=== PATIENT | female | born 1960 | race Caucasian/White ===

== ENCOUNTER → 2017-10-23 08:25 | Outpatient (CLI) | payer OTHER, SELFPAY ==
[2017-10-23 09:52] LABS: Color, Urine Yellow (Yellow); Glucose, Dipstick Normal (Normal); Ketone-Dipstick 5 mg/dl (Negative); Leukocyte Esterase-Dipstick 500 /ul (Negative); Nitrite-Dipstick Negative (Negative); Occult Blood-Urine 150 /ul (Negative); Protein-Dipstick 30 mg/dl (Negative); Urine Clarity Sl. Cloudy (Clear); Urine Urobilinogen 4 mg/dl (Normal)
[2017-10-23 09:54] LABS: Urine Bilirubin Dipstick 3 mg/dL (Negative)
[2017-10-23 10:42] LABS: BUN 17 mg/dL (7-18); Creatinine, Serum 0.72 mg/dL (0.55-1.02); EST Glomerular Filtration Rate 88 mL/min (>60); Glucose 101 mg/dL (74-106)
[2017-10-23 10:43] LABS: ALB/GLOB Ratio 0.9 RATIO (0.9-2.4); AST(SGOT) 17 U/L (15-37); Alanine Aminotransfer ALT/SGPT 33 U/L (13-56); Albumin, Serum 3.6 g/dL (3.2-5.0); Alkaline Phosphatase 62 U/L (45-117); Anion Gap 10 (5-15); BUN/Creat Ratio 23.6 RATIO (10-20); Chloride 102 mmol/L (98-107); Cholesterol 178 mg/dL (200); Est Glom Filt Rate - Afr Amer 106 mL/min (>60); High Density Lipoprotein 64 mg/dL; Potassium 3.7 mmol/L (3.5-5.1); Protein, Total 7.6 g/dL (6.4-8.2); Sodium Level 143 mmol/L (136-145); Triglycerides 115 mg/dL; Very Low Density Lipoprotein 23 mg/dL (5-40)
== END ==
PROVIDERS: Family Provider Family Medicine; PCP Family Medicine; Visit Provider Family Medicine
DX: Z00.00 Encounter for general adult medical examination without abnormal findings (principal)
CPT/HCPCS: 36415; 80053; 80061; 81002

== ENCOUNTER → 2017-10-27 08:12 | Outpatient (CLI) | payer OTHER, SELFPAY | PROVIDERS: Family Provider Family Medicine; PCP Family Medicine; Visit Provider Family Medicine | DX: R31.9 Hematuria, unspecified (principal) | CPT/HCPCS: 87077; 87086; 87088 ==

== ENCOUNTER 2017-10-28 10:28 | Observation (INO) | payer OTHER, SELFPAY ==
--- NOTE | 2017-10-09 06:39 | PCM.HP.BLA ---
History and Physical DATE OF SURGERY: 10/28/2017 SCHEDULED PROCEDURE: Right total knee arthroplasty HISTORY OF PRESENT ILLNESS: This is a 57-year-old female who has been having ongoing pain in bilateral knees for several years duration. Patient's pain is aching and sharp. She has increased pain going up and down stairs and walking any amount of distance. Patient has difficult time with activities of daily living including housework, shopping, and exercise. She has fallen secondary to her knee pain. Patient feels unsafe climbing on steps or stools. Patient has tried conservative measures consisting of rest, ice, heat, elevation, and cortisone injections with no relief in symptoms. Patient has also been through physical therapy and home exercises with no relief in symptoms. 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 Patient has tried oral medications consisting of Mobic, Celebrex, and steroids with no relief in symptoms. Patient has been worked up for rheumatoid arthritis which has been ruled out. Pain is primarily located over the medial joint line bilaterally. Patient denies previous surgery on bilateral knees. After failing conservative measures and discussing all treatment options with Dr. Wiliam Shea, the patient would like to proceed with a right total knee arthroplasty. We'll obtain surgical clearance from patient's primary care physician. She currently denies any chest pain, shortness of breath, fevers chills, or recent infections.. REVIEW OF SYSTEMS: ROS: Const: Denies anorexia, anxiety, change in appetite, fever, hard of hearing, vision problems and weight change. CV: Reports heart murmur, but denies chest pain, irregular heartbeat and peripheral vascular disease. Resp: Denies asthma, cough, pneumonia, sleep apnea, SOB, tuberculosis and wheezing. GI: Denies constipation, diarrhea, difficulty swallowing, heartburn, nausea, bloody stools and vomiting. : Urinary: denies incontinence. Musculo: Denies leg swelling, limp, trouble walking and weakness. Skin: Denies Raynaud's, history of shingles and tattoo. Neuro: Denies ambulatory dysfunction, dizziness, numbness/tingling and tremor. Psych: Denies anxiety, depression, insomnia, mental illness and stress. Raymond/Lymph: Denies anemia, bleeding/bruising tendency and past transfusion. Reviewed, no changes. PAST MEDICAL HISTORY: Advance Care Plan: Other Directive, LIVING WILL Effective Date: 09/22/2016 Other Directive, POA Effective Date: 09/22/2016 PMH: Medical Problems: Arthritis, High Blood Pressure Accidents: RT Foot Injury - (05/28/2012) WORK RELATED Surgical Hx: Section - 1982, 1986 Tubal Ligation - (1990) Anesthesia Complications: None Assistive Devices: Glasses Reviewed, no changes. 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 Personal Habits: Smoking: Patient is a former smoker.Cigarette Use: Former.Alcohol: Denies use.Drug Use: Denies Use.Enjoy Exercising: Daily. Reviewed, no changes. VITALS: Ht: 65.5 Wt: 268lb Wt k.565 BMI: 43.9 BP: 164/88 Pulse: 74 Resp: 16 T: 97.7 T: 36.5C ALLERGIES: No Known Drug Allergy MEDICATIONS: Methylprednisolone 4 mg as directed, Celecoxib 200 mg 1 tab by mouth daily with food, Prozac 20 mg 3 caps PO daily, Indapamide 1.25 mg 1 tab PO daily, Hyzaar 50-12.5 mg 1po qday PRE-OP EXAM: General appearance:NORMAL Other: Eyes: Conjunctivae and lids: NORMAL Pupils: ERR Ears, Nose, Mouth, and Throat: NORMAL Other: Inspection of lips, teeth and gums: NORMAL Other: Neck: Examination of neck: no masses noted. Respiratory: Assessment of respiratory effort: NORMAL Other: Auscultation of lungs: clear to auscultation no wheezes, rhonchi or rales. Cardiovascular: Auscultation of heart: regular rate and rhythm, no murmurs, gallops or rubs. Exam of carotid arteries: NORMAL Other: Gastrointestinal: Exam of abdomen: soft, nontender, nondistended bowel sounds present. PHYSICAL EXAMINATION: Patient walks with a limping gait. She has tenderness to palpation on the right knee over the medial joint line. Range of motion is 0 of extension to 110 of flexion. Patient has stable varus valgus stress test at 30. Pseudo-laxity appreciated. Sensation intact to light touch. Right knee is cool to touch without erythema or signs of infection. IMAGING STUDIES: X-rays were obtained at [facility] on October 08, 2017 of bilateral knees including weightbearing bilateral AP/tunnel, bilateral sunrise, and bilateral lateral views. There are no acute findings for fracture or dislocation. No lytic or blastic lesions. Right knee reveals severe joint space narrowing with [id number] of the medial compartment with subchondral sclerosis and osteophyte formation. Bryan view reveals joint space narrowing, subchondral sclerosis, osteophyte formation of the patellofemoral joint. Left knee reveals severe joint space narrowing with [id number] of the medial compartment was subchondral sclerosis and osteophyte formation. Bryan view also reveals joint space narrowing, subchondral sclerosis and osteophyte formation at patellofemoral joint. IMPRESSION: 1. Severe right knee osteoarthritis 2. Severe left knee osteoarthritis 3. Hypertension PLAN: Dr. Shea did discuss and review with the patient all treatment options including surgical versus nonsurgical options. Patient does wish to proceed with the above-stated procedure. Potential risks, benefits, and complications of the procedure were discussed in detail including but not limited to , infection, nerve and blood vessel damage, persistent pain, numbness, tingling, paresthesias, blood clot, pulmonary embolism, and requirement for possible further surgery. The patient expressed full understanding and has no further questions for the doctor. Patient does agree to proceed with the above-stated procedure and has signed the surgery consent form. ___ I have re-examined the patient. There are no clinical changes since date of exam. ___ See progress notes for changes. ___ Dictated on admission Date: Time: Signature:
[2017-10-14 14:17] VITALS: BP 148/81; PULSE 74; RESP 16; TEMP 36.9; O2SAT 95; BMI 46.0
[2017-10-14 15:10] LABS: Absolute Lymphocyte Count 4.51 X10^3/ul (0.83-4.51); Absolute Neutrophil Count 5.6 X10^3/uL (2.0-7.7); Basophil# 0.05 X10^3/uL; Basophil% 0.4 % (0-1); Eosinophil# 0.33 X10^3/uL; Hematocrit 40.2 % (37-47); Hemoglobin 12.8 g/dl (12.0-15.0); Lymphocyte # 4.51 X10^3/ul (4.0); Lymphocyte % 40.3 % (19-41); Mean Corp Hgb Conc 31.8 g/gl (32-36); Mean Corpuscular Volume 94.1 fL (81-99); Mean Platelet Vol. 9.9 fl (6.2-12.0); Monocyte# 0.71 X10^3/uL; Monocyte% 6.4 % (0-10); Neutrophil # 5.56 X10^3/uL (2.7-7.7); Neutrophil % 49.7 % (47-70); Platelet Count 303 K/mm3 (150-450); RBC Distribution Width CV 13.3 % (11.6-14.6); RBC Distribution Width SD 45.5 fl (35.1-43.9); Red Blood Count 4.27 M/mm3 (4.2-5.4); White Blood Count 11.2 K/mm3 (4.4-11.0)
[2017-10-14 15:20] LABS: Anion Gap 10 (5-15); BUN 19 mg/dL (7-18); BUN/Creat Ratio 25.5 RATIO (10-20); Calcium,Total 9.2 mg/dL (8.5-10.1); Chloride 101 mmol/L (98-107); Creatinine, Serum 0.75 mg/dL (0.55-1.02); EST Glomerular Filtration Rate 85 mL/min (>60); Est Glom Filt Rate - Afr Amer 102 mL/min (>60); Estimated Creatinine Clearance 72.68 ml/min; Glucose 114 mg/dL (74-106); Potassium 3.1 mmol/L (3.5-5.1); Sodium Level 140 mmol/L (136-145)
[2017-10-14 15:21] LABS: POSITIVE COUNT NO; POSITIVE DIFFERENTIAL NO; POSITIVE MORPHOLOGY NO
--- NOTE | 2017-10-23 13:08 | CASEMGMT ---
Voicemail left for patient to return call regarding discharge needs after upcoming surgery. Liv Villanueva LPN Clinical Support
--- NOTE | 2017-10-23 13:31 | CASEMGMT ---
Patient returned phone call. Patient plans to return home after surgery, does have someone who will be able to assist. Has outpatient physical therapy set up for 11/02/17 at [facility] and has someone that's able to assist with transportation. Patient has a walker, toilet riser, shower seat. Patient has 3 steps into home and bed/bath are on 1st floor. Informed patient that RN-CM will likely follow up while in hospital. Liv Villanueva LPN Clinical Support
[2017-10-28] VITALS (11 sets, daily range): BP systolic 148–164; BP diastolic 66–90; PULSE 68–81; RESP 16–18; TEMP 36.6–37.3; O2SAT 90–99; BMI 46.0
[2017-10-28] MEDS: oxyCODONE HCl Cr 10 MG Tablet PO (09:12)
[2017-10-28] MEDS: Celecoxib 200 MG Capsule 400 MG PO (09:12)
[2017-10-28] MEDS: Acetaminophen 500 MG Tablet 1000 MG PO ×2 (09:12→22:05)
[2017-10-28] MEDS: Lactated Ringers 1,000 ML 999 ML IV ×2 (09:39→13:07)
--- NOTE | 2017-10-28 10:29 | RAD_ITS ---
STUDY: X-RAY - RIGHT KNEE REASON FOR EXAM: Female, 57 years old. Postop from right knee replacement surgery TECHNIQUE: 2 view(s) of the knee. COMPARISON: None. FINDINGS: Patient is status post right knee replacement surgery. Components demonstrate anatomic alignment. No plain film evidence of postoperative complication. Normal postoperative soft tissue swelling, and subcutaneous emphysema noted. RAD/Knee 1 or 2 Views IMPRESSION: Replaced right knee joint demonstrates anatomic alignment. No plain film evidence of postoperative complication Electronically Signed: Tank Jackson MD at 13:05 EDT , Service support ,
--- NOTE | 2017-10-28 11:42 | PCM.OPRPT ---
Report of Operation Date of Procedure: 10/28/17 Pre-Operative Diagnosis: Right knee primary Osteoarthritis Post-Operative Diagnosis: Right knee primary Osteoarthritis Surgery/Procedure Performed:: Right total knee replacement Description of Surgical Findings:: Stable knee with good patella tracking retail wireless sales representative: Keturah Graham Type of Anesthesia:: Spinal Anesthesiologist: Fermin Santillan Special Medications: 2 g Ancef, 1 g TXA at incision, 1 g TXA closure, 10 mg Decadron, joint cocktail (5 mg Duramorph, 30 mL of 0.5% Ropivicaine, 1000 units of epinephrine, 30 mg of Toradol) Specimen's removed: Bony cuts Estimated Blood Loss (mL): 50 Fluids Replaced: 1300 ml crystalloid Description of Procedure: Implants used: 1. [place] size 3 press-fit triathlon cruciate retaining distal femoral component 2. [place] size 3 press-fit tibial baseplate 3. [place] X3 9 mm CS polyethylene 4. Bala X3 35 mm asymmetric patella Brief history operative indications: 57-year-old f with history of Right knee osteoarthritis with radiographic findings with loss of joint space, osteophyte formation and subchondral sclerosis. Failed conservative measures as mentioned in the H&P. Discussion of total knee arthroplasty as well as risk and benefits were discussed the patient including but not limited to blood loss, DVTs, PEs, neurovascular damage, general risk of anesthesia including loss of life, and stiffness or instability were discussed with patient. Patient demonstrated understanding and was able to sign informed consent. Procedure: On the date of procedure patient's right lower extremity was marked in the preoperative area. The patient was then taken back to the operating room where the patient was placed on the table in the supine position. All bony prominences were identified a well-padded. Anesthesia assumed control of the C-spine and airway and remained controlled throughout the remainder of the procedure. A tourniquet was placed on the right upper thigh and the leg was prepped in a sterile fashion. The surgeon then scrubbed at this time .Upon reentering the room right lower extremity was draped in a standard orthopedic fashion. A timeout was then called and everyone agreed upon the side, the site, the procedure to be performed, patient's identity and antibiotics given. Esmarch bandage was used to exsanguinate the extremity and the tourniquet was placed up to 250 mmHg with the knee in flexion. A midline skin incision was made and sharp dissection was taken down through skin subcutaneous tissue and fat. The standard medial parapatellar incision was made and the patella was subluxed laterally. The standard deep MCL release was done and the fat pad was resected. Next our attention was directed to the femur. Navigation pins were placed, navigation was registered. The distal femoral cutting block was pinned into place and 8 mm of distal femur resection was completed. The distal femoral cut was verified with navigation. The knee was then placed in deep flexion in the standard [place] sizing guide was used to place the femoral component in 3? external rotation based on the posterior condyles. A size 3 4-in-1 cutting block was selected and pinned into place. The anterior cut was then made and checked for notching. The subsequent anterior chamfer cuts, posterior condylar cuts and posterior chamfer cuts were made while ensuring the MCL and LCL were protected. Our attention was then turned to the tibia where the navigation pins were placed, navigation was registered. [place] tibial cutting guide was used to make the appropriate tibial cut 90 degrees from the mechanical axis. Navigation was then used to verify the cut. A size 3 tibial base plate was selected. the knee was flexed to 90 degrees and the soft tissues and posterior osteophytes were removed from the joint. 40 cc of the periarticular injection was injected into the posterior medial corner of the joint. The appropriate trials were then placed on the femur and tibia. A trial polyethylene was trialed to ensure proper balancing and stability of the knee. Patella tracking, was then verified and corrected appropriately as needed. The appropriate tibial internal rotation was then marked with a bovie. Our attention was then directed to the patella. The patella was everted and a flat resection was made. The lug holes were drilled and the patella trial was placed. Patellar tracking was checked and deemed appropriate. Once we were happy lug holes were drilled for the femur and trial components were removed. Cement was mixed at this time and the tourniquet was let down the tibia was subluxed and pinned into place and the keel was punched and the canal was reamed. Final components were verified and opened, and cement was mixed in a vacuum. [place] Simplex cement was used. The wound was copiously irrigated with normal saline. When the cement was ready the press-fit components were impacted into place starting with the tibia, femur and finally the patella cemented into place. The trial poly component was placed and the knee was placed in full extension. All excess cement was removed in the process. Once the cement had cured the tracking, alignment and balance were verified and a size 9 mm polyethylene component was placed. Once the final components were placed the wound was copiously irrigated with normal saline solution and the periarticular injection was given. The wound was closed in a layer gallardo fashion using #1 vicryl interrupted sutures for the arthrotomy, 2-0 interrupted Vicryl suture for the subcuticular layer and torres for final skin closure. A sterile compressive dressing was then placed. The patient was then awakened from anesthesia, transferred to the rvining and transferred to the PACU for recovery. Post op plan DVT ppx: ASA 81 mg, thigh high compression stockings Follow up: in office in 2 weeks for wound check PT: to start POD #0 at hospital, outpatient PT should be arranged. Grafts/Implants Used: Bala triathlon total knee - Complications None - Admit VTE Documentation VTE Present on Admission: No VTE Mechan Device Prophylaxis: SCD's, Thigh High BATOOL Hose VTE Pharm Prophylaxis ordered?: Yes
--- NOTE | 2017-10-28 11:45 | OP.PCM_ITS ---
Report of Operation Date of Procedure: 10/28/17 Pre-Operative Diagnosis: Right knee primary Osteoarthritis Post-Operative Diagnosis: Right knee primary Osteoarthritis Surgery/Procedure Performed:: Right total knee replacement Description of Surgical Findings:: Stable knee with good patella tracking residence leasing agent: Keturah Graham Type of Anesthesia:: Spinal Anesthesiologist: Fermin Santillan Special Medications: 2 g Ancef, 1 g TXA at incision, 1 g TXA closure, 10 mg Decadron, joint cocktail (5 mg Duramorph, 30 mL of 0.5% Ropivicaine, 1000 units of epinephrine, 30 mg of Toradol) Specimen's removed: Bony cuts Estimated Blood Loss (mL): 50 Fluids Replaced: 1300 ml crystalloid Description of Procedure: Implants used: 1. [place] size 3 press-fit triathlon cruciate retaining distal femoral component 2. [place] size 3 press-fit tibial baseplate 3. [place] X3 9 mm CS polyethylene 4. Bala X3 35 mm asymmetric patella Brief history operative indications: 57-year-old f with history of Right knee osteoarthritis with radiographic findings with loss of joint space, osteophyte formation and subchondral sclerosis. Failed conservative measures as mentioned in the H&P. Discussion of total knee arthroplasty as well as risk and benefits were discussed the patient including but not limited to blood loss, DVTs, PEs, neurovascular damage , general risk of anesthesia including loss of life, and stiffness or instability were discussed with patient. Patient demonstrated understanding and was able to sign informed consent. Procedure: On the date of procedure patient's right lower extremity was marked in the preoperative area. The patient was then taken back to the operating room where the patient was placed on the table in the supine position. All bony prominences were identified a well-padded. Anesthesia assumed control of the C- spine and airway and remained controlled throughout the remainder of the procedure. A tourniquet was placed on the right upper thigh and the leg was prepped in a sterile fashion. The surgeon then scrubbed at this time .Upon reentering the room right lower extremity was draped in a standard orthopedic fashion. A timeout was then called and everyone agreed upon the side, the site, the procedure to be performed, patient's identity and antibiotics given. Esmarch bandage was used to exsanguinate the extremity and the tourniquet was placed up to 250 mmHg with the knee in flexion. A midline skin incision was made and sharp dissection was taken down through skin subcutaneous tissue and fat. The standard medial parapatellar incision was made and the patella was subluxed laterally. The standard deep MCL release was done and the fat pad was resected. Next our attention was directed to the femur. Navigation pins were placed, navigation was registered. The distal femoral cutting block was pinned into place and 8 mm of distal femur resection was completed. The distal femoral cut was verified with navigation. The knee was then placed in deep flexion in the standard [place] sizing guide was used to place the femoral component in 3? external rotation based on the posterior condyles. A size 3 4-in-1 cutting block was selected and pinned into place. The anterior cut was then made and checked for notching. The subsequent anterior chamfer cuts, posterior condylar cuts and posterior chamfer cuts were made while ensuring the MCL and LCL were protected. Our attention was then turned to the tibia where the navigation pins were placed , navigation was registered. [place] tibial cutting guide was used to make the appropriate tibial cut 90 degrees from the mechanical axis. Navigation was then used to verify the cut. A size 3 tibial base plate was selected. the knee was flexed to 90 degrees and the soft tissues and posterior osteophytes were removed from the joint. 40 cc of the periarticular injection was injected into the posterior medial corner of the joint. The appropriate trials were then placed on the femur and tibia. A trial polyethylene was trialed to ensure proper balancing and stability of the knee. Patella tracking, was then verified and corrected appropriately as needed. The appropriate tibial internal rotation was then marked with a bovie. Our attention was then directed to the patella. The patella was everted and a flat resection was made. The lug holes were drilled and the patella trial was placed. Patellar tracking was checked and deemed appropriate. Once we were happy lug holes were drilled for the femur and trial components were removed. Cement was mixed at this time and the tourniquet was let down the tibia was subluxed and pinned into place and the keel was punched and the canal was reamed. Final components were verified and opened, and cement was mixed in a vacuum. [place] Simplex cement was used. The wound was copiously irrigated with normal saline. When the cement was ready the press-fit components were impacted into place starting with the tibia, femur and finally the patella cemented into place. The trial poly component was placed and the knee was placed in full extension. All excess cement was removed in the process. Once the cement had cured the tracking , alignment and balance were verified and a size 9 mm polyethylene component was placed. Once the final components were placed the wound was copiously irrigated with normal saline solution and the periarticular injection was given. The wound was closed in a layer gallardo fashion using #1 vicryl interrupted sutures for the arthrotomy, 2-0 interrupted Vicryl suture for the subcuticular layer and torres for final skin closure. A sterile compressive dressing was then placed. The patient was then awakened from anesthesia, transferred to the rlovilia and transferred to the PACU for recovery. Post op plan DVT ppx: ASA 81 mg, thigh high compression stockings Follow up: in office in 2 weeks for wound check PT: to start POD #0 at hospital, outpatient PT should be arranged. Grafts/Implants Used: [place] triathlon total knee - Complications None - Admit VTE Documentation VTE Present on Admission: No VTE Mechan Device Prophylaxis: SCD's, Thigh High BATOOL Hose VTE Pharm Prophylaxis ordered?: Yes
--- NOTE | 2017-10-28 12:24 | EKG12_ITS ---
Test Reason : POST OP Blood Pressure : / mmHG Vent. Rate : 081 BPM Atrial Rate : 081 BPM P-R Int : 198 ms QRS Dur : 080 ms QT Int : 388 ms P-R-T Axes : 073 025 232 degrees QTc Int : 450 ms Normal sinus rhythm ST & T wave abnormality, consider anterolateral ischemia Abnormal ECG When compared with ECG of 14-OCT-2017 13:29, ST now depressed in Anterior leads Nonspecific T wave abnormality now evident in Inferior leads T wave inversion now evident in Anterior leads Confirmed by BRODIE ANTHONY, MCKAY ([id number]), pictures editor LINDA BARR ([id number]) on 10/29/2017 2:39:13 PM Referred By: Wiliam Shea Confirmed By:MCKAY CALLOWAY MD
[2017-10-28] MEDS: Scopolamine 1mg/72hr Patch 1 PATCH TD (13:08)
[2017-10-28] MEDS: Lactated Ringers 1,000 ML 125 ML IV (16:39)
[2017-10-28] MEDS: proMETHazine 25 MG/ML Syringe 12.5 MG IM (16:40)
[2017-10-28] MEDS: oxyCODONE 5 MG Tablet PO ×2 (16:41→22:07)
[2017-10-28] MEDS: 0.9% NaCl Peripheral Flush Adult/Peds IV (16:41)
[2017-10-28] MEDS: Cefazolin 1 GM/50 ML BAG IV (18:28)
[2017-10-28] MEDS: Ketorolac 15 MG/ML Vial IV (21:10)
[2017-10-28] MEDS: Aspirin 81 MG TAB.CHEW PO (22:05)
[2017-10-28] MEDS: FLUoxetine 20 MG Capsule 60 MG PO (22:06)
[2017-10-28] MEDS: Losartan Potassium 50 MG Tablet PO (22:07)
[2017-10-28] MEDS: Senna/Docusate Sodium 1 Tablet 2 TABLET PO (22:07)
[2017-10-28] MEDS: HYDROCHLOROTHIAZIDE 12.5 MG CAPSULE PO (22:07)
[2017-10-28] MEDS: Indapamide 2.5 MG Tablet 1.25 MG PO (22:12)
[2017-10-29 02:30] VITALS: BP 144/81; PULSE 65; RESP 16; TEMP 37.2; O2SAT 96
[2017-10-29] MEDS: oxyCODONE 5 MG Tablet PO ×3 (02:32→12:39)
[2017-10-29] MEDS: Cefazolin 1 GM/50 ML BAG IV (02:33)
[2017-10-29] MEDS: Ketorolac 15 MG/ML Vial IV (06:27)
[2017-10-29] MEDS: Acetaminophen 500 MG Tablet 1000 MG PO ×2 (06:29→13:51)
[2017-10-29 06:30] LABS: Hematocrit 34.4 % (37-47); Mean Corpuscular Hgb 30.6 pg (27.0-32.0); Mean Corpuscular Volume 95.8 fL (81-99); Mean Platelet Vol. 9.9 fl (6.2-12.0); Platelet Count 231 K/mm3 (150-450); RBC Distribution Width CV 13.1 % (11.6-14.6); RBC Distribution Width SD 44.1 fl (35.1-43.9); Red Blood Count 3.59 M/mm3 (4.2-5.4); White Blood Count 9.2 K/mm3 (4.4-11.0)
[2017-10-29 06:31] LABS: Scan Indicated on CBC? Y/N NO
[2017-10-29] MEDS: Ondansetron 4 MG/2 ML Vial IV (06:39)
[2017-10-29 06:45] LABS: Anion Gap 7 (5-15); BUN 16 mg/dL (7-18); BUN/Creat Ratio 22.5 RATIO (10-20); Calcium,Total 8.6 mg/dL (8.5-10.1); Chloride 100 mmol/L (98-107); Creatinine, Serum 0.71 mg/dL (0.55-1.02); EST Glomerular Filtration Rate 90 mL/min (>60); Est Glom Filt Rate - Afr Amer 108 mL/min (>60); Estimated Creatinine Clearance 76.77 ml/min; Glucose 116 mg/dL (74-106); Potassium 3.8 mmol/L (3.5-5.1); Sodium Level 141 mmol/L (136-145)
[2017-10-29] MEDS: 0.9% NaCl Peripheral Flush Adult/Peds IV (07:42)
[2017-10-29] MEDS: Morphine 2 MG/ML Syringe IV (07:42)
--- NOTE | 2017-10-29 09:35 | PCM.PN.ORT ---
Subjective: The patient was in physical therapy upon examination. Patient denies any chest pain, shortness of breath, dizziness, lightheadedness, nausea or vomiting, or calf pain. Patient does report pain in the right knee as well as right thigh. Medications are helpful, reports her pain to be 4-5/10. No adverse overnight events. Patient states she does wish to try to go home this afternoon if pain is controlled and she is tolerating physical therapy. Objective: Vital signs stable and afebrile. Patient is able to plantarflex and dorsiflex actively. Sensation is intact to light touch to saphenous, sural, superficial and deep peroneal, and tibial distribution. Dressing is with minimal discharge. The proximal dressing has rolled up. Nursing will place new dressing. Negative Homans bilaterally, negative signs and symptoms of DVT. - Physical Exam General: Alert, Oriented x3, Cooperative, No apparent distress Vital Signs Temp Pulse Resp BP Pulse Ox 98.9 F 65 16 144/81 H 96 10/29/17 02:30 10/29/17 02:30 10/29/17 02:30 10/29/17 02:30 10/29/17 02:30 Oxygen Delivery Method Room Air Weight: 127.6 kg Body Mass Index (BMI) 46.0 Intake and Output for Last 24 Hours 10/27/17 10/28/17 10/29/17 23:59 23:59 23:59 Intake Total 3526 / 3526 1632 / 1632 Balance 3526 / 3526 1632 / 1632 Laboratory Tests Past 24 Hrs 10/29/17 10/29/17 05:55 05:55 WBC 9.2 RBC 3.59 L Hgb 11.0 L Hct 34.4 L MCV 95.8 MCH 30.6 MCHC 32.0 RDW 13.1 RDW Differential 44.1 H Plt Count 231 MPV 9.9 Sodium 141 Potassium 3.8 Chloride 100 Carbon Dioxide 34.0 H Anion Gap 7 BUN 16 Creatinine 0.71 Estim Creat Clear Calc 76.77 Est GFR (MDRD) Af Amer 108 Est GFR (MDRD) Non-Af 90 BUN/Creatinine Ratio 22.5 H Glucose 116 H Calcium 8.6 Medical Necessity - Tobacco Use Smoking Status: Former smoker Assessment/Plan 1. S/P right total knee arthroplasty POD #1 2. Continue Pain Medications: Tylenol and OxyIR 3. DVT Prophylaxis: Aspirin 81 mg twice daily ?4 weeks 4. PT/OT: Weightbearing as tolerated 5. H & H: 11.0/34.4, asymptomatic 6. Encouraged Incentive Spirometry 7. Disposition: Plan will be for possible discharge home today if pain is controlled on medications and patient tolerates physical therapy. Prescriptions will be E scribed to [facility]. Patient will follow-up per postop instructions.
--- NOTE | 2017-10-29 09:42 | PCM.DC.TKR ---
Discharge Diet: No Restrictions Discharge Activity: May Not Drive May shower in (days): 1 - Turned dressing away from water Ice area for (Minutes): 20 - every hour while awake. Weight Bearing Status: Weight bearing as tolerated Elevate: Operative Extremity Additional Activity Instructions:: Wear elastic stockings for 2 weeks after your surgery. Call your doctor if your incision/area has: Continuous Slow Oozing, Sudden Increased Bleeding, Increased Pain/ Swelling, Increased Redness, Foul Smelling Discharge Call your doctor if you observe: Fever of 101 or Higher, Coldness, Increased Pain, Numbness or Tingling, Change in Color, Calf discomfort, Uncontrolled pain Remove Dressing in (days):: 4 - Okay to remove dressing on November 02, 2017 Additional Instructions: Follow [facility] [place] postop instructions Allergies/Adverse Reactions: Allergies No Known Allergies Allergy (Verified 10/14/17 14:01) Medications to take at Discharge Celecoxib [Celebrex] 200 mg PO BID 10/14/17 Fluoxetine HCl [Prozac] 60 mg PO QHS 10/14/17 Indapamide 1.25 mg PO QHS 10/14/17 Losartan/Hydrochlorothiazide [Losartan-Hctz 50-12.5 mg Tab] 1 each PO QHS 10/14/17 Potassium Chloride [Klor-Con M20] 20 meq PO DAILY 10/20/17 Acetaminophen [Tylenol] 1,000 mg PO Q8 #90 tab 10/29/17 Aspirin [Aspirin, Baby] 81 mg PO BID #60 tab.chew 10/29/17 Famotidine [Pepcid] 20 mg PO DAILY #30 tab 10/29/17 Oxycodone [Oxyir] 5 - 10 mg PO Q4H PRN PRN 7 Days #80 tablet 10/29/17 Senna/Docusate Sodium [Senokot-S] 2 tab PO BID #20 tab 10/29/17 The following prescriptions were given: Oxycodone [Oxyir] 5 - 10 mg PO Q4H PRN PRN 7 Days #80 tablet PRN Reason: Mod-Severe Pain (-11/18) Acetaminophen [Tylenol] 1,000 mg PO Q8 #90 tab Famotidine [Pepcid] 20 mg PO DAILY #30 tab Aspirin [Aspirin, Baby] 81 mg PO BID #60 tab.chew Senna/Docusate Sodium [Senokot-S] 2 tab PO BID #20 tab Primary Care Physician: Jayjay Capps MD [Primary Care Provider] - Test Results: Test results from this visit will be discussed in further detail at your follow-up appointment, if applicable. Please Follow Up With: [facility] When: 11/02/17 @ 9:30 am Please Follow Up With: Jayjay Díaz PA-C When: 11/11/17 @ 10:00 am
[2017-10-29 09:43] VITALS: BP 125/70; PULSE 75; RESP 16; TEMP 36.8; O2SAT 98
[2017-10-29] MEDS: Famotidine 20 MG Tablet PO (09:53)
[2017-10-29] MEDS: Aspirin 81 MG TAB.CHEW PO (09:53)
[2017-10-29] MEDS: Senna/Docusate Sodium 1 Tablet 2 TABLET PO (09:54)
--- NOTE | 2017-10-29 12:09 | CASEMGMT ---
RN CM Note: Intro role of CM to patient in room. Reviewed dc plans of home on dc with outpt PT. Pt has equipment for home, transportation and appt for PT on thursday. Rickey LIMA RN ACM
[2017-10-29 13:52] VITALS: BP 154/71; PULSE 76; RESP 16; TEMP 37.3; O2SAT 96
== END 2017-10-29 16:12 | disposition home or self-care (01) ==
PROVIDERS: Admitting Provider Specialist; Family Provider Family Medicine; PCP Family Medicine; Visit Provider Specialist
PROC: (CPT 27447; principal; 2017-10-28 10:15)
DX: M17.0 Bilateral primary osteoarthritis of knee (principal); Z87.891 Personal history of nicotine dependence; I10 Essential (primary) hypertension; Z79.899 Other long term (current) drug therapy; F32.9 Major depressive disorder, single episode, unspecified
CPT/HCPCS: 01400; 27447; 64445; 36415; 73560; 80048; 85025; 85027; 87077; 87081; 93005; 96361; 96365; 96366; 96375; 96376; 97110; 97162; 97165; 97530; 97535; 99218; 99251; C1776; J7120; A4216; G0378; G0379; G0463; J2405

== ENCOUNTER 2018-02-03 12:23 | Observation (INO) | payer OTHER, SELFPAY ==
[2017-10-28 09:04] VITALS: BMI 46.0
--- NOTE | 2018-01-21 13:36 | HP.PCM_ITS ---
History and Physical DATE OF SURGERY: 02/03/2018 SCHEDULED PROCEDURE: Left total knee arthroplasty HISTORY OF PRESENT ILLNESS: This is a 57-year-old female who has been having ongoing pain in bilateral knees for proximally for years. Patient recently underwent a right total knee arthroplasty on October 28, 2017. She is doing well from this procedure. She continues to have ongoing pain in the left knee. Pain is increased with going up and down stairs and walking any amount of distance. She has difficult time with activities of daily living including housework, shopping, and leisure activities. Patient has tripped/stumbled secondary to her knee pain. She has tried conservative measures consisting of rest, ice, heat, elevation, corticosteroid injection with no relief in symptoms. Patient has had formal physical therapy and home exercises with no relief in symptoms. She has been to [facility] managed care with no relief in symptoms. She has tried oral medications consisting of [id number] aspirin, prednisone, Celebrex with minimal to no relief. Patient denies previous surgery on the left knee. Patient denies any recent change in medical history. No recent chest pain, shortness of breath, fevers chills, recent infections. After failing conservative measures and discussing treatment options with Dr. Wiliam Shea, the patient would like to proceed with a left total knee arthroplasty. REVIEW OF SYSTEMS: ROS: Const: Denies anorexia, anxiety, change in appetite, fever, hard of hearing, vision problems and weight change. CV: Reports heart murmur, but denies chest pain, irregular heartbeat and peripheral vascular disease. Resp: Denies asthma, cough, pneumonia, sleep apnea, SOB, tuberculosis and wheezing. GI: Denies constipation, diarrhea, difficulty swallowing, heartburn, nausea, bloody stools and vomiting. : Urinary: denies incontinence. Musculo: Denies leg swelling, limp, trouble walking and weakness. Skin: Denies Raynaud's, history of shingles and tattoo. Neuro: Denies ambulatory dysfunction, dizziness, numbness/tingling and tremor. Psych: Reports depression and stress, but denies anxiety, insomnia and mental illness. Raymond/Lymph: Denies anemia, bleeding/bruising tendency and past transfusion. Reviewed, no changes. PAST MEDICAL HISTORY: Advance Care Plan: Other Directive, LIVING WILL Effective Date: 09/22/2016 Other Directive, POA Effective Date: 09/22/2016 PMH: Medical Problems: Arthritis, High Blood Pressure Accidents: RT Foot Injury - (05/28/2012) WORK RELATED Surgical Hx: Section - 1982, 1986 Tubal Ligation - (1990) RT TKR - (10/28/2017) SAW @ [facility] Anesthesia Complications: None Assistive Devices: Glasses Reviewed, no changes. 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 Personal Habits: Smoking: Patient is a former smoker.Cigarette Use: Former.Alcohol: Denies use.Drug Use: Denies Use.Enjoy Exercising: Daily. Reviewed, no changes. VITALS: Ht: 67 Wt: 260lb Wt [id number] BMI: 40.7 BP: 142/84 Pulse: 68 Resp: 16 T: 98.6 T: 37.0C ALLERGIES: No Known Drug Allergy MEDICATIONS: Potassium 1 po daily, Prozac 20 mg 3 caps PO daily, Indapamide 1.25 mg 1 tab PO daily, Hyzaar 50-12.5 mg 1po qday, Tylenol Extra Strength 500 mg 2 by mouth every 8 hours PRE-OP EXAM: General appearance:NORMAL Other: Eyes: Conjunctivae and lids: NORMAL Pupils: ERR Ears, Nose, Mouth, and Throat: NORMAL Other: Inspection of lips, teeth and gums: NORMAL Other: Neck: Examination of neck: no masses noted. Respiratory: Assessment of respiratory effort: NORMAL Other: Auscultation of lungs: clear to auscultation no wheezes, rhonchi or rales. Cardiovascular: Auscultation of heart: regular rate and rhythm, no murmurs, gallops or rubs. Exam of carotid arteries: NORMAL Other: Gastrointestinal: Exam of abdomen: soft, nontender, nondistended bowel sounds present. Lymphatic: Palpation of nodes in neck: NORMAL Other: Palpation of nodes in Axillae: NORMAL Other: Neurological: see below Psychiatric: Orientation to time, place and person: NORMAL Other: Mood and affect: NORMAL Other: PHYSICAL EXAMINATION: Left knee is cool to touch without erythema. No signs of infection. Range of motion left knee 0 of extension to 110 flexion. Patient is stable to varus and valgus stress test. Negative anterior/posterior drawer. Negative Homans bilaterally. Good strength. Sensation intact to light touch. Right knee incision well-healed without erythema or signs of infection. IMAGING STUDIES: X-rays were obtained on October 08, 2017 [facility] [place] of the left knee which does reveal severe joint space narrowing with [id number] of the medial compartment with subchondral sclerosis and osteophyte formation. [place] view also reveals joint space narrowing with subchondral sclerosis and osteophyte formation of the patellofemoral joint. IMPRESSION: 1. Severe left knee osteoarthritis 2. Three-month postop from right total knee arthroplasty 3. Hypertension PLAN: Dr. Wiliam Shea did discuss and review with the patient all treatment options including surgical versus nonsurgical options. Patient does wish to proceed with the above-stated procedure. Potential risks, benefits, and complications of the procedure were discussed in detail including but not limited to , infection, nerve and blood vessel damage, persistent pain, numbness, tingling, paresthesias, blood clot, pulmonary embolism, and requirement for possible further surgery. The patient expressed full understanding and has no further questions for the doctor. Patient does agree to proceed with the above-stated procedure and has signed the surgery consent form. This dictation was created using voice recognition software. Phonetic and/or grammatical errors may exist.. ___ I have re-examined the patient. There are no clinical changes since date of exam. ___ See progress notes for changes. ___ Dictated on admission Date: Time: Signature:
[2018-01-21 15:16] VITALS: BP 154/88; PULSE 76; RESP 18; TEMP 37.6; O2SAT 94; BMI 42.0
--- NOTE | 2018-01-21 15:51 | EKG12_ITS ---
Test Reason : Blood Pressure : / mmHG Vent. Rate : 074 BPM Atrial Rate : 074 BPM P-R Int : 168 ms QRS Dur : 086 ms QT Int : 402 ms P-R-T Axes : 060 -03 106 degrees QTc Int : 446 ms Normal sinus rhythm Possible Left atrial enlargement Nonspecific T wave abnormality Abnormal ECG Confirmed by BRODIE ANTHONY, MCKAY ([id number]), assistant editor LINDA BARR ([id number]) on 01/25/2018 7:37:07 AM Referred By: Wiliam Shea Confirmed By:MCKAY CALLOWAY MD
[2018-01-21 16:22] LABS: Basophil# 0.03 X10^3/uL; Basophil% 0.4 % (0-1); Eosinophil# 0.14 X10^3/uL; Eosinophils% 1.7 % (0-5); Hematocrit 39.1 % (37-47); Hemoglobin 12.5 g/dl (12.0-15.0); Lymphocyte % 30.7 % (19-41); Mean Corpuscular Hgb 29.9 pg (27.0-32.0); Mean Corpuscular Volume 93.5 fL (81-99); Mean Platelet Vol. 10.4 fl (6.2-12.0); Monocyte# 0.47 X10^3/uL; Monocyte% 5.8 % (0-10); Neutrophil % 61.3 % (47-70); Platelet Count 302 K/mm3 (150-450); RBC Distribution Width CV 13.4 % (11.6-14.6); RBC Distribution Width SD 44.3 fl (35.1-43.9); Red Blood Count 4.18 M/mm3 (4.2-5.4); White Blood Count 8.2 K/mm3 (4.4-11.0)
[2018-01-21 16:24] LABS: POSITIVE COUNT NO; POSITIVE DIFFERENTIAL NO; POSITIVE MORPHOLOGY NO
[2018-01-21 17:19] LABS: Anion Gap 11 (5-15); BUN 12 mg/dL (7-18); BUN/Creat Ratio 15.4 RATIO (10-20); Calcium,Total 8.8 mg/dL (8.5-10.1); Chloride 100 mmol/L (98-107); Creatinine, Serum 0.78 mg/dL (0.55-1.02); EST Glomerular Filtration Rate 80 mL/min (>60); Est Glom Filt Rate - Afr Amer 97 mL/min (>60); Estimated Creatinine Clearance 75.52 ml/min; Glucose 150 mg/dL (74-106); Potassium 3.1 mmol/L (3.5-5.1); Sodium Level 139 mmol/L (136-145)
[2018-02-03] VITALS (15 sets, daily range): BP systolic 114–149; BP diastolic 65–89; PULSE 58–92; RESP 16; TEMP 36.6–37; O2SAT 90–98; BMI 42.0
[2018-02-03] MEDS: Cefazolin 2 GM in 0.9% Normal Saline 100 ML IV (07:00)
[2018-02-03] MEDS: Celecoxib 200 MG Capsule 400 MG PO (07:01)
[2018-02-03] MEDS: Acetaminophen 500 MG Tablet 1000 MG PO ×3 (07:01→21:02)
[2018-02-03] MEDS: Lactated Ringers 1,000 ML 999 ML IV (07:22)
[2018-02-03] MEDS: Scopolamine 1mg/72hr Patch 1 PATCH TD (07:50)
--- NOTE | 2018-02-03 11:00 | RAD_ITS ---
STUDY: X-RAY - LEFT KNEE REASON FOR EXAM: Female, 57 years old. TECHNIQUE: view(s) of the knee. COMPARISON: None. FINDINGS: There is total left knee replacement with air within the joint space due to recent surgery. Minimal joint effusion seen. RAD/Knee 1 or 2 Views IMPRESSION: Total knee replacement. Electronically Signed: Chu Castellanos, at 12:29 EST Tel , Service support ,
--- NOTE | 2018-02-03 11:15 | PCM.OPRPT ---
Report of Operation Date of Procedure: 02/03/18 Pre-Operative Diagnosis: Arthrofibrosis right total knee. Left knee primary osteoarthritis Post-Operative Diagnosis: Arthrofibrosis right total knee. Left knee primary osteoarthritis Surgery/Procedure Performed:: Left total knee replacement. Manipulation under anesthesia right knee Description of Surgical Findings:: Stable knee with good patella tracking svp programmatic tv: Marguerite Simmons Type of Anesthesia:: Spinal Anesthesiologist: Augustus He Special Medications: 2 g Ancef, 1 g TXA at incision, 1 g TXA closure, 10 mg Decadron, joint cocktail (5 mg Duramorph, 30 mL of 0.5% Ropivicaine, 1000 units of epinephrine, 30 mg of Toradol) Specimen's removed: Bony cuts Estimated Blood Loss (mL): 50 Fluids Replaced: 1 L crystalloid Description of Procedure: Implants used: 1. Bala size 3 triathlon cruciate retaining distal femoral component 2. Patrick size 3 universal tibial baseplate 3. Bala X3 9 mm CS polyethylene 4. Patrick X3 35 mm asymmetric patella Brief history operative indications: 57-year-old F with history of left knee osteoarthritis with radiographic findings with loss of joint space, osteophyte formation and subchondral sclerosis. Failed conservative measures as mentioned in the H&P. Discussion of total knee arthroplasty as well as risk and benefits were discussed the patient including but not limited to blood loss, DVTs, PEs, neurovascular damage, general risk of anesthesia including loss of life, and stiffness or instability were discussed with patient. Patient demonstrated understanding and was able to sign informed consent. Procedure: On the date of procedure patient's left lower extremity was marked in the preoperative area. The patient was then taken back to the operating room where the patient was placed on the table in the supine position. All bony prominences were identified a well-padded. Anesthesia assumed control of the C-spine and airway and remained controlled throughout the remainder of the procedure. A tourniquet was placed on the left upper thigh and the leg was prepped in a sterile fashion. The surgeon then scrubbed at this time .Upon reentering the room left lower extremity was draped in a standard orthopedic fashion. A timeout was then called and everyone agreed upon the side, the site, the procedure to be performed, patient's identity and antibiotics given. Esmarch bandage was used to exsanguinate the extremity and the tourniquet was placed up to 250 mmHg with the knee in flexion. A midline skin incision was made and sharp dissection was taken down through skin subcutaneous tissue and fat. The standard medial parapatellar incision was made and the patella was subluxed laterally. The standard deep MCL release was done and the fat pad was resected. Next our attention was directed to the femur. Navigation pins were placed, navigation was registered. The distal femoral cutting block was pinned into place and 9 mm of distal femur resection was completed. The distal femoral cut was verified with navigation. The knee was then placed in deep flexion in the standard [employer] sizing guide was used to place the femoral component in 3? external rotation based on the posterior condyles. A size 3 4-in-1 cutting block was selected and pinned into place. The anterior cut was then made and checked for notching. The subsequent anterior chamfer cuts, posterior condylar cuts and posterior chamfer cuts were made while ensuring the MCL and LCL were protected. Our attention was then turned to the tibia where the AngioSlide tibial cutting guide was used to make the appropriate tibial cut 90 degrees from the mechanical axis. Navigation was then used to verify the cut. A size 3 tibial base plate was selected. the knee was flexed to 90 degrees and the soft tissues and posterior osteophytes were removed from the joint. 40 cc of the periarticular injection was injected into the posterior medial corner of the joint. The appropriate trials were then placed on the femur and tibia. A trial polyethylene was trialed to ensure proper balancing and stability of the knee. Patella tracking, was then verified and corrected appropriately as needed. The appropriate tibial internal rotation was then marked with a bovie. Our attention was then directed to the patella. The patella was everted and a flat resection was made. The lug holes were drilled and the patella trial was placed. Patellar tracking was checked and deemed appropriate. Once we were happy lug holes were drilled for the femur and trial components were removed. the tibia was subluxed and pinned into place and the keel was punched and the canal was reamed. Final components were verified and opened, and cement was mixed in a vacuum. Patrick Simplex cement was used. The wound was copiously irrigated with normal saline. When the cement was ready the components were cemented into place starting with the tibia, femur and finally the patella. The trial poly component was placed and the knee was placed in full extension. All excess cement was removed in the process. Once the cement had cured the tracking, alignment and balance were verified and a size 9 mm polyethylene component was placed. Once the final components were placed the wound was copiously irrigated with normal saline solution and the periarticular injection was given. The wound was closed in a layer gallardo fashion using #1 vicryl interrupted sutures for the arthrotomy, 2-0 interrupted Vicryl suture for the subcuticular layer and torres for final skin closure. A sterile compressive dressing was then placed. The patient was then awakened from anesthesia, transferred to the [facility] and transferred to the PACU for recovery. Post op plan DVT ppx: ASA 81mg, thigh high compression stockings Follow up: in office in 2 weeks for wound check PT: to start POD #0 at hospital, outpatient PT is arranged to start next Thursday and for the first week we will do bilateral knee therapy daily. Will use montelukast for 90 days for excessive scar tissue. Grafts/Implants Used: Patrick triathlon press-fit - Complications None - Admit VTE Documentation VTE Present on Admission: No VTE Mechan Device Prophylaxis: SCD's, Thigh High BATOOL Hose VTE Pharm Prophylaxis ordered?: Yes
[2018-02-03] MEDS: Ketorolac 15 MG/ML Vial IV (11:16)
--- NOTE | 2018-02-03 11:19 | OP.PCM_ITS ---
Report of Operation Date of Procedure: 02/03/18 Pre-Operative Diagnosis: Arthrofibrosis right total knee. Left knee primary osteoarthritis Post-Operative Diagnosis: Arthrofibrosis right total knee. Left knee primary osteoarthritis Surgery/Procedure Performed:: Left total knee replacement. Manipulation under anesthesia right knee Description of Surgical Findings:: Stable knee with good patella tracking plasterer helper: Marguerite Simmons Type of Anesthesia:: Spinal Anesthesiologist: Augustus He Special Medications: 2 g Ancef, 1 g TXA at incision, 1 g TXA closure, 10 mg Decadron, joint cocktail (5 mg Duramorph, 30 mL of 0.5% Ropivicaine, 1000 units of epinephrine, 30 mg of Toradol) Specimen's removed: Bony cuts Estimated Blood Loss (mL): 50 Fluids Replaced: 1 L crystalloid Description of Procedure: Implants used: 1. Bala size 3 triathlon cruciate retaining distal femoral component 2. Leroy size 3 universal tibial baseplate 3. Bala X3 9 mm CS polyethylene 4. Leroy X3 35 mm asymmetric patella Brief history operative indications: 57-year-old F with history of left knee osteoarthritis with radiographic findings with loss of joint space, osteophyte formation and subchondral sclerosis. Failed conservative measures as mentioned in the H&P. Discussion of total knee arthroplasty as well as risk and benefits were discussed the patient including but not limited to blood loss, DVTs, PEs, neurovascular damage, gen eral risk of anesthesia including loss of life, and stiffness or instability were discussed with patient. Patient demonstrated understanding and was able to sign informed consent. Procedure: On the date of procedure patient's left lower extremity was marked in the preoperative area. The patient was then taken back to the operating room where the patient was placed on the table in the supine position. All bony prominences were identified a well-padded. Anesthesia assumed control of the C-spine and airway and remained controlled throughout the remainder of the procedure. A tourniquet was placed on the left upper thigh and the leg was prepped in a sterile fashion. The surgeon then scrubbed at this time .Upon reentering the room left lower extremity was draped in a standard orthopedic fashion. A timeout was then called and everyone agreed upon the side, the site, the procedure to be performed, patient's identity and antibiotics given. Esmarch bandage was used to exsanguinate the extremity and the tourniquet was placed up to 250 mmHg with the knee in flexion. A midline skin incision was made and sharp dissection was taken down through skin subcutaneous tissue and fat. The standard medial parapatellar incision was made and the patella was subluxed laterally. The standard deep MCL release was done and the fat pad was resected. Next our attention was directed to the femur. Navigation pins were placed, navigation was registered. The distal femoral cutting block was pinned into place and 9 mm of distal femur resection was completed. The distal femoral cut was verified with navigation. The knee was then placed in deep flexion in the standard [employer] sizing guide was used to place the femoral component in 3? external rotation based on the posterior condyles. A size 3 4-in-1 cutting block was selected and pinned into place. The anterior cut was then made and checked for notching. The subsequent anterior chamfer cuts, posterior condylar cuts and posterior chamfer cuts were made while ensuring the MCL and LCL were protected. Our attention was then turned to the tibia where the [employer] tibial cutting guide was used to make the appropriate tibial cut 90 degrees from the mechanical axis. Navigation was then used to verify the cut. A size 3 tibial base plate was selected. the knee was flexed to 90 degrees and the soft tissues and posterior osteophytes were removed from the joint. 40 cc of the periarticular injection was injected into the posterior medial corner of the joint. The appropriate trials were then placed on the femur and tibia. A trial polyethylene was trialed to ensure proper balancing and stability of the knee. Patella tracking, was then verified and corrected appropriately as needed. The appropriate tibial internal rotation was then marked with a bovie. Our attention was then directed to the patella. The patella was everted and a flat resection was made. The lug holes were drilled and the patella trial was placed. Patellar tracking was checked and deemed appropriate. Once we were happy lug holes were drilled for the femur and trial components were removed. the tibia was subluxed and pinned into place and the keel was punched and the canal was reamed. Final components were verified and opened, and cement was mixed in a vacuum. Leroy Simplex cement was used. The wound was copiously irrigated with normal saline. When the cement was ready the components were cemented into place starting with the tibia, femur and finally the patella. The trial poly component was placed and the knee was placed in full extension. All excess cement was removed in the process. Once the cement had cured the tracking, alignment and balance were verified and a size 9 mm polyethylene component was placed. Once the final components were placed the wound was copiously irrigated with normal saline solution and the periarticular injection was given. The wound was closed in a layer gallardo fashion using #1 vicryl interrupted sutures for the arthrotomy, 2-0 interrupted Vicryl suture for the subcuticular layer and torres for final skin closure. A sterile compressive dressing was then placed. The patient was then awakened from anesthesia, transferred to the [facility] and transferred to the PACU for recovery. Post op plan DVT ppx: ASA 81mg, thigh high compression stockings Follow up: in office in 2 weeks for wound check PT: to start POD #0 at hospital, outpatient PT is arranged to start next Thursday and for the first week we will do bilateral knee therapy daily. Will use montelukast for 90 days for excessive scar tissue. Grafts/Implants Used: Leroy triathlon press-fit - Complications None - Admit VTE Documentation VTE Present on Admission: No VTE Mechan Device Prophylaxis: SCD's, Thigh High BATOOL Hose VTE Pharm Prophylaxis ordered?: Yes
[2018-02-03] MEDS: oxyCODONE 5 MG Tablet PO ×3 (12:55→22:59)
[2018-02-03] MEDS: Lactated Ringers 1,000 ML 125 ML IV (12:59)
--- NOTE | 2018-02-03 14:22 | CASEMGMT ---
LW/POA forms in echart, SW printed and placed in chart. ALEXUS Marrero, E BUSINESS MANAGER
[2018-02-03] MEDS: Cefazolin 1 GM/50 ML BAG IV ×2 (15:43→22:20)
[2018-02-03] MEDS: Aspirin 81 MG TAB.CHEW PO (16:54)
[2018-02-03] MEDS: Montelukast 10 MG Tablet PO (16:57)
[2018-02-03] MEDS: Indapamide 2.5 MG Tablet 1.25 MG PO (21:02)
[2018-02-03] MEDS: Senna/Docusate Sodium 1 Tablet 2 TABLET PO (21:02)
[2018-02-03] MEDS: FLUoxetine 20 MG Capsule 60 MG PO (21:02)
[2018-02-03] MEDS: hydroCHLOROthiazide 12.5mg 12.5 MG PO (21:03)
[2018-02-03] MEDS: Losartan Potassium 50 MG Tablet PO (21:03)
[2018-02-04 02:56] VITALS: BP 147/74; PULSE 78; RESP 18; TEMP 37.3; O2SAT 93
[2018-02-04] MEDS: oxyCODONE 5 MG Tablet PO ×3 (03:11→14:26)
[2018-02-04] MEDS: Acetaminophen 500 MG Tablet 1000 MG PO ×3 (05:31→22:09)
--- NOTE | 2018-02-04 05:39 | NURSING ---
pt po drops 87-88 % on ra when pt is sleeping or in pain. pt encourage to use the is more often
[2018-02-04 06:02] LABS: Hematocrit 33.6 % (37-47); Hemoglobin 10.6 g/dl (12.0-15.0); Mean Corp Hgb Conc 31.5 g/gl (32-36); Mean Corpuscular Hgb 30.1 pg (27.0-32.0); Mean Corpuscular Volume 95.5 fL (81-99); Platelet Count 272 K/mm3 (150-450); RBC Distribution Width CV 13.7 % (11.6-14.6); RBC Distribution Width SD 45.5 fl (35.1-43.9); Red Blood Count 3.52 M/mm3 (4.2-5.4); White Blood Count 9.2 K/mm3 (4.4-11.0)
[2018-02-04 06:18] LABS: Anion Gap 8 (5-15); BUN 15 mg/dL (7-18); BUN/Creat Ratio 21.2 RATIO (10-20); Calcium,Total 8.4 mg/dL (8.5-10.1); Chloride 99 mmol/L (98-107); Creatinine, Serum 0.71 mg/dL (0.55-1.02); EST Glomerular Filtration Rate 90 mL/min (>60); Est Glom Filt Rate - Afr Amer 109 mL/min (>60); Estimated Creatinine Clearance 82.96 ml/min; Glucose 124 mg/dL (74-106); Potassium 3.6 mmol/L (3.5-5.1); Sodium Level 137 mmol/L (136-145)
[2018-02-04 06:22] LABS: Scan Indicated on CBC? Y/N NO
--- NOTE | 2018-02-04 08:37 | PN.ORTHO_ITS ---
Subjective: The patient was sitting in bedside chair upon examination. Patient denies any chest pain, shortness of breath, dizziness, lightheadedness, nausea or vomiting, or calf pain. Pain is controlled on medications. No adverse overnight events. Patient states the right knee is doing much better after the manipulation. She is complaining of increased pain in the posterior aspect of the left knee. She states this is her most complaint for pain. Patient does wish to go home today. Objective: Vital signs stable and afebrile. Patient is able to plantarflex and dorsiflex actively. Sensation is intact to light touch to saphenous, sural, superficial and deep peroneal, and tibial distribution. Dressing is clean dry and intact. Negative Homans bilaterally, negative signs and symptoms of DVT. - Physical Exam General: Alert, Oriented x3, Cooperative, No apparent distress Vital Signs Temp Pulse Resp BP Pulse Ox 99.2 F H 78 18 147/74 H 93 02/04/18 02:56 02/04/18 02:56 02/04/18 02:56 02/04/18 02:56 02/04/18 02:56 Oxygen Flow Rate (L/min) 3 Oxygen Delivery Method Room Air Weight: 121.563 kg Body Mass Index (BMI) 42.0 Intake and Output for Last 24 Hours 02/02/18 02/03/18 02/04/18 23:59 23:59 23:59 Intake Total 3321 / 3321 4981 / 4981 Balance 3321 / 3321 4981 / 4981 Laboratory Tests Past 24 Hrs 02/04/18 02/04/18 05:25 05:25 WBC 9.2 RBC 3.52 L Hgb 10.6 L Hct 33.6 L MCV 95.5 MCH 30.1 MCHC 31.5 L RDW 13.7 RDW Differential 45.5 H Plt Count 272 MPV 10.0 Sodium 137 Potassium 3.6 Chloride 99 Carbon Dioxide 30.0 Anion Gap 8 BUN 15 Creatinine 0.71 Estim Creat Clear Calc 82.96 Est GFR (MDRD) Af Amer 109 Est GFR (MDRD) Non-Af 90 BUN/Creatinine Ratio 21.2 H Glucose 124 H Calcium 8.4 L Medical Necessity - Tobacco Use Smoking Status: Former smoker Assessment/Plan 1. S/P left total knee arthroplasty and manipulation under anesthesia right knee POD #1 2. Continue Pain Medications: Tylenol and OxyIR 3. DVT Prophylaxis: Aspirin 81 mg twice daily for 4 weeks postoperatively with food 4. PT/OT: Weightbearing as tolerated 5. H & H: 10.6/33.6, asymptomatic 6. Encouraged Incentive Spirometry 7. Disposition: Orthopedically stable, plan will be for discharge home today. Prescriptions will be E scribed to [facility] [place] pharmacy. Patient will follow-up per postop instructions.
--- NOTE | 2018-02-04 08:46 | DCINST_ITS ---
Discharge Diet: No Restrictions Discharge Activity: May Not Drive May shower in (days): 1 - Turned dressing away from water Ice area for (Minutes): 20 - every hour while awake. Weight Bearing Status: Weight bearing as tolerated Elevate: Operative Extremity Additional Activity Instructions:: Wear elastic stockings for 2 weeks after your surgery. Call your doctor if your incision/area has: Continuous Slow Oozing, Sudden Increased Bleeding, Increased Pain/ Swelling, Increased Redness, Foul Smelling Discharge Call your doctor if you observe: Fever of 101 or Higher, Coldness, Increased Pain, Numbness or Tingling, Change in Color, Calf discomfort, Uncontrolled pain Remove Dressing in (days):: 4 - Okay to remove dressing on February 08, 2018 Additional Instructions: Follow [place] orthopedic postop instructions Allergies/Adverse Reactions: Allergies No Known Allergies Allergy (Verified 01/21/18 15:04) Medications to take at Discharge Celecoxib [Celebrex] 200 mg PO BID 10/14/17 Fluoxetine HCl [Prozac] 60 mg PO QHS 10/14/17 Indapamide 1.25 mg PO QHS 10/14/17 Losartan/Hydrochlorothiazide [Losartan-Hctz 50-12.5 mg Tab] 1 each PO QHS 10/14/17 Potassium Chloride [Klor-Con M20] 30 meq PO DAILY 10/20/17 Acetaminophen [Tylenol] 1,000 mg PO Q8 #90 tablet 02/04/18 Aspirin [Aspirin, Baby] 81 mg PO BIDCM #60 tab.chew 02/04/18 Famotidine [Pepcid] 20 mg PO DAILY #30 tablet 02/04/18 Montelukast [Singulair] 10 mg PO DAILY@1700 #30 tablet 02/04/18 Oxycodone [Oxyir] 5 - 10 mg PO Q4H PRN PRN 5 Days #60 tablet 02/04/18 Senna/Docusate Sodium [Senokot-S] 2 tablet PO BID #20 tablet 02/04/18 The following prescriptions were given: Oxycodone [Oxyir] 5 - 10 mg PO Q4H PRN PRN 5 Days #60 tablet PRN Reason: Mod-Severe Pain (4-11/18) Acetaminophen [Tylenol] 1,000 mg PO Q8 #90 tablet Famotidine [Pepcid] 20 mg PO DAILY #30 tablet Montelukast [Singulair] 10 mg PO DAILY@1700 #30 tablet Aspirin [Aspirin, Baby] 81 mg PO BIDCM #60 tab.chew Senna/Docusate Sodium [Senokot-S] 2 tablet PO BID #20 tablet Orders to be completed after discharge: Potassium Time Frame: 02/03/18, Location: Laboratory Primary Care Physician: Jayjay Capps MD [Primary Care Provider] - Test Results: Test results from this visit will be discussed in further detail at your follow- up appointment, if applicable. Please Follow Up With: [facility] When: 02/05/18 @ 3:00 pm Please Follow Up With: Jayjay Díaz PA-C When: 02/17/18 @ 10:30 am
--- NOTE | 2018-02-04 09:05 | PCA ---
therapy working with pt
[2018-02-04] MEDS: Senna/Docusate Sodium 1 Tablet 2 TABLET PO ×2 (09:43→22:09)
[2018-02-04] MEDS: Famotidine 20 MG Tablet PO (09:43)
[2018-02-04] MEDS: Aspirin 81 MG TAB.CHEW PO ×2 (09:43→16:46)
[2018-02-04] MEDS: Celecoxib 200 MG Capsule PO ×2 (09:44→16:47)
[2018-02-04] MEDS: Morphine 4 MG/ML Syringe IV (09:47)
[2018-02-04] MEDS: 0.9% NaCl Peripheral Flush Adult/Peds IV ×3 (09:48→16:47)
[2018-02-04 09:54] VITALS: BP 140/72; PULSE 70; RESP 18; TEMP 37; O2SAT 94
--- NOTE | 2018-02-04 10:00 | CASEMGMT ---
JANENE IVEY Face to Face with patient for initial transition planning/care coordination assessment. RN UCHE introduced self and role at [facility]. Patient sitting in chair, alert and oriented. Patient willing to participate in assessment and is able to answer all questions appropriately. Care providers, pharmacy, and demographics verified. Patient wishes to discharge home and is setup with [facility] for outpatient therapy with daughter providing transportation. Patient has walker and DME from previous surgery. Patient states she has no further needs or concerns at this time. CM to follow for discharge planning needs that may arise. Disposition Plan: Patient to discharge home with outpatient therapy, family support, and follow-up plans in place. Lauren LIMA, RN, CM
--- NOTE | 2018-02-04 11:36 | NURSING ---
Call placed to [facility] DUPREE pt states pain remains not controlled. new order obtained for mscotin bid, discharged cancelled at this time
[2018-02-04] MEDS: Ketorolac 15 MG/ML Vial IV (11:38)
[2018-02-04] MEDS: Montelukast 10 MG Tablet PO (16:46)
[2018-02-04] MEDS: Morphine 2 MG/ML Syringe IV (16:49)
[2018-02-04 21:59] VITALS: BP 141/74; PULSE 73; RESP 18; TEMP 36.9; O2SAT 93
[2018-02-04] MEDS: Losartan Potassium 50 MG Tablet PO (22:07)
[2018-02-04] MEDS: hydroCHLOROthiazide 12.5mg 12.5 MG PO (22:08)
[2018-02-04] MEDS: Indapamide 2.5 MG Tablet 1.25 MG PO (22:08)
[2018-02-04] MEDS: morphine SR 15 MG Tablet PO (22:08)
[2018-02-04] MEDS: FLUoxetine 20 MG Capsule 60 MG PO (22:09)
[2018-02-05] MEDS: oxyCODONE 5 MG Tablet PO ×2 (01:58→07:43)
[2018-02-05 02:01] VITALS: BP 141/78; PULSE 73; RESP 18; TEMP 36.8; O2SAT 98
[2018-02-05] MEDS: Acetaminophen 500 MG Tablet 1000 MG PO (05:56)
--- NOTE | 2018-02-05 07:14 | PN.ORTHO_ITS ---
Subjective: The patient was sitting in bedside chair upon examination. Patient denies any chest pain, shortness of breath, dizziness, lightheadedness, nausea or vomiting, or calf pain. Pain is controlled on medications. No adverse overnight events. Patient was not able to be discharged yesterday due to continued knee pain. MS Contin was added for pain control. Patient states she has seen some improvement since yesterday. She is ready for discharge home today. Objective: Vital signs stable and afebrile. Patient is able to plantarflex and dorsiflex actively. Sensation is intact to light touch to saphenous, sural, superficial and deep peroneal, and tibial distribution. Dressing is clean dry and intact. Negative Homans bilaterally, negative signs and symptoms of DVT. - Physical Exam General: Alert, Oriented x3, Cooperative, No apparent distress Vital Signs Temp Pulse Resp BP Pulse Ox 98.3 F 73 18 141/78 H 98 02/05/18 02:01 02/05/18 02:01 02/05/18 02:01 02/05/18 02:01 02/05/18 02:01 Oxygen Flow Rate (L/min) 3 Oxygen Delivery Method Room Air Weight: 121.563 kg Body Mass Index (BMI) 42.0 Intake and Output for Last 24 Hours 02/03/18 02/04/18 02/05/18 23:59 23:59 23:59 Intake Total 3321 / 3321 6331 / 6331 540 / 540 Balance 3321 / 3321 6331 / 6331 540 / 540 Medical Necessity - Tobacco Use Smoking Status: Former smoker Assessment/Plan 1. S/P left total knee arthroplasty and manipulation under anesthesia right knee POD #2 2. Continue Pain Medications: Tylenol and OxyIR, MS Contin was added for 4 days postoperatively. 3. DVT Prophylaxis: Aspirin 81 mg twice daily for 4 weeks postoperatively with food 4. PT/OT: Weightbearing as tolerated 5. Encouraged Incentive Spirometry 6. Disposition: MS Contin was added for pain control and patient is doing better today. Prescription will be sent to [facility] pharmacy. Patient has already received her prescriptions from yesterday. She will follow-up per postop instructions. Okay to be discharged today after physical therapy.
[2018-02-05 07:40] VITALS: BP 137/71; PULSE 72; RESP 16; TEMP 36.9; O2SAT 94
[2018-02-05] MEDS: Senna/Docusate Sodium 1 Tablet 2 TABLET PO (07:44)
[2018-02-05] MEDS: Famotidine 20 MG Tablet PO (07:44)
[2018-02-05] MEDS: Celecoxib 200 MG Capsule PO (07:44)
[2018-02-05] MEDS: Aspirin 81 MG TAB.CHEW PO (07:45)
[2018-02-05 08:16] LABS: Hematocrit 33.6 % (37-47); Hemoglobin 10.7 g/dl (12.0-15.0); Mean Corp Hgb Conc 31.8 g/gl (32-36); Mean Corpuscular Hgb 30.3 pg (27.0-32.0); Mean Corpuscular Volume 95.2 fL (81-99); Mean Platelet Vol. 9.8 fl (6.2-12.0); Platelet Count 253 K/mm3 (150-450); RBC Distribution Width CV 13.5 % (11.6-14.6); RBC Distribution Width SD 44.3 fl (35.1-43.9); Red Blood Count 3.53 M/mm3 (4.2-5.4); White Blood Count 9.6 K/mm3 (4.4-11.0)
[2018-02-05 08:17] LABS: Scan Indicated on CBC? Y/N NO
[2018-02-05] MEDS: morphine SR 15 MG Tablet PO (10:02)
== END 2018-02-05 13:22 | disposition home or self-care (01) ==
LOC: MS3 15:52 → SDC 02-04 09:57
PROVIDERS: Admitting Provider Specialist; Family Provider Family Medicine; PCP Family Medicine; Referring Provider Specialist; Visit Provider Specialist
PROC: (CPT 27447; principal; 2018-02-03 08:15)
DX: M17.12 Unilateral primary osteoarthritis, left knee (principal); M24.661 Ankylosis, right knee; M19.90 Unspecified osteoarthritis, unspecified site; I10 Essential (primary) hypertension; Z87.891 Personal history of nicotine dependence; Z79.899 Other long term (current) drug therapy; F32.9 Major depressive disorder, single episode, unspecified
CPT/HCPCS: 27447; 27570; 64447; 36415; 73560; 80048; 84132; 85025; 85027; 87081; 93005; 96361; 96365; 96366; 96375; 96376; 97110; 97161; 97165; 97530; 97802; 99218; 99251; C1776; J7120; A4216; G0378; G0379; G0463; J2405

== ENCOUNTER → 2018-09-07 | Outpatient (CLI) | payer OTHER, SELFPAY ==
[2018-02-03 12:35] VITALS: BMI 42.0
[2018-09-07 18:19] LABS: Anion Gap 7 (5-15); BUN 20 mg/dL (7-18); BUN/Creat Ratio 25.8 RATIO (10-20); Calcium,Total 8.9 mg/dL (8.5-10.1); Chloride 101 mmol/L (98-107); Creatinine, Serum 0.78 mg/dL (0.55-1.02); EST Glomerular Filtration Rate 81 mL/min (>60); Est Glom Filt Rate - Afr Amer 98 mL/min (>60); Glucose 147 mg/dL (74-106); Potassium 3.4 mmol/L (3.5-5.1); Sodium Level 138 mmol/L (136-145); Thyroid Stim Hormone (TSH) 1.38 uIU/mL (0.358-3.74)
[2018-09-07 19:44] LABS: Hemoglobin A1c 6.2 % (4.2-6.3)
== END | disposition home or self-care (01) ==
LOC: MTLAB 16:31
PROVIDERS: Family Provider Family Medicine; PCP Family Medicine; Referring Provider Family Medicine; Visit Provider Family Medicine
DX: R73.9 Hyperglycemia, unspecified (principal); R53.83 Other fatigue
CPT/HCPCS: 36415; 80048; 83036; 84443

== ENCOUNTER → 2019-09-13 15:39 | Outpatient (CLI) | payer OTHER, SELFPAY ==
[2018-02-03 12:35] VITALS: BMI 42.0
[2019-09-13 18:00] LABS: Absolute Lymphocyte Count 3.02 X10^3/uL (0.83-4.51); Absolute Neutrophil Count 3.6 X10^3/uL (2.0-7.7); Basophil# 0.05 X10^3/uL; Basophil% 0.7 % (0-1); Eosinophil# 0.25 X10^3/uL; Eosinophils% 3.4 % (0-5); Hematocrit 37.4 % (37-47); Hemoglobin 11.9 g/dL (12.0-15.0); Lymphocyte # 3.02 X10^3/ul (4.0); Lymphocyte % 40.6 % (19-41); Mean Corp Hgb Conc 31.8 g/dL (32-36); Mean Corpuscular Hgb 30.2 pg (27.0-32.0); Mean Corpuscular Volume 94.9 fL (81-99); Mean Platelet Vol. 10.3 fl (6.2-12.0); Monocyte# 0.51 X10^3/uL; Monocyte% 6.9 % (0-10); NRBC Flagged by Analyzer 0 % (0-5); Neutrophil # 3.58 X10^3/uL (2.7-7.7); Neutrophil % 48.1 % (47-70); Platelet Count 302 K/mm3 (150-450); RBC Distribution Width CV 13.2 % (11.6-14.6); RBC Distribution Width SD 45.8 fl (35.1-43.9); Red Blood Count 3.94 M/mm3 (4.2-5.4); White Blood Count 7.4 K/mm3 (4.4-11.0)
[2019-09-13 18:01] LABS: Color, Urine Yellow (Yellow); Glucose, Dipstick Normal (Normal); Ketone-Dipstick Negative (Negative); Leukocyte Esterase-Dipstick Negative /ul (Negative); Nitrite-Dipstick Negative (Negative); Occult Blood-Urine Negative /ul (Negative); Protein-Dipstick Negative (Negative); Specific Gravity, Urine 1.015 (1.002-1.030); Urine Bilirubin Dipstick Negative (Negative); Urine Clarity Sl. Cloudy (Clear); Urine Urobilinogen Normal (Normal)
[2019-09-13 18:13] LABS: Anion Gap 6 (5-15); BUN 14 mg/dL (7-18); BUN/Creat Ratio 19.9 RATIO (10-20); Chloride 99 mmol/L (98-107); EST Glomerular Filtration Rate 90 mL/min (>60); Est Glom Filt Rate - Afr Amer 109 mL/min (>60); Glucose 102 mg/dL (74-106); Potassium 3.1 mmol/L (3.5-5.1); Sodium Level 138 mmol/L (136-145)
== END ==
PROVIDERS: Referring Provider Family Medicine; Visit Provider Family Medicine
DX: Z00.00 Encounter for general adult medical examination without abnormal findings (principal); R73.9 Hyperglycemia, unspecified; R31.9 Hematuria, unspecified; I10 Essential (primary) hypertension
CPT/HCPCS: 36415; 80048; 81002; 85025

== ENCOUNTER → 2019-10-13 16:36 | Outpatient (CLI) | payer OTHER, SELFPAY ==
[2018-02-03 12:35] VITALS: BMI 42.0
[2019-10-13 18:08] LABS: Anion Gap 5 (5-15); BUN 10 mg/dL (7-18); Calcium,Total 9.1 mg/dL (8.5-10.1); Chloride 101 mmol/L (98-107); Creatinine, Serum 0.71 mg/dL (0.55-1.02); EST Glomerular Filtration Rate 89 mL/min (>60); Est Glom Filt Rate - Afr Amer 107 mL/min (>60); Glucose 91 mg/dL (74-106); Potassium 3.2 mmol/L (3.5-5.1); Sodium Level 137 mmol/L (136-145)
== END ==
PROVIDERS: PCP Family Medicine; Referring Provider Family Medicine; Visit Provider Family Medicine
DX: E87.6 Hypokalemia (principal)
CPT/HCPCS: 36415; 80048

== ENCOUNTER → 2019-11-16 16:38 | Outpatient (CLI) | payer OTHER, SELFPAY ==
[2018-02-03 12:35] VITALS: BMI 42.0
[2019-11-16 18:38] LABS: Anion Gap 7 (5-15); BUN 15 mg/dL (7-18); BUN/Creat Ratio 18.6 RATIO (10-20); Calcium,Total 9.1 mg/dL (8.5-10.1); Chloride 99 mmol/L (98-107); Creatinine, Serum 0.81 mg/dL (0.55-1.02); EST Glomerular Filtration Rate 77 mL/min (>60); Est Glom Filt Rate - Afr Amer 93 mL/min (>60); Glucose 111 mg/dL (74-106); Potassium 3.1 mmol/L (3.5-5.1); Sodium Level 137 mmol/L (136-145)
== END ==
PROVIDERS: PCP Family Medicine; Referring Provider Family Medicine; Visit Provider Family Medicine
DX: E87.6 Hypokalemia (principal)
CPT/HCPCS: 36415; 80048

== ENCOUNTER → 2019-12-22 16:19 | Outpatient (CLI) | payer OTHER, SELFPAY ==
[2019-12-22 17:58] LABS: Anion Gap 5 (5-15); BUN 13 mg/dL (7-18); BUN/Creat Ratio 16.5 RATIO (10-20); Calcium,Total 8.9 mg/dL (8.5-10.1); Chloride 102 mmol/L (98-107); Creatinine, Serum 0.79 mg/dL (0.55-1.02); EST Glomerular Filtration Rate 79 mL/min (>60); Est Glom Filt Rate - Afr Amer 95 mL/min (>60); Glucose 120 mg/dL (74-106); Potassium 3.2 mmol/L (3.5-5.1); Sodium Level 138 mmol/L (136-145)
== END ==
PROVIDERS: PCP Family Medicine; Referring Provider Family Medicine; Visit Provider Family Medicine
DX: E87.6 Hypokalemia (principal)
CPT/HCPCS: 36415; 80048

== ENCOUNTER → 2020-01-24 16:09 | Outpatient (CLI) | payer OTHER, SELFPAY ==
[2018-02-03 12:35] VITALS: BMI 42.0
[2020-01-24 18:09] LABS: Anion Gap 8 (5-15); BUN 16 mg/dL (7-18); BUN/Creat Ratio 19.8 RATIO (10-20); Calcium,Total 8.8 mg/dL (8.5-10.1); Chloride 98 mmol/L (98-107); Creatinine, Serum 0.81 mg/dL (0.55-1.02); EST Glomerular Filtration Rate 76 mL/min (>60); Est Glom Filt Rate - Afr Amer 92 mL/min (>60); Glucose 150 mg/dL (74-106); Potassium 3.5 mmol/L (3.5-5.1); Sodium Level 135 mmol/L (136-145)
== END ==
PROVIDERS: PCP Family Medicine; Referring Provider Family Medicine; Visit Provider Family Medicine
DX: E87.6 Hypokalemia (principal)
CPT/HCPCS: 36415; 80048

== ENCOUNTER → 2020-09-11 06:23 | Outpatient (CLI) | payer OTHER, SELFPAY ==
[2018-02-03 12:35] VITALS: BMI 42.0
[2020-09-11 07:16] LABS: Absolute Lymphocyte Count 3.07 X10^3/uL (0.83-4.51); Absolute Neutrophil Count 4.5 X10^3/uL (2.0-7.7); Basophil# 0.06 X10^3/uL; Basophil% 0.7 % (0-1); Eosinophil# 0.19 X10^3/uL; Eosinophils% 2.3 % (0-5); Hematocrit 39.1 % (37-47); Hemoglobin 12.8 g/dL (12.0-15.0); Lymphocyte # 3.07 X10^3/ul (0.83-4.51); Lymphocyte % 36.5 % (19-41); Mean Corp Hgb Conc 32.7 g/dL (32-36); Mean Corpuscular Hgb 30.8 pg (27.0-32.0); Monocyte# 0.59 X10^3/uL; NRBC Flagged by Analyzer 0 % (0-5); Neutrophil # 4.45 X10^3/uL (2.7-7.7); Neutrophil % 52.9 % (47-70); Platelet Count 322 K/mm3 (150-450); RBC Distribution Width CV 12.6 % (11.6-14.6); RBC Distribution Width SD 43.4 fl (35.1-43.9); Red Blood Count 4.16 M/mm3 (4.2-5.4); White Blood Count 8.4 K/mm3 (4.4-11.0)
[2020-09-11 07:51] LABS: Hemoglobin A1c 6.8 % (3.8-5.6)
[2020-09-11 07:55] LABS: ALB/GLOB Ratio 0.9 RATIO (0.9-2.4); AST(SGOT) 16 U/L (15-37); Alanine Aminotransfer ALT/SGPT 33 U/L (13-56); Albumin, Serum 3.9 g/dL (3.2-5.0); Alkaline Phosphatase 59 U/L (45-117); BUN 13 mg/dL (7-18); BUN/Creat Ratio 17.2 RATIO (10-20); Calcium,Total 9.2 mg/dL (8.5-10.1); Cholesterol 195 mg/dL (200); Creatinine, Serum 0.76 mg/dL (0.55-1.02); EST Glomerular Filtration Rate 82 mL/min (>60); Est Glom Filt Rate - Afr Amer 100 mL/min (>60); Globulin 4.2 g/dL (2.2-4.2); Glucose 127 mg/dL (74-106); Protein, Total 8.1 g/dL (6.4-8.2); Triglycerides 117 mg/dL
[2020-09-11 07:56] LABS: Anion Gap 7 (5-15); Chloride 102 mmol/L (98-107); High Density Lipoprotein 62 mg/dL; Potassium 3.8 mmol/L (3.5-5.1); Sodium Level 139 mmol/L (136-145); Very Low Density Lipoprotein 23 mg/dL (5-40)
== END ==
PROVIDERS: PCP Family Medicine; Referring Provider Family Medicine; Visit Provider Family Medicine
DX: Z00.00 Encounter for general adult medical examination without abnormal findings (principal); I10 Essential (primary) hypertension; E87.6 Hypokalemia; R73.9 Hyperglycemia, unspecified
CPT/HCPCS: 36415; 80053; 80061; 83036; 85025

== ENCOUNTER 2020-12-22 13:43 | Emergency (ER) | payer OTHER, SELFPAY ==
[2020-12-22 13:45] VITALS: BP 160/97; PULSE 75; RESP 16; TEMP 35.8; O2SAT 96; BMI 43.3
[2020-12-22] MEDS: HYDROmorphone 0.5 MG/0.5 ML SYRINGE IV (14:08)
[2020-12-22] MEDS: Ondansetron 4 MG/2 ML Vial IV (14:08)
--- NOTE | 2020-12-22 14:13 | CT_ITS ---
STUDY: CT ABDOMEN AND PELVIS WITH CONTRAST REASON FOR EXAM: Female, 60 years old. Constipation medication change no bowel movements RADIATION DOSAGE (If Supplied By Facility): CTDIvol = ( 17.07 ) mGy, DLP = ( 1360.92 ) mGycm TECHNIQUE: CT images were obtained from the dome of the diaphragm to the symphysis pubis without oral contrast. IV 100mL Isovue-370 was administered. Sagittal and coronal images were reconstructed. Individualized dose optimization techniques were used for this CT. COMPARISON: None. FINDINGS: The visualized lung bases are unremarkable. The visualized portions of the heart are within normal limits. Liver is moderately enlarged, fatty infiltrated and probably mildly cirrhotic. There are no focal lesions or biliary dilation. Portal vein is patent. Gallbladder contains stones. Normal spleen. Normal pancreas. Left adrenal has a 1.2 cm incompletely characterized nodule. Right adrenal has a questionable 8 mm nodule. There is no hydronephrosis or stones. There is a 1.2 cm intermediate density right intraparenchymal subcortical lesion. There is no intestinal obstruction. There is moderate amount of rectal stool. There is right inguinal hernia containing fat and a loop of small bowel with wide opening and without obstruction. There is no inflammation in or around the hernia. Normal abdominal aorta. Normal inferior vena cava. Normal retroperitoneum. Normal urinary bladder. There are tubal occlusion clips. Normal abdominal wall. Normal osseous structures. CT/Abdomen/Pelvis W IV Cont ONLY IMPRESSION: 1. Possible early rectal fecal impaction. 2. No bowel obstruction. 3. Right inguinal wide opening hernia with bowel, no obstruction. 4. Incompletely characterized right renal lesion. Refer to renal imaging for characterization, cyst and renal cell carcinoma are in the differential diagnosis. 5. Hepatic steatosis, hepatomegaly and mild/impending cirrhosis. Follow-up with hepatology advised. 6. Small low-risk adrenal nodules, refer to endocrinologic evaluation and consider elective follow-up imaging for better characterization. This can be accomplished at the time of above recommended renal evaluation. Endocrine follow-up advised. Electronically Signed: Dayanara Jaimes MD at 16:37 EST Tel , Service support ,
--- NOTE | 2020-12-22 14:14 | ED.VIS.GI ---
HPI HPI - GI History of Present Illness Chief Complaint: Abd Pain Narrative Narrative: 60-year-old female presenting with constipation. She states she has not had a bowel movement in about a week. Patient states that she has tried to go but feels as if she cannot force it out. She states that her abdomen feels distended. She called her primary care physician who told her to come to the emergency room for disimpaction. Patient has not had a small bowel obstruction before. She denies urinary complaints. She is not vomiting. Patient does state that she tried for laxatives last evening and still has not been able to have a bowel movement. [facility] Medical History Depression Home Medications celecoxib [Celebrex] 200 mg PO BID 10/14/17 [History Last Taken Unknown] fluoxetine [Prozac] 60 mg PO QHS 10/14/17 [History Last Taken Unknown] indapamide 1.25 mg PO QHS 10/14/17 [History Last Taken Unknown] losartan-hydrochlorothiazide 1 ea PO QHS 10/14/17 [History Last Taken Unknown] potassium chloride [Klor-Con M20] 30 meq PO DAILY 10/20/17 [History Last Taken Unknown] acetaminophen 1,000 mg PO Q8 #90 tablet 02/04/18 [Rx Last Taken Unknown] aspirin 81 mg PO BIDCM #60 tab.chew 02/04/18 [Rx Last Taken Unknown] famotidine 20 mg PO DAILY #30 tablet 02/04/18 [Rx Last Taken Unknown] montelukast 10 mg PO DAILY@1700 #30 tablet 02/04/18 [Rx Last Taken Unknown] sennosides-docusate sodium [Stool Softener-Stimulant Laxat] 2 tab PO BID #20 tablet 02/04/18 [Rx Last Taken Unknown] ondansetron HCl 4 mg tablet 4 mg PO Q8H PRN #10 tablet 05/15/20 [Rx Last Taken Unknown] Allergy/AdvReac Type Severity Reaction Status Date / Time No Known Allergies Allergy Verified 12/22/20 13:43 Social History Smoking Status: Former smoker ROS ROS ED Constitutional Constitutional ED: Denies chills or fever(s) ENT ENT ED: Denies rhinorrhea or sore throat Cardiovascular Cardiovascular: Denies chest pain or palpitations Respiratory/Chest Respiratory/Chest: Denies cough or dyspnea Gastrointestinal Gastrointestinal: Reports abdominal pain and constipation; Denies nausea or vomiting Genitourinary Genitourinary ED: Denies dysuria or hematuria Musculoskeletal Musculoskeletal: Denies arthralgias or myalgias Integumentary Denies abscess or rash Neurologic Neurologic: Denies headache(s) or paresthesias Psychiatric Psychiatric: Denies depression EXAM Physical Exam Const Vital Signs: 12/22/20 13:45 Temperature 96.4 F L Temperature Source Temporal Pulse Rate 75 Respiratory Rate 16 Blood Pressure 160/97 H Blood Pressure Mean 118 Pulse Ox 96 Oxygen Delivery Method Room Air Positive obese General Appearance ED: NAD; Negative for pallor Nutritional Appearance: obese HEENT Reports moist mucous membranes normocephalic and atraumatic Eyes PERRL and EOMs intact bilaterally Resp normal respiratory effort and clear to auscultation bilaterally Cardio regular rate and regular rhythm GI GI Narrative: Generalized abdominal tenderness. Abdomen is nonperitoneal. No stool palpated in the rectal vault. Back/Spine no CVA tenderness Neuro Sensorium / Orientation: alert, oriented to person, oriented to place and oriented to time Psych mental status grossly normal and thought process normal Skin General Skin Exam: Negative for jaundice or pallor MDM MDM MDM Narrative Medical decision making narrative: 58-year-old female presenting with constipation and diffuse mild generalized abdominal discomfort. Mildly distended. She feels as if she is impacted. I did perform a rectal examination and was unable to palpate stool in the rectal vault. At this point I did obtain blood work and imaging and her blood work is all normal. CT the abdomen pelvis is negative for acute intra-abdominal process. Although it does identify adrenal nodules and There is a 1.2 cm intermediate density right intraparenchymal subcortical lesion. There is also a nonincarcerated right inguinal hernia. Patient was given a soapsuds enema and had a large bowel movement and feels much better. I counseled her on the use of stool softeners and laxative as needed. Patient will be discharged home in stable condition. Impression: 1. Constipation 2. Abdominal pain 3. Right inguinal hernia 4. 1.2 cm renal lesion 5. Adrenal nodules. Lab Data Attestation: I reviewed the patient's lab results. Labs: Laboratory Results - last 24 hr 12/22/20 12/22/20 14:10 14:10 WBC 10.6 RBC 3.89 L Hgb 12.1 Hct 36.9 L MCV 94.9 MCH 31.1 MCHC 32.8 RDW Std Deviation 43.9 RDW Coeff of [place] 12.7 Plt Count 296 MPV 9.8 Immature Gran % (Auto) 0.500 Neut % (Auto) 75.6 H Lymph % (Auto) 18.3 L [place] % (Auto) 4.4 Eos % (Auto) 0.8 Baso % (Auto) 0.4 Absolute Neuts (auto) 8.0 H Absolute Lymphs (auto) 1.95 Nucleated RBC % 0 Sodium 137 Potassium 3.5 Chloride 103 Carbon Dioxide 27.0 Anion Gap 7 BUN 15 Creatinine 0.84 Estim Creat Clear Calc 70.05 Est GFR (MDRD) Af Amer 88 Est GFR (MDRD) Non-Af 73 BUN/Creatinine Ratio 17.9 Glucose 139 H Calcium 9.3 Total Bilirubin 0.40 Direct Bilirubin 0.13 AST 15 ALT 28 Alkaline Phosphatase 63 Total Protein 7.7 Albumin 3.5 Globulin 4.2 Lipase 101 Radiography Diagnostic Testing: Clinical Impression(s) from Imaging Studies Abdomen/Pelvis CT 12/22/20 14:13 IMPRESSION: 1. Possible early rectal fecal impaction. 2. No bowel obstruction. 3. Right inguinal wide opening hernia with bowel, no obstruction. 4. Incompletely characterized right renal lesion. Refer to renal imaging for characterization, cyst and renal cell carcinoma are in the differential diagnosis. 5. Hepatic steatosis, hepatomegaly and mild/impending cirrhosis. Follow-up with hepatology advised. 6. Small low-risk adrenal nodules, refer to endocrinologic evaluation and consider elective follow-up imaging for better characterization. This can be accomplished at the time of above recommended renal evaluation. Endocrine follow-up advised. Electronically Signed: Dayanara Jaimes MD at 16:37 EST Tel , Service support , Discharge Plan Triage Chief Complaint: Abd Pain ED Provider: Daniel Turk Dx/Rx/DC Orders Instructions: ED Constipation (Adult), ED Hernia (Adult) Prescriptions: No Action ondansetron HCl [Zofran] 4 mg tablet 4 mg PO Q8H PRN (Reason: nausea and vomiting) Qty: 10 RF: 0 celecoxib [Celebrex] 200 MG capsule 200 mg PO BID RF: 0 indapamide 1.25 MG tablet 1.25 mg PO QHS RF: 0 losartan-hydrochlorothiazide 1 EACH tablet 1 ea PO QHS RF: 0 fluoxetine [Prozac] 20 MG capsule 60 mg PO QHS RF: 0 potassium chloride [Klor-Con M20] 20 MEQ Tab.Er.Prt 30 meq PO DAILY RF: 0 sennosides-docusate sodium [Stool Softener-Stimulant Laxat] 1 TABLET tablet 2 tab PO BID Qty: 20 RF: 0 acetaminophen 500 MG tablet 1,000 mg PO Q8 Qty: 90 RF: 0 famotidine 20 MG tablet 20 mg PO DAILY Qty: 30 RF: 0 aspirin 81 MG Tab.Chew 81 mg PO BIDCM Qty: 60 RF: 0 montelukast 10 MG tablet 10 mg PO DAILY@1700 Qty: 30 RF: 0 Primary Care Provider: Jayjay Capps Referrals: Jayjay Capps MD [Primary Care Provider] - Activity Restrictions/Additional Instructions: Under CT scan today the radiologist did find bilateral adrenal nodules which he did not feel were of specific concern but did note a small lesion on the right kidney which needs to be followed which is 1.2 cm. Specifically the radiologist read this as: There is a 1.2 cm intermediate density right intraparenchymal subcortical lesion. Disposition Disposition: Home, Self Care Discharge Date/Time: 12/22/20 16:59
[2020-12-22 14:37] LABS: Absolute Lymphocyte Count 1.95 X10^3/uL (0.83-4.51); Basophil# 0.04 X10^3/uL; Basophil% 0.4 % (0-1); Eosinophil# 0.09 X10^3/uL; Eosinophils% 0.8 % (0-5); Hematocrit 36.9 % (37-47); Hemoglobin 12.1 g/dL (12.0-15.0); Lymphocyte # 1.95 X10^3/ul (0.83-4.51); Lymphocyte % 18.3 % (19-41); Mean Corp Hgb Conc 32.8 g/dL (32-36); Mean Corpuscular Hgb 31.1 pg (27.0-32.0); Mean Corpuscular Volume 94.9 fL (81-99); Mean Platelet Vol. 9.8 fl (6.2-12.0); Monocyte# 0.47 X10^3/uL; Monocyte% 4.4 % (0-10); NRBC Flagged by Analyzer 0 % (0-5); Neutrophil # 8.03 X10^3/uL (2.7-7.7); Neutrophil % 75.6 % (47-70); Platelet Count 296 K/mm3 (150-450); RBC Distribution Width CV 12.7 % (11.6-14.6); RBC Distribution Width SD 43.9 fl (35.1-43.9); Red Blood Count 3.89 M/mm3 (4.2-5.4); White Blood Count 10.6 K/mm3 (4.4-11.0)
[2020-12-22 14:43] LABS: AST(SGOT) 15 U/L (15-37); Alanine Aminotransfer ALT/SGPT 28 U/L (13-56); Albumin, Serum 3.5 g/dL (3.2-5.0); Alkaline Phosphatase 63 U/L (45-117); Anion Gap 7 (5-15); BUN 15 mg/dL (7-18); BUN/Creat Ratio 17.9 RATIO (10-20); Bilirubin, Direct 0.13 mg/dL (0.00-0.30); Calcium,Total 9.3 mg/dL (8.5-10.1); Chloride 103 mmol/L (98-107); Creatinine, Serum 0.84 mg/dL (0.55-1.02); EST Glomerular Filtration Rate 73 mL/min (>60); Est Glom Filt Rate - Afr Amer 88 mL/min (>60); Estimated Creatinine Clearance 70.05 ml/min; Globulin 4.2 g/dL (2.2-4.2); Glucose 139 mg/dL (74-106); Lipase 101 U/L (73-393); Potassium 3.5 mmol/L (3.5-5.1); Protein, Total 7.7 g/dL (6.4-8.2); Sodium Level 137 mmol/L (136-145)
== END 2020-12-22 16:59 | disposition home or self-care (01) ==
PROVIDERS: Emergency Provider Student in an Organized Health Care Education/Training Program; PCP Family Medicine
DX: K59.00 Constipation, unspecified (principal); K40.90 Unilateral inguinal hernia, without obstruction or gangrene, not specified as recurrent; N28.89 Other specified disorders of kidney and ureter; E27.8 Other specified disorders of adrenal gland; E66.9 Obesity, unspecified; Z68.41 Body mass index [BMI] 40.0-44.9, adult; K76.0 Fatty (change of) liver, not elsewhere classified; F32.A Depression, unspecified; Z79.899 Other long term (current) drug therapy; Z87.891 Personal history of nicotine dependence
CPT/HCPCS: 74177; 80048; 80076; 83690; 85025; 96374; 96375; 99285; Q9967; A4216; J2405

== ENCOUNTER → 2021-02-05 08:10 | Outpatient (CLI) | payer OTHER, SELFPAY ==
--- NOTE | 2021-02-05 08:15 | CT_ITS ---
STUDY: CT Abdomen WO/W Contrast Injection 02/05/2021 2:51 PM REASON FOR EXAM: Female, 60 years old. Abdominal pain RENAL MASS Individualized dose optimization techniques were used for this CT. Comparison: Dec 22 2020 2:54pm TECHNIQUE: CT Abdomen WO/W Contrast Injection with and without IV 100mL Isovue-300 FINDINGS: The visualized lung bases are unremarkable. The visualized portions of the heart are within normal limits. Normal liver. There are multiple gallstones. Normal spleen. Normal pancreas. There are small, circumscribed, smooth, low attenuation bilateral adrenal masses, consistent with an adrenal adenoma. 14 mm hypodensity of the right kidney. This is [place] units postcontrast. No acute findings of the left kidney. Normal visualized stomach. Normal small intestine. Stool throughout the colon. There is non-visualization of the appendix. There are calcifications of the abdominal aorta. This is consistent for atherosclerotic disease. There is no abdominal aortic aneurysm. Normal inferior vena cava. Subcentimeter mesenteric lymph nodes. Normal abdominal wall. Normal osseous structures. IMPRESSION: (NOT LISTED IN ORDER OF SIGNIFICANCE) Right renal cystic / solid lesion does not correlate with a simple cyst. Bosniak IIF. ACR White Paper guidelines (Herts, et al. JACR 2018; 15(2):264-273) [address] abdominal CT or MRI without and with intravenous contrast in 6 months. There are bilateral adrenal adenoma. There are multiple gallstones. Other findings as above. Electronically Signed: Joshua Rosa MD at 15:02 EST , Service support , CT/Abdomen W/WO IV Contrast
[2021-02-05 08:45] LABS: CREATININE FINGERSTICK 0.9 mg/dL (0.55-1.02); EGFR FINGERSTICK > 60.0000 mL/min (>60)
== END ==
PROVIDERS: PCP Family Medicine; Referring Provider Family Medicine; Visit Provider Family Medicine
DX: N28.89 Other specified disorders of kidney and ureter (principal)
CPT/HCPCS: 74170; Q9967

== ENCOUNTER 2021-05-22 16:40 | Outpatient (CLI) | payer OTHER, SELFPAY ==
[2021-05-22 17:58] LABS: Absolute Lymphocyte Count 3.66 X10^3/uL (0.83-4.51); Absolute Neutrophil Count 5.5 X10^3/uL (2.0-7.7); Basophil# 0.05 X10^3/uL; Basophil% 0.5 % (0-1); Eosinophil# 0.24 X10^3/uL; Eosinophils% 2.4 % (0-5); Hemoglobin 12.5 g/dL (12.0-15.0); Lymphocyte # 3.66 X10^3/ul (0.83-4.51); Lymphocyte % 35.9 % (19-41); Mean Corp Hgb Conc 32.9 g/dL (32-36); Mean Corpuscular Hgb 31.3 pg (27.0-32.0); Mean Corpuscular Volume 95.2 fL (81-99); Mean Platelet Vol. 10.8 fl (6.2-12.0); Monocyte# 0.69 X10^3/uL; Monocyte% 6.8 % (0-10); NRBC Flagged by Analyzer 0 % (0-5); Neutrophil # 5.52 X10^3/uL (2.7-7.7); Platelet Count 304 K/mm3 (150-450); RBC Distribution Width CV 12.9 % (11.6-14.6); RBC Distribution Width SD 45.1 fl (35.1-43.9); Red Blood Count 3.99 M/mm3 (4.2-5.4); White Blood Count 10.2 K/mm3 (4.4-11.0)
[2021-05-22 18:06] LABS: Erythrocyte Sedimentation Rate 32 mm/hr (0-30)
[2021-05-22 18:16] LABS: AST(SGOT) 21 U/L (15-37); Alanine Aminotransfer ALT/SGPT 40 U/L (13-56); Albumin, Serum 3.9 g/dL (3.2-5.0); Alkaline Phosphatase 60 U/L (45-117); Anion Gap 7 (5-15); BUN 19 mg/dL (7-18); BUN/Creat Ratio 24.1 RATIO (10-20); CRP 3.58 mg/L (0.0-3.0); Calcium,Total 9.2 mg/dL (8.5-10.1); Chloride 102 mmol/L (98-107); Creatinine, Serum 0.79 mg/dL (0.55-1.02); EST Glomerular Filtration Rate 78 mL/min (>60); Est Glom Filt Rate - Afr Amer 95 mL/min (>60); Globulin 4.1 g/dL (2.2-4.2); Glucose 134 mg/dL (74-106); Potassium 3.8 mmol/L (3.5-5.1); Rheumatoid Factor < 10.0 IU/mL (<15); Sodium Level 136 mmol/L (136-145)
[2021-05-23 08:39] LABS: Hepatitis B Surface Antibody Non-Reactive; Hepatitis B Surface Antigen Non-Reactive (Nonreactive); Hepatitis C Antibody Non-Reactive (Nonreactive)
[2021-05-24 21:10] LABS: ANTINUCLEAR ANTIBODIES DIRECT Positive (Negative)
[2021-05-27 14:44] LABS: CCP IgG Antibodies 5 units (0-19)
== END 2021-05-22 23:59 | disposition home or self-care (01) ==
LOC: MTLAB 16:41
PROVIDERS: PCP Family Medicine; Referring Provider Internal Medicine Rheumatology; Visit Provider Internal Medicine Rheumatology
DX: M06.4 Inflammatory polyarthropathy (principal); M17.0 Bilateral primary osteoarthritis of knee; F41.9 Anxiety disorder, unspecified; I10 Essential (primary) hypertension
CPT/HCPCS: 36415; 80053; 85025; 85652; 86038; 86140; 86200; 86431; 86706; 86803; 87340

== ENCOUNTER → 2021-06-03 | Outpatient (CLI) | payer OTHER, SELFPAY ==
[2021-06-03 08:48] LABS: EXAGEN MAILED SPECIMEN
[2021-06-03 10:14] LABS: International Normalized Ratio 1.1; Prothrombin Time (Protime)PT. 13.4 SECONDS (11.7-14.9)
[2021-06-03 10:15] LABS: Partial Thromboplast Time 26.7 Seconds (24.1-36.2)
[2021-06-03 10:24] LABS: Color, Urine Yellow (Yellow); Glucose, Dipstick Normal (Normal); Ketone-Dipstick 5 mg/dl (Negative); Leukocyte Esterase-Dipstick Negative /ul (Negative); Nitrite-Dipstick Negative (Negative); Occult Blood-Urine Negative /ul (Negative); Protein-Dipstick Negative (Negative); Specific Gravity, Urine 1.025 (1.002-1.030); Urine Clarity Clear (Clear); Urine Urobilinogen 1 mg/dl (Normal)
[2021-06-03 10:31] LABS: Urine Bilirubin Dipstick 1 mg/dL (Negative)
[2021-06-03 10:33] LABS: Protein, Urine (Random) 22.8 mg/dL (<11.9); Protein:Creat Ratio 82 mg/g CRE (0-200)
[2021-06-04 14:09] LABS: Dilute Prothrombin Time (dPT) 35.4 sec (0.0-47.6); dPT Confirm Ratio 1.08 Ratio (0.00-1.34)
[2021-06-04 14:10] LABS: Dilute Russell Viper Venom 40.7 sec (0.0-47.0); Hexagonal Phase Phospholipid 3 sec (0-11); PTT-LA 30.2 sec (0.0-51.9); Thrombin Time 17.5 sec (0.0-23.0)
[2021-06-04 20:11] LABS: Interpretation Comment: (.)
[2021-06-04 20:12] LABS: Thrombin Time 17.6 sec (0.0-23.0)
== END | disposition home or self-care (01) ==
LOC: MTLAB 07:45
PROVIDERS: PCP Family Medicine; Referring Provider Internal Medicine Rheumatology; Visit Provider Internal Medicine Rheumatology
DX: M06.4 Inflammatory polyarthropathy (principal); R76.8 Other specified abnormal immunological findings in serum; M17.0 Bilateral primary osteoarthritis of knee; F41.9 Anxiety disorder, unspecified; I10 Essential (primary) hypertension
CPT/HCPCS: 36415; 81002; 82570; 84156; 85598; 85610; 85670; 85730

== ENCOUNTER → 2021-08-13 | Outpatient (CLI) | payer OTHER, SELFPAY ==
[2021-08-13 12:40] LABS: Absolute Lymphocyte Count 2.55 X10^3/uL (0.83-4.51); Absolute Neutrophil Count 3.9 X10^3/uL (2.0-7.7); Basophil# 0.04 X10^3/uL; Basophil% 0.5 % (0-1); Eosinophil# 0.18 X10^3/uL; Eosinophils% 2.5 % (0-5); Hematocrit 38.7 % (37-47); Hemoglobin 12.7 g/dL (12.0-15.0); Lymphocyte # 2.55 X10^3/ul (0.83-4.51); Lymphocyte % 34.8 % (19-41); Mean Corp Hgb Conc 32.8 g/dL (32-36); Mean Corpuscular Hgb 31.9 pg (27.0-32.0); Mean Corpuscular Volume 97.2 fL (81-99); Mean Platelet Vol. 10.4 fl (6.2-12.0); Monocyte# 0.59 X10^3/uL; Monocyte% 8.1 % (0-10); NRBC Flagged by Analyzer 0 % (0-5); Neutrophil # 3.93 X10^3/uL (2.7-7.7); Neutrophil % 53.7 % (47-70); Platelet Count 324 K/mm3 (150-450); RBC Distribution Width CV 13.1 % (11.6-14.6); RBC Distribution Width SD 46.7 fl (35.1-43.9); Red Blood Count 3.98 M/mm3 (4.2-5.4); White Blood Count 7.3 K/mm3 (4.4-11.0)
[2021-08-13 13:03] LABS: ALB/GLOB Ratio 0.9 RATIO (0.9-2.4); AST(SGOT) 19 U/L (15-37); Alanine Aminotransfer ALT/SGPT 31 U/L (13-56); Albumin, Serum 3.6 g/dL (3.2-5.0); Alkaline Phosphatase 60 U/L (45-117); Anion Gap 8 (5-15); BUN 13 mg/dL (7-18); BUN/Creat Ratio 17.3 RATIO (10-20); Calcium,Total 9.5 mg/dL (8.5-10.1); Chloride 102 mmol/L (98-107); Creatinine, Serum 0.75 mg/dL (0.55-1.02); EST Glomerular Filtration Rate 83 mL/min (>60); Est Glom Filt Rate - Afr Amer 100 mL/min (>60); Globulin 4.1 g/dL (2.2-4.2); Glucose 158 mg/dL (74-106); Potassium 3.6 mmol/L (3.5-5.1); Protein, Total 7.7 g/dL (6.4-8.2); Sodium Level 138 mmol/L (136-145)
== END | disposition home or self-care (01) ==
PROVIDERS: PCP Family Medicine; Referring Provider Internal Medicine Rheumatology; Visit Provider Internal Medicine Rheumatology
DX: M06.4 Inflammatory polyarthropathy (principal); R76.8 Other specified abnormal immunological findings in serum; M17.0 Bilateral primary osteoarthritis of knee; F41.9 Anxiety disorder, unspecified; I10 Essential (primary) hypertension
CPT/HCPCS: 36415; 80053; 85025

== ENCOUNTER → 2021-10-11 | Outpatient (CLI) | payer OTHER, SELFPAY ==
[2021-10-11 17:29] LABS: Absolute Lymphocyte Count 3.24 X10^3/uL (0.83-4.51); Absolute Neutrophil Count 4.8 X10^3/uL (2.0-7.7); Basophil# 0.06 X10^3/uL; Basophil% 0.7 % (0-1); Eosinophil# 0.23 X10^3/uL; Eosinophils% 2.5 % (0-5); Hematocrit 38.3 % (37-47); Hemoglobin 12.6 g/dL (12.0-15.0); Lymphocyte # 3.24 X10^3/ul (0.83-4.51); Lymphocyte % 35.6 % (19-41); Mean Corp Hgb Conc 32.9 g/dL (32-36); Mean Corpuscular Hgb 32.4 pg (27.0-32.0); Mean Corpuscular Volume 98.5 fL (81-99); Mean Platelet Vol. 9.9 fl (6.2-12.0); Monocyte# 0.71 X10^3/uL; Monocyte% 7.8 % (0-10); NRBC Flagged by Analyzer 0 % (0-5); Neutrophil # 4.81 X10^3/uL (2.7-7.7); Neutrophil % 52.7 % (47-70); Platelet Count 400 K/mm3 (150-450); RBC Distribution Width CV 13.4 % (11.6-14.6); RBC Distribution Width SD 47.2 fl (35.1-43.9); Red Blood Count 3.89 M/mm3 (4.2-5.4); White Blood Count 9.1 K/mm3 (4.4-11.0)
[2021-10-11 17:53] LABS: ALB/GLOB Ratio 0.8 RATIO (0.9-2.4); AST(SGOT) 20 U/L (15-37); Alanine Aminotransfer ALT/SGPT 35 U/L (13-56); Albumin, Serum 3.6 g/dL (3.2-5.0); Alkaline Phosphatase 62 U/L (45-117); Anion Gap 9 (5-15); BUN 13 mg/dL (7-18); BUN/Creat Ratio 16.5 RATIO (10-20); Calcium,Total 9.4 mg/dL (8.5-10.1); Chloride 100 mmol/L (98-107); Creatinine, Serum 0.79 mg/dL (0.55-1.02); EST Glomerular Filtration Rate 78 mL/min (>60); Est Glom Filt Rate - Afr Amer 95 mL/min (>60); Globulin 4.3 g/dL (2.2-4.2); Glucose 113 mg/dL (74-106); Potassium 4.2 mmol/L (3.5-5.1); Protein, Total 7.9 g/dL (6.4-8.2); Sodium Level 137 mmol/L (136-145)
== END | disposition home or self-care (01) ==
LOC: MTLAB 15:37
PROVIDERS: PCP Family Medicine; Referring Provider Internal Medicine Rheumatology; Visit Provider Internal Medicine Rheumatology
DX: M06.4 Inflammatory polyarthropathy (principal); Z79.899 Other long term (current) drug therapy; R76.8 Other specified abnormal immunological findings in serum; M17.0 Bilateral primary osteoarthritis of knee; F41.9 Anxiety disorder, unspecified; I10 Essential (primary) hypertension
CPT/HCPCS: 36415; 80053; 85025

== ENCOUNTER 2022-01-14 16:16 | Outpatient (CLI) | payer OTHER, SELFPAY ==
[2022-01-14 17:44] LABS: Absolute Neutrophil Count 5.4 X10^3/uL (2.0-7.7); Basophil# 0.06 X10^3/uL; Basophil% 0.6 % (0-1); Eosinophil# 0.15 X10^3/uL; Eosinophils% 1.5 % (0-5); Hematocrit 39.9 % (37-47); Hemoglobin 13.1 g/dL (12.0-15.0); Lymphocyte % 36.5 % (19-41); Mean Corp Hgb Conc 32.8 g/dL (32-36); Mean Corpuscular Hgb 32.4 pg (27.0-32.0); Mean Corpuscular Volume 98.8 fL (81-99); Mean Platelet Vol. 10.1 fl (6.2-12.0); Monocyte# 0.66 X10^3/uL; Monocyte% 6.7 % (0-10); NRBC Flagged by Analyzer 0 % (0-5); Neutrophil # 5.36 X10^3/uL (2.7-7.7); Neutrophil % 54.5 % (47-70); Platelet Count 320 K/mm3 (150-450); RBC Distribution Width CV 12.7 % (11.6-14.6); RBC Distribution Width SD 46.1 fl (35.1-43.9); Red Blood Count 4.04 M/mm3 (4.2-5.4); White Blood Count 9.9 K/mm3 (4.4-11.0)
[2022-01-14 18:03] LABS: ALB/GLOB Ratio 1.1 RATIO (0.9-2.4); AST(SGOT) 12 U/L (15-37); Alanine Aminotransfer ALT/SGPT 35 U/L (13-56); Albumin, Serum 3.9 g/dL (3.2-5.0); Alkaline Phosphatase 62 U/L (45-117); Anion Gap 8 (5-15); BUN 20 mg/dL (7-18); BUN/Creat Ratio 24.6 RATIO (10-20); Calcium,Total 9.3 mg/dL (8.5-10.1); Chloride 98 mmol/L (98-107); Creatinine, Serum 0.81 mg/dL (0.55-1.02); EST Glomerular Filtration Rate 76 mL/min (>60); Est Glom Filt Rate - Afr Amer 92 mL/min (>60); Globulin 3.5 g/dL (2.2-4.2); Glucose 114 mg/dL (74-106); Potassium 4.3 mmol/L (3.5-5.1); Protein, Total 7.4 g/dL (6.4-8.2); Sodium Level 136 mmol/L (136-145)
== END 2022-01-14 23:59 | disposition home or self-care (01) ==
LOC: MTLAB 16:18
PROVIDERS: PCP Family Medicine; Referring Provider Internal Medicine Rheumatology; Visit Provider Internal Medicine Rheumatology
DX: M06.4 Inflammatory polyarthropathy (principal); Z79.899 Other long term (current) drug therapy; R76.8 Other specified abnormal immunological findings in serum; M17.0 Bilateral primary osteoarthritis of knee; F41.9 Anxiety disorder, unspecified; I10 Essential (primary) hypertension
CPT/HCPCS: 36415; 80053; 85025

== ENCOUNTER → 2022-03-17 | Outpatient (CLI) | payer OTHER, SELFPAY ==
[2022-03-17 17:45] LABS: Absolute Lymphocyte Count 3.46 X10^3/uL (0.83-4.51); Absolute Neutrophil Count 5.2 X10^3/uL (2.0-7.7); Basophil# 0.06 X10^3/uL; Basophil% 0.6 % (0-1); Eosinophil# 0.16 X10^3/uL; Eosinophils% 1.7 % (0-5); Hematocrit 42.1 % (37-47); Hemoglobin 13.5 g/dL (12.0-15.0); Lymphocyte # 3.46 X10^3/ul (0.83-4.51); Lymphocyte % 36.9 % (19-41); Mean Corp Hgb Conc 32.1 g/dL (32-36); Mean Corpuscular Hgb 31.8 pg (27.0-32.0); Mean Corpuscular Volume 99.1 fL (81-99); Mean Platelet Vol. 10.1 fl (6.2-12.0); Monocyte# 0.52 X10^3/uL; Monocyte% 5.5 % (0-10); NRBC Flagged by Analyzer 0 % (0-5); Neutrophil # 5.15 X10^3/uL (2.7-7.7); Neutrophil % 55.1 % (47-70); Platelet Count 353 K/mm3 (150-450); RBC Distribution Width CV 13.2 % (11.6-14.6); RBC Distribution Width SD 47.3 fl (35.1-43.9); Red Blood Count 4.25 M/mm3 (4.2-5.4); White Blood Count 9.4 K/mm3 (4.4-11.0)
[2022-03-17 18:51] LABS: ALB/GLOB Ratio 0.9 RATIO (0.9-2.4); AST(SGOT) 18 U/L (15-37); Alanine Aminotransfer ALT/SGPT 37 U/L (13-56); Alkaline Phosphatase 65 U/L (45-117); Anion Gap 11 (5-15); BUN 16 mg/dL (7-18); BUN/Creat Ratio 18.4 RATIO (10-20); Calcium,Total 9.7 mg/dL (8.5-10.1); Chloride 98 mmol/L (98-107); Creatinine, Serum 0.87 mg/dL (0.55-1.02); EST Glomerular Filtration Rate 70 mL/min (>60); Est Glom Filt Rate - Afr Amer 84 mL/min (>60); Globulin 4.4 g/dL (2.2-4.2); Glucose 98 mg/dL (74-106); Protein, Total 8.4 g/dL (6.4-8.2); Sodium Level 136 mmol/L (136-145)
== END | disposition home or self-care (01) ==
LOC: MTLAB 16:16
PROVIDERS: PCP Family Medicine; Referring Provider Internal Medicine Rheumatology; Visit Provider Internal Medicine Rheumatology
DX: M06.4 Inflammatory polyarthropathy (principal); R76.8 Other specified abnormal immunological findings in serum; M17.0 Bilateral primary osteoarthritis of knee; F41.9 Anxiety disorder, unspecified; I10 Essential (primary) hypertension; Z79.899 Other long term (current) drug therapy
CPT/HCPCS: 36415; 80053; 85025

== ENCOUNTER 2022-04-25 14:44 | Emergency (ER) | payer OTHER, SELFPAY ==
--- NOTE | 2022-04-25 14:43 | EKG12_ITS ---
Test Reason : CP/HTN Blood Pressure : / mmHG Vent. Rate : 066 BPM Atrial Rate : 066 BPM P-R Int : 180 ms QRS Dur : 088 ms QT Int : 384 ms P-R-T Axes : 109 -32 151 degrees QTc Int : 402 ms Normal sinus rhythm Left axis deviation Pulmonary disease pattern Left ventricular hypertrophy with repolarization abnormality ( R in aVL ) Abnormal ECG Confirmed by LEIGH ANTHONY, SAVANNAH ([id number]), editorial director HEAVEN JONES ([id number]) on 04/28/2022 12:23:36 P M Referred By: KEVIN/KATH Confirmed By:BO ABRAHAM MD
[2022-04-25 14:45] VITALS: BP 192/87; PULSE 68; RESP 16; TEMP 36.6; O2SAT 99; BMI 44.9
[2022-04-25 15:31] VITALS: BP 157/76; PULSE 55; RESP 18; O2SAT 99
--- NOTE | 2022-04-25 15:32 | ED.VIS.CHEST ---
HPI <LEIA Aquino - Last Filed: 04/25/22 16:52> History of Present Illness Chief Complaint: Chest Pain Narrative Narrative: Patient presenting today with left-sided intermittent chest pain that radiates to her left armpit and under her left scapula that she has had now for the past few days. She reports that a week and a half ago she began having pain under her left shoulder blade that was tender to the touch and relieved with IcyHot that she attributed to recently cleaning under her bed and using a lot of arm movements to do this. She is not sure if the pain she is experiencing on her chest is a result of that or if it is cardiac related. Patient has also had a bad cough over the past few weeks. She denies a history of any cardiac conditions, shortness of breath, history of blood clots, abdominal pain, nausea, and vomiting. PMH includes hypertension, diabetes mellitus, and anxiety. PFSH <LEIA Aquino - Last Filed: 04/25/22 16:52> PFSH Medical History Depression Home Medications indapamide 1.25 mg tablet 1.25 mg PO QHS SUPPLEMENT 10/14/17 [History Last Taken Unknown] acetaminophen 500 mg tablet 1,000 mg PO Q8 #90 TABLETS 02/04/18 [Rx Last Taken Unknown] sennosides 8.6 mg-docusate sodium 50 mg tablet (Stool Softener-Stimulant Laxative) 2 tab PO BID #20 TABLETS 02/04/18 [Rx Last Taken Unknown] ondansetron HCl 4 mg tablet (Zofran) 4 mg PO Q8H PRN nausea and vomiting #10 tabs 05/15/20 [Rx Last Taken Unknown] amlodipine 10 mg tablet (Norvasc) 10 mg PO DAILY 03/19/22 [History Last Taken Unknown] desvenlafaxine succinate 100 mg tablet,extended release 24 hr (Pristiq) 100 mg PO DAILY 03/19/22 [History Last Taken Unknown] folic acid 1 mg tablet 1 mg PO BID 03/19/22 [History Last Taken Unknown] gabapentin 100 mg capsule 100 mg PO TID 03/19/22 [History Last Taken Unknown] losartan 50 mg tablet 50 mg PO DAILY 03/19/22 [History Last Taken Unknown] metformin 500 mg tablet 500 mg PO DAILY 03/19/22 [History Last Taken Unknown] methotrexate sodium 2.5 mg tablet 2.5 mg PO QWEEK 03/19/22 [History Last Taken Unknown] metoprolol tartrate 50 mg tablet 50 mg PO DAILY 03/19/22 [History Last Taken Unknown] spironolactone 50 mg tablet 50 mg PO DAILY 03/19/22 [History Last Taken Unknown] pantoprazole 40 mg tablet,delayed release (Protonix) 40 mg PO DAILY #14 tabs 04/10/22 [Rx Last Taken Unknown] sodium sul 1.479 gram-potas ch 0.188 gram-magnes sul 0.225 gram tablet (Sutab) 24 tab PO PER PKG DIR #24 tabs 04/14/22 [Rx Last Taken Unknown] cyclobenzaprine 10 mg tablet 10 mg PO BID #12 TABLETS 04/25/22 [Rx Last Taken Unknown] Allergy/AdvReac Type Severity Reaction Status Date / Time No Known Allergies Allergy Verified 04/25/22 14:47 Surgical History History of knee replacement Social History Smoking Status: Former smoker alcohol intake: never substance use type: does not use ROS <LEIA Aquino - Last Filed: 04/25/22 16:52> ROS ED Constitutional Constitutional ED: Denies chills, fever(s) or sweats Eyes Eyes: Denies blurry vision or diplopia Cardiovascular Cardiovascular: Reports chest pain; Denies palpitations Respiratory/Chest Respiratory/Chest: Denies cough, dyspnea or dyspnea on exertion Gastrointestinal Gastrointestinal: Denies abdominal pain, nausea or vomiting Genitourinary Genitourinary ED: Denies dysuria, hematuria or urinary urgency Musculoskeletal Musculoskeletal: Reports myalgias; Denies back pain or neck pain Integumentary Denies abscess, Abrasions or rash Neurologic Neurologic: Denies confusion, dizziness or paresthesias Psychiatric Psychiatric: Denies anxiety, depression, suicidal ideation or suicidal thoughts EXAM <LEIA Aquino - Last Filed: 04/25/22 16:52> Physical Exam Const Vital Signs: 04/25/22 14:45 04/25/22 15:31 04/25/22 16:35 Temperature 98 F Temperature Source Temporal Pulse Rate 68 55 L 71 Respiratory Rate 16 18 16 Blood Pressure 192/87 H 157/76 H 127/68 H Blood Pressure Mean 122 103 Pulse Ox 99 99 98 Oxygen Delivery Method Room Air Room Air Positive well nourished, well developed and no apparent distress General Appearance ED: well developed HEENT Reports normocephalic and head/scalp atraumatic Mouth ED: Yes moist mucous membranes normal Eyes PERRL and EOMs intact bilaterally Neck full ROM and supple Chest Wall inspection of chest normal and palpation of chest normal Chest: Negative for tenderness Resp normal respiratory effort and clear to auscultation bilaterally Cardio regular rate and regular rhythm GI soft to palpation, non-tender, non-distended and no masses Back/Spine normal ROM and normal to inspection Extremity normal to inspection and full ROM Neuro oriented x3, CN's II-XII intact bilaterally, moves all extremities, no focal motor deficits and no sensory deficits noted Sensorium / Orientation: awake and alert Psych mental status grossly normal and thought process normal Skin no rashes or lesions noted and no wounds <Dr. Daniel Turk, - Last Filed: 04/25/22 18:27> Physical Exam Const Vital Signs: 04/25/22 14:45 04/25/22 15:31 04/25/22 16:35 Temperature 98 F Temperature Source Temporal Pulse Rate 68 55 L 71 Respiratory Rate 16 18 16 Blood Pressure 192/87 H 157/76 H 127/68 H Blood Pressure Mean 122 103 Pulse Ox 99 99 98 Oxygen Delivery Method Room Air Room Air <Dr. Daniel Turk DO - Last Filed: 04/25/22 18:27> Heart Score History: Slightly/Non-Suspicious ECG: Normal Age: >/= 65 years Risk Factors: 1 or 2 Risk Factors Troponin: </= Normal Limit Score: 3 MDM <LEIA Aquino - Last Filed: 04/25/22 16:52> [facility] Narrative Medical decision making narrative: Patient presenting with intermittent left-sided chest pain that radiates to her left side under her armpit and below her left scapula. She states that about a week ago she was cleaning under her bed and using her left arm a lot to do the cleaning. After this, she was having to use IcyHot under her left scapula and was unable to sleep on her left side due to the pain. She states that over time it slightly worsened and within the past few days started to radiate to her left chest. She wanted to be sure that this was not cardiac related. She has also been coughing a lot over the past 3 weeks. Labs obtained to rule out ACS. EKG normal sinus rhythm and troponin WNL. Patient does not have any significant risk factors for PE, no recent surgeries, procedures, travel, no history of a blood clot, no tobacco use. Chest x-ray does not show any cardiopulmonary abnormality. Patient's pain is likely muscular in nature or could be attributed to pleurisy. She has been given a few muscle relaxers for home and has been told to take anti-inflammatories. She is to follow-up with her PCP. She has not had a stress test in a few years and I told her that she should follow-up to have this scheduled. She will be discharged home in stable condition and is comfortable with plan. She has been given return precautions. Lab Data Attestation: I reviewed the patient's lab results. Labs: Laboratory Results - last 24 hr 04/25/22 04/25/22 15:40 15:40 WBC 8.5 RBC 3.85 L Hgb 12.6 Hct 38.5 MCV 100.0 H MCH 32.7 H MCHC 32.7 RDW Std Deviation 49.0 H RDW Coeff of Clay 13.7 Plt Count 329 MPV 10.1 Immature Gran % (Auto) 0.600 Neut % (Auto) 59.3 Lymph % (Auto) 31.1 [place] % (Auto) 6.9 Eos % (Auto) 1.5 Baso % (Auto) 0.6 Absolute Neuts (auto) 5.1 Absolute Lymphs (auto) 2.65 Nucleated RBC % 0 Sodium 139 Potassium 3.9 Chloride 102 Carbon Dioxide 32.0 Anion Gap 5 BUN 13 Creatinine 0.81 Estim Creat Clear Calc 69.13 Est GFR (MDRD) Af Amer 92 Est GFR (MDRD) Non-Af 76 BUN/Creatinine Ratio 16.1 Glucose 113 H Calcium 9.4 Troponin I High Sens 4 Radiography Chest X-Ray - ED: Read by ED Physician and Read by Radiologist Diagnostic Testing: Clinical Impression(s) from Imaging Studies Chest X-Ray 04/25/22 15:45 IMPRESSION: No radiographic evidence of acute cardiopulmonary disease. Electronically Signed: Joshua Rosa MD at 16:01 EDT , EKG Initial EKG: Comments: 66 bpm, normal sinus rhythm, no ST elevation, read and interpreted by attending ED physician. <Dr. Daniel Turk, DO - Last Filed: 04/25/22 18:27> [facility] Narrative Medical decision making narrative: Patient presenting with intermittent left-sided chest pain that radiates to her left side under her armpit and below her left scapula. She states that about a week ago she was cleaning under her bed and using her left arm a lot to do the cleaning. After this, she was having to use IcyHot under her left scapula and was unable to sleep on her left side due to the pain. She states that over time it slightly worsened and within the past few days started to radiate to her left chest. She wanted to be sure that this was not cardiac related. She has also been coughing a lot over the past 3 weeks. Labs obtained to rule out ACS. EKG normal sinus rhythm and troponin WNL. Patient does not have any significant risk factors for PE, no recent surgeries, procedures, travel, no history of a blood clot, no tobacco use. Chest x-ray does not show any cardiopulmonary abnormality. Patient's pain is likely muscular in nature or could be attributed to pleurisy. She has been given a few muscle relaxers for home and has been told to take anti-inflammatories. She is to follow-up with her PCP. She has not had a stress test in a few years and I told her that she should follow-up to have this scheduled. She will be discharged home in stable condition and is comfortable with plan. She has been given return precautions. This patient was seen with a PA/IT SENIOR SOFTWARE ENGINEER JAVA Individually assessed they patient including history and physical. I have reviewed everything on the chart that is available and agree with the documentation provided by the PA/IT SENIOR SOFTWARE ENGINEER JAVA including discussion about the assessment, treatment plan, discussion, and return precautions. Differential includes but is not limited to ACS, PE, pneumothorax, muscle strain, costochondritis, notes likely represents musculoskeletal pain given patient's history and physical exam. HEART score is 3. Mostly this is for age. I have a low clinical suspicion for ACS. Work-up was ultimately negative. No risk factors for DVT. I do not believe she needs a delta troponin. Patient to follow-up with PCP on outpatient basis. She request a muscle relaxer for her pain. This is provided. Lab Data Labs: Laboratory Results - last 24 hr 04/25/22 04/25/22 15:40 15:40 WBC 8.5 RBC 3.85 L Hgb 12.6 Hct 38.5 MCV 100.0 H MCH 32.7 H MCHC 32.7 RDW Std Deviation 49.0 H RDW Coeff of [place] 13.7 Plt Count 329 MPV 10.1 Immature Gran % (Auto) 0.600 Neut % (Auto) 59.3 Lymph % (Auto) 31.1 [place] % (Auto) 6.9 Eos % (Auto) 1.5 Baso % (Auto) 0.6 Absolute Neuts (auto) 5.1 Absolute Lymphs (auto) 2.65 Nucleated RBC % 0 Sodium 139 Potassium 3.9 Chloride 102 Carbon Dioxide 32.0 Anion Gap 5 BUN 13 Creatinine 0.81 Estim Creat Clear Calc 69.13 Est GFR (MDRD) Af Amer 92 Est GFR (MDRD) Non-Af 76 BUN/Creatinine Ratio 16.1 Glucose 113 H Calcium 9.4 Troponin I High Sens 4 Radiography Diagnostic Testing: Clinical Impression(s) from Imaging Studies Chest X-Ray 04/25/22 15:45 IMPRESSION: No radiographic evidence of acute cardiopulmonary disease. Electronically Signed: Joshua Rosa MD at 16:01 EDT Reading Location ID and State: [facility] / [place] , Service support , Discharge Plan Triage Chief Complaint: Chest Pain ED Midlevel Provider: Guera Harvey ED Provider: Daniel Turk Dx/Rx/DC Orders Clinical Impression: Muscle spasm, Chest pain Instructions: Muscle Spasm Prescriptions: New cyclobenzaprine 10 mg tablet 10 mg PO BID Qty: 12 0RF No Action ondansetron HCl [Zofran] 4 mg tablet 4 mg PO Q8H PRN (Reason: nausea and vomiting) Qty: 10 0RF gabapentin 100 mg capsule 100 mg PO TID metformin 500 mg tablet 500 mg PO DAILY methotrexate sodium 2.5 mg tablet 2.5 mg PO QWEEK metoprolol tartrate 50 mg tablet 50 mg PO DAILY folic acid 1 mg tablet 1 mg PO BID desvenlafaxine succinate [Pristiq] 100 mg tablet extended release 24 hr 100 mg PO DAILY spironolactone 50 mg tablet 50 mg PO DAILY losartan 50 mg tablet 50 mg PO DAILY amlodipine [Norvasc] 10 mg tablet 10 mg PO DAILY pantoprazole [Protonix] 40 mg tablet,delayed release (DR/EC) 40 mg PO DAILY Qty: 14 1RF indapamide 1.25 MG tablet 1.25 mg PO QHS sennosides-docusate sodium [Stool Softener-Stimulant Laxat] 1 TABLET tablet 2 tab PO BID Qty: 20 0RF Rx Instructions: Take until first bowel movement, then as needed acetaminophen 500 MG tablet 1,000 mg PO Q8 Qty: 90 0RF Sutab 1.479-0.188- 0.225 gram tablet 24 tab PO PER PKG DIR Qty: 24 0RF Rx Instructions: Take first set of 12 tablets in the morning. Take second set of 12 tablets in the evening. Must have at least 4 hours in between doses. Follow package instructions on amount of water to take with each set. Primary Care Provider: Catherine Coelho Referrals: Catherine Coelho, [Primary Care Provider] - 3-5 Days Activity Restrictions/Additional Instructions: Take over the counter ibuprofen or naproxen to help with the pain. Disposition Disposition: Home, Self Care Discharge Date/Time: 04/25/22 16:36
--- NOTE | 2022-04-25 15:45 | RAD_ITS ---
EXAM: XR CHEST, 1 VIEW CLINICAL INDICATION: chest pain TECHNIQUE: Frontal view of the chest. This report was created using [employer] report generation technology. COMPARISON: None. FINDINGS: LUNGS AND PLEURAL SPACES: Unremarkable. No consolidation or edema. No pneumothorax. No effusion. HEART: Unremarkable. Cardiac silhouette not enlarged. MEDIASTINUM: Central airways and mediastinal contour are unremarkable. BONES/JOINTS: Unremarkable. SOFT TISSUES: Unremarkable. RAD/Chest 1 View (Portable) IMPRESSION: No radiographic evidence of acute cardiopulmonary disease. Electronically Signed: Joshua Rosa MD at 16:01 EDT ,
[2022-04-25 15:51] LABS: Absolute Lymphocyte Count 2.65 X10^3/uL (0.83-4.51); Absolute Neutrophil Count 5.1 X10^3/uL (2.0-7.7); Basophil# 0.05 X10^3/uL; Basophil% 0.6 % (0-1); Eosinophil# 0.13 X10^3/uL; Eosinophils% 1.5 % (0-5); Hematocrit 38.5 % (37-47); Hemoglobin 12.6 g/dL (12.0-15.0); Lymphocyte # 2.65 X10^3/ul (0.83-4.51); Lymphocyte % 31.1 % (19-41); Mean Corp Hgb Conc 32.7 g/dL (32-36); Mean Corpuscular Hgb 32.7 pg (27.0-32.0); Mean Platelet Vol. 10.1 fl (6.2-12.0); Monocyte# 0.59 X10^3/uL; Monocyte% 6.9 % (0-10); NRBC Flagged by Analyzer 0 % (0-5); Neutrophil # 5.05 X10^3/uL (2.7-7.7); Neutrophil % 59.3 % (47-70); Platelet Count 329 K/mm3 (150-450); RBC Distribution Width CV 13.7 % (11.6-14.6); Red Blood Count 3.85 M/mm3 (4.2-5.4); White Blood Count 8.5 K/mm3 (4.4-11.0)
[2022-04-25 16:14] LABS: Anion Gap 5 (5-15); BUN 13 mg/dL (7-18); BUN/Creat Ratio 16.1 RATIO (10-20); Calcium,Total 9.4 mg/dL (8.5-10.1); Chloride 102 mmol/L (98-107); Creatinine, Serum 0.81 mg/dL (0.55-1.02); EST Glomerular Filtration Rate 76 mL/min (>60); Est Glom Filt Rate - Afr Amer 92 mL/min (>60); Estimated Creatinine Clearance 69.13 ml/min; Glucose 113 mg/dL (74-106); Potassium 3.9 mmol/L (3.5-5.1); Sodium Level 139 mmol/L (136-145); Troponin-I HS 4 pg/mL (3.0-54.0)
[2022-04-25 16:35] VITALS: BP 127/68; PULSE 71; RESP 16; O2SAT 98
== END 2022-04-25 16:36 | disposition home or self-care (01) ==
PROVIDERS: Physician Assistant; Emergency Provider Student in an Organized Health Care Education/Training Program; PCP Family Medicine; Visit Provider Student in an Organized Health Care Education/Training Program
DX: R07.9 Chest pain, unspecified (principal); E11.9 Type 2 diabetes mellitus without complications; I10 Essential (primary) hypertension; M62.838 Other muscle spasm; Z87.891 Personal history of nicotine dependence; Z79.899 Other long term (current) drug therapy; F32.A Depression, unspecified
CPT/HCPCS: 71045; 80048; 84484; 85025; 93005; 99284

== ENCOUNTER 2022-05-22 06:20 | Day surgery (SDC) | payer OTHER, SELFPAY ==
[2022-05-22] VITALS (7 sets, daily range): BP systolic 112–153; BP diastolic 62–84; PULSE 59–85; RESP 16–18; TEMP 36.3–37.2; O2SAT 94–98; BMI 44.9
--- NOTE | 2022-05-22 | GASB_PTH ---
PATIENT: MARK VALDOVINOS LOC: EN U#:[id number] AGE/SX: 61/F ROOM: RE05/22/[address]: Dr. Trace Mello MD : 1960 BED: DIS: 05/22/2022 SPEC #: [id number] RECD: 05/22/22 12:18 STATUS: MONICA GLEASON #: [id number] PRIYA: 05/22/22 00:[address]: Trace Mello DEPT: SURGICAL PATHOLOGY RECD BY: Jared Rivas ENTERED: 05/22/22 12:19 SP TYPE: Gastric Bx OTHR DR: Catherine Coelho DO Tissues: A - Duodenum, NOS B - Gastric mucous membrane C - Cardioesophageal junction D - Esophageal mucous membrane E - Esophageal mucous membrane F - Rectum, NOS Procedures: Special Stain Group II Surgery Specimen Level IV Alcian Blue/PAS (control) HEADER OPERATION: [place] [place] PRE-OP DIAGNOSIS: Umbilical hernia, hiatal hernia, inguinal hernia, constipation, chronic upper abdominal pain TISSUE SUBMITTED: A - Duodenal bulb biopsy, B - Antrum biopsy for histo and H. pylori, C - Cardia polyps, D - Z-line biopsy, E - Mid esophageal nodule biopsy, F - Rectal polyp biopsy MICROSCOPIC DIAGNOSIS A. Duodenal bulb, biopsy: A fragment of duodenal mucosa with mild nonspecific chronic inflammation. B. Antrum, biopsy: Mild gastritis. See microscopic description and comment. C. Cardia polyps, biopsy: Fragments of fundic gland polyp. D. Z-line biopsy: Fragments of gastroesophageal mucosa with focal intestinal metaplasia (goblet cell metaplasia), consistent with Snow's esophagus. Chronic inflammation. Negative for dysplasia. See comment. E. Mid esophageal nodule, biopsy: Fragments of benign squamous epithelium. F. Rectal polyp, biopsy: Fragments of hyperplastic polyp. SJ:rg 05/23/2022 COMMENT B. The results of immunohistochemistry for Helicobacter pylori will be reported separately ([id number]). D. Alcian blue/PAS stain with matched control is used in the evaluation of the specimen. Immunohistochemistry ([id number]) for P53 and Ki-67 will be performed and results will be reported separately. MICROSCOPIC DESCRIPTION Slides are reviewed. B. The specimen shows fragments of gastric mucosa with chronic inflammatory cell infiltrates in the lamina propria consisting of lymphocytes and plasma cells, consistent with mild chronic gastritis. GROSS DESCRIPTION A - Received in fixative is one container labeled with the patient's name and designated duodenal biopsy. The specimen consists of one irregular fragment of light ball soft tissue that measures 0.3 x 0.3 x 0.1 cm. The specimen is totally submitted in one cassette. B - Received in fixative is one container labeled with the patient's name and designated antrum biopsy. The specimen consists of two irregular fragments of light ball soft tissue that in aggregate measure 0.6 x 0.3 x 0.1 cm. The specimen is totally submitted in one cassette. C - Received in fixative is one container labeled with the patient's name and designated cardia polyps. The specimen consists of multiple irregular fragments of light ball soft tissue that in aggregate measure 2.0 x 0.3 x 0.1 cm. The specimen is totally submitted in one cassette. D - Received in fixative is one container labeled with the patient's name and designated Z-line biopsy. The specimen consists of multiple irregular fragments of light ball soft tissue that in aggregate measure 1.0 x 0.5 x 0.1 cm. The specimen is totally submitted in one cassette. E - Received in fixative is one container labeled with the patient's name and designated mid esophageal nodule biopsy. The specimen consists of two irregular fragments of light ball soft tissue that in aggregate measure 0.6 x 0.3 x 0.1 cm. The specimen is totally submitted in one cassette. F - Received in fixative is one container labeled with the patient's name and designated rectal polyp biopsy. The specimen consists of two irregular fragments of light ball soft tissue that in aggregate measure 0.6 x 0.3 x 0.1 cm. The specimen is totally submitted in one cassette. / SJ:simi 05/22/2022 TC:5 CPT: 99215 x6, 16877
[2022-05-22] MEDS: Lactated Ringers 1,000 ML 15 ML IV (06:55)
--- NOTE | 2022-05-22 07:30 | IMM_PTH ---
PATIENT: MARK VALDOVINOS LOC: EN U#:[id number] AGE/SX: 61/F ROOM: RE05/22/[address]: Dr. Trace Mello MD : 1960 BED: DIS: 05/22/2022 SPEC #: [id number] RECD: 05/22/22 14:24 STATUS: MONICA REKan #: [id number] PRIYA: 05/22/22 07:[address]: Trace Mello DEPT: IMMUNOHISTOCHEMISTRY RECD BY: Arlette Schafer ENTERED: 05/22/22 14:24 SP TYPE: IMMUNO OTHR DR: Catherine Coelho DO Tissues: B - Stomach, NOS D - Esophageal mucous membrane Procedures: H Pylori (initial) P53 (initial) KI-67 (add) PHYSICIAN & INSTITUTION [address] [address] SPECIMEN INFORMATION: Tissue Source: B ? Antrum biopsy, D ? Z-line biopsy Clinical Info: Umbilical hernia, hiatal hernia, constipation, chronic upper abdominal pain Specimen Number: [id number] B & D CPT code: 02775 x2, [id number] METHODOLOGY: Deparaffinized sections of prefer/formalin-fixed tissue or PAP/DQ stained slides are incubated with monoclonal/polyclonal antibodies/oligonucleotide probes. Localization is made via biotin free immunoperoxidase method. Appropriate controls are performed and reacted as expected. Results on target cell population are indicated in the following table: RESULTS: ANTIBODY / CLONE RESULT Block B H Pylori (polyclonal) negative Block D P53 (DO-7) positive, rare cells, wild type pattern Ki-67 (30-9) positive, low These tests were developed and their performance characteristics determined by [facility]. They may not have been cleared or approved by the [place]. Food and Drug Administration. The FDA has determined that such clearance or approval is not necessary. The above immunohistochemical/dualISH markers are ordered and reviewed by the Pathologist. INTERPRETATION: B. Antrum, biopsy: Negative for Helicobacter pylori organisms. D. Z-line, biopsy: Negative for dysplasia. SJ:simi 05/26/2022
--- NOTE | 2022-05-22 07:32 | HP.PCM_ITS ---
History and Physical Date of Admission: 05/22/22 Date of Service:? 04/10/22 MR#: [id number] Acct: [id number] Name:MARK GARZA Rep #: [id number] : 1960 ? ? Provider: Dr. Trace Mello MD Age/Sex:? 61/F ? ? Location: [facility] Status: Signed Intake Vital Signs ? 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 Is patient in pain?: No Allergies No Known Allergies Allergy (Verified 04/10/22 15:12) Medications indapamide 1.25 mg tablet 1.25 mg PO QHS SUPPLEMENT 10/14/17 [History Confirmed 04/10/22] acetaminophen 500 mg tablet 1,000 mg PO Q8 #90 TABLETS 02/04/18 [Rx Confirmed 04/10/22] sennosides 8.6 mg-docusate sodium 50 mg tablet (Stool Softener-Stimulant Laxative) 2 tab PO BID #20 TABLETS 02/04/18 [Rx Confirmed 04/10/22] ondansetron HCl 4 mg tablet (Zofran) 4 mg PO Q8H PRN nausea and vomiting #10 tabs 05/15/20 [Rx Confirmed 04/10/22] amlodipine 10 mg tablet (Norvasc) 10 mg PO DAILY 03/19/22 [History Confirmed 04/10/22] desvenlafaxine succinate 100 mg tablet,extended release 24 hr (Pristiq) 100 mg PO DAILY 03/19/22 [History Confirmed 04/10/22] folic acid 1 mg tablet 1 mg PO BID 03/19/22 [History Confirmed 04/10/22] gabapentin 100 mg capsule 100 mg PO TID 03/19/22 [History Confirmed 04/10/22] losartan 50 mg tablet 50 mg PO DAILY 03/19/22 [History Confirmed 04/10/22] metformin 500 mg tablet 500 mg PO DAILY 03/19/22 [History Confirmed 04/10/22] methotrexate sodium 2.5 mg tablet 2.5 mg PO QWEEK 03/19/22 [History Confirmed 04/10/22] metoprolol tartrate 50 mg tablet 50 mg PO DAILY 03/19/22 [History Confirmed 04/10/22] spironolactone 50 mg tablet 50 mg PO DAILY 03/19/22 [History Confirmed 04/10/22] pantoprazole 40 mg tablet,delayed release (Protonix) 40 mg PO DAILY #14 tabs 04/10/22 [Rx Confirmed 04/10/22] PFSH Medical History? Depression Surgical History? History of knee replacement Social History? Smoking Status:? Former smoker alcohol intake:? never substance use type:? does not use HPI HPI HPI: Patient presents for a follow-up of a number of issues addressed at her initial consultation visit on 03/19/2022 to include questions around diagnoses of umbilical hernia, hiatal hernia, right inguinal hernia, constipation, and chronic epigastric abdominal pain.? Patient initially reports that she has not experienced significant change with the prescribed omeprazole, but with further discussion recognizes that she is experienced only 1 episode of abdominal discomfort in the past 3 weeks where previously she had a frequency of once per week.? She notes that her bad spell occurred at work earlier this week and was so intense that she could not stand up.? She denies recognizing any triggers for this issue.? She also reports that she has a suspicion that her baseline constipation was exacerbated by omeprazole and she notes requiring 2 stool softeners a day to have a bowel movement where previously she would only need 1 every other day. Below is recapitulated from patient's consultation visit for ease of review: HPI: Patient is a 61-year-old female who presents for evaluation of a ventral hernia.? Patient is referred from Dr. Coelho.? This finding was first noticed by patient approximately a year to a year and a half ago.? She reports that she relayed this concern to her then PCP, but little was said.? She reports that it looks like a football when you lie down.? She was advised to massage it down [referencing the hernia] whenever it became problematic and this has worked somewhat for her.? She is unsure if it has gotten bigger.? She denies that it has become more tender, but reports that 1 time per week or every other week she will experience significant discomfort to the point that she must walk doubled over until the discomfort leaves her.? She denies the onset of this discomfort as being after eating.? She denies any burning quality to this discomfort.? There is no associated nausea or bloating.? She has not noticed any change to her bowels throughout this time period aside from a presentation a year and a half ago when she was evaluated for possible obstruction.? She was noted to have constipation and was advised to take a stool softener if she is not experiencing a bowel movement at least every other day.? She denies any history of colonoscopy, but reports use of Cologuard in the past.? She states she is reluctant to go for colonoscopy because of her concerns over the prep.? She is uncertain of her family history concerning GI diagnoses as she is adopted.? She presents today with a CT scan read from outside hospital which notes a moderate size hiatal hernia.? When asked about symptoms of heartburn or reflux, she denies any reflux and states that heartburn occurs very rarely.? In addition the above patient notes that she was recently diagnosed with diabetes and is currently prescribed metformin and insulin.? Since this diagnosis she has lost 20 pounds. Patient has no personal history of smoking.? Has no personal history of recurrent cutaneous infections including staph.? Pertinent surgical history includes: C-sections x2 ROS General General: Yes weight change and fatigue; No appetite, colon cancer, breast cancer or weakness HEENT HEENT: No difficulty swallowing, eye injury, eye surgery, swollen glands or hoarseness Endo Endocrine: Yes diabetes mellitus; No thyroid disease, thyroid cancer, Hair loss, heat intolerance or cold intolerance Skin Skin: No rash or changing moles Musc Musculoskeletal: Yes arthritis; No back problems, rheumatoid arthritis, gout or joint pain Cardio Cardiovascular: Yes high blood pressure; No murmur, pacemaker, heart disease, atrial fibrillation, heart attack, heart stent, palpitations, shortness of breat with exertion or chest pain Psych Psychiatric: Yes depression and anxiety; No hearing voices Resp Respiratory: No shortness of breath, No sleep apnea, No cough, No COPD, No asthma, No emphysema and No wheezing Gastro Gastrointestinal: Yes abdominal pain, No nausea or vomiting, No diarrhea, No constipation, No blood in stool, No acid reflux, No hemorrhoids, No ulcers, No gallbladder problem and No black,tarry stools Raymond Hematologic: No blood thinners, No blood disorders, No bleeding, No anemia and No blood clots Neuro Neurologic: No system reviewed and no additional complaints, except as documented, No as per HPI, No abnormal gait, No abnormal hearing, No abnormal movements, No abnormal speech, No behavioral changes, No burning sensations, No confusion, No convulsions, No disequilibrium, No dizziness, No localized weakness, No frequent falls, No headache(s), No lack of coordination, No loss of vision, No memory loss, No numbness, No other visual disturbances, No radicular pain, No restless legs, No sensory deficit, No syncope, No tingling, No tremor(s), No weakness and No other Exam Const General: cooperative and no acute distress Nutritional Appearance: obese Orientation: alert, awake and oriented x3 Resp Effort & Inspection: normal respiratory effort GI Other: Nondistended, soft, tender to palpation across the epigastrium without palpation of hernia defect.? The bilateral groins were examined and patient has tenderness with palpation over the right groin.? I do not clearly palpate any hernia contents with this exam. Assessment and Plan Assessment and Plan (1) Umbilical hernia without obstruction or gangrene: ?Status:?Chronic ?Comment: This is a 61-year-old female who presents for ventral hernia.? However, with repeat exam today patient describes discomfort in the epigastrium where I find no evidence of fascial defect.? Given the small size of her umbilical hernia and her current habitus, I do not recommend proceeding with elective surgery at this time as I believe she would be at an unacceptable risk for recurrence. ?Plan: ? 1.6 cm, asymptomatic, umbilical hernia.? Given patient's habitus and comorbidities she is not a good candidate for surgical repair at this time and would be at a high risk for recurrence. (2) Hiatal hernia: ?Status:?Acute ?Comment: Patient with an incidentally noted diagnosis of hiatal hernia as per CT imaging from August 2021.? Patient describing persistent midepigastric discomfort that has lessened in frequency now on empiric PPI therapy.? Still, she expresses displeasure with this current medication and wishes to try another medication.? I have suggested we can begin pantoprazole 40 mg daily and have ordered this to her pharmacy.? I have also suggested to her that it is time that we proceed with a diagnostic EGD to better assess the size of her hernia as well as any mucosal effects from acid exposure.? She is initially reluctant, but concedes. ?Plan: ? Transition to pantoprazole 40 mg daily ? Diagnostic EGD with biopsies as needed (3) Inguinal hernia of right side without obstruction or gangrene: ?Status:?Chronic ?Comment: Patient with apparent chronic right inguinal hernia that was visualized on CT imaging from 2020.? Patient has tenderness with exam today, but I do not clearly palpate any bowel within a defect.? I have recommended to patient that we consider elective surgery once she reaches a more ideal BMI (less than 40).? I have shared my rationale for this recommendation to be a higher rate of complication for inguinal hernias with females than males.? She expresses und erstanding of this information and plans to consider things further.? I did briefly introduced the approaches for an inguinal hernia repair and believe that she may be a good candidate for a minimally invasive approach. ?Plan: ? Watchful waiting, but hopefully can plan for operative repair with additional weight loss (4) Constipation: ?Status:?Chronic ?Comment: Patient describes chronic constipation that was recently worsened with implementation of omeprazole.? Patient still resistant to the idea of a colono scopy, but I have tried to take any question she has an she states that she understands my reasoning for recommending.? She also wishes to know if she can take a pill prep.? She states she is unwilling to do any significant volumes.? I have asked her to consider a 2-day prep given her issues with constipation so that we can be assured of appropriate visualization during the prep.? Patient is informed that she will require a wagon driver salesperson the day of the procedure given the use of sedation. ?Plan: Plan will be to complete colonoscopy on first mutually agreeable date under local MAC.? Pre-procedure prep discussed and paper instructions provided.? (Planning for Sutab prep) patient is also made aware that she will need to have a wagon driver salesperson with her the day of the procedure. (5) Chronic upper abdominal pain: ?Status:?Chronic ?Comment: Patient describes epigastric abdominal pain, but once again I do not find a hernia in this location only diastases recti.? I have shared with her that this diagnosis is not normally associated with significant discomfort and therefore I am suspicious for possible gastritis/symptomatic hiatal hernia.? She seems to have experienced some minor relief of symptoms.? As above, will plan to switch her PPI and proceed for diagnostic EGD ?Plan: ? Pantoprazole 40 mg daily and diagnostic EGD (6) Diastasis recti: ?Status:?Chronic ?Comment: As above no hernia detected.? Only diastases recti based on CT and physical exam.? Patient repeats question about whether this can be addressed surgically.? I have reiterated my statement from before that I do not advise this as it does not represent a true hernia and believe that patient would be at a very high risk for recurrence given the tension that any closure would come under.? Patient quickly admits her recall of our discussion and procedures with other questions. I have examined the patient the following changes are noted: Patient reports good efficacy with pantoprazole 40 mg daily and that she has had no symptoms of reflux or heartburn. She confirms that she completed her prep, however, she reports that she is still having some brown liquid with bowel movements. I have cautioned her that we can only do so much endoscopically, but at this point recommend proceeding in seeing what we can do in terms of endoscopic lavage. Patient has no further questions so we will proceed to the endoscopy suite at this time for diagnostic EGD and colonoscopy.
[2022-05-22 08:05] LABS: Bedside Glucose 109 mg/dL (74-106)
--- NOTE | 2022-05-22 09:33 | OP.CCLET_ITS ---
05/22/2022 Catherine Coelho Do Re : Upper GI endoscopy procedure for Dianne Hoyt Dear Laquita This procedure was performed on May. My impressions and recommendations are as follows: Impressions : - Nodular mucosa in the duodenal bulb. Biopsied. - Erythematous mucosa in the antrum. - A few gastric polyps. Resected and retrieved. - Small hiatal hernia. - Z-line irregular, 39 cm from the incisors. Biopsied. - Mucosal nodule found in the esophagus. Biopsied. Recommendations : - Discharge patient to home (via wheelchair). - Resume previous diet today. - Continue present medications. - Await pathology results. - Telephone my office for pathology results in 1 week. My findings are described in the full procedure note, which is enclosed. If I can be of further assistance, please feel free to contact me at Doctor phone number(s): , Work: . Sincerely, Trace Mello MD 05/22/2022 9:32:30 AM This report has been signed electronically.
--- NOTE | 2022-05-22 09:33 | OP.EGD_ITS ---
Patient Name: Dianne Hoyt Procedure Date: 05/22/2022 7:15 AM Date of : 1960 Age: 61 Procedure: Upper GI endoscopy Indications: Heartburn, Suspected gastro-esophageal reflux disease Providers: Trace Mello MD Referring MD: Trace Mello MD Medicines: See the Anesthesia note for documentation of the administered medications Patient Profile: Patient has symptoms of chronic epigastric abdominal pain and chronic dyspepsia. Complications: No immediate complications. Estimated blood loss: Minimal. Procedure: Pre-Anesthesia Assessment: - The heart rate, respiratory rate, oxygen saturations, blood pressure, adequacy of pulmonary ventilation, and response to care were monitored throughout the procedure. After obtaining informed consent, the endoscope was passed under direct vision. Throughout the procedure, the patient's blood pressure, pulse, and oxygen saturations were monitored continuously. The colonoscope was introduced through the mouth, and advanced to the second part of duodenum. The upper GI endoscopy was accomplished without difficulty. The patient tolerated the procedure well. Scope In: 7:42:11 AM Scope Out: 8:04:50 AM Total Procedure Duration Time 0 hours 22 minutes 39 seconds Findings: Localized nodular mucosa was found in the duodenal bulb. Biopsies were taken with a cold forceps for histology. Estimated blood loss was minimal. Localized mildly erythematous mucosa without bleeding was found in the gastric antrum. A few 5 mm pedunculated polyps with no bleeding and no stigmata of recent bleeding were found in the cardia. The polyp was removed with a hot snare. Resection and retrieval were complete. Estimated blood loss was minimal. A small hiatal hernia was present. The Z-line was irregular and was found 39 cm from the incisors. Biopsies were taken with a cold forceps for histology. Estimated blood loss was minimal. A few 5 mm mucosal nodules with a localized distribution were found in the middle third of the esophagus. Biopsies were taken with a cold forceps for histology. Estimated blood loss was minimal. Impression: - Nodular mucosa in the duodenal bulb. Biopsied. - Erythematous mucosa in the antrum. - A few gastric polyps. Resected and retrieved. - Small hiatal hernia. - Z-line irregular, 39 cm from the incisors. Biopsied. - Mucosal nodule found in the esophagus. Biopsied. Recommendation: - Discharge patient to home (via wheelchair). - Resume previous diet today. - Continue present medications. - Await pathology results. - Telephone my office for pathology results in 1 week. Procedure Code(s): --- Professional --- 85896, Esophagogastroduodenoscopy, flexible, transoral; with removal of tumor(s), polyp(s), or other lesion(s) by snare technique 16450, 59, Esophagogastroduodenoscopy, flexible, transoral; with biopsy, single or multiple Diagnosis Code(s): --- Professional --- K31.89, Other diseases of stomach and duodenum K31.7, Polyp of stomach and duodenum K44.9, Diaphragmatic hernia without obstruction or gangrene K22.8, Other specified diseases of esophagus R12, Heartburn CPT copyright 2017 [employer]. All rights reserved. The codes documented in this report are preliminary and upon compensation/benefits specialist review may be revised to meet current compliance requirements. Trace Mello MD 05/22/2022 9:32:30 AM This report has been signed electronically. Number of Addenda: 0 Note Initiated On: 05/22/2022 7:15 AM
--- NOTE | 2022-05-22 09:40 | OP.COLON_ITS ---
Patient Name: Dianne Hoyt Procedure Date: 05/22/2022 8:05 AM Date of : 1960 Age: 61 Procedure: Colonoscopy Indications: Constipation, Chronic idiopathic constipation Providers: Trace Mello MD Referring MD: Trace Mello MD Medicines: See the Anesthesia note for documentation of the administered medications Patient Profile: Patient has symptoms of chronic epigastric abdominal pain and chronic dyspepsia. Last Colonoscopy: none. The patient's first colonoscopy is today. Complications: No immediate complications. Estimated blood loss: Minimal. Procedure: Pre-Anesthesia Assessment: - The heart rate, respiratory rate, oxygen saturations, blood pressure, adequacy of pulmonary ventilation, and response to care were monitored throughout the procedure. - The heart rate, respiratory rate, oxygen saturations, blood pressure, adequacy of pulmonary ventilation, and response to care were monitored throughout the procedure. After I obtained informed consent, the scope was passed under direct vision. Throughout the procedure, the patient's blood pressure, pulse, and oxygen saturations were monitored continuously. The colonoscope was introduced through the anus and advanced to the cecum, identified by its appearance. The colonoscopy was technically difficult and complex due to significant looping and a tortuous colon. Successful completion of the procedure was aided by changing the patient to a supine position and applying abdominal pressure. The patient tolerated the procedure well. The quality of the bowel preparation was adequate to identify polyps 6 mm and larger in size. Scope In: 8:07:42 AM Scope Withdrawal Time 0 hours 17 minutes 38 seconds Scope Out: 9:22:03 AM Total Procedure Duration Time 1 hour 14 minutes 21 seconds Findings: Skin tags were found on perianal exam. The transverse colon revealed significantly excessive looping. Advancing the scope required applying abdominal pressure. The colon (entire examined portion) was moderately tortuous. Advancing the scope required changing the patient to a supine position. A 5 mm, non-bleeding polyp was found in the rectum. The polyp was semi-sessile. Biopsies were taken with a cold forceps for histology. Estimated blood loss was minimal. Internal hemorrhoids were found during retroflexion. The hemorrhoids were Grade II (internal hemorrhoids that prolapse but reduce spontaneously). No biopsies or other specimens were collected for this exam. Impression: - Perianal skin tags found on perianal exam. - There was significant looping of the colon. - Tortuous colon. - One 5 mm, non-bleeding polyp in the rectum. Biopsied. - Internal hemorrhoids. No specimens collected. Recommendation: - Discharge patient to home (via wheelchair). - Resume previous diet today. - Continue present medications. - Await pathology results. - Telephone my office for pathology results in 1 week. - Repeat colonoscopy date to be determined after pending pathology results are reviewed for surveillance based on pathology results. Procedure Code(s): --- Professional --- 47358, Colonoscopy, flexible; with biopsy, single or multiple Diagnosis Code(s): --- Professional --- K64.1, Second degree hemorrhoids K62.1, Rectal polyp K64.4, Residual hemorrhoidal skin tags K59.00, Constipation, unspecified K59.04, Chronic idiopathic constipation Q43.8, Other specified congenital malformations of intestine CPT copyright 2017 [employer]. All rights reserved. The codes documented in this report are preliminary and upon remote medical coder review may be revised to meet current compliance requirements. Trace Mello MD 05/22/2022 9:40:23 AM This report has been signed electronically. Number of Addenda: 0 Note Initiated On: 05/22/2022 8:05 AM
--- NOTE | 2022-05-22 09:41 | OP.CCLET_ITS ---
05/22/2022 Catherine Coelho, Do Re : Colonoscopy procedure for Dianne Hoyt Dear Laquita This procedure was performed on May. My impressions and recommendations are as follows: Impressions : - Perianal skin tags found on perianal exam. - There was significant looping of the colon. - Tortuous colon. - One 5 mm, non-bleeding polyp in the rectum. Biopsied. - Internal hemorrhoids. No specimens collected. Recommendations : - Discharge patient to home (via wheelchair). - Resume previous diet today. - Continue present medications. - Await pathology results. - Telephone my office for pathology results in 1 week. - Repeat colonoscopy date to be determined after pending pathology results are reviewed for surveillance based on pathology results. My findings are described in the full procedure note, which is enclosed. If I can be of further assistance, please feel free to contact me at Doctor phone number(s): , Work: . Sincerely, Trace Mello MD 05/22/2022 9:40:23 AM This report has been signed electronically.
== END 2022-05-22 10:09 | disposition home or self-care (01) ==
LOC: EN 06:25 → AC 06:26
PROVIDERS: PCP Family Medicine; Referring Provider Family Medicine; Visit Provider Surgery
PROC: 0DJD8ZZ Inspection of Lower Intestinal Tract, Via Natural or Artificial Opening Endoscopic (ICD-10-PCS; CPT 45378; principal; 2022-05-22 07:25)
DX: K44.9 Diaphragmatic hernia without obstruction or gangrene (principal); E11.9 Type 2 diabetes mellitus without complications; K43.9 Ventral hernia without obstruction or gangrene; Z79.84 Long term (current) use of oral hypoglycemic drugs; K31.7 Polyp of stomach and duodenum; K62.1 Rectal polyp; K42.9 Umbilical hernia without obstruction or gangrene; K64.1 Second degree hemorrhoids; Z87.891 Personal history of nicotine dependence; R10.13 Epigastric pain; K31.89 Other diseases of stomach and duodenum; Q43.8 Other specified congenital malformations of intestine; K59.04 Chronic idiopathic constipation; K64.4 Residual hemorrhoidal skin tags
CPT/HCPCS: 43251; 45380; 43239; 82962; 88305; 88313; 88341; 88342; J7120; J2405

== ENCOUNTER → 2022-06-11 | Outpatient (CLI) | payer OTHER, SELFPAY ==
[2022-06-11 17:58] LABS: Absolute Lymphocyte Count 3.68 X10^3/uL (0.83-4.51); Absolute Neutrophil Count 5.4 X10^3/uL (2.0-7.7); Basophil# 0.07 X10^3/uL; Basophil% 0.7 % (0-1); Hematocrit 39.1 % (37-47); Hemoglobin 12.7 g/dL (12.0-15.0); Lymphocyte # 3.68 X10^3/ul (0.83-4.51); Lymphocyte % 36.7 % (19-41); Mean Corp Hgb Conc 32.5 g/dL (32-36); Mean Corpuscular Hgb 32.5 pg (27.0-32.0); Mean Platelet Vol. 10.2 fl (6.2-12.0); NRBC Flagged by Analyzer 0 % (0-5); Neutrophil # 5.43 X10^3/uL (2.7-7.7); Neutrophil % 54.2 % (47-70); Platelet Count 393 K/mm3 (150-450); RBC Distribution Width CV 13.5 % (11.6-14.6); RBC Distribution Width SD 48.7 fl (35.1-43.9); Red Blood Count 3.91 M/mm3 (4.2-5.4)
[2022-06-11 18:16] LABS: ALB/GLOB Ratio 0.9 RATIO (0.9-2.4); AST(SGOT) 29 U/L (15-37); Alanine Aminotransfer ALT/SGPT 37 U/L (13-56); Albumin, Serum 3.7 g/dL (3.2-5.0); Alkaline Phosphatase 66 U/L (45-117); Anion Gap 6 (5-15); BUN 13 mg/dL (7-18); BUN/Creat Ratio 14.9 RATIO (10-20); Calcium,Total 9.4 mg/dL (8.5-10.1); Chloride 100 mmol/L (98-107); Creatinine, Serum 0.87 mg/dL (0.55-1.02); EST Glomerular Filtration Rate 70 mL/min (>60); Est Glom Filt Rate - Afr Amer 84 mL/min (>60); Globulin 4.1 g/dL (2.2-4.2); Glucose 95 mg/dL (74-106); Protein, Total 7.8 g/dL (6.4-8.2); Sodium Level 136 mmol/L (136-145)
== END | disposition home or self-care (01) ==
PROVIDERS: PCP Family Medicine; Referring Provider Internal Medicine Rheumatology; Visit Provider Internal Medicine Rheumatology
DX: M06.4 Inflammatory polyarthropathy (principal); Z79.899 Other long term (current) drug therapy
CPT/HCPCS: 36415; 80053; 85025

== ENCOUNTER 2022-08-18 05:48 | Day surgery (SDC) | payer OTHER, SELFPAY ==
[2022-08-01 17:13] LABS: Hemoglobin A1c 6.1 % (3.8-5.6)
[2022-08-18] VITALS (11 sets, daily range): BP systolic 130–155; BP diastolic 68–83; PULSE 63–92; RESP 16–18; TEMP 36.6–37.5; O2SAT 92–98; BMI 42.5
[2022-08-18] MEDS: Lactated Ringers 1,000 ML 15 ML IV (06:20)
[2022-08-18 07:04] LABS: Bedside Glucose 112 mg/dL (74-106)
--- NOTE | 2022-08-18 07:26 | HP.PCM_ITS ---
History and Physical Date of Admission: 08/18/22 Date of Service: 07/01/22 MR#: [id number] Acct: [id number] Name: MARK VALDOVINOS Rep #: [id number] : 1960 Provider: Dr. Trace Mello MD Age/Sex: 61/F Location: [facility] Status: Signed Intake Vital Signs 05/22/2305:50 Height 5 ft 6 in Intake Visit Reasons: UPPER AND LOWER SCOPE Chief Complaint: Med check, schedule cscope/EGD/hernia Allergies No Known Allergies Allergy (Verified 05/22/22 06:48) PFSH Medical History (Updated 07/01/22 @ 18:[address] Trace Mello MD) Anxiety Arthritis Depression Diabetes Heartburn Hypertension Post-menopausal Wears glasses Surgical History (Updated 05/19/22 @ 14:58 by Gretel Beasley) History of knee replacement Social History Smoking Status: Former smoker alcohol intake: never substance use type: does not use HPI HPI HPI: Patient follows up after upper and lower endoscopy. She states she is interested in continuing on Protonix as she has had no further issues on this medication. She wishes to know whether she is needing to get this medication now filled by her primary care provider. She also wishes to know my recommendations on her right groin hernia. She confirms that she is not feeling any bulging or pain from the site. She has not experienced any change in bowel habits which she can attribute to this diagnosis, but does remark that she has noticed looser stools since changing from Trulicity to Ozempic recently. Exam Const General: cooperative, healthy appearing, comfortable and no acute distress Resp Effort & Inspection: normal respiratory effort GI Other: Obese, nondistended, soft nontender to palpation x4 quadrants Other: Patient with right groin hernia that is tender with palpation. While I am able to feel hernia contents, I am unable to determine the exact location of the patient's hernia defect as it is in close proximity to patient's prior incision Assessment and Plan Assessment and Plan (1) Inguinal hernia of right side without obstruction or gangrene: Status: Chronic Comment: Patient with apparent chronic right inguinal hernia that was visualized on CT imaging from 2020. Patient, again, has tenderness with exam today. Given this tenderness and her habitus I am unable to clearly identify this as a inguinal hernia versus a low incisional hernia related to her prior section. I have reiterated my recommendation to proceed with surgery due to the high rate of complication for inguinal hernias with females over males. She expresses understanding of this information and wishes to proceed during August when her daughter is able to assist with her caregiver duties to her . Further, I have informed patient that she would do well to continue to improve her glucose control in the perioperative period. The procedure was described in detail as well as a post procedure expectations of no lifting greater than 10 pounds for 5 weeks. Patient is excepting of all these terms. Plan: ? Right inguinal hernia repair with mesh anticipated August 2022 (2) GERD (gastroesophageal reflux disease): Status: Chronic Comment: Patient with gastroesophageal reflux disease and recently diagnosed Snow's esophagus as per EGD performed 05/22/2022. I have informed patient that with her interest to continue PPI medications indefinitely, I would recommend transitioning her PPI prescription to her PCP so they can continue to monitor her for any side effects. I have recommended to her that she follow-up in 5 years for repeat EGD to continue surveillance of her Snow's esophagus. Plan: ? Continue PPI (PCP, Dr. Coelho to continue) ? 5-year follow-up for surveillance EGD of Snow's esophagus I have examined the patient and the H&P has been reviewed. There are no clinical changes since date of exam. Procedure and post procedure expectations reviewed. Questions were answered from patient and her daughter who is present with her as her support. We will therefore proceed to the operating room for planned inguinal (versus incisional?depending on exact location) hernia repair with mesh.
[2022-08-18] MEDS: Bupivacaine 0.25% 30 ML Vial (13:20)
--- NOTE | 2022-08-18 13:32 | PCM.OPRPT ---
Problems Associated Problem List Diagnoses (1) Inguinal hernia of right side without obstruction or gangrene: Report of Operation Date of Procedure: 08/18/22 Pre-Operative Diagnosis: Right inguinal hernia Post-Operative Diagnosis: Right direct inguinal hernia Surgery/Procedure Performed:: Robot-assisted repair of right inguinal hernia via a transabdominal preperitoneal approach. Open exploration of right groin. Description of Surgical Findings:: ? Moderately large, fat-containing hernia through direct inguinal space ? Obliterated plane between peritoneum and pubic bone rendering space of Retzius and inaccessible. Dense soft tissue scarring around the base of the inferior epigastric and overlying the presumed location of the right iliac vein ? Via an open anterior approach there is persistent dense scarring around the right pubic tubercle and indiscernible anatomy in the region of the inguinal canal Surgeon: Trace Mello model maker firearms: Chad Dick model maker firearms: Agnieszka Garza Type of Anesthesia: General/Supplemental Anesthesiologist: Augustus He Specimen's removed: None Drains: None Estimated Blood Loss (mL): 20 Description of Procedure: After appropriate identification in the preoperative holding area the patient was brought to the operating room where [he/she] was positioned supine on the operating table. Preoperative antibiotics were completed and the patient was administered a general anesthetic. Patient's abdomen was then prepped and draped in usual sterile fashion. Formal timeout followed to confirm patient and procedure. Procedure was begun with an attempted Veress entry through the left upper quadrant at Wills's point, however, I was unable to get the necessary tactile feedback to feel comfortable about needle placement so this approach was quickly abandoned and I pursued a Kern entry in the epigastrium. After an incision was made sharply the subcutaneous tissues were bluntly spread and the fascia was elevated and incised. A finger sweep confirmed peritoneal entry and our Kern trocar was placed and pneumoperitoneum was established at 15 mmHg. Once pneumoperitoneum reached our set point follow-up, laparoscopic investigation revealed that we had come through the falciform ligament. After confirming there was no injury to the viscera, a second port was placed a hand's breath right of this index port under laparoscopic visualization. Lastly a final robotic port was placed through the original site in the left upper quadrant and a robotic trocar was nested within our balloon Kern trocar. Patient was positioned in slight Trendelenburg and I visualized a hernia defect through the direct inguinal space just medial to the inferior epigastric vessels. The robot was docked in standard fashion. Robotically, a peritoneal flap was created on the right extending from the medial umbilical ligament to the level of the ASIS (external) and was bluntly dissected to expose the medial parietal and lateral visceral compartments. In the midportion of this dissection I encountered dense soft tissue scarring near the base of the inferior epigastric vessels and had difficulty extending the dissection inferiorly. However, I was able to visualize the patient's hernia defect and robotically was able to apply traction on the hernia sac. With a combination of blunt dissection and selective energy I was able to reduce this hernia sac and its fat contents. Upon reduction of the hernia sac the defect through the abdominal wall appeared larger than the initial assessment. As I began to look to extend the dissection inferiorly for mesh placement, medially I encountered dense scar tissue and could not find an opening to the space of Retzius. At this point I called my partner, Dr. Calvin, to the room and it was his assessment that there was no safe way forward through the current preperitoneal approach and recommended a hybrid approach with opening the groin/abdominal wall anteriorly and placing an onlay mesh. Yet given the exposure of the hernia, we agreed that closure of the abdominal wall could proceed from this position by approximating the transversalis fascia to the inguinal ligament. Therefore, this was accomplished using a running 6 inch strata fix suture and progressively tensioning the suture as bites were taken until the hernia space was obliterated. Prior to complete closure, I did have my chiropractic assistant placed a spinal needle through the center of the defect for localization of the closure anteriorly. After confirming hemostasis the peritoneal flap was then closed with a running 3 oh V-Loc suture. The hernia sac was hung over the closure using a interrupted 3-0 Vicryl stitch. With the peritoneal defects closed, sutures were systematically removed from the peritoneum. Since I had performed a Kern entry in the epigastrium I chose to close the patient's site at this location with a Cj Robbins suture passer using #1 PDS. This was accomplished using [id number] technique under laparoscopic visualization through the 3 ports established. This produced an airtight closure when the sutures were pulled up. Satisfied with this result the pneumoperitoneum was evacuated and trocars removed. The port sites were closed at the skin with running 4-0 Monocryl in a subcuticular fashion. Steri-Strips and OpSite's were used as dressings. Patient's abdomen and perineum were then reprepped to include a more inferior extent. A repeat timeout was conducted given this transition and the procedure. Antibiotics were also redosed. Local anesthetic was injected and an incision was centered over the patient's scar from her prior Pfannenstiel as well as the previously placed spinal needle position. Dissection was carried down through camper's and Enrike's tissue until we visualized a tag from our strata fix suture. More cephalad in this space identified what appeared to be in the curving of the external oblique upon neurosis towards the tubercle. The tubercle was palpated medially and I attempted to identify the external ring. This was incised and I extended the incision laterally to try to open the inguinal canal. However, on entry there appeared to be a rent through the anterior wall and there was no visible round ligament. There was dense scarring medially and posteriorly that did not reveal shelving edge as expected. Both of my partners were called to the room to assess patient's anatomy, but ultimately concluded that we could not proceed with mesh placement as there would be no inferior anchoring point (since this represented the location of the femoral neurovascular bundle). To avoid an ineffective intervention that would cause more scarring this attempt was abandoned and the opening in the presumed external oblique upon neurosis was again closed with a running 3-0 Vicryl suture. The space through camper's fascia was closed with interrupted Vicryl sutures. Lastly the deep dermal interrupted was placed. And the skin was run closed with a running subcuticular using 4-0 Monocryl. Steri-Strips and a silver dressing were applied with bandages. Patient was awoken from anesthetic and transferred to PACU for ongoing recovery. Grafts/Implants Used: none Complications Inability to place mesh due to intense scarring in the region of the pubic tubercle from prior Pfannenstiel incision Admit VTE Documentation VTE Mechan Device Prophylaxis: SCD's Procedures Digestive 40xxx-49xxx: 80587 Lap ing hernia repair init
--- NOTE | 2022-08-18 14:29 | DCINST_ITS ---
Discharge Instructions Diet Discharge Diet: No restrictions Activity Discharge Activity: May Not Drive (While taking narcotic pain medication) and May Shower May shower in (days): 2 Ice area for (Minutes): 20 Lifting Restrictions: No lifting greater than 10 pounds for the next 5 weeks Dressing / Incision Call your doctor if your incision/area has: Continuous Slow Oozing, Increased Pain/ Swelling, Increased Redness, Foul Smelling Discharge and Swelling at the incision site Call your doctor if you observe: Fever of 101 or Higher, Inability to urinate and Inability to have a bowel movement Change Dressing in: 2 days (Please leave Steri-Strips intact until they fall off spontaneously or are taken off at your follow-up visit) Remove Dressing in: 2 days Cleanse incision/area with: Soap & Water and Keep Dressing Clean & Dry Follow Up Care Please Follow Up With: Trace Mello MD When: 1 week postop Test Results: Test results from this visit will be discussed in further detail at your follow- up appointment, if applicable. Discharge Plan Admission Primary Reason for Your Visit: hernia repair Attending Provider: Trace Mello Primary Care Provider: Catherine Coelho Discharge Orders/Prescriptions Prescriptions: New oxycodone 5 mg tablet 5 mg PO Q6H PRN (Reason: pain) 5 Days Qty: 14 0RF Continued ondansetron HCl [Zofran] 4 mg tablet 4 mg PO Q8H PRN (Reason: nausea and vomiting) Qty: 10 0RF gabapentin 100 mg capsule 100 mg PO TID metformin 500 mg tablet 500 mg PO DAILY methotrexate sodium 2.5 mg tablet 15 mg PO SA metoprolol tartrate 50 mg tablet 50 mg PO DAILY folic acid 1 mg tablet 1 mg PO BID desvenlafaxine succinate [Pristiq] 100 mg tablet extended release 24 hr 100 mg PO DAILY spironolactone 50 mg tablet 50 mg PO DAILY losartan 50 mg tablet 50 mg PO DAILY amlodipine [Norvasc] 10 mg tablet 10 mg PO DAILY indapamide 1.25 MG tablet 1.25 mg PO QHS sennosides-docusate sodium [Stool Softener-Stimulant Laxat] 1 TABLET tablet 2 tab PO BID Qty: 20 0RF Rx Instructions: Take until first bowel movement, then as needed acetaminophen 500 MG tablet 1,000 mg PO Q8 PRN (Reason: Pain) Trulicity 0.75 mg/0.5 mL pen injector 0.75 mg SUBCUT QWEEK Patient Comments: 1 (ONE) SOLUTION PEN-INJECTOR EVERY WEEKLY Rx Instructions: thursday cyclobenzaprine 10 mg tablet 10 mg PO BID Qty: 12 0RF pantoprazole [Protonix] 40 mg tablet,delayed release (DR/EC) 40 mg PO DAILY Qty: 30 0RF Referrals / Follow Up: Catherine Coelho DO [Primary Care Provider] - Disposition Disposition (needs filled in before D/C Order can be placed): Home, Self Care
[2022-08-18 16:25] LABS: Bedside Glucose 171 mg/dL (74-106)
== END 2022-08-18 16:57 | disposition home or self-care (01) ==
LOC: SDC 05:49 → AC 05:49
PROVIDERS: Anesthesiology; PCP Family Medicine; Referring Provider Surgery; Visit Provider Surgery
PROC: (CPT 49650; principal; 2022-08-18 07:10)
DX: K40.90 Unilateral inguinal hernia, without obstruction or gangrene, not specified as recurrent (principal); E11.9 Type 2 diabetes mellitus without complications; I10 Essential (primary) hypertension; Z87.891 Personal history of nicotine dependence; K21.9 Gastro-esophageal reflux disease without esophagitis; K59.00 Constipation, unspecified; M62.08 Separation of muscle (nontraumatic), other site; F32.9 Major depressive disorder, single episode, unspecified
CPT/HCPCS: 49650; 00840; 36415; 82962; 83036; 87081; J7120; C1781; J2405

== ENCOUNTER → 2022-09-08 | Outpatient (CLI) | payer OTHER, SELFPAY ==
[2022-09-08 15:04] LABS: Absolute Neutrophil Count 5.8 X10^3/uL (2.0-7.7); Basophil# 0.07 X10^3/uL; Basophil% 0.7 % (0-1); Eosinophil# 0.13 X10^3/uL; Eosinophils% 1.4 % (0-5); Hematocrit 40.2 % (37-47); Lymphocyte % 29.9 % (19-41); Mean Corp Hgb Conc 32.3 g/dL (32-36); Mean Corpuscular Hgb 31.5 pg (27.0-32.0); Mean Corpuscular Volume 97.3 fL (81-99); Mean Platelet Vol. 9.9 fl (6.2-12.0); Monocyte% 6.4 % (0-10); NRBC Flagged by Analyzer 0 % (0-5); Neutrophil # 5.75 X10^3/uL (2.7-7.7); Neutrophil % 61.3 % (47-70); Platelet Count 441 K/mm3 (150-450); RBC Distribution Width CV 13.1 % (11.6-14.6); RBC Distribution Width SD 46.6 fl (35.1-43.9); Red Blood Count 4.13 M/mm3 (4.2-5.4); White Blood Count 9.4 K/mm3 (4.4-11.0)
[2022-09-08 15:28] LABS: ALB/GLOB Ratio 0.9 RATIO (0.9-2.4); AST(SGOT) 28 U/L (15-37); Alanine Aminotransfer ALT/SGPT 42 U/L (13-56); Albumin, Serum 3.8 g/dL (3.2-5.0); Alkaline Phosphatase 77 U/L (45-117); Anion Gap 7 (5-15); BUN 17 mg/dL (7-18); BUN/Creat Ratio 21.4 RATIO (10-20); Calcium,Total 9.8 mg/dL (8.5-10.1); Chloride 101 mmol/L (98-107); EST Glomerular Filtration Rate 77 mL/min (>60); Est Glom Filt Rate - Afr Amer 94 mL/min (>60); Globulin 4.4 g/dL (2.2-4.2); Glucose 102 mg/dL (74-106); Potassium 3.9 mmol/L (3.5-5.1); Protein, Total 8.2 g/dL (6.4-8.2); Sodium Level 134 mmol/L (136-145)
== END | disposition home or self-care (01) ==
PROVIDERS: PCP Family Medicine; Referring Provider Internal Medicine Rheumatology; Visit Provider Internal Medicine Rheumatology
DX: M06.4 Inflammatory polyarthropathy (principal); Z79.899 Other long term (current) drug therapy; R76.8 Other specified abnormal immunological findings in serum
CPT/HCPCS: 36415; 80053; 85025

== ENCOUNTER → 2022-11-04 | Outpatient (CLI) | payer OTHER, SELFPAY ==
--- NOTE | 2022-11-04 09:22 | NEURO_ITS ---
NCS and/or EMG Patient Report Ordering Doctor: Geno Ovalles DATE OF SERVICE: 11/04/22 Clinical Summary: This is a 62 year old female presenting with complaints of numbness and tingling in both hands. This EMG/NCS was performed to evaluate for right/left carpal tunnel syndrome. Nerve Conductions Summary: The median-D2 SNAP distal latency was prolonged bilaterally with reduced amplitudes. The right ulnar-D5 SNAP distal latency was prolonged. The median-APB CMAP distal latency was prolonged bilaterally. The median motor conduction velocity was reduced in the forearm segment bilaterally. The right ulnar-ADM CMAP amplitude was reduced diffusely. The right ulnar-FDI CMAP amplitude was reduced below the elbow and could not be obtained above the elbow. The right median F-wave onset latency was prolonged. Needle Examination Summary: There was a higher proportion of motor unit action potentials with increased amplitude, increased duration, polyphasia, and reduced recruitment in the left C7 myotome and bilateral abductor pollicis brevis muscles. Impression: There is electrodiagnostic evidence of the following - 1) Severe, bilateral median mononeuropathies at the wrists (carpal tunnel syndrome), with secondary motor fiber axonal loss 2) Chronic, left C7 radiculopathy Comment: The right ulnar-ADM motor amplitudes were diffusely reduced, which could be due to understimulation but a non-localizable ulnar mononeuropathy cannot be ruled out. The right ulnar-FDI motor amplitude was reduced below the elbow and not obtainable at the elbow, which could be due to Yony-Daniel anast omosis (which is a normal variant) and/or understimulation. A neuromuscular ultrasound is recommended to better evaluate for any possible right ulnar nerve lesion. Multi Select Codes Neurology Neurology Interp Codes: 94031-43 Musc test done w/n test comp (interp) (2) and 85606-74 Nrv cndj test 11-12 studies (interp)
== END | disposition home or self-care (01) ==
LOC: PSN 06:57
PROVIDERS: PCP Family Medicine; Referring Provider Internal Medicine Rheumatology; Visit Provider Internal Medicine Rheumatology
DX: G56.03 Carpal tunnel syndrome, bilateral upper limbs (principal); R20.2 Paresthesia of skin
CPT/HCPCS: 95886; 95912

== ENCOUNTER → 2022-12-08 | Outpatient (CLI) | payer OTHER, SELFPAY ==
[2022-12-08 17:45] LABS: Absolute Lymphocyte Count 3.33 X10^3/uL (0.83-4.51); Absolute Neutrophil Count 5.4 X10^3/uL (2.0-7.7); Basophil# 0.05 X10^3/uL; Basophil% 0.5 % (0-1); Hematocrit 41.7 % (37-47); Hemoglobin 13.3 g/dL (12.0-15.0); Lymphocyte # 3.33 X10^3/ul (0.83-4.51); Lymphocyte % 34.7 % (19-41); Mean Corp Hgb Conc 31.9 g/dL (32-36); Mean Corpuscular Hgb 32.2 pg (27.0-32.0); Mean Platelet Vol. 9.9 fl (6.2-12.0); Monocyte# 0.64 X10^3/uL; Monocyte% 6.7 % (0-10); NRBC Flagged by Analyzer 0 % (0-5); Neutrophil # 5.44 X10^3/uL (2.7-7.7); Neutrophil % 56.8 % (47-70); Platelet Count 354 K/mm3 (150-450); RBC Distribution Width CV 13.9 % (11.6-14.6); RBC Distribution Width SD 51.4 fl (35.1-43.9); Red Blood Count 4.13 M/mm3 (4.2-5.4); White Blood Count 9.6 K/mm3 (4.4-11.0)
[2022-12-08 18:00] LABS: ALB/GLOB Ratio 0.8 RATIO (0.9-2.4); AST(SGOT) 16 U/L (15-37); Alanine Aminotransfer ALT/SGPT 47 U/L (13-56); Albumin, Serum 3.4 g/dL (3.2-5.0); Alkaline Phosphatase 70 U/L (45-117); Anion Gap 7 (5-15); BUN 17 mg/dL (7-18); BUN/Creat Ratio 17.9 RATIO (10-20); Calcium,Total 9.2 mg/dL (8.5-10.1); Chloride 102 mmol/L (98-107); Creatinine, Serum 0.95 mg/dL (0.55-1.02); EST Glomerular Filtration Rate 63 mL/min (>60); Est Glom Filt Rate - Afr Amer 76 mL/min (>60); Globulin 4.3 g/dL (2.2-4.2); Glucose 97 mg/dL (74-106); Potassium 3.8 mmol/L (3.5-5.1); Protein, Total 7.7 g/dL (6.4-8.2); Sodium Level 136 mmol/L (136-145)
== END | disposition home or self-care (01) ==
PROVIDERS: PCP Family Medicine; Referring Provider Internal Medicine Rheumatology; Visit Provider Internal Medicine Rheumatology
DX: M06.4 Inflammatory polyarthropathy (principal); Z79.899 Other long term (current) drug therapy; R76.8 Other specified abnormal immunological findings in serum
CPT/HCPCS: 36415; 80053; 85025

== ENCOUNTER 2023-01-06 12:40 | Day surgery (SDC) | payer OTHER, SELFPAY ==
[2023-01-06 13:16] VITALS: BP 136/94; PULSE 68; RESP 18; TEMP 36.8; O2SAT 99; BMI 41.1
--- NOTE | 2023-01-06 13:29 | HP.PCM_ITS ---
History and Physical Date of Admission: 01/06/23 [facility] [address] [place] [address] OFFICE VISIT Date of Service: 12/17/22 MR#: [id number] Acct: [id number] Name: MARK VALDOVINOS Rep #: [id number] : 1960 Provider: Dr. Mohsen Hicks DO Age/Sex: 62/F Location: [facility] Status: Signed Intake Vital Signs 08/18/2305:39 12/17/2314:27 Height 5 ft 7 in 5 ft 7 in Weight: 268 lb BMI 42.0 Intake Visit Reasons: RIGHT HAND Chief Complaint: right hand Accompanied by: Self Is patient in pain?: Yes Pain scale (1-10): 7 Allergies No Known Allergies Allergy (Verified 12/17/22 15:31) Medications indapamide 1.25 mg tablet 1.25 mg PO QHS SUPPLEMENT 10/14/17 [History Confirmed 12/17/22] desvenlafaxine succinate 100 mg tablet,extended release 24 hr (Pristiq) 100 mg PO DAILY 03/19/22 [History Confirmed 12/17/22] folic acid 1 mg tablet 1 mg PO BID 03/19/22 [History Confirmed 12/17/22] gabapentin 100 mg capsule 100 mg PO TID 03/19/22 [History Confirmed 12/17/22] losartan 50 mg tablet 50 mg PO DAILY 03/19/22 [History Confirmed 12/17/22] methotrexate sodium 2.5 mg tablet 15 mg PO SA 03/19/22 [History Confirmed 12/17/22] metoprolol tartrate 50 mg tablet 50 mg PO DAILY 03/19/22 [History Confirmed 12/17/22] spironolactone 50 mg tablet 50 mg PO DAILY 03/19/22 [History Confirmed 12/17/22] acetaminophen 500 mg tablet 1,000 mg PO Q8 PRN Pain 05/19/22 [History Confirmed 12/17/22] pantoprazole 40 mg tablet,delayed release (Protonix) 40 mg PO DAILY #30 tabs 06/27/22 [Rx Confirmed 12/17/22] semaglutide 1 mg/dose (4 mg/3 mL) subcutaneous pen injector (Ozempic) 1 mg subcut QWEEK 12/17/22 [History Confirmed 12/17/22] PFSH Medical History (Updated 12/17/22 @ 16:[address] Mohsen Hicks DO) Anxiety Arthritis Depression Diabetes Dietary restriction Former smoker Gastric reflux History of stress test Hypertension Post-menopausal Wears glasses Surgical History (Updated 09/18/22 @ 17:[address] Trace Mello MD) History of knee replacement Hx of colonoscopy S/P inguinal hernia repair Social History Smoking Status: Former smoker alcohol intake: never substance use type: does not use HPI RIGHT HAND Details: This documentation accurately reflects the service provided and the decisions made by me, Dr. Mohsen Hicks DO 12/17/22 1505. Part of today?s visit was documented by [ ], acting as scribe. MARK VALDOVINOS is a 62 year old F here today for BL wrist pain for the last 20 yeasrs. Right is worse than the left. Pt has had cortisone injections by Dr. Kennedy, left one was 1 week ago and right was done 1 month ago. Pt states that injections last a couple of months. Has had EMG study as well. Pt states that the pain on right side goes up to mid forearm. Pt states she feels a lump on the right forearm and massages the pain away. Pt takes Tylenol which does seem to help. 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 Index and middle finger go numb worse on the right side. She has had 2 steroid injection in the right and 1 injection in the left for carpal tunnel syndrome. The last right injection was 4-6 weeks and the left wrist was injected 2 weeks ago. Ortho Exam General General: Yes no acute distress Neurologic: Yes alert and Yes oriented x3 Psychologic: Yes reasonable and appropriate Right Wrist/Hand Skin/Wound: No Swelling, No Ecchymosis and Yes capillary refill normal Right Wrist: No Durken's Test, Tinel's or Phalen's WRIST: full finger extension limited index finger flexion full supination and pronation 85 wrist extension 60 wrist flexion subcutaneous nodule at wrist Left Wrist/Hand Skin/Wound: No Swelling and No Ecchymosis Left Wrist: No Durken's Test, No Tinel's and No Phalen's WRIST: full supination and pronation Head: Normocephalic Atraumatic Chest: symmetrical rise, non-labored breathing, no audible wheeze Abdomen: no guarding, non-rigid Supplemental Info 11/04/2022 EMG nerve conduction study bilateral upper extremity: 1) Severe, bilateral median mononeuropathies at the wrists (carpal tunnel syndrome), with secondary motor fiber axonal loss 2) Chronic, left C7 radiculopathy Coding Level of Care Code Off vis,new,level 3 Diagnoses Carpal tunnel syndrome, bilateral G56.03 Assessment and Plan Assessment and Plan (1) Carpal tunnel syndrome, bilateral: Status: Acute Plan Patient educated that she has severe BL carpal tunnel syndrome. Educated that repeat carpal tunnel injections can result in a tendon rupture over time therefore it is not recommended to have more than 2-3 carpal tunnel injections. Treatment recommendation would be to have carpal tunnel release. Educated that the surgery is outpatient. She can have soreness over the incision for a couple months after surgery. The goal of surgery is to prevent worsening of symptoms and there is a chance that she can continue to have numbness even after the CTR. Discussed lifting restrictions. Reviewed the pre-operative plans with the patient. Risks and benefits of the procedure were fully explained, including but not limited to infection, neurovascular injury, continued pain, arthritis, stiffness, need for further surgery, re-injury, DVT, PE, general risks of anesthesia, and loss of limb or life, incisional hypersensitivity pillar pain wound dehiscence if she does not follow weightbearing restrictions which could result in infection, the patient understands all the risks and does wish to proceed with written consent for right carpal tunnel release. Follow up 2 weeks post op or sooner if pain, swelling, numbness or associated symptoms, or concerns develop. All questions answered. Patient in agreement of plan. Tentative surgery date January 20, 2023 12/17/22 1611 <Electronically signed by Mohsen Hicks DO> Date Mohsen Hicks DO Cosigner Signature: Date (if applicable) CC: ~ I have examined the patient and the H&P has been reviewed. There are no clinical changes since date of exam.
[2023-01-06 13:43] LABS: Bedside Glucose 104 mg/dL (74-106)
[2023-01-06] MEDS: Cefazolin 2 GM in 0.9% Normal Saline (100mL Bag) 100 ML IV (14:11)
[2023-01-06] MEDS: Lidocaine 1% /Epi 1:100 (20ml) 20 ML Vial (14:32)
[2023-01-06 14:45] VITALS: BP 136/94; BP 142/81; PULSE 98; RESP 16; TEMP 36.1; O2SAT 98
--- NOTE | 2023-01-06 14:47 | OP.PCM_ITS ---
Operative Report Date of Procedure: 01/06/23 Preoperative diagnosis; right carpal tunnel syndrome Postoperative diagnosis; same Procedure: Right open carpal tunnel release Anesthesia: Local with MAC Tourniquet time; 10 minutes 250 mm Hg Complications: None Indication for procedure; This is a 62-year-old female with long-standing s ymptoms consistent with carpal tunnel syndrome the patient did have electrodiagnostic evidence of this and has failed conservative treatment. Risks benefits and alternatives were reviewed including risks of bleeding infection nerve artery tissue damage need for further surgery and continued pain and symptoms, hypersensitivity to scar and Pillar pain. Procedure; The patient was met in the preoperative holding area the operative extremity was identified by both patient and physician and was marked the patient was met by anesthesia and brought back to the operating room and transferred to the operating table in the supine position. Anesthesia was started. A well-padded tourniquet was placed on the operative upper extremity. The patient was prepped and draped in the usual sterile fashion. A timeout was called to ensure the proper patient procedure and extremity were being contemplated. 0.5 percent lidocaine with epinephrine was injected into the incisional area. An Esmarch was used to exsanguinate the extremity. The tourniquet was inflated to 250 mmHg. A midline incision was made with a 15 blade scalpel between the thenar and hypothenar eminence. This was carried down through the skin and subcutaneous tissue. Rmima retractors were then used, a deep blade scalpel was used to make a deep incision in the palmar aponeurosis. The rimma retractors were then placed deep to this and the transverse carpal ligament was identified a perforation was made with a scalpel and a Littler scissors were used to complete the release of the transverse carpal ligament distally under direct visualization with the tips facing ulnarly until the perivascular fat was reached. Then turning our attention proximally using a tension slide technique the proximal extent of the transverse carpal ligament was released . There was noted to be hourglass configuration to the median nerve and hypertrophy of the transverse carpal ligament and flattening of the median nerve without other findings. The wound was thoroughly irrigated and was closed with 4-0 nylon vertical mattress stitches. Dressing was applied in the form of xeroform 4 x 4, web roll and an derrick wrap. Tourniquet was let down there is no intraoperative complications patient tolerated the procedure well and was transferred to the PACU. All counts were correct.
[2023-01-06 14:50] VITALS: BP 136/75; BP 136/94; PULSE 64; RESP 16; O2SAT 94
--- NOTE | 2023-01-06 14:50 | DCINST_ITS ---
Discharge Instructions Dressing / Incision Call your doctor if you observe: Shortness of breath and Chest pain Additional Dressing/Incision Instructions:: Ice and elevate operative extremity next 72 hours. Keep dressing on clean and dry for 48 hours then may remove and allow warm soapy water to rinse over incision but do not submerge until sutures are out. Then apply bandaid over incision and change daily. encourage finger range of motion. Not lift more than 1/2 pound. Minimize narcotic use only as needed and directed, may use OTC NSAID and Tylenol to supplement/substitute for pain control. Follow Up Care Please Follow Up With: Mohsen Hicks DO When: 2 weeks Test Results: Test results from this visit will be discussed in further detail at your follow- up appointment, if applicable. Discharge Plan Admission Primary Reason for Your Visit: Right carpal tunnel release Attending Provider: Mohsen Hicks Primary Care Provider: Catherine Coelho Discharge Orders/Prescriptions Prescriptions: New oxycodone 5 mg tablet 5 - 10 mg PO Q4H PRN (Reason: pain) 3 Days Qty: 10 0RF Continued gabapentin 100 mg capsule 100 mg PO TID methotrexate sodium 2.5 mg tablet 15 mg PO SA metoprolol tartrate 50 mg tablet 50 mg PO DAILY folic acid 1 mg tablet 1 mg PO BID desvenlafaxine succinate [Pristiq] 100 mg tablet extended release 24 hr 100 mg PO DAILY spironolactone 50 mg tablet 50 mg PO DAILY losartan 50 mg tablet 100 mg PO DAILY Ozempic 1 mg/dose (4 mg/3 mL) pen injector 1 mg subcut TERRY indapamide 1.25 MG tablet 1.25 mg PO DAILY acetaminophen 500 MG tablet 1,000 mg PO Q8 PRN (Reason: Pain) pantoprazole [Protonix] 40 mg tablet,delayed release (DR/EC) 40 mg PO DAILY Qty: 30 0RF Referrals / Follow Up: Catherine Coelho DO [Primary Care Provider] - Disposition Disposition (needs filled in before D/C Order can be placed): Home, Self Care
[2023-01-06 15:02] VITALS: BP 136/94; BP 138/78; PULSE 65; RESP 16; TEMP 36.2; O2SAT 93
[2023-01-06 15:20] VITALS: BP 136/94
== END 2023-01-06 15:58 | disposition home or self-care (01) ==
LOC: SDC 12:40 → AC 12:42
PROVIDERS: PCP Family Medicine; Visit Provider Orthopaedic Surgery
PROC: (CPT 64721; principal; 2023-01-06 14:05)
DX: G56.03 Carpal tunnel syndrome, bilateral upper limbs (principal); E11.9 Type 2 diabetes mellitus without complications; I10 Essential (primary) hypertension; Z87.891 Personal history of nicotine dependence; F32.A Depression, unspecified; K21.9 Gastro-esophageal reflux disease without esophagitis; Z87.19 Personal history of other diseases of the digestive system; Z96.659 Presence of unspecified artificial knee joint
CPT/HCPCS: 64721; 01810; 82962; J7120; J2405

== ENCOUNTER 2023-01-27 09:21 | Day surgery (SDC) | payer OTHER, SELFPAY ==
[2023-01-27] VITALS (8 sets, daily range): BP systolic 116–141; BP diastolic 71–92; PULSE 61–70; RESP 16–18; TEMP 36.4–36.7; O2SAT 92–98; BMI 41.0
[2023-01-27] MEDS: Lactated Ringers 1,000 ML 15 ML IV (09:52)
--- NOTE | 2023-01-27 10:38 | HP.PCM_ITS ---
History and Physical Date of Admission: 01/27/23 [facility] [address] [place] [address] OFFICE VISIT Date of Service: 01/21/23 MR#: [id number] Acct: [id number] Name: MARK VALDOVINOS Rep #: [id number] : 1960 Provider: Dr. Mohsen Hicks DO Age/Sex: 62/F Location: [facility] Status: Signed Intake Vital Signs 12/17/2314:27 01/06/2313:16 Height 5 ft 7 in 5 ft 7 in Intake Visit Reasons: right wrist Chief Complaint: biateral hands Allergies No Known Allergies Allergy (Verified 01/21/23 15:00) Medications indapamide 1.25 mg tablet 1.25 mg PO DAILY DIURETIC 10/14/17 [History Confirmed 01/21/23] desvenlafaxine succinate 100 mg tablet,extended release 24 hr (Pristiq) 100 mg PO DAILY 03/19/22 [History Confirmed 01/21/23] folic acid 1 mg tablet 1 mg PO BID 03/19/22 [History Confirmed 01/21/23] gabapentin 100 mg capsule 100 mg PO TID 03/19/22 [History Confirmed 01/21/23] losartan 50 mg tablet 100 mg PO DAILY 03/19/22 [History Confirmed 01/21/23] methotrexate sodium 2.5 mg tablet 15 mg PO SA 03/19/22 [History Confirmed 01/21/23] metoprolol tartrate 50 mg tablet 50 mg PO DAILY 03/19/22 [History Confirmed 01/21/23] spironolactone 50 mg tablet 50 mg PO DAILY 03/19/22 [History Confirmed 01/21/23] acetaminophen 500 mg tablet 1,000 mg PO Q8 PRN Pain 05/19/22 [History Confirmed 01/21/23] pantoprazole 40 mg tablet,delayed release (Protonix) 40 mg PO DAILY #30 tabs 06/27/22 [Rx Confirmed 01/21/23] semaglutide 1 mg/dose (4 mg/3 mL) subcutaneous pen injector (Ozempic) 1 mg subcut TERRY 12/17/22 [History Confirmed 01/21/23] [facility] [place] Medical History Anxiety Arthritis Depression Diabetes Dietary restriction Former smoker Gastric reflux History of stress test Hypertension Post-menopausal Wears glasses Surgical History History of carpal tunnel surgery of right wrist History of knee replacement Hx of colonoscopy Hx of inguinal hernia repair Social History Smoking Status: Former smoker alcohol intake: never substance use type: does not use HPI right wrist Chief Complaint: bilateral hands Details: This documentation accurately reflects the service provided and the decisions made by me, Dr. Mohsen Hicks, DO 01/21/23 7758. Part of today?s visit was documented by [ ], acting as scribe. MARK VALDOVINOS is a 62 year old F here today for 2 week post op right open carpal tunnel release DOS 01-06-23 and pre op left carpal tunnel release. Pt. denies right hand pain unless she bumps it. Sutures dry, intact , no drainage or s/s of infection. she still has symptoms in her left hand and would like to move foward with it. Ortho Exam General General: Yes no acute distress Neurologic: Yes alert and Yes oriented x3 Psychologic: Yes reasonable and appropriate Right Wrist/Hand Skin/Wound: Yes healing, Yes suture/torres removed, No Swelling and No Ecchymosis WRIST: full range of motion finger and wrist. incision looks good , sutures removed. no sign of infection. 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 Monitor for signs of infection, redness, warmth, swelling in excess, drainage, opening of incision site/sites, and/or fever. She should continue to wash her incision daily. and 5 lb restriction fo another week we will proceed with left CTR Follow up for 2 week post op or sooner if pain, swelling, numbness or associated symptoms, or concerns develop. All questions answered. Patient in agreement of plan. 01/21/23 0101 <Electronically signed by Mohsen Hicks DO> Date Mohsen Hicks DO Cosigner Signature: Date (if applicable) CC: ~ I have examined the patient and the H&P has been reviewed. There are no clinical changes since date of exam.
[2023-01-27] MEDS: Cefazolin 3 GM in 0.9% Normal Saline (100mL Bag) 100 ML IV (10:51)
[2023-01-27] MEDS: Lidocaine 1%/Epi 1:200 (30ml) 30 ML AMPUL (11:05)
[2023-01-27 11:18] LABS: Bedside Glucose 101 mg/dL (74-106)
--- NOTE | 2023-01-27 11:34 | OP.PCM_ITS ---
Operative Report Date of Procedure: 01/27/23 Preoperative diagnosis; left carpal tunnel syndrome Postoperative diagnosis; same Procedure: Left open carpal tunnel release Anesthesia: Local with MAC Tourniquet time; 10 minutes 250 mm Hg Complications: None Indication for procedure; This is a 62-year-old female with long-standing sym ptoms consistent with carpal tunnel syndrome the patient did have electrodiagnostic evidence of this and has failed conservative treatment. Risks benefits and alternatives were reviewed including risks of bleeding infection nerve artery tissue damage need for further surgery and continued pain and symptoms, hypersensitivity to scar and Pillar pain. Procedure; The patient was met in the preoperative holding area the operative extremity was identified by both patient and physician and was marked the patient was met by anesthesia and brought back to the operating room and transferred to the operating table in the supine position. Anesthesia was started. A well-padded tourniquet was placed on the operative upper extremity. The patient was prepped and draped in the usual sterile fashion. A timeout was called to ensure the proper patient procedure and extremity were being contemplated. 0.5 percent lidocaine with epinephrine was injected into the incisional area. An Esmarch was used to exsanguinate the extremity. The tourniquet was inflated to 250 mmHg. A midline incision was made with a 15 blade scalpel between the thenar and hypothenar eminence. This was carried down through the skin and subcutaneous tissue. Rimma retractors were then used, a deep blade scalpel was used to make a deep incision in the palmar aponeurosis. The rimma retractors were then placed deep to this and the transverse carpal ligament was identified a perforation was made with a scalpel and a Littler scissors were used to complete the release of the transverse carpal ligament distally under direct visualization with the tips facing ulnarly until the perivascular fat was reached. Then turning our attention proximally using a tension slide technique the proximal extent of the transverse carpal ligament was released . There was noted to be significant hypertrophy of the transverse carpal ligament. . The wound was thoroughly irrigated and was closed with 4-0 nylon vertical mattress stitches. Dressing was applied in the form of xeroform 4 x 4, web roll and an derrick wrap. Tourniquet was let down there is no intraoperative complications patient tolerated the procedure well and was transferred to the PACU. All counts were correct.
--- NOTE | 2023-01-27 11:35 | DCINST_ITS ---
Discharge Instructions Dressing / Incision Call your doctor if you observe: Shortness of breath and Chest pain Additional Dressing/Incision Instructions:: Ice and elevate operative extremity next 72 hours. Keep dressing on clean and dry for 48 hours then may remove and allow warm soapy water to rinse over incision but do not submerge until sutures are out. Then apply bandaid over incision and change daily. encourage finger range of motion. Not lift more than 1/2 pound. Minimize narcotic use only as needed and directed, may use OTC NSAID and Tylenol to supplement/substitute for pain control. Follow Up Care Please Follow Up With: Mohsen Hicks DO When: 2 weeks Test Results: Test results from this visit will be discussed in further detail at your follow- up appointment, if applicable. Discharge Plan Admission Primary Reason for Your Visit: Left carpal tunnel release Attending Provider: Mohsen Hicks Primary Care Provider: Catherine Coelho Discharge Orders/Prescriptions Prescriptions: New oxycodone 5 mg tablet 2.5 - 10 mg PO Q4H PRN (Reason: pain) 3 Days Qty: 7 0RF Continued gabapentin 100 mg capsule 100 mg PO TID methotrexate sodium 2.5 mg tablet 15 mg PO SA metoprolol tartrate 50 mg tablet 50 mg PO DAILY folic acid 1 mg tablet 1 mg PO BID desvenlafaxine succinate [Pristiq] 100 mg tablet extended release 24 hr 100 mg PO DAILY spironolactone 50 mg tablet 50 mg PO DAILY losartan 50 mg tablet 100 mg PO DAILY Ozempic 1 mg/dose (4 mg/3 mL) pen injector 1 mg subcut TERRY indapamide 1.25 MG tablet 1.25 mg PO DAILY acetaminophen 500 MG tablet 1,000 mg PO Q8 PRN (Reason: Pain) pantoprazole [Protonix] 40 mg tablet,delayed release (DR/EC) 40 mg PO DAILY Qty: 30 0RF Referrals / Follow Up: Catherine Coelho DO [Primary Care Provider] - Disposition Disposition (needs filled in before D/C Order can be placed): Home, Self Care
== END 2023-01-27 12:31 | disposition home or self-care (01) ==
LOC: SDC 09:22 → AC 09:23
PROVIDERS: PCP Family Medicine; Referring Provider Orthopaedic Surgery; Visit Provider Orthopaedic Surgery
PROC: (CPT 64721; principal; 2023-01-27 10:45)
DX: G56.03 Carpal tunnel syndrome, bilateral upper limbs (principal); E11.9 Type 2 diabetes mellitus without complications; I10 Essential (primary) hypertension; Z87.891 Personal history of nicotine dependence; Z96.659 Presence of unspecified artificial knee joint; Z87.19 Personal history of other diseases of the digestive system; K21.9 Gastro-esophageal reflux disease without esophagitis; F32.A Depression, unspecified; F41.9 Anxiety disorder, unspecified
CPT/HCPCS: 64721; 01810; 82962; J7120; J2405

== ENCOUNTER → 2023-02-24 | Outpatient (CLI) | payer OTHER, SELFPAY ==
[2023-02-24 17:27] LABS: Absolute Lymphocyte Count 3.73 X10^3/uL (0.83-4.51); Absolute Neutrophil Count 5.6 X10^3/uL (2.0-7.7); Basophil# 0.06 X10^3/uL; Basophil% 0.6 % (0-1); Eosinophil# 0.17 X10^3/uL; Eosinophils% 1.7 % (0-5); Hematocrit 40.5 % (37-47); Hemoglobin 13.5 g/dL (12.0-15.0); Lymphocyte # 3.73 X10^3/ul (0.83-4.51); Lymphocyte % 36.7 % (19-41); Mean Corp Hgb Conc 33.3 g/dL (32-36); Mean Corpuscular Hgb 33.3 pg (27.0-32.0); Mean Platelet Vol. 9.5 fl (6.2-12.0); Monocyte# 0.63 X10^3/uL; Monocyte% 6.2 % (0-10); NRBC Flagged by Analyzer 0 % (0-5); Neutrophil # 5.55 X10^3/uL (2.7-7.7); Neutrophil % 54.5 % (47-70); Platelet Count 361 K/mm3 (150-450); RBC Distribution Width CV 13.3 % (11.6-14.6); RBC Distribution Width SD 48.6 fl (35.1-43.9); Red Blood Count 4.05 M/mm3 (4.2-5.4); White Blood Count 10.2 K/mm3 (4.4-11.0)
--- OUTSIDE RECORDS SUMMARY | 2023-02-24 17:42 | XMS RPT_ITS | CCD ---
Author Name Unknown Address [address] [place] [address] Organization [facility] Care Team Providers Care Ward Maid Name Role Phone Jayjay Faye MD Primary Care Provider Unavailable Primary Care Provider Unavailabl Jayjay Bateman MD Primary Care Provider Jayjay Faye MD Primary Care Provider Jayjay Faye MD Primary Care Provider JAYJAY FAYE Attending Unavailab JAYJAY Garza Primary Care Unavailab JAYJAY Garza Attending Unavailab JAYJAY Garza Primary Care Unavailab Frida Glynn DO Primary Care Provider MANDI ABDI Referring Unavailable FRIDA COELHO Primary Care Unavailable MANDI ABDI Attending Unavailable FRIDA COELHO Primary Care Unavailable FRIDA COELHO Primary Care Unavailable Medications Current Medications Medication Drug Class(es) Dates Sig (Normalized) Sig (Original) amLODIPine 10 mg / atorvastatin 10 mg oral tablet (9 sources) Dihydropyridine Calcium Channel Shagufta, HMG-CoA Reductase Inhibitor End: 11-20-2021 take 1 tablet by mouth once daily amLODIPine-Atorva statin 10-10 mg per tablet Take 1 tablet by mouth once daily. 0 11/20/2021 Discontinued Completed/Discontinued Medications Medication Drug Class(es) Dates Sig (Normalized) Sig (Original) amLODIPine 10 mg oral tablet (20 sources) Dihydropyridine Calcium Channel Shagufta Start: 10-11-2021 End: 11-12-2021 take 1 tablet by mouth once daily amLODIPine (NORVASC) 10 mg tablet Take 1 tablet by mouth once daily. 90 tablet 3 11/12/2021 Active Problems Problem Classification Problem Date Documented Date Episodic/Chronic Diabetes mellitus without complication (6 sources) Type 2 diabetes mellitus; Translations: [Type 2 diabetes mellitus without complications] Onset: 01-27-2022 Chronic Diabetes mellitus without complication (1 source) Hyperglycemia; Translations: [Hyperglycemia, unspecified] Episodic Esophageal disorders (4 sources) Gastroesophageal reflux disease; Translations: [Gastro-esophageal reflux disease without esophagitis] Onset: 11-21-2022 11-21-2022 Chronic Essential hypertension (20 sources) Hypertensive disorder; Translations: [Essential (primary) hypertension] Onset: 06-16-2011 Chronic Noninfectious gastroenteritis (4 sources) Gastroenteritis; Translations: [Noninfective gastroenteritis and colitis, unspecified] Onset: 11-21-2022 11-21-2022 Episodic Nonspecific chest pain (1 source) Chest pain; Translations: [Chest pain, unspecified] Episodic Other connective tissue disease (20 sources) Artificial knee joint present; Translations: [Presence of right artificial knee joint] Onset: 10-29-2017 10-27-2019 Chronic Other connective tissue disease (4 sources) Diastasis recti; Translations: [Separation of muscle (nontraumatic), other site] Onset: 11-21-2022 11-21-2022 Episodic Other diseases of kidney and ureters (1 source) Disorder of kidney and/or ureter; Translations: [Other specified disorders of kidney and ureter] Chronic Other nervous system disorders (4 sources) Mononeuropathy; 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] Onset: 11-11-2022 11-21-2022 Chronic Other screening for suspected conditions (not mental disorders or infectious disease) (8 sources) Patient encounter status; Translations: [Encounter for screening for lipoid disorders] Onset: 11-12-2021 Episodic Rheumatoid arthritis and related disease (4 sources) Inflammatory polyarthropathy; Translations: [Inflammatory polyarthropathy] Onset: 09-12-2022 11-21-2022 Chronic Results Test Name Value Interpretation Reference Range Facil ity Vital Signs Date Time Vital Sign Value Performing Clinician Gloria [email or web address] 11-21-2022 06:57-0400 Body height 165.1 cm Mandi Evansdale DIRECTOR MATERNAL CHILD.TONGUE AND GROOVE MACHINE SETTER Work Phone: [facility] 11-21-2022 06:57-0400 Body weight 119.75 kg Mandi Evansdale DIRECTOR MATERNAL CHILD.TONGUE AND GROOVE MACHINE SETTER Work Phone: [facility] 11-21-2022 06:57-0400 Diastolic blood pressure 80 mm[Hg] Mandi Trinidad DIRECTOR MATERNAL CHILD.TONGUE AND GROOVE MACHINE SETTER Work Phone: [facility] 11-21-2022 06:57-0400 Systolic blood pressure 122 mm[Hg] Mandi Trinidad DIRECTOR MATERNAL CHILD.TONGUE AND GROOVE MACHINE SETTER Work Phone: [facility] 04-25-2022 14:03-0400 Body temperature 97.2 [degF] Krislyn Aberegg PA Work Phone: [facility] 04-25-2022 14:03-0400 Body weight 130.36 kg Krislyn Aberegg PA Work Phone: [facility] 04-25-2022 14:03-0400 Diastolic blood pressure 72 mm[Hg] Krislyn Aberegg PA Work Phone: [facility] 04-25-2022 14:03-0400 Heart rate 60 /min Krislyn Aberegg PA Work Phone: [facility] 04-25-2022 14:03-0400 Respiratory rate 18 /min Krislyn Aberegg PA Work Phone: [facility] 04-25-2022 14:03-0400 SaO2% (BldA) [Mass fraction] 98 % Krislyn Aberegg PA Work Phone: [facility] 04-25-2022 14:03-0400 Systolic blood pressure 124 mm[Hg] Krislyn Aberegg PA Work Phone: [facility] 11-20-2021 07:03-0400 Body height 170.2 cm Mandi Evansdale DIRECTOR MATERNAL CHILD.TONGUE AND GROOVE MACHINE SETTER Work Phone: [facility] 11-20-2021 07:03-0400 Body weight 127.01 kg Mandi Evansdale DIRECTOR MATERNAL CHILD.TONGUE AND GROOVE MACHINE SETTER Work Phone: [facility] 11-20-2021 07:03-0400 Diastolic blood pressure 60 mm[Hg] Mandi Trinidad DIRECTOR MATERNAL CHILD.TONGUE AND GROOVE MACHINE SETTER Work Phone: [facility] 11-20-2021 07:03-0400 Systolic blood pressure 122 mm[Hg] Mandi Evansdale DIRECTOR MATERNAL CHILD.TONGUE AND GROOVE MACHINE SETTER Work Phone: [facility] 11-12-2021 15:30-0400 Body height 170.2 cm Jayjay Faye MD Work Phone: [facility] 11-12-2021 15:30-0400 Body temperature 97.81 [degF] Jayjay Faye MD Work Phone: [facility] 11-12-2021 15:30-0400 Body weight 127.01 kg Jayjay Faye MD Work Phone: [facility] 11-12-2021 15:30-0400 Diastolic blood pressure 76 mm[Hg] Jayjay Faye MD Work Phone: [facility] 11-12-2021 15:30-0400 Heart rate 68 /min Jayjay Faye MD Work Phone: [facility] 11-12-2021 15:30-0400 Respiratory rate 14 /min Jayjay Faye MD Work Phone: [facility] 11-12-2021 15:30-0400 SaO2% (BldA) [Mass fraction] 94 % Jayjay Faye MD Work Phone: [facility] 11-12-2021 15:30-0400 Systolic blood pressure 138 mm[Hg] Jayjay Faye MD Work Phone: [facility] 04-10-2021 16:09-0500 Body temperature 96.91 [degF] Jayjay Faye MD Work Phone: [facility] 04-10-2021 16:09-0500 Body weight 130.64 kg Jayjay Faye MD Work Phone: [facility] 04-10-2021 16:09-0500 Diastolic blood pressure 80 mm[Hg] Jayjay Faye MD Work Phone: [facility] 04-10-2021 16:09-0500 Heart rate 59 /min Jayjay Faye MD Work Phone: [facility] 04-10-2021 16:09-0500 Respiratory rate 14 /min Jayjay Faye MD Work Phone: [facility] 04-10-2021 16:09-0500 Systolic blood pressure 128 mm[Hg] Jayjay Faye MD Work Phone: [facility] Encounters Encounter Date Encounter Type Care Provider Facility Start: 12-19-2022 Refill Jayjay Childers MD Work Phone: [facility] Procedures Date Procedure Procedure Detail Performing Clinician Start: 11-21-2022 Screening mammograph y bi 2-view breast inc cad Mandi Trinidad DIRECTOR MATERNAL CHILD.TONGUE AND GROOVE MACHINE SETTER Work Phone: Start: 10-31-2021 Mammography Jayjay arora MD Work Phone: Start: 08-23-2021 Basic metabolic pane l calcium total Jayjay Faye Work Phone: Start: 10-29-2020 Mammography Jayjay arora MD Work Phone: Plan of Treatment Date Care Activity Detail Author Start: 09-25-2032 Urine microalbumin profile DTaP,Tdap,Td Vaccine (2 - Td or Tdap) [facility] Start: 11-16-2026 LIPID SCREEN LIPID SCREEN [facility] Start: 10-29-2025 HPV TESTING HPV TESTING [facility] Start: 10-29-2025 PAP TESTING PAP TESTING [facility] Start: 11-20-2024 DIABETES SCREEN DIABETES SCREEN [facility] Start: 11-16-2024 DIABETES SCREEN DIABETES SCREEN [facility] Start: 11-22-2023 Mammography Mammogram Screening [facility] Start: 04-26-2023 BP CONTROLLED (<130/80) BP CONTROLLED (<130/80) [facility] Start: 01-27-2023 ANNUAL PCP TEAM CHRONIC DISEASE VISIT ANNUAL PCP TEAM CHRONIC DISEASE VISIT [facility] Start: 11-20-2022 BP CONTROLLED (<130/80) BP CONTROLLED (<130/80) [facility] Start: 11-16-2022 Hepatitis B surface antibody level LDL Cholesterol [facility] Start: 11-12-2022 ANNUAL PCP TEAM CHRONIC DISEASE VISIT ANNUAL PCP TEAM CHRONIC DISEASE VISIT [facility] Start: 10-31-2022 Mammography [facility] Start: 10-10-2022 Covid-19 Vaccine () Covid-19 Vaccine () [facility] Start: 10-10-2022 Influenza vaccination INFLUENZA (#1) [facility] Start: 05-21-2022 Hemoglobin A1c/Hemoglobin.total in Blood HbA1C [facility] Start: 02-09-2022 DEPRESSION ASSESSMENT DEPRESSION ASSESSMENT [facility] Start: 11-18-2021 End: 01-18-2022 Hemoglobin A1c in Blood HGB A1C Lab Routine Hyperglycemia Expected: 11/18/2021, Expires: 01/18/2022 [facility] Work Phone: Immunizations Immunization Date Immunization Notes Care Provider Fa nitesh 11-12-2021 influenza, high dose seasonal, preservative-free Jayjay Faye MD Work Phone: [facility] 01-24-2021 COVID-19 original vaccine, full dose, monovalent (MODERNA) Jayjay Faye MD Work Phone: [facility] 01-24-2021 COVID-19 vaccine, ag e 12+ yr (PFIZER-BIONTSiteminis - PURPLE TOP) Jayjay Faye MD Work Phone: [facility] 11-26-2020 influenza nasal, unspecified formulation Jayjay Faye MD Work Phone: [facility] 05-08-2020 COVID-19 vaccine, fu ll dose (MODERNA) Jayjay Faye MD Work Phone: [facility] Work Phone: 04-10-2020 COVID-19 vaccine, fu ll dose (MODERNA) Jayjay Faey MD Work Phone: [facility] Work Phone: 11-23-2017 influenza, seasonal, injectable, preservative free Jayjay Faye MD Work Phone: [facility] Payers Date Payer Category Payer Unknown MMO MMO [employer] [id number] 2015-Present [phone] [address] [address] [place] [address] Indemnity [id number] 2015 Unknown [id number] 2015 Unknown [id number] Social History Date Type Detail Facility Start: 06-21-2012 End: 10-16-2021 Tobacco smoking status DEIS Ex-smoker [facility] End: 02-03-2012 History of tobacco use Current smoker [facility] End: 02-03-2012 History of tobacco use Cigarette Smoker [facility] Start: 06-21-2012 End: 11-21-2022 Cigarettes smoked current (pack per day) - Reported 0.5 [facility] Work Phone: Start: 06-21-2012 End: 10-16-2021 Tobacco use and exposure Smokeless tobacco non-user [facility] Start: 10-29-2020 End: 11-21-2022 Alcohol intake Current non-drinker of alcohol (finding) [facility] Start: 10-27-2019 History SDOH Social Connections Phone 5 [facility] Start: 10-27-2019 History SDOH Social Connections Get Together 3 [facility] Start: 10-27-2019 History SDOH Social Connections Religious 1 [facility] Start: 10-27-2019 History SDOH Social Connections Membership 2 [facility] Start: 10-27-2019 Education 16 [facility] Start: 1960 Sex Assigned At Female [facility] Work Phone: Start: 08-11-2021 End: 11-12-2021 Exposure to SARS-CoV-2 (event) Not sure [facility] Tobacco smoking stat us DEIS Tobacco smoking consumption unknown [facility] Start: 1960 Sex Assigned At Not on file [facility] Work Phone: Start: 09-17-2021 End: 09-27-2021 Exposure to SARS-CoV-2 (event) Yes [facility] Start: 10-27-2019 End: 11-21-2022 Social connection and isolation panel [facility] Work Phone: Do you belong to any clubs or organizations such as taoism groups, unions, fraternal or athletic groups, or school groups? No [facility] Work Phone: Are you now , , , , never or living with a partner? [facility] Work Phone: How hard is it for y ou to pay for the very basics like food, housing, medical care, and heating Not hard at all [facility] Work Phone: Do you feel stress - tense, restless, nervous, or anxious, or unable to sleep at night because your mind is troubled all the time - these days [OSQ] Very much [facility] Work Phone: (I/We) worried wheth er (my/our) food would run out before (I/we) got money to buy more. Never true [facility] Work Phone: Start: 08-05-2016 Gender identity Identifies as female gender (finding) [facility] Work Phone: Start: 08-05-2016 Sexual orientation Heterosexual (finding) [facility] Work Phone: Clinical Notes 08-21-2021 to 11-24-2022 Letter - Coordinator, Mammography - 11/24/2022 3:29 PM Tiffany Caceres Mammo Tech - 11/21/2022 7:50 AM Mandi Roe APRN.TONGUE AND GROOVE MACHINE SETTER - 11/21/2022 6:54 AM EDT Note Date & Type Note Facility 11-24-2022 Miscellaneous Notes November 25, 2022 PID: [id number] Dianne Hoyt [address] [place] [address] Dear Ms. Hoyt, We are pleased to inform you that the results of your recent breast imaging exam on 11/21/2022 are normal. Early detection of cancer is very important. We also understand recommendations regarding breast cancer screening are controversial. Please discuss with your primary care provider which strategy is best for you and whether a mammogram is right for you. Your imaging studies and report will be kept on file at [facility] as part of your permanent medical record and are available for your continuing care. Thank you for allowing us to help in meeting your health care needs. Sincerely, Dr. Hannon Interpreting Radiologist [facility] (Normal over 40) documented in this encounter [facility] 11-21-2022 Note HNO ID: [id number] Author: Tiffany Mak Mammo Tech Service: ? Author Type: Firearms Sales Associate Type: Progress Notes Filed: 11/21/2022 7:57 AM Note Text: Radiology Service Progress Note PATIENT NAME: Dianne Hoyt DATE OF SERVICE: November 21, 2022 TIME: 7:39 AM PATIENT IDENTITY VERIFICATION COMPLETED USING TWO (2) IDENTIFIERS: Name and Date of confirmed by patient verbally. FALL SCREENING: Has the patient had 2 falls in the last year or 1 fall with injury or currently using an Ambulatory Assistive Device (Walker, Cane, Wheelchair, Crutches, etc.)? No PATIENT GENDER DATA: Female. status: : No status: NO. PATIENT RELEVANT IMPLANT DATA REVIEWED: Not Applicable RADIOLOGY DEPARTMENT: Mammography PERIPHERAL IV DATA: Not applicable SIGNED BY: Irene Ching November 21, 2022 7:39 AM [facility] 11-21-2022 Note HNO ID: [id number] Author: Mandi Abdi APRN.TONGUE AND GROOVE MACHINE SETTER Service: ? Author Type: Nurse Practitioner Type: Progress Notes Filed: 11/21/2022 7:30 AM Note Text: Dianne is a 62 year old who presents for an annual gynecologic exam without complaints. Retiring in 2023 Postmenopausal: Yes since age 38's HRT use: No. Last Pap: 11/06/2020 normal HPV: 11/01/2020 negative History of abnormal pap: No Last mammogram: 2021 normal - today History of abnormal mammogram: No Sexually active: Sexually active: No- is disabled due to a stoke OB History T0 L2 SAB0 IAB0 Ectopic0 Multiple0 Live Births0 Heel Slicker History LMP: 01/23/2007, Postmenopausal Age at Menarche: Age at First : Age at Menopause: Heel Slicker History Comments: Sexual Activity: Never; Male Contraception: Surgical, Tubal Ligation PAST MEDICAL HISTORY Diagnosis Date Anxiety Arthritis 08/10/2017 Depression Unspecified essential hypertension Essential hypertension PAST SURGICAL HISTORY Procedure Laterality Date DELIVERY ONLY , low cervical x 2 LIG/TRNSXJ FLP TUBE ABDL/VAG APPR UNI/BI Tubal ligation PAST SURGICAL HISTORY OF Bilateral 10/27 01/26 bilateral knee replacement FAMILY HISTORY Adopted: Yes Problem Relation Age of Onset other (adopted-no med hx.) Other SOCIAL HISTORY Social History Tobacco Use Smoking status: Former Packs/day: .5 Types: Cigarettes Quit date: 02/03/2012 Years since quittin.8 Smokeless tobacco: Never Vaping Use Vaping Use: Never used Substance Use Topics Alcohol use: No Drug use: No REVIEW OF SYSTEMS Abdomen: No abdominal pain, nausea, vomiting, diarrhea, or constipation. No bloating, early satiety, indigestion, or increased flatulence. Bladder: No dysuria, gross hematuria, urinary frequency, urinary urgency, or incontinence Breast: No breast lumps, nipple d/c, overlying skin changes, redness or skin retraction Allergies and current medication updated:Yes EXAM: Ht 5' 5 (1.65m) Wt 264 lb (119.8kg) LMP 01/23/2007 BMI 43.93 kg/(m2). GENERAL: pleasant, female in no apparent distress HEENT: Normocephalic, atraumatic, mucus membranes moist, and no lesions NECK: Supple, full range of motion, no adenopathy, and thyroid normal DERMATOLOGY: Normal, without lesions, non-icteric, and non-hirsute BREAST: soft, non-tender, symmetric, no dominant mass, normal nipple-areolar complex, no lymphadenopathy, and no nipple discharge CHEST: Normal inspiratory effort ABDOMEN: soft, non-tender, and no masses PELVIC: external genitalia normal, normal Bartholin's glands, urethra, Ida's glands, no vulvar lesions, no cervical lesions, physiologic discharge present, normal appearing perineal body and perianal region BIMANUAL: no adnexal masses, non-tender, and difficult to assess due to body habitus RECTOVAGINAL: deferred. NEURO: alert and oriented x3,exam grossly non-focal EXTREMITIES: normal ASSESSMENT/PLAN: 1) Health maintenance: Pap/HPV up to date. Mammogram up to date Nutrition, exercise and routine health maintenance exams reviewed. Calcium/Vitamin D supplementation information provided. Colon cancer screening: up to date with screening 05/2022 BMD: declined 2) Follow up one year or sooner as needed Mandi Abdi APRN.CNP [facility] 11-21-2022 History of Presen t illness Narrative Radiology Service Progress Note PATIENT NAME: Dianne Hoyt DATE OF SERVICE: November 21, 2022 TIME: 7:39 AM PATIENT IDENTITY VERIFICATION COMPLETED USING TWO (2) IDENTIFIERS: Name and Date of confirmed by patient verbally. FALL SCREENING: Has the patient had 2 falls in the last year or 1 fall with injury or currently using an Ambulatory Assistive Device (Walker, Cane, Wheelchair, Crutches, etc.)? No PATIENT GENDER DATA: Female. status: : No status: NO. PATIENT RELEVANT IMPLANT DATA REVIEWED: Not Applicable RADIOLOGY DEPARTMENT: Mammography PERIPHERAL IV DATA: Not applicable SIGNED BY: Ana Chingo Mateo November 21, 2022 7:39 AM documented in this encounter [facility] 11-21-2022 History of Presen t illness Narrative Dianne is a 62 year old who presents for an annual gynecologic exam without complaints. Retiring in 2023 Postmenopausal: Yes since age 38's HRT use: No. Last Pap: 11/06/2020 normal HPV: 11/01/2020 negative History of abnormal pap: No Last mammogram: 2021 normal - today History of abnormal mammogram: No Sexually active: Sexually active: No- is disabled due to a stoke OB History T0 L2 SAB0 IAB0 Ectopic0 Multiple0 Live Births0 Heel Slicker History LMP: 01/23/2007, Postmenopausal Age at Menarche: Age at First : Age at Menopause: Heel Slicker History Comments: Sexual Activity: Never; Male Contraception: Surgical, Tubal Ligation PAST MEDICAL HISTORY Diagnosis Date Anxiety Arthritis 08/10/2017 Depression Unspecified essential hypertension Essential hypertension PAST SURGICAL HISTORY Procedure Laterality Date DELIVERY ONLY , low cervical x 2 LIG/TRNSXJ FLP TUBE ABDL/VAG APPR UNI/BI Tubal ligation PAST SURGICAL HISTORY OF Bilateral 10/27 01/26 bilateral knee replacement FAMILY HISTORY Adopted: Yes Problem Relation Age of Onset other (adopted-no med hx.) Other SOCIAL HISTORY Social History Tobacco Use Smoking status: Former Packs/day: .5 Types: Cigarettes Quit date: 02/03/2012 Years since quittin.8 Smokeless tobacco: Never Vaping Use Vaping Use: Never used Substance Use Topics Alcohol use: No Drug use: No REVIEW OF SYSTEMS Abdomen: No abdominal pain, nausea, vomiting, diarrhea, or constipation. No bloating, early satiety, indigestion, or increased flatulence. Bladder: No dysuria, gross hematuria, urinary frequency, urinary urgency, or incontinence Breast: No breast lumps, nipple d/c, overlying skin changes, redness or skin retraction Allergies and current medication updated:Yes EXAM: Ht 5' 5 (1.65m) Wt 264 lb (119.8kg) LMP 01/23/2007 BMI 43.93 kg/(m^2). GENERAL: pleasant, female in no apparent distress HEENT: Normocephalic, atraumatic, mucus membranes moist, and no lesions NECK: Supple, full range of motion, no adenopathy, and thyroid normal DERMATOLOGY: Normal, without lesions, non-icteric, and non-hirsute BREAST: soft, non-tender, symmetric, no dominant mass, normal nipple-areolar complex, no lymphadenopathy, and no nipple discharge CHEST: Normal inspiratory effort ABDOMEN: soft, non-tender, and no masses PELVIC: external genitalia normal, normal Bartholin's glands, urethra, Ida's glands, no vulvar lesions, no cervical lesions, physiologic discharge present, normal appearing perineal body and perianal region BIMANUAL: no adnexal masses, non-tender, and difficult to assess due to body habitus RECTOVAGINAL: deferred. NEURO: alert and oriented x3,exam grossly non-focal EXTREMITIES: normal ASSESSMENT/PLAN: 1) Health maintenance: Pap/HPV up to date. Mammogram up to date Nutrition, exercise and routine health maintenance exams reviewed. Calcium/Vitamin D supplementation information provided. Colon cancer screening: up to date with screening 05/2022 BMD: declined 2) Follow up one year or sooner as needed Mandi Abdi APRN.SHOSHANA documented in this encounter [facility] 04-25-2022 Note HNO ID: [id number] Author: LEIA Ramirez Service: ? Author Type: Physician Airdrop Systems Technician Type: Progress Notes Filed: 04/25/2022 2:19 PM Note Text: This note was created using [employer]. Subjective Dianne Hoyt is a 61 year old female. HPI 61-year-old female presents for left-sided mid back pain and left-sided chest pain for the past week. Patient states she started getting pain under her left shoulder blade about a week ago. Pain has now radiated around to the front of her chest. She is having left-sided chest pain intermittently. No shortness of breath. Pain is not always worse with movement. Denies any fall or injury. Does report that she did have a cough about 3 weeks ago, but this is now improved. She has no fevers. No cough anymore. No vomiting or diarrhea. No rash. Review of Systems Constitutional: Negative for chills and fever. HENT: Negative for congestion, ear pain and sore throat. Respiratory: Negative for cough and shortness of breath. Cardiovascular: Positive for chest pain. Gastrointestinal: Negative for diarrhea and vomiting. Musculoskeletal: Positive for back pain. Objective BP 124/72 Pulse 60 Temp 36.2 ?C (97.2 ?F) Resp 18 Wt 130.4 kg (287 lb 6.4 oz) LMP 01/23/2007 SpO2 98% BMI 45.01 kg/m? Physical Exam Vitals and nursing note reviewed. Constitutional: General: She is not in acute distress. Appearance: Normal appearance. She is not toxic-appearing. HENT: Right Ear: Tympanic membrane and ear canal normal. Left Ear: Tympanic membrane and ear canal normal. Nose: Nose normal. Mouth/Throat: Mouth: Mucous membranes are moist. Pharynx: No oropharyngeal exudate or posterior oropharyngeal erythema. Eyes: Conjunctiva/sclera: Conjunctivae normal. Cardiovascular: Rate and Rhythm: Normal rate and regular rhythm. Pulmonary: Effort: Pulmonary effort is normal. Breath sounds: Normal breath sounds. Chest: Comments: No tenderness Musculoskeletal: Thoracic back: Normal. No spasms or tenderness. Back: Comments: No spinal tenderness. No rashes present. Neurological: Mental Status: She is alert. Assessment and Plan ASSESSMENT/PLAN: 1. Chest pain, unspecified type - ICD9: 786.50, ICD10: R07.9 -Patient presents with left-sided back pain that is now radiating into her chest. She has no pain with palpation. No injury. Since patient is having left-sided chest pain, I recommended evaluation in the emergency room. She is agreeable to plan. She will drive herself, declines ambulance. Diagnosis and treatment plan were discussed and questions were answered to the patient's satisfaction. Pt acknowledged understanding of concepts and follow up plan. Specific signs and symptoms that would indicate the need for higher level of care were discussed in detail warranting prompt ER evaluation. LEIA Ramirez [facility] 04-25-2022 History of Presen t illness Narrative Images from the original note were not included. This note was created using [employer]. Subjective Dianne Hoyt is a 61 year old female. HPI 61-year-old female presents for left-sided mid back pain and left-sided chest pain for the past week. Patient states she started getting pain under her left shoulder blade about a week ago. Pain has now radiated around to the front of her chest. She is having left-sided chest pain intermittently. No shortness of breath. Pain is not always worse with movement. Denies any fall or injury. Does report that she did have a cough about 3 weeks ago, but this is now improved. She has no fevers. No cough anymore. No vomiting or diarrhea. No rash. Review of Systems Constitutional: Negative for chills and fever. HENT: Negative for congestion, ear pain and sore throat. Respiratory: Negative for cough and shortness of breath. Cardiovascular: Positive for chest pain. Gastrointestinal: Negative for diarrhea and vomiting. Musculoskeletal: Positive for back pain. Objective BP 124/72 Pulse 60 Temp 36.2 C (97.2 F) Resp 18 Wt 130.4 kg (287 lb 6.4 oz) LMP 01/23/2007 SpO2 98% BMI 45.01 kg/m Physical Exam Vitals and nursing note reviewed. Constitutional: General: She is not in acute distress. Appearance: Normal appearance. She is not toxic-appearing. HENT: Right Ear: Tympanic membrane and ear canal normal. Left Ear: Tympanic membrane and ear canal normal. Nose: Nose normal. Mouth/Throat: Mouth: Mucous membranes are moist. Pharynx: No oropharyngeal exudate or posterior oropharyngeal erythema. Eyes: Conjunctiva/sclera: Conjunctivae normal. Cardiovascular: Rate and Rhythm: Normal rate and regular rhythm. Pulmonary: Effort: Pulmonary effort is normal. Breath sounds: Normal breath sounds. Chest: Comments: No tenderness Musculoskeletal: Thoracic back: Normal. No spasms or tenderness. Back: Comments: No spinal tenderness. No rashes present. Neurological: Mental Status: She is alert. Assessment and Plan ASSESSMENT/PLAN: 1. Chest pain, unspecified type - ICD9: 786.50, ICD10: R07.9 -Patient presents with left-sided back pain that is now radiating into her chest. She has no pain with palpation. No injury. Since patient is having left-sided chest pain, I recommended evaluation in the emergency room. She is agreeable to plan. She will drive herself, declines ambulance. Diagnosis and treatment plan were discussed and questions were answered to the patient's satisfaction. Pt acknowledged understanding of concepts and follow up plan. Specific signs and symptoms that would indicate the need for higher level of care were discussed in detail warranting prompt ER evaluation. LEIA Ramirez documented in this encounter [facility] 03-18-2022 Miscellaneous Notes Patient notified of results of lesion being benign. Patient verbalized understanding, thanked this nurse for information Nona Arellano LPN March 18, 2022 2:10 PM Message left for patient to phone office at earliest convenience Nona Arellano LPN March 17, 2022 4:01 PM documented in this encounter [facility] 03-17-2022 Miscellaneous Notes LAST OFFICE VISIT: 01/27/2022 No upcoming office visit scheduled at this time. Requested Prescriptions Pending Prescriptions Disp Refills metoprolol succinate ER (TOPROL XL) 50 mg 24 hr tablet [Pharmacy Med Name: METOPROLOL SUCC ER 50 MG TAB] 90 tablet 3 Sig: TAKE 1 TABLET BY MOUTH EVERY DAY DIRECTED Tereza Santiago LPN March 17, 2022 2:42 PM documented in this encounter [facility] 02-07-2022 Miscellaneous Notes LAST OFFICE VISIT: 01/27/2022 NEXT SCHEDULED OFFICE VISIT: 02/18/2022 Requested Prescriptions Pending Prescriptions Disp Refills losartan (COZAAR) 100 mg tablet [Pharmacy Med Name: LOSARTAN POTASSIUM 100 MG TAB] 45 tablet 3 Sig: TAKE 1/2 TABLET EVERY DAY DIRECTED Tereza Santiago LPN February 07, 2022 9:49 AM documented in this encounter [facility] 01-27-2022 Note HNO ID: [id number] Author: Jayjay Faye MD Service: ? Author Type: Physician Type: Progress Notes Filed: 01/27/2022 2:28 PM Note Text: This note was created using [employer]. Subjective Dianne Hoyt is a 61 year old female. Both presents today for follow-up for her lab work. Labs revealed an A1c of 7.0. And an elevated glucose. This is new onset diabetes. Review of Systems Constitutional: Negative. HENT: Negative. Eyes: Negative. Respiratory: Negative. Cardiovascular: Negative. Gastrointestinal: Negative. Endocrine: Negative. Genitourinary: Negative. Musculoskeletal: Negative. Skin: Negative. Allergic/Immunologic: Negative. Neurological: Negative. Hematological: Negative. Psychiatric/Behavioral: Negative. Objective [facility] 01/23/2007 Assessment and Plan Dianne was seen today for follow up. 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 Begin metformin. Improve diabetic diet. Improve weight. Increase exercise. [facility] 01-27-2022 Note HNO ID: [id number] Author: Nona Arellano LPN Service: ? Author Type: LICENSED NURSE Type: Progress Notes Filed: 01/27/2022 2:28 PM Note Text: Patient is having telephone visit today to discuss lab results. No other complaints or concerns at this time. Patient stated she has gained unintentional weight of about 15 lbs in the last 6 months. Nona Arellano LPN January 27, 2022 11:08 AM [facility] 01-27-2022 History of Presen t illness Narrative This note was created using [employer]. Subjective Dianne Hoyt is a 61 year old female. Both presents today for follow-up for her lab work. Labs revealed an A1c of 7.0. And an elevated glucose. This is new onset diabetes. Review of Systems Constitutional: Negative. HENT: Negative. Eyes: Negative. Respiratory: Negative. Cardiovascular: Negative. Gastrointestinal: Negative. Endocrine: Negative. Genitourinary: Negative. Musculoskeletal: Negative. Skin: Negative. Allergic/Immunologic: Negative. Neurological: Negative. Hematological: Negative. Psychiatric/Behavioral: Negative. Objective [facility] 01/23/2007 Assessment and Plan Dianne was seen today for follow up. 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 Begin metformin. Improve diabetic diet. Improve weight. Increase exercise. Patient is having telephone visit today to discuss lab results. No other complaints or concerns at this time. Patient stated she has gained unintentional weight of about 15 lbs in the last 6 months. Nona Arellano LPN January 27, 2022 11:08 AM documented in this encounter [facility] 12-26-2021 Miscellaneous Notes Patient called requesting the following refill. Requested Prescriptions Pending Prescriptions Disp Refills desvenlafaxine ER (PRISTIQ) 100 mg 24 hr tablet [Pharmacy Med Name: DESVENLAFAXINE SUCCNT ER 100MG] 90 tablet 4 Sig: TAKE 1 TABLET BY MOUTH EVERY DAY Patient last appointment: 12/12/2021 Patient Phone numbers: [phone] (home) [phone] (work) Request is for script(s) to be escript to pharmacy. Alice Portillo LPN documented in this encounter [facility] 12-10-2021 Miscellaneous Notes Last filled 12-05-2021 Nona Arellano LPN December 10, 2021 8:09 AM documented in this encounter [facility] 12-05-2021 Miscellaneous Notes Pharmacy faxed requesting the following refill. Requested Prescriptions Pending Prescriptions Disp Refills buPROPion XL (WELLBUTRIN XL) 150 mg 24 hr tablet [Pharmacy Med Name: BUPROPION HCL XL 150 MG TABLET] 30 tablet 1 Sig: TAKE 1 TABLET BY MOUTH EVERY DAY Patient last appointment: 12/03/2021 Patient Phone numbers: [phone] (home) [phone] (work) Request is for script(s) to be escript to pharmacy. Alice Portillo LPN documented in this encounter [facility] 11-25-2021 Miscellaneous Notes Patient notified of needing a visit Nona Arellano LPN November 25, 2021 4:39 PM Message left for patient to call office Nona Arellano LPN November 25, 2021 12:13 PM ----- Message from Jayjay Faye MD sent at 11/24/2021 9:24 PM EDT ----- Schedule virtual visit. A1c elevated documented in this encounter [facility] 11-20-2021 History of Presen t illness Narrative [facility] Coordinator offered: Patient declines. Dianne is a 61 year old who presents for an annual gynecologic exam without complaints. Postmenopausal: Yes since age 38's HRT use: No. Last Pap: 11/06/2020 normal HPV: 11/01/2020 negative History of abnormal pap: No Last mammogram: 2021 normal History of abnormal mammogram: No Sexually active: No- is disabled due to a stoke OB History T0 L2 SAB0 IAB0 Ectopic0 Multiple0 Live Births0 Heel Slicker History LMP: 01/23/2007, Postmenopausal Age at Menarche: Age at First : Age at Menopause: Heel Slicker History Comments: Sexual Activity: Never; Male Contraception: Surgical, Tubal Ligation PAST MEDICAL HISTORY Diagnosis Date Anxiety Arthritis 08/10/2017 Depression Unspecified essential hypertension Essential hypertension PAST SURGICAL HISTORY Procedure Laterality Date DELIVERY ONLY , low cervical x 2 LIG/TRNSXJ FLP TUBE ABDL/VAG APPR UNI/BI Tubal ligation PAST SURGICAL HISTORY OF Bilateral 10/27 01/26 bilateral knee replacement FAMILY HISTORY Adopted: Yes Problem Relation Age of Onset other (adopted-no med hx.) Other SOCIAL HISTORY Social History Tobacco Use Smoking status: Former Packs/day: 0.50 Types: Cigarettes Quit date: 02/03/2012 Years since quittin.8 Smokeless tobacco: Never Vaping Use Vaping Use: Never used Substance Use Topics Alcohol use: No Drug use: No REVIEW OF SYSTEMS Abdomen: No nausea, vomiting, diarrhea, or constipation. No bloating, early satiety, indigestion, or increased flatulence. Bladder: No dysuria, gross hematuria, urinary frequency, urinary urgency, + incontinence Breast: No breast lumps, nipple d/c, overlying skin changes, redness or skin retraction Allergies and current medication updated:Yes EXAM: LMP 01/23/2007 GENERAL: pleasant, female in no apparent distress HEENT: Normocephalic, atraumatic, mucus membranes moist, and no lesions NECK: Supple, full range of motion, no adenopathy, and thyroid normal DERMATOLOGY: Normal, without lesions, non-icteric, and non-hirsute BREAST: soft, non-tender, symmetric, no dominant mass, normal areolar complex, no lymphadenopathy, and no nipple discharge + inverted nipples CHEST: Normal inspiratory effort ABDOMEN: soft, non-tender, and no masses PELVIC: external genitalia normal, normal Bartholin's glands, urethra, Ida's glands, no vulvar lesions, no cervical lesions, physiologic discharge present, normal appearing perineal body and perianal region BIMANUAL: uterus normal size, shape and consistency, no adnexal masses, non-tender, and difficult to assess due to body habitus RECTOVAGINAL: deferred. NEURO: alert and oriented x3,exam grossly non-focal EXTREMITIES: normal ASSESSMENT/PLAN: 1) Health maintenance: Pap/HPV up to date. Mammogram up to date 2) Follow up one year or sooner as needed Mandi Abdi APRN.SHOSHANA documented in this encounter [facility] 11-19-2021 Miscellaneous Notes This nurse phoned patients insurance in regards to the process for a prior authorization for patient to obtain her MRI. per insurance. Patient office note to be sent and information for test to [phone]. If more assistance call: [phone] Group [phone] Nona Arellano LPN November 19, 2021 3:00 PM documented in this encounter [facility] 10-10-2022 Miscellaneous Notes Notified pt of elevated glucose and to have her A1C checked. The order is available to [facility] lab She stated she will go in a couple of days. Alice Portillo LPN ----- Message from Jayjay Faye MD sent at 11/18/2021 8:50 AM EDT ----- Sugar elevated. Check a1c documented in this encounter [facility] 11-12-2021 Note HNO ID: [id number] Author: Jayjay Faye MD Service: ? Author Type: Physician Type: Progress Notes Filed: 11/12/2021 4:22 PM Note Text: This note was created using [employer]. Subjective Dianne Hoyt is a 61 year old female. Dianne presents today for annual wellness visit. She complains today of having increased irritability. Review of Systems Constitutional: Negative. HENT: Negative. Eyes: Negative. Respiratory: Negative. Cardiovascular: Negative. Gastrointestinal: Negative. Endocrine: Negative. Genitourinary: Negative. Musculoskeletal: Negative. Skin: Negative. Allergic/Immunologic: Negative. Neurological: Negative. Hematological: Negative. Psychiatric/Behavioral: Negative. Objective BP 138/76 (BP Site: Left Arm, BP Cuff Size: Large Adult) Pulse 68 Temp 36.6 ?C (97.8 ?F) (Temporal) Resp 14 Ht 170.2 cm (5' 7 ) Wt 127 kg (280 lb) LMP 01/23/2007 SpO2 94% BMI 43.85 kg/m? Physical Exam Vitals reviewed. Constitutional: Appearance: Normal appearance. HENT: Head: Normocephalic and atraumatic. Nose: Nose normal. Eyes: Extraocular Movements: Extraocular movements intact. Pupils: Pupils are equal, round, and reactive to light. Cardiovascular: Rate and Rhythm: Normal rate and regular rhythm. Pulmonary: Effort: Pulmonary effort is normal. Breath sounds: Normal breath sounds. Abdominal: General: Bowel sounds are normal. Palpations: Abdomen is soft. Musculoskeletal: General: Normal range of motion. Cervical back: Normal range of motion and neck supple. Skin: General: Skin is warm and dry. Capillary Refill: Capillary refill takes less than 2 seconds. Neurological: General: No focal deficit present. Mental Status: She is alert and oriented to person, place, and time. Mental status is at baseline. Psychiatric: Mood and Affect: Mood normal. Behavior: Behavior normal. Assessment and Plan Dianne was seen today for physical. Diagnoses and all orders for this visit: Primary hypertension - COMP METABOLIC PANEL; Future Lipid screening - LIPID PANEL BASIC; Future Screening for deficiency anemia - CBC + DIFF; Future Wellness examination - CBC + DIFF; Future - COMP METABOLIC PANEL; Future Other orders - amLODIPine (NORVASC) 10 mg tablet; Take 1 tablet by mouth once daily. - buPROPion XL (WELLBUTRIN XL) 150 mg 24 hr tablet; Take 1 tablet by mouth once daily. - flu vac 2021 [id number],PF, 60 mcg (15 mcg x 4)/0.5 mL syrg; Inject 0.5 mL intramuscularly one time only for 1 dose. Wean off of Wellbutrin. Weaning instructions explained to the patient. Labs as above. Patient is to schedule MRI of her kidney as previously requested [facility] 11-12-2021 Note HNO ID: [id number] Author: Alice Portillo LPN Service: ? Author Type: LICENSED NURSE Type: Progress Notes Filed: 11/12/2021 4:22 PM Note Text: Admin Fluad inj [facility] 75646-07-12 Lot: [id number] Exp 06/26/2022 Left deltoid Pt tolerated well Alice Portillo LPN Unable to document in [facility] 11-12-2021 History of Presen t illness Narrative This note was created using [employer]. Subjective Dianne Hoyt is a 61 year old female. Dianne presents today for annual wellness visit. She complains today of having increased irritability. Review of Systems Constitutional: Negative. HENT: Negative. Eyes: Negative. Respiratory: Negative. Cardiovascular: Negative. Gastrointestinal: Negative. Endocrine: Negative. Genitourinary: Negative. Musculoskeletal: Negative. Skin: Negative. Allergic/Immunologic: Negative. Neurological: Negative. Hematological: Negative. Psychiatric/Behavioral: Negative. Objective BP 138/76 (BP Site: Left Arm, BP Cuff Size: Large Adult) Pulse 68 Temp 36.6 C (97.8 F) (Temporal) Resp 14 Ht 170.2 cm (5' 7 ) Wt 127 kg (280 lb) LMP 01/23/2007 SpO2 94% BMI 43.85 kg/m Physical Exam Vitals reviewed. Constitutional: Appearance: Normal appearance. HENT: Head: Normocephalic and atraumatic. Nose: Nose normal. Eyes: Extraocular Movements: Extraocular movements intact. Pupils: Pupils are equal, round, and reactive to light. Cardiovascular: Rate and Rhythm: Normal rate and regular rhythm. Pulmonary: Effort: Pulmonary effort is normal. Breath sounds: Normal breath sounds. Abdominal: General: Bowel sounds are normal. Palpations: Abdomen is soft. Musculoskeletal: General: Normal range of motion. Cervical back: Normal range of motion and neck supple. Skin: General: Skin is warm and dry. Capillary Refill: Capillary refill takes less than 2 seconds. Neurological: General: No focal deficit present. Mental Status: She is alert and oriented to person, place, and time. Mental status is at baseline. Psychiatric: Mood and Affect: Mood normal. Behavior: Behavior normal. Assessment and Plan Dianne was seen today for physical. Diagnoses and all orders for this visit: Primary hypertension - COMP METABOLIC PANEL; Future Lipid screening - LIPID PANEL BASIC; Future Screening for deficiency anemia - CBC + DIFF; Future Wellness examination - CBC + DIFF; Future - COMP METABOLIC PANEL; Future Other orders - amLODIPine (NORVASC) 10 mg tablet; Take 1 tablet by mouth once daily. - buPROPion XL (WELLBUTRIN XL) 150 mg 24 hr tablet; Take 1 tablet by mouth once daily. - flu vac 2021 [id number],PF, 60 mcg (15 mcg x 4)/0.5 mL syrg; Inject 0.5 mL intramuscularly one time only for 1 dose. Wean off of Wellbutrin. Weaning instructions explained to the patient. Labs as above. Patient is to schedule MRI of her kidney as previously requested Admin Fluad inj [facility] [id number] Lot: [id number] Exp 06/26/2022 Left deltoid Pt tolerated well Alice Portillo LPN Unable to document in Epic documented in this encounter [facility] 09-24-2021 Miscellaneous Notes done Please sign attached MRI order Nona Arellano LPN September 24, 2021 9:24 AM Patient notified of recommendation for MRI, and status of the renal mass. Would like order sent to [facility] if applicable Please sign attached order Nona Arellano LPN September 17, 2021 9:30 AM documented in this encounter [facility] 09-09-2021 Miscellaneous Notes Pending Prescriptions Disp Refills INDAPAMIDE 1.25 MG TABLET 90 tablet 3 Sig: TAKE 1 TABLET BY MOUTH EVERY DAY IN THE MORNING CLIFTON: Yes Nona Arellano LPN September 09, 2021 8:10 AM documented in this encounter [facility] 08-21-2021 Miscellaneous Notes PT is having a Ct scan next week. Pt needs order for serum creatine per [employer]. documented in this encounter [facility] Diagnosis Other specified disorders of kidney and ureter- Primary [facility] Diagnosis Primary hypertension- Primary Unspecified essential hypertension Lipid screening Screening for lipoid disorders Screening for deficiency anemia Screening for other and unspecified deficiency anemia Wellness examination documented in this encounter [facility] note* Diagnosis Hyperglycemia- Primary Other abnormal glucose documented in this encounter [facility] note* Diagnosis Encounter for gynecological examination (general) (routine) without abnormal findings- Primary Encounter for screening mammogram for breast cancer documented in this encounter [facility] note* Diagnosis 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)- Primary documented in this encounter [facility] note* Diagnosis Chest pain, unspecified type- Primary documented in this encounter [facility] note* Diagnosis Encounter for gynecological examination (general) (routine) without abnormal findings- Primary Encounter for screening mammogram for breast cancer documented in this encounter [facility] note* Diagnosis Encounter for screening mammogram for breast cancer [facility] Diagnostic Procedure Only (Routine) - Pending Review Specialty Diagnoses / Procedures Referred By Elizaac t Referred To Contact [facility] Diagnoses Encounter for screening mammogram for breast cancer Procedures CYNTHIA SCREENING SCREENING MAMMOGRAPHY BI 2-VIEW BREAST INC Mandi Hdez APRN.CNP [address] [place] [address] [facility] [address] [place] [address] Referral ID Status Reason Start Date Expiration Date Visits Requested Visits Authorized [id number] Pending Review Auto-Generat ed Referral 2 12/20/2022 1 [facility] Diagnostic Procedure Only (Routine) - Pending Review Specialty Diagnoses / Procedures Referred By Contac t Referred To Contact [facility] Diagnoses Encounter for screening mammogram for breast cancer Procedures CYNTHIA SCREENING SCREENING MAMMOGRAPHY BI 2-VIEW BREAST INC Mandi Hdez APRN.CNP [address] [place] [address] [facility] [address] [place] [address] Referral ID Status Reason Start Date Expiration Date Visits Requested Visits Authorized [id number] Pending Review Auto-Generat ed Referral 3 12/21/2023 1 1 [facility] for referral (narrative)* Diagnostic Procedure Only (Routine) - Closed Specialty Diagnoses / Procedures Referred By Contac t Referred To Contact [facility] Diagnoses Encounter for screening mammogram for breast cancer Procedures CYNTHIA SCREENING SCREENING MAMMOGRAPHY BI 2-VIEW BREAST INC [facility] [place] Mandi, MARYELLEN.TONGUE AND GROOVE MACHINE SETTER [address] [place] [address] [facility] [address] [place] [address] Referral ID Status Reason Start Date Expiration Date V isits Requested Visits Authorized [id number] Closed Auto-Generate d Referral 11/20/2021 12/20/2022 1 1 [facility] for visit Narrative* Diagnostic Procedure Only (Routine) - Closed Specialty Diagnoses / Procedures Referred By Contac t Referred To Contact [facility] Diagnoses Encounter for screening mammogram for breast cancer Procedures CYNTHIA SCREENING SCREENING MAMMOGRAPHY BI 2-VIEW BREAST INC [facility] Mandi, DIRECTOR MATERNAL CHILD.TONGUE AND GROOVE MACHINE SETTER [address] [facility] [place] [address] [facility] [address] [place] [address] Referral ID Status Reason Start Date Expiration Date V isits Requested Visits Authorized [id number] Closed Auto-Generate d Referral 11/20/2021 12/20/2022 1 1 [facility] Summary Purpose Family History No Family History Records FoundNo Family History Records FoundNo Family History Records FoundNo Family History Records Found Advance Directives No Advanced Directives Records FoundNo Advanced Directives Records FoundNo Advanced Directives Records FoundNo Advanced Directives Records Found Reason for Referral Specialty Diagnoses / Procedures Referred By Contac t Referred To Contact [facility] Diagnoses Other specified disorders of kidney and ureter Procedures MRI KIDNEY WO IVCON MRI, ABDOMEN (MRI) Jayjay Faye MD [address] [place] [address] Mr Imaging Referral ID Status Reason Start Date Expiration Date Visits Requested Visits Authorized [id number] Pending Review Auto-Generat ed Referral 09/24/2021 10/17/2022 1 1 Additional Source Comments INFORMATION SOURCE (unrecogn ized section and content) DATE CREATED AUTHOR AUTHOR'S ORGANIZ ATION 09/03/2021 [facility] DATE CREATED AUTHOR AUTHOR'S ORGANIZ ATION 03/19/2022 [facility] DATE CREATED AUTHOR AUTHOR'S ORGANIZ ATION 11/27/2022 [facility] Source Comments (unrecognize d section and content) In the event this informatio n is protected by the Federal Confidentiality of Alcohol and Drug Abuse Patient Records regulations: The Federal rules restrict any use of the information to criminally investigate or prosecute any alcohol or drug abuse patient.[facility]In the event this information is protected by the Federal Confidentiality of Alcohol and Drug Abuse Patient Records regulations: The Federal rules restrict any use of the information to criminally investigate or prosecute any alcohol or drug abuse patient.[facility] CampusIn the event this information is protected by the Federal Confidentiality of Alcohol and Drug Abuse Patient Records regulations: The Federal rules restrict any use of the information to criminally investigate or prosecute any alcohol or drug abuse patient.[facility] CampusIn the event this information is protected by the Federal Confidentiality of Alcohol and Drug Abuse Patient Records regulations: The Federal rules restrict any use of the information to criminally investigate or prosecute any alcohol or drug abuse patient.[facility] CampusIn the event this information is protected by the Federal Confidentiality of Alcohol and Drug Abuse Patient Records regulations: The Federal rules restrict any use of the information to criminally investigate or prosecute any alcohol or drug abuse patient.[facility] CampusIn the event this information is protected by the Federal Confidentiality of Alcohol and Drug Abuse Patient Records regulations: The Federal rules restrict any use of the information to criminally investigate or prosecute any alcohol or drug abuse patient.[facility] CampusIn the event this information is protected by the Federal Confidentiality of Alcohol and Drug Abuse Patient Records regulations: The Federal rules restrict any use of the information to criminally investigate or prosecute any alcohol or drug abuse patient.[facility] CampusIn the event this information is protected by the Federal Confidentiality of Alcohol and Drug Abuse Patient Records regulations: The Federal rules restrict any use of the information to criminally investigate or prosecute any alcohol or drug abuse patient.[facility] CampusIn the event this information is protected by the Federal Confidentiality of Alcohol and Drug Abuse Patient Records regulations: The Federal rules restrict any use of the information to criminally investigate or prosecute any alcohol or drug abuse patient.[facility] CampusIn the event this information is protected by the Federal Confidentiality of Alcohol and Drug Abuse Patient Records regulations: The Federal rules restrict any use of the information to criminally investigate or prosecute any alcohol or drug abuse patient.[facility] CampusIn the event this information is protected by the Federal Confidentiality of Alcohol and Drug Abuse Patient Records regulations: The Federal rules restrict any use of the information to criminally investigate or prosecute any alcohol or drug abuse patient.[facility] CampusIn the event this information is protected by the Federal Confidentiality of Alcohol and Drug Abuse Patient Records regulations: The Federal rules restrict any use of the information to criminally investigate or prosecute any alcohol or drug abuse patient.[facility] CampusIn the event this information is protected by the Federal Confidentiality of Alcohol and Drug Abuse Patient Records regulations: The Federal rules restrict any use of the information to criminally investigate or prosecute any alcohol or drug abuse patient.[facility] CampusIn the event this information is protected by the Federal Confidentiality of Alcohol and Drug Abuse Patient Records regulations: The Federal rules restrict any use of the information to criminally investigate or prosecute any alcohol or drug abuse patient.[facility] CampusIn the event this information is protected by the Federal Confidentiality of Alcohol and Drug Abuse Patient Records regulations: The Federal rules restrict any use of the information to criminally investigate or prosecute any alcohol or drug abuse patient.[facility] CampusIn the event this information is protected by the Federal Confidentiality of Alcohol and Drug Abuse Patient Records regulations: The Federal rules restrict any use of the information to criminally investigate or prosecute any alcohol or drug abuse patient.[facility] CampusIn the event this information is protected by the Federal Confidentiality of Alcohol and Drug Abuse Patient Records regulations: The Federal rules restrict any use of the information to criminally investigate or prosecute any alcohol or drug abuse patient.[facility] CampusIn the event this information is protected by the Federal Confidentiality of Alcohol and Drug Abuse Patient Records regulations: The Federal rules restrict any use of the information to criminally investigate or prosecute any alcohol or drug abuse patient.[facility] CampusIn the event this information is protected by the Federal Confidentiality of Alcohol and Drug Abuse Patient Records regulations: The Federal rules restrict any use of the information to criminally investigate or prosecute any alcohol or drug abuse patient.[facility] CampusIn the event this information is protected by the Federal Confidentiality of Alcohol and Drug Abuse Patient Records regulations: The Federal rules restrict any use of the information to criminally investigate or prosecute any alcohol or drug abuse patient.[facility] CampusIn the event this information is protected by the Federal Confidentiality of Alcohol and Drug Abuse Patient Records regulations: The Federal rules restrict any use of the information to criminally investigate or prosecute any alcohol or drug abuse patient.[facility] CampusIn the event this information is protected by the Federal Confidentiality of Alcohol and Drug Abuse Patient Records regulations: The Federal rules restrict any use of the information to criminally investigate or prosecute any alcohol or drug abuse patient.[facility] CampusIn the event this information is protected by the Federal Confidentiality of Alcohol and Drug Abuse Patient Records regulations: The Federal rules restrict any use of the information to criminally investigate or prosecute any alcohol or drug abuse patient.[facility] CampusIn the event this information is protected by the Federal Confidentiality of Alcohol and Drug Abuse Patient Records regulations: The Federal rules restrict any use of the information to criminally investigate or prosecute any alcohol or drug abuse patient.[facility] CampusIn the event this information is protected by the Federal Confidentiality of Alcohol and Drug Abuse Patient Records regulations: The Federal rules restrict any use of the information to criminally investigate or prosecute any alcohol or drug abuse patient.[facility] CampusIn the event this information is protected by the Federal Confidentiality of Alcohol and Drug Abuse Patient Records regulations: The Federal rules restrict any use of the information to criminally investigate or prosecute any alcohol or drug abuse patient.[facility] Reason for Visit (unrecogniz ed section and content) Reason Comments Refill Request Reason Comments Results Reason Comments Physical Pt has complaints of pain 7/10 in mid upper abd x 1 year Reason Comments Results Reason Comments Patient Update Reason Comments Well Woman Reason Comments Erroneous encounter-disregard Reason Comments Med Change Request Reason Comments Follow Up Reason Comments Back Pain L side mid back pain x1 week, now radiating around side under breast Care Teams (unrecognized sec tion and content) Ward Maid Relationship Specialty Start Date End Date Jayjay Faye MD PCP - General 02/22/07 Ward Maid Relationship Specialty Start Date End Date Jayjay Faye MD PCP - General 02/22/07 Ward Maid Relationship Specialty Start Date End Date Jayjay Faye MD PCP - General 02/22/07 Ward Maid Relationship Specialty Start Date End Date Jayjay Faye MD PCP - General 02/22/07 Ward Maid Relationship Specialty Start Date End Date Jayjay Faye MD PCP - General 02/22/07 Ward Maid Relationship Specialty Start Date End Date Jayjay Faye MD PCP - General 02/22/07 Ward Maid Relationship Specialty Start Date End Date Jayjay Faye MD PCP - General 02/22/07 Ward Maid Relationship Specialty Start Date End Date Jayjay Faye MD PCP - General 02/22/07 Ward Maid Relationship Specialty Start Date End Date Jayjay Faye MD PCP - General 02/22/07 Ward Maid Relationship Specialty Start Date End Date Jayjay Faye MD PCP - General 02/22/07 Ward Maid Relationship Specialty Start Date End Date Jayjay Faye MD PCP - General 02/22/07 Ward Maid Relationship Specialty Start Date End Date Frida Coelho DO [address] [place] [address] PCP - General Family Medicine 04/25/22 Ward Maid Relationship Specialty Start Date End Date Frida Coelho DO [address] [place] [address] PCP - General Family Medicine 04/25/22 Ward Maid Relationship Specialty Start Date End Date Frida Coelho DO [address] [place] [address] PCP - General Family Medicine 04/25/22 Ward Maid Relationship Specialty Start Date End Date Frida Coelho DO [address] [place] [address] PCP - General Family Medicine 04/25/22 Ward Maid Relationship Specialty Start Date End Date Frida Coelho DO [address] [place] [address] PCP - General Family Medicine 04/25/22 FOR RECORDS PERTAINING TO PATIENTS WHO ARE OR HAVE BEEN ENROLLED IN A CHEMICAL DEPENDENCY/SUBSTANCEABUSE PROGRAM, SOME INFORMATION MAY BE OMITTED. This clinical summary was aggregated from multiple sources. Caution should be exercised in using it in the provision of clinical care. This summary normalizes information from multiple sources, and as a consequence, information in this document may materially change the coding, format and clinical context of patient data. In addition, data may be omitted in some cases. CLINICAL DECISIONS SHOULD BE BASED ON THE PRIMARY CLINICAL RECORDS. [facility]. provides no warranty or guarantee of the accuracy or completeness of information in this document.
[2023-02-24 17:56] LABS: ALB/GLOB Ratio 0.9 RATIO (0.9-2.4); AST(SGOT) 18 U/L (15-37); Alanine Aminotransfer ALT/SGPT 32 U/L (13-56); Albumin, Serum 3.6 g/dL (3.2-5.0); Alkaline Phosphatase 73 U/L (45-117); Anion Gap 5 (5-15); BUN 13 mg/dL (7-18); BUN/Creat Ratio 14.4 RATIO (10-20); Calcium,Total 9.7 mg/dL (8.5-10.1); Chloride 103 mmol/L (98-107); EST Glomerular Filtration Rate 67 mL/min (>60); Est Glom Filt Rate - Afr Amer 81 mL/min (>60); Globulin 4.2 g/dL (2.2-4.2); Glucose 112 mg/dL (74-106); Potassium 3.9 mmol/L (3.5-5.1); Protein, Total 7.8 g/dL (6.4-8.2); Sodium Level 137 mmol/L (136-145)
== END | disposition home or self-care (01) ==
LOC: MTLAB 16:05
PROVIDERS: PCP Family Medicine; Referring Provider Internal Medicine Rheumatology; Visit Provider Internal Medicine Rheumatology
DX: M06.4 Inflammatory polyarthropathy (principal); Z79.899 Other long term (current) drug therapy; R76.8 Other specified abnormal immunological findings in serum
CPT/HCPCS: 36415; 80053; 85025

== ENCOUNTER 2023-06-16 16:58 | Outpatient (CLI) | payer OTHER, SELFPAY ==
[2023-06-16 18:20] LABS: Free T4 0.95 ng/dL (0.76-1.46); Thyroid Stim Hormone (TSH) 1.04 uIU/mL (0.358-3.74)
== END 2023-06-16 23:59 | disposition home or self-care (01) ==
LOC: MFPLAB 17:00
PROVIDERS: PCP Family Medicine; Visit Provider Family Medicine
DX: I10 Essential (primary) hypertension (principal)
CPT/HCPCS: 36415; 84439; 84443

== ENCOUNTER → 2024-03-09 | Outpatient (CLI) | payer OTHER, SELFPAY ==
--- NOTE | 2024-03-09 11:40 | BRBX_PTH ---
PATIENT: MARK VALDOVINOS LOC: [facility] U#:[id number] AGE/SX: 63/F ROOM: RE03/09/[address]: Dr. Trace Mello MD : 1960 BED: DIS: 03/09/2024 SPEC #: [id number] RECD: 03/09/24 11:59 STATUS: MONICA VICTORINO #: [id number] PRIYA: 03/09/24 11:[address]: Trace Mello DEPT: SURGICAL PATHOLOGY RECD BY: Alexa Levine ENTERED: 03/09/24 12:22 SP TYPE: BREAST BX OTHR DR: Apryl Jain MD Tissues: Left breast, NOS Procedures: Surgery Specimen Level IV HEADER OPERATION: Left breast stereotactic biopsy PRE-OP DIAGNOSIS: Left breast calcifications TISSUE SUBMITTED: Left breast core tissue Ischemic Time: 1 minute Fixation Time: 8.5 hours MICROSCOPIC DIAGNOSIS Left breast, stereotactic core biopsy: Fragments of benign breast tissue with focal fat necrosis, chronic inflammation and dystrophic calcifications. Negative for atypia or malignancy. See comment. 03/10/2024 COMMENT Correlation with clinical, radiologic findings and appropriate follow up are necessary. MICROSCOPIC DESCRIPTION Slides are reviewed. GROSS DESCRIPTION Received is one container labeled with the patient's name and not further designated. The specimen consists of multiple elongated fragments of ball-yellow fibroadipose tissue that in aggregate measure 3 x 2.5 x 0.3 cm. The specimen is totally submitted in one cassette. GABO. 03/09/2024 TC:3 CPT:79675
--- NOTE | 2024-03-09 12:53 | PCM.OPRPT ---
Procedures Integumentary 16xxx-193xx: [id number] [facility] Operative Information Date of Procedure: 03/09/24 Pre-Operative Diagnosis: Suspicious calcifications of left breast Post-Operative Diagnosis: Same Surgery/Procedure Performed: Stereotactic left breast biopsy auto tester: No Type of Anesthesia: Local Procedure Start Time: 11:30 Procedure Stop Time: 11:50 Select all DRAINS/GRAFTS/IMPLANTS that apply: Implanted device Implanted device details: T clip Estimated Blood Loss: 5 Specimen collected: Yes Description of specimen(s) removed: Biopsy cores Description of surgery: Procedure name: Stereotactic biopsy of left breast Indication: Suspicious calcifications in the 12:00 position of the left breast After obtaining written and verbal consent and reviewing the details of the procedure, patient was positioned on the mammography table. Prisoner Classification Interviewer image was performed to identify the location of microcalcifications. Stereo images were obtained at plus and -15 degrees. Given the superficiality of the target lesion only 1 of these 2 images in the scalp showed the calcifications show the -15 degrees and that she was removed and the targeting was based on the scalp film. With these images, the biopsy site was targeted just below the area to be sampled. Then the biopsy site was anesthetized with local anesthetic both at the skin and deeply along the ventral biopsy tract. A skin pepe was made with an 11 blade to accommodate the 8 [place] mammotome core needle. The needle was advanced into this opening and the needle was fired. Post-firing images confirmed that we are in the vicinity of the calcifications. We then obtained 6 biopsies along the 180 degrees superior to the needle insertion site. The cores were then x-rayed and we confirmed the presence of microcalcifications in third. Satisfied with this result, I placed a clip at the biopsy site and confirmed it presents with another x-ray. This concluded the biopsy and the patient was allowed to sit upright while manual pressure was applied externally. She tolerated the procedure well without any apparent. She was given post-- procedure care instructions and we will follow up once pathology has resulted. Surgical Findings: Biopsy cores containing suspicious calcifications as confirmed with x-ray Complications Complications: No Admit VTE Documentation VTE Mechan Device Prophylaxis: SCD's
== END | disposition home or self-care (01) ==
PROVIDERS: PCP Family Medicine; Referring Provider Surgery; Visit Provider Surgery
DX: R92.1 Mammographic calcification found on diagnostic imaging of breast (principal)
CPT/HCPCS: 19081; 88305

== ENCOUNTER 2024-10-04 07:30 | Outpatient (CLI) | payer MEDICARE, SELFPAY ==
--- OUTSIDE RECORDS SUMMARY | 2024-10-04 07:56 | XMS RPT_ITS | CCD ---
Author Organization [facility] Care Team Providers Care Accounting Auditor Name Role Phone Dimitri Faye MD Primary Care Provider Unavailable Primary Care Provider Dimitri Christy MD Primary Care Provider Dr. Dimitri Faye Primary Care Provider Dr. Dimitri Faye Referring Provider LEIA Bee Attending Provider Dimitri Faye MD Primary Care Provider Dr. Dimitri Faye Primary Care Provider Dr. Dimitri Faye Referring Provider LEIA Bee Attending Provider Dimitri Faye MD Primary Care Provider DIMITRI FAYE Attending DIMITRI Rutledge Primary Care Unavailab DIMITRI Garza Attending Unavailab DIMITRI Garza Primary Care UnavailDr. Dimitri Loco Primary Care Provider Dr. Aris Mello Attending Provider [phone] DO Frida Coelho Referring Provider DO Frida Coelho Primary Care Provider Dr. Aris Mello Referring Provider Frida Coelho DO Primary Care Provider Dr. Aris Mello Other Provider Laquita, DO Frida M Primary Care Provider LaquitaDO Frida M Referring Provider Dr. Aris Mello Attending Provider Dr. Aris Mello Referring Provider DO Frida Coelho M Primary Care Provider Dr. Aris Mello Attending Provider Dr. Aris Mello Other Provider LaquitaDO Frida rivera M Referring Provider Dr. Geno Ovalles Referring Provider Dr. Geno Ovalles Other Provider 1([facility])[phone] Sb Rubio Attending Provider DO Frida Coelho M Primary Care Provider 1([facility] )[phone] DO Frida Coelho Referring Provider 1([facility])[phone] Dr. Aris Mello Attending Provider Dr. Geno Ovalles Referring Provider Dr. Geno Ovalles Other Provider 1([facility])[phone] Sb Rubio Attending Provider Dr. Mohsen Hicks Attending Provider Dr. Mohsen Hicks Other Provider 1([facility])[phone] DO Frida Coelho M Primary Care Provider 1([facility] )[phone] DO Frida Coelho M Referring Provider 1([facility])[phone] Dr. Mohsen Hicks Referring Provider 1([facility])[phone] Frida Coelho DO Primary Care Provider Frida Coelho DO Primary Care Provider FRIDA COELHO Primary Care Unavailabl e MARITZA, MANDI Referring Unavailable LAQUITAFRIDA Primary Care Unavailabl e MARITZA, MANDI Referring Unavailable MARITZA, MANDI Referring Unavailable LAQUITA, FRIDA JIMENEZ Primary Care Unavailabl e MARITZA, MANDI Attending Unavailable FRIDA COELHO Primary Care Unavailabl e WOOD, ZOHRA BARBARA Attending Unavailable LAQUITA, FRIDA JIMENEZ Primary Care Unavailanastacio SALAS, MANDI Referring Unavailable FRIDA COELHO Primary Care Unavailanastacio SALAS, MANDI Referring Unavailable Cristobal, Apryl Primary Care Unavailable Aris Mello Referring Unavailable Aris Mello Attending Unavailable Frida Coelho Primary Care Unavailable Cristobal, Apryl Attending Unavailable Cristobal, Apryl Attending Unavailable Riaz, Aris Attending Unavailable Cristobal, Apryl Referring Unavailable Cristobal, Apryl Primary Care Unavailable Cristobal, Apryl Primary Care Unavailable Riaz, Aris Referring Unavailable Riaz, Aris Attending Unavailable Aris Mello Consulting Unavailable Medications Current Medications Medication Drug Class(es) Dates Sig (Normalized) Sig (Original) amLODIPine 10 mg / atorvastatin 10 mg oral tablet (9 sources) Dihydropyridine Calcium Channel Shagufta, HMG-CoA Reductase Inhibitor End: 11-20-2021 take 1 tablet by mouth once daily amLODIPine-Atorva statin 10-10 mg per tablet Take 1 tablet by mouth once daily. 0 11/20/2021 Discontinued Comment on above: Take 1 tablet by bhupinder th once daily. 24 hr buPROPion hydrochloride 150 mg extended release oral tablet (20 sources) Aminoketone Start: 11-12-2021 End: 11-21-2022 take 1 tablet by mouth once daily buPROPion XL (WELLBUTRIN XL) 150 mg 24 hr tablet TAKE 1 TABLET BY MOUTH EVERY DAY 30 tablet 1 12/05/2021 11/21/2022 Discontinued Start: 08-18-2021 End: 11-12-2021 take 1 tablet by mouth once daily buPROPion XL (WELLBUTRIN XL) 300 mg 24 hr tablet Take 300 mg by mouth once daily. 0 08/18/2021 11/12/2021 Discontinued bupropion HCl (W ELLBUTRIN ORAL) Take by mouth once daily. Active Comment on above: Take 300 mg by mouth once daily. Take 1 tablet by bhupinder th once daily. TAKE 1 TABLET BY BHUPINDER TH EVERY DAY 24 hr desvenlafaxine succinate 100 mg extended release oral tablet (20 sources) Serotonin and Norepinephrine Reuptake Inhibitor Start: 2021 End: 2021 take 1 tablet by mouth once daily desvenlafaxine ER (PRISTIQ) 100 mg 24 hr tablet TAKE 1 TABLET BY MOUTH EVERY DAY 90 tablet 4 12/26/2021 Active Comment on above: Take 100 mg by mouth once daily. TAKE 1 TABLET BY BHUPINDER TH EVERY DAY flu vac 2021 [id number],PF, 60 mcg (15 mcg x 4)/0.5 mL syrg (1 source) Start: 2021 End: 2021 inject 0.5 mL by intramuscular injection once flu vac 2021 [id number],PF, 60 mcg (15 mcg x 4)/0.5 mL syrg Inject 0.5 mL intramuscularly one time only for 1 dose. 0.5 mL 0 11/12/2021 11/12/2021 Active Comment on above: Inject 0.5 mL intram uscularly one time only for 1 dose. folic acid 1 mg oral tablet (20 sources) Start: 2022 take 1 mg by mouth twice daily Folic Acid Active 1 MG PO TWICE A DAY March 19, 2022 1:00am Start: 08-21-2021 End: 11-30-2023 take 2 tablets by mouth once daily folic acid 1 mg tablet Take 2 mg by mouth once daily. 08/21/2021 11/30/2023 Discontinued Comment on above: Take 2 mg by mouth o nce daily. gabapentin 100 mg oral capsule (20 sources) Anti-epileptic Agent Start: 09-19-19 End: 11-30-19 take 1 capsule by mouth three times daily gabapentin (NEURONTIN) 100 mg capsule Take 100 mg by mouth three times daily. 09/18/2021 11/30/2023 Discontinued Comment on above: Take 100 mg by mouth three times daily. indapamide 1.25 mg oral tablet (20 sources) Thiazide-like Diuretic Start: 03-17-19 08 End: 09-10-19 take 1 tablet by mouth once daily in the morning indapamide (LOZOL) 1.25 mg tablet TAKE 1 TABLET BY MOUTH EVERY DAY IN THE MORNING 90 tablet 3 09/09/2021 Active Comment on above: Take one(1) tablet d aily. TAKE 1 TABLET BY BHUPINDER TH EVERY DAY IN THE MORNING LORazepam 0.5 mg oral tablet (20 sources) Benzodiazepine Start: 08-23-19 End: 11-30-19 24 take 0.5 mg by mouth once daily at bedtime LORazepam (ATIVAN) 0.5 mg Take 0.5 mg by mouth daily at bedtime. 08/22/2021 11/30/2023 Discontinued Comment on above: Take 0.5 mg by mouth daily at bedtime. losartan potassium 50 mg oral tablet (20 sources) Angiotensin 2 Receptor Shagufta Start: 03-19-19 take 100 mg by mouth once daily Losartan Active 100 MG PO DAILY March 19, 2022 1:00am Start: 03-19-2022 take 50 mg by mouth once daily Losartan Active 50 MG PO DAILY March 19, 2022 1:00am Start: 08-12-2021 End: 02-10-2022 losartan (COZAAR) 100 mg tab let TAKE 1/2 TABLET EVERY DAY DIRECTED 45 tablet 3 02/10/2022 Active Comment on above: TAKE 1/2 TABLET EVER Y DAY DIRECTED meloxicam 15 mg oral tablet (6 sources) Nonsteroidal Anti-inflammatory Drug Start: End: 2 take 1 tablet by mouth once daily as needed meloxicam (MOBIC) 15 mg tablet Take 15 mg by mouth once daily as needed. 0 07/09/2021 11/20/2021 Discontinued Comment on above: Take 15 mg by mouth once daily as needed. methotrexate 2.5 mg oral tablet (20 sources) Folate Analog Metabolic Inhibitor Start: 3 Methotrexate Sodium Active 15 MG PO SA March 19, 2022 1:00am Start: 03-19-2022 take 2.5 mg by mouth every wee k Methotrexate Sodium Active 2.5 MG PO EVERY WEEK March 19, 2022 1:00am Start: 08-20-2021 End: 11-30-2023 take 6 tablets by mouth every week methotrexate 2.5 mg tablet TAKE 6 TABLET(S) BY MOUTH ONCE A WEEK 08/20/2021 11/30/2023 Discontinued Comment on above: TAKE 6 TABLET(S) BY MOUTH ONCE A WEEK metoprolol tartrate 50 mg oral tablet (20 sources) beta-Adrenergic Shagufta Start: 03-19-2022 take 50 mg by mouth once daily Metoprolol Tartrate Active 50 MG PO DAILY March 19, 2022 1:00am Start: 09-19-2021 End: 02-06-2023 take 1 tablet by mouth once daily metoprolol succinate ER (TOPROL XL) 50 mg 24 hr tablet TAKE 1 TABLET BY MOUTH EVERY DAY DIRECTED 90 tablet 3 03/17/2022 Active Comment on above: Take 50 mg by mouth once daily. TAKE 1 TABLET BY BHUPINDER TH EVERY DAY DIRECTED oxyCODONE hydrochloride 5 mg oral tablet (20 sources) Opioid Agonist Start: 01-27-2023 take 2.5-10 mg by mouth every four hours Oxycodone Active 2.5 - 10 MG PO Q4H 7 January 27, 2023 Start: 01-06-2023 take 5-10 mg by mout h every four hours Oxycodone Active 5 - 10 MG PO Q4H 10 January 06, 2023 Start: 08-18-2022 End: 12-17-2022 take 5 mg by mouth every six hours Oxycodone Discontinued 5 MG PO EVERY 6 HOURS 14 August 18, 2022 December 17, 2022 4:34pm Start: 02-04-2018 End: 02-09-2018 take 5-10 mg by mouth every four hours as needed Oxycodone Discontinued 5 - 10 MG PO EVERY 4 HOURS NEEDED 60 February 04, 2018 1:00am February 09, 2018 1:10am pantoprazole 40 mg delayed release oral tablet (20 sources) Proton Pump Inhibitor Start: 10-19-2023 take 1 tablet by mouth once pantoprazole DR (PROTONIX) 40 mg tablet Take 1 tablet by mouth every afternoon. 10/19/2023 Active Start: 05-27-2022 End: 06-27-2022 take 1 tablet by mouth once daily Pantoprazole (Protonix) 40 mg tablet,delayed release (DR/EC) Active 40 MG PO DAILY June 27, 2022 3:28pm Start: 04-10-2022 End: 05-12-2022 take 1 tablet by mouth once daily Pantoprazole (Protonix) 40 mg tablet,delayed release (DR/EC) Discontinued 40 MG PO DAILY April 10, 2022 1:00am May 12, 2022 10:41am Semaglutide (4 sources) Start: 12-17-2022 Semaglutide (O zempic) 1 mg/dose (4 mg/3 mL) pen injector Active 1 MG SC TERRY December 17, 2022 1:00am Start: 12-17-2022 Semaglutide (O zempic) 1 mg/dose (4 mg/3 mL) pen injector Active 1 MG SC TERRY December 17, 2022 12:00am semaglutide (OZEMPIC SUBCUTANEOUS) (12 sources) inject 2 mg by subcutaneous injection every week semaglutide (OZEMPIC SUBCUTANEOUS) Inject 2 mg subcutaneously one time a week. Active semaglutide (OZE MPIC SUBCUTANEOUS) Inject subcutaneously one time a week. 0 Active Comment on above: Inject subcutaneousl y one time a week. Sod Sulf-Pot Chloride-Mag Sulf (3 sources) Start: 023 take 1 tablet by mouth once in the morning, then take 1.479 tablets by mouth in the evening, then take 1 tablet by mouth every four hours Sod Sulf-Pot Chloride-Mag Sulf (Sutab) 1.479-0.188- 0.225 gram tablet Active 24 TABLET PO per package directions April 14, 2022 1:00am Take first set of 12 tablets in the morning. Take second set of 12 tablets in the evening. Must have at least 4 hours in between doses. Follow package instructions on amount of water to take with each set. spironolactone 50 mg oral tablet (20 sources) Aldosterone Antagonist Start: 022 take 1 tablet by mouth once daily spironolactone (ALDACTONE) 50 mg tablet TAKE 1 TABLET BY MOUTH EVERY DAY 90 tablet 4 12/06/2021 Active Comment on above: Take 50 mg by mouth once daily. TAKE 1 TABLET BY BHUPINDER TH EVERY DAY Completed/Discontinued Medications Medication Drug Class(es) Dates Sig (Normalized) Sig (Original) acetaminophen 500 mg oral tablet (20 sources) Start: 10-29-2017 End: 05-19-2022 take 1000 mg by mouth every eight hours Acetaminophen Discontinued 1000 MG PO EVERY 8 HOURS 90 February 04, 2018 1:00am May 19, 2022 2:46pm amLODIPine 10 mg oral tablet (20 sources) Dihydropyridine Calcium Channel Shagufta Start: 10-11-2021 End: 11-30-2023 take 1 tablet by mouth once daily Amlodipine (Norvasc) 10 mg tablet Discontinued 10 MG PO DAILY March 19, 2022 1:00am December 17, 2022 4:31pm Comment on above: Take 1 tablet by bhupinder th once daily. aspirin 81 mg chewable tablet (15 sources) Platelet Aggregation Inhibitor, Nonsteroidal Anti-inflammatory Drug Start: 02-04-2018 End: 03-19-2022 take 81 mg by mouth twice daily at mealtime Aspirin Discontinued 81 MG PO TWICE DAILY WITH MEALS 60 February 04, 2018 1:00am March 19, 2022 3:59pm betamethasone 0.5 mg/ml / clotrimazole 10 mg/ml topical cream (3 sources) Azole Antifungal, Corticosteroid Start: 11-21-2022 End: 11-28-2022 clotrimazole-betame thasone (LOTRISONE) cream Apply 1 application to affected area two times a day for 7 days. 15 g 4 11/21/2022 11/28/2022 Comment on above: Apply 1 application to affected area two times a day for 7 days. celecoxib 200 mg oral capsule (15 sources) Nonsteroidal Anti-inflammatory Drug Start: 10-14-2017 End: 03-19-2022 take 1 capsule by mouth twice daily Celecoxib (Celebrex) 200 MG capsule Discontinued 200 MG PO TWICE A DAY October 14, 2017 12:00am March 19, 2022 4:00pm cyclobenzaprine hydrochloride 10 mg oral tablet (10 sources) Muscle Relaxant Start: 04-25-2022 End: 12-17-2022 take 10 mg by mouth twice daily Cyclobenzaprine Discontinued 10 MG PO TWICE A DAY April 25, 2022 12:00am December 17, 2022 4:32pm docusate sodium 50 mg / sennosides, long-term 8.6 mg oral tablet (15 sources) Start: 02-04-2018 End: 12-17-2022 Sennosides-Docusate Sodium (Stool Softener-Stimulant Laxat) 1 TABLET tablet Discontinued 2 TABLET PO TWICE A DAY February 04, 2018 1:00am December 17, 2022 4:34pm Take until first bowel movement, then as needed 0.5 ml dulaglutide 1.5 mg/ml auto-injector (12 sources) GLP-1 Receptor Agonist Start: 05-19-2022 End: 12-17-2022 Dulaglutide (Trulicity) 0.75 mg/0.5 mL pen injector Discontinued 0.75 MG SC EVERY WEEK May 19, 2022 12:00am December 17, 2022 4:32pm thursday Start: 02-27-2022 End: 11-21-2022 TRULICITY 0.75 mg/0.5 mL pen injector 1 (ONE) SOLUTION PEN-INJECTOR EVERY WEEKLY 0 02/27/2022 11/21/2022 Discontinued Comment on above: 1 (ONE) SOLUTION PEN -INJECTOR EVERY WEEKLY famotidine 20 mg oral tablet (15 sources) Histamine-2 Receptor Antagonist Start: 8 End: 3 take 20 mg by mouth once daily Famotidine Discontinued 20 MG PO DAILY February 04, 2018 1:00am March 19, 2022 4:01pm FLUoxetine 20 mg oral capsule (16 sources) Serotonin Reuptake Inhibitor Start: 8 End: 3 take 3 capsules by mouth at bedtime Fluoxetine (Prozac) 20 MG capsule Discontinued 60 MG PO AT BEDTIME October 14, 2017 12:00am March 19, 2022 4:07pm take 1 capsule by mouth once rae ly FLUoxetine (PROZAC) 20 mg capsule Take 20 mg by mouth once daily. Active hydroCHLOROthiazide 12.5 mg / losartan potassium 50 mg oral tablet (20 sources) Thiazide Diuretic, Angiotensin 2 Receptor Shagufta Start: 10-14-2017 End: 03-19-2022 Losartan-Hydrochlorothiazide Discontinued 1 EACH PO AT BEDTIME October 14, 2017 12:00am March 19, 2022 4:06pm End: 11-20-2021 take 1 tablet by mouth once daily losartan-hydroCHLOROthiazide (HYZAAR) 50-12.5 mg per tablet Take 1 tablet by mouth once daily. 0 11/20/2021 Discontinued Comment on above: Take 1 tablet by bhupinder th once daily. iopamidol (ISOVUE-370) 76 % injection 75 mL (1 source) Start: 2 End: 2 iopamidol (ISOVUE-370) 76 % injection 75 mL metFORMIN hydrochloride 500 mg oral tablet (18 sources) Biguanide Start: 3 End: 3 take 500 mg by mouth once daily Metformin Discontinued 500 MG PO DAILY March 19, 2022 1:00am December 17, 2022 4:33pm Start: 01-27-2022 End: 01-27-2023 take 1 tablet by mouth once daily metFORMIN ER (GLUCOPHAGE XR) 500 mg 24 hr tablet Take 1 tablet by mouth once daily. 90 tablet 3 01/27/2022 11/21/2022 Discontinued Comment on above: Take 1 tablet by bhupinder once daily. montelukast 10 mg oral tablet (15 sources) Leukotriene Receptor Antagonist Start: 02-05-20 End: 03-19-19 take 10 mg by mouth once daily Montelukast Discontinued 10 MG PO DAILY@1700 30 February 04, 2018 1:00am March 19, 2022 4:02pm morphine sulfate 15 mg extended release oral tablet (15 sources) Opioid Agonist Start: 02-06-20 End: 02-09-19 take 15 mg by mouth twice daily Morphine Discontinued 15 MG PO TWICE A DAY 7 February 05, 2018 1:00am February 09, 2018 1:10am omeprazole 40 mg delayed release oral capsule (10 sources) Proton Pump Inhibitor Start: 03-19-19 End: 04-11-19 take 40 mg by mouth once daily Omeprazole Discontinued 40 MG PO .qd March 19, 2022 1:00am April 10, 2022 4:01pm ondansetron 4 mg oral tablet (15 sources) Serotonin-3 Receptor Antagonist Start: 05-16-19 End: 12-18-19 take 1 tablet by mouth every eight hours Ondansetron Hcl (Zofran) 4 mg tablet Discontinued 4 MG PO Q8H May 15, 2020 12:00am December 17, 2022 4:33pm microencapsulated potassium chloride 20 meq extended release oral tablet (15 sources) Start: 10-21-19 18 End: 03-19-19 23 Potassium Chloride (Klor-Con M20) 20 MEQ tablet,ER particles/crystals Discontinued 30 MEQ PO DAILY October 20, 2017 12:00am March 19, 2022 4:02pm sertraline 50 mg oral tablet (5 sources) Serotonin Reuptake Inhibitor End: 11-13-19 take 3 tablets by mouth once daily sertraline (ZOLOFT) 50 mg tablet Take 150 mg by mouth once daily. 0 11/12/2021 Discontinued (Course of therapy completed) Comment on above: Take 150 mg by mouth once daily. sodium phosphate 1500 mg oral tablet (10 sources) Start: 04-15-19 23 End: 04-15-19 Sod Phos [place]-Sod Phos Dibasic (Osmoprep) 1.5 gram tablet Discontinued 4 TABLET PO Q15M 32 April 14, 2022 1:00am April 14, 2022 9:59am Day prior: 4 tabs with 8 oz of clear liq every 15 mins total 20 tabs; repeat on day of 3 hrs before procedure total 12 tabs. Turmeric Root Extract (15 sources) Start: 10-15-19 End: 10-30-19 take 1076 mg by mouth twice daily Turmeric Root Extract Discontinued 1076 MG PO TWICE A DAY October 14, 2017 2:01pm October 29, 2017 9:40am Start: 10-14-2017 End: 10-29-2017 take 1076 mg by mouth twice daily Turmeric Root Extract Discontinued 1076 MG PO TWICE A DAY October 13, 2017 11:00pm October 29, 2017 8:40am Start: 10-14-2017 End: 10-29-2017 take 1076 mg by mouth twice daily Turmeric Root Extract Discontinued 1076 MG PO TWICE A DAY October 14, 2017 12:00am October 29, 2017 9:40am Problems Active Problems Problem Classification Problem Date Documented Da te Episodic/Chronic Abdominal hernia (20 sources) Umbilical hernia; Translations: [Umbilical hernia without obstruction or gangrene] 04-10-2022 Episodic Abdominal pain (16 sources) Chronic abdominal pain; Translations: [Upper abdominal pain, unspecified] 04-10-2022 Episodic Diabetes mellitus without complication (20 sources) Type 2 diabetes mellitus; Translations: [Type 2 diabetes mellitus without complications] Onset: 2 Chronic Diabetes mellitus without complication (1 source) Hyperglycemia; Translations: [Hyperglycemia, unspecified] Episodic Esophageal disorders (20 sources) Gastroesophageal reflux disease; Translations: [Gastro-esophageal reflux disease without esophagitis] Onset: 3 07-01-2022 Chronic Essential hypertension (20 sources) Hypertensive disorder; Translations: [Essential (primary) hypertension] Onset: 2 Chronic Immunizations and screening for infectious disease (20 sources) Patient encounter status; Translations: [Encounter for screening for COVID-19] Episodic Nonmalignant breast conditions (2 sources) Mammographic calcification of left breast; Translations: [Mammographic calcification found on diagnostic imaging of breast] Onset: 5 02-11-2024 Episodic Nonspecific chest pain (11 sources) Chest pain; Translations: [Chest pain, unspecified] 04-25-2022 Episodic Other aftercare (1 source) Encounter for other orthopedic aftercare; Translations: [Unspecified orthopedic aftercare] 02-11-2023 Episodic Other connective tissue disease (20 sources) Artificial knee joint present; Translations: [Presence of right artificial knee joint] Onset: 8 10-27-2019 Chronic Other connective tissue disease (10 sources) Spasm; Translations: [Other muscle spasm] 04-25-2022 Episodic Other connective tissue disease (6 sources) Separation of muscle (nontraumatic), other site; Translations: [Diastasis of muscle] 03-19-2022 Episodic Other diseases of kidney and ureters (1 source) Disorder of kidney and/or ureter; Translations: [Other specified disorders of kidney and ureter] Chronic Other gastrointestinal disorders (10 sources) Constipation; Translations: [Constipation, unspecified] 04-10-2022 Episodic Other gastrointestinal disorders (6 sources) Constipation, unspecified; Translations: [Constipation, unspecified] 03-19-2022 Episodic Other nervous system disorders (4 sources) Mononeuropathy; 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] Onset: 3 11-21-2022 Chronic Other nervous system disorders (4 sources) Carpal tunnel syndrome; Translations: [Carpal tunnel syndrome, bilateral upper limbs] 12-17-2022 Chronic Other nervous system disorders (5 sources) Carpal tunnel syndrome, bilateral upper limbs; Translations: [Carpal tunnel syndrome] 12-17-2022 Chronic Other nervous system disorders (8 sources) Mononeuropathy of upper limb; 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] Onset: 3 11-21-2022 Chronic Other nervous system disorders (4 sources) Acute postoperative pain; Translations: [Other acute postprocedural pain] 01-06-2023 Episodic Other screening for suspected conditions (not mental disorders or infectious disease) (9 sources) Encounter for screening for lipoid disorders; Translations: [Encounter for screening for diseases of the blood and blood-forming organs and certain disorders involving the immune mechanism] Onset: 2 11-30-2023 Episodic Residual codes; unclassified (4 sources) Other specified postprocedural states; Translations: [Other postprocedural status] 08-26-2022 Episodic Rheumatoid arthritis and related disease (12 sources) Inflammatory polyarthropathy; Translations: [Inflammatory polyarthropathy] Onset: 3 11-21-2022 Chronic Past or Other Problems Problem Classification Problem Date Documented Date Episodic/Chronic Noninfectious gastroenteritis (20 sources) Gastroenteritis; Translations: [Noninfective gastroenteritis and colitis, unspecified] Onset: 11-21-2022 05-14-2020 Episodic Other connective tissue disease (20 sources) Diastasis recti; Translations: [Separation of muscle (nontraumatic), other site] Onset: 11-21-2022 04-10-2022 Episodic Results Test Name Value Interpretation Reference Range Facility Operative Reporton 5 Operative Report [facility] Medical Records Department [address] [place] [address] Operative Report 03/09/24 1253 MR#: [id number] Acct: [id number] Name: DIANNE HOYT Rep #: [id number] : 1960 63 From: Aris Mello MD PCP: Dr. Apryl Jain MD Status:REG CLI Location: [facility] Procedures Integumentary [id number]: [id number] Bx breast 1st lesion strtctc Operative Report (Standard) Operative Information Date of Procedure: 03/09/24 Pre-Operative Diagnosis: Suspicious calcifications of left breast Post-Operative Diagnosis: Same Surgery/Procedure Performed: Stereotactic left breast biopsy freight brake operator: No Type of Anesthesia: Local Procedure Start Time: 11:30 Procedure Stop Time: 11:50 Select all DRAINS/GRAFTS/IMPLANTS that apply: Implanted device Implanted device details: T clip Estimated Blood Loss: 5 Specimen collected: Yes Description of specimen(s) removed: Biopsy cores Description of surgery: Procedure name: Stereotactic biopsy of left breast Indication: Suspicious calcifications in the 12:00 position of the left breast After obtaining written and verbal consent and reviewing the details of the procedure, patient was positioned on the mammography table. Dry Placer Machine Operator image was performed to identify the location of microcalcifications. Stereo images were obtained at plus and -15 degrees. Given the superficiality of the target lesion only 1 of these 2 images in the scalp showed the calcifications show the -15 degrees and that she was removed and the targeting was based on the scalp film. With these images, the biopsy site was targeted just below the area to be sampled. Then the biopsy site was anesthetized with local anesthetic both at the skin and deeply along the ventral biopsy tract. A skin pepe was made with an 11 blade to accommodate the 8 [place]i mammotome core needle. The needle was advanced into this opening and the needle was fired. Post-firing images confirmed that we are in the vicinity of the calcifications. We then obtained 6 biopsies along the 180 degrees superior to the needle insertion site. The cores were then x-rayed and we confirmed the presence of microcalcifications in third. Satisfied with this result, I placed a clip at the biopsy site and confirmed it presents with another x-ray. This concluded the biopsy and the patient was allowed to sit upright while manual pressure was applied externally. She tolerated the procedure well without any apparent. She was given post-- procedure care instructions and we will follow up once pathology has resulted. Surgical Findings: Biopsy cores containing suspicious calcifications as confirmed with x-ray Complications Complications: No Admit VTE Documentation VTE Mechan Device Prophylaxis: SCD's 03/09/24 7017 Cosigner Signature (if applicable): CC: Dr. Apryl Jain MD; Dr. Aris Mello MD Signed Normal [facility] Surgery Specimen Level Jina 03-09-2024 Surgery Specimen Level IV Patient Age/Sex Location Account Attending Physician ERICKA HOYTH ANN 63/F [place] [id number] Dr. Aris Mello MD Specimen: [id number] Received: 03/09/24 Status: MONICA Villaseñor Num: [id number] Spec Type: BREAST BX Subm Dr: Dr. Aris Mello MD HEADER OPERATION: Left breast stereotactic biopsy PRE-OP DIAGNOSIS: Left breast calcifications TISSUE SUBMITTED: Left breast core tissue Ischemic Time: 1 minute Fixation Time: 8.5 hours MICROSCOPIC DIAGNOSIS Left breast, stereotactic core biopsy: Fragments of benign breast tissue with focal fat necrosis, chronic inflammation and dystrophic calcifications. Negative for atypia or malignancy. See comment. 03/10/2024 COMMENT Correlation with clinical, radiologic findings and appropriate follow up are necessary. MICROSCOPIC DESCRIPTION Slides are reviewed. GROSS DESCRIPTION Received is one container labeled with the patient's name and not further designated. The specimen consists of multiple elongated fragments of ball-yellow fibroadipose tissue that in aggregate measure 3 x 2.5 x 0.3 cm. The specimen is totally submitted in one cassette. 03/09/2024 TC:3 CPT:38369 Patient Age/Sex Location Account Attending Physician DIANNE HOYT 63/F [place] [id number] Dr. Aris Mello MD Signed (signature on file) Dr. Feroz Weems MD 03/10/24 1154 Normal [facility] Comment on above: Performed By: #### P SUIV #### [facility] [address] [place], [address] Surgery Visit Reporton 02-15 Surgery Visit Report [facility] [address] [place] [address] OFFICE VISIT Date of Service: 02/16/24 MR#: [id number] Acct: [id number] Name: DIANNE HOYT Rep #: [id number] : 1960 Provider: Dr. Aris mariano MD Age/Sex: 63/F Location: [facility] Status: Signed Intake Vital Signs 01/27/23 09:53 02/16/24 14:12 Height 5 ft 7 in 5 ft 7 in Weight: 248 lb 2 oz BMI 38.8 BP 132/76 H Blood Pressure Location Rt brachial Position Sitting Respiration 18 Pulse 64 Pulse Source Monitor Temp 97.4 F L Temp Source Temporal Pulse Oximetry (%) 99 Oxygen Delivery Method room air Intake Visit Reasons: BIRADS 4 - MAMMO ONLY Chief Complaint: BIRADS 4- MAMMO ONLY Is patient in pain?: No Allergies No Known Allergies Allergy (Verified 02/16/24 14:13) Medications ???Medication ???Instructions ???Recorded ???Confirmed ???Type indapamide 1.25 mg tablet 1.25 mg PO DAILY DIURETIC 10/14/17 02/16/24 History losartan 50 mg tablet 100 mg PO DAILY 03/19/22 02/16/24 History metoprolol tartrate 50 mg tablet 50 mg PO DAILY 03/19/22 02/16/24 History spironolactone 50 mg tablet 50 mg PO DAILY 03/19/22 02/16/24 History acetaminophen 500 mg tablet 1,000 mg PO Q8 PRN Pain 05/19/22 02/11/23 History pantoprazole 40 mg tablet,delayed 40 mg PO DAILY #30 tabs 06/27/22 02/16/24 Rx release (Protonix) semaglutide 1 mg/dose (4 mg/3 mL) 1 mg subcut TERRY 12/17/22 02/11/23 History subcutaneous pen injector (Ozempic) fluoxetine 20 mg tablet 20 mg PO QDAY 02/16/24 02/16/24 History Have you fallen in the past year?: No PFSH Medical History (Updated 02/16/24 @ 16:[address] Aris Mello MD) Abnormal mammogram Dietary restriction Gastric reflux Former smoker History of stress test Wears glasses Post-menopausal Anxiety Diabetes Arthritis Hypertension Depression Surgical History History of carpal tunnel surgery of right wrist Hx of inguinal hernia repair Hx of colonoscopy History of knee replacement Social History Smoking Status: Former smoker alcohol intake: never substance use type: does not use HPI HPI HPI: Patient is a 63-year-old female who is known to this clinic from a history of a right inguinal hernia repair as well as addressing several GI issues in the summer 2022 who presents today for concerning mammographic finding of the left breast. They are referred from Dr. Jain. Based on mammographic imaging criteria this was given a BI-RADS 4 and radiology more specifically described cluster of calcifications at the 12 o'clock position in the left breast. Patient shares that she just retired on 02/09/2024 and is disconcerted that she has this issue now to deal with especially since she has been faithful with yearly screening mammograms. Patient has no prior history of breast pathology. As such, she has no history of prior breast biopsy. She underwent menarche at the age of 12. She has had 2 pregnancies and 2 live births. Breast-feeding was not used. Patient has no first-degree relatives with breast cancer as far she is aware but she was adopted. There is no mass or tenderness with the present finding. There is no nipple discharge associated with this finding. The patient has no history of hormone replacement therapy. 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 Outside of the above Mrs. Hoyt confirms a weight loss of over 50 pounds while on Ozempic. She shares this has translated into improved energy levels. She also adds that she has had no issues from her hernia site since undergoing that procedure in 2022. ROS General General: Yes fatigue; No weight change, appetite, colon cancer, breast cancer or weakness HEENT HEENT: No difficulty swallowing, eye injury, eye surgery, swollen glands or hoarseness Endo Endocrine: Yes diabetes mellitus; No thyroid disease, thyroid cancer, Hair loss, heat intolerance or cold intolerance Skin Skin: No rash or changing moles Breast Breast: Yes abnormal mammogram; No left breast lump, right breast lump, nipple discharge, breast pain, abnormal US or breast enlargement Musc Musculoskeletal: Yes arthritis; No back problems, rheumatoid arthritis, gout or joint pain Cardio Cardiovascular: No murmur, pacemaker, heart disease, atrial fibrillation, high blood pressure, heart attack, heart stent, palpitations, shortness of breat with exertion or chest pain Psych Psychiatric: Yes depression and anxiety; No hearing voices Resp Respiratory: No shortness of breath, No sleep apnea, No cough, No COPD, No asthma, No emphysema and (more content not included)... Normal [facility] 02-08-2024 [facility] Office Visit (GENSWS ) DIANNE HOYT ([id number]) 1960 F Date Time Provider Department 02/08/24 1:15 PM ZOHRA WOOD During your visit today, we recorded the following information about you: Temperature Pulse Blood pressure Weight 98.5 degrees 70/minute 122/82 112.6 kg Height 1.638 m Braulio Liao, JANENE 02/08/2024 1:13 PM Signed REVIEW OF SYSTEMS: General: The patient NOTES fatigue, denies weight loss, NOTES weight gain, denies feeling hot, and denies feelings of cold. Eyes: The patient denies glaucoma, NOTES eye injury/surgery, does not wear glasses or contacts. Ear/Nose/Throat: The patient denies allergies, denies hayfever, denies ear infections, and denies bloody noses. Cardiovascular: The patient denies chest pain, denies heart disease, NOTES high blood pressure,denies cardiac stent, denies prior heart attack, denies irregular heart beat, denies high cholesterol, denies poor circulation, denies heart failure, other cardiac issues, denies claudication, denies cold feet, denies peripheral arterial stent. Respiratory: The patient denies tuberculosis, denies pneumonia, denies frequent cough, denies pulmonary embolism, denies shortness of breath, and denies coughing up blood. Gastrointestinal: The patient denies difficulty swallowing, denies acid reflux, denies ulcers, denies vomiting, denies jaundice/hepatitis, denies gallbladder problems, denies black or tarry stools, denies hemorrhoids, denies bleeding from rectum, denies diverticulitis, NOTES constipation, denies diarrhea, denies loss of stool control, and denies hernias. Kidney/Bladder: The patient denies kidney stones, denies urine infections, and denies bloody urine. Skin: The patient denies a history of skin cancer, denies bleeding/changing moles, and denies a history of skin rash. Neurologic: The patient denies a history of epilepsy/convulsions, denies headaches, denies head/spinal injuries, and denies stroke/TIA. Psychiatric: The patient denies psychiatric medications, NOTES depression, and denies voices, denies substance abuse. Endocrine: The patient denies thyroid disorders, NOTES diabetes, and denies hormonal problems. Hematologic: The patient denies a history of bruising, denies bleeding, and denies anemia, denies blood clots. Infections: The patient denies a history of measles and mumps, denies rheumatic fever, and denies sexually transmitted diseases. Musculoskeletal: The patient denies back pain/injury, denies back problems, denies sciatica, denies knee/foot trouble, denies arthritis, or denies gout. When was patient's last Mammogram screening? 02/01 Last Colonoscopy: 2022 JANENE Duke, Zohra Jimenez MD 02/11/2024 4:51 PM Signed Dianne Hoyt 1960 REFERRING PHYSICIAN: No ref. provider found CHIEF COMPLAINT: Consult (Abnormal mammogram) HPI: The patient is a 63 year old female presents with findings of abnormal left breast calcifications with BIRADS 4 and recommendations for stereotactic biopsy. She denies palpable breast masses. PAST MEDICAL HISTORY Diagnosis Date Anxiety Arthritis 08/10/2017 Depression Diabetes mellitus (HCC) Osteopenia 01/2024 Unspecified essential hypertension Essential hypertension PAST SURGICAL HISTORY Procedure Laterality Date DELIVERY ONLY , low cervical x 2 HERNIA REPAIR HX LIG/TRNSXJ FLP TUBE ABDL/VAG APPR UNI/BI Tubal ligation PAST SURGICAL HISTORY OF Bilateral 10/27 01/26 bilateral knee replacement Current Outpatient Medications Medication Sig FLUoxetine (PROZAC) 20 mg capsule Take 20 mg by mouth once daily. pantoprazole DR (PROTONIX) 40 mg tablet Take 1 tablet by mouth every afternoon. bupropion HCl (WELLBUTRIN ORAL) Take by mouth once daily. semaglutide (OZEMPIC SUBCUTANEOUS) Inject 2 mg subcutaneously one time a week. metoprolol succinate ER (TOPROL XL) 50 mg 24 hr tablet TAKE 1 TABLET BY MOUTH EVERY DAY DIRECTED losartan (COZAAR) 100 mg tablet TAKE 1/2 TABLET EVERY DAY DIRECTED spironolactone (ALDACTONE) 50 mg tablet TAKE 1 TABLET BY MOUTH EVERY DAY indapamide (LOZOL) 1.25 mg tablet TAKE 1 TABLET BY MOUTH EVERY DAY IN THE MORNING desvenlafaxine ER (PRISTIQ) 100 mg 24 hr tablet TAKE 1 TABLET BY MOUTH EVERY DAY (Patient not taking: Reported on 02/08/2024) No current facility-administered medications for this visit. ALLERGIES: Patient has no known allergies. PERSONAL HISTORY: Social History Tobacco Use Smoking status: Former Current packs/day: 0.00 Types: Cigarettes Quit date: 02/03/2012 Years since quittin.0 Smokeless tobacco: Never Vaping Use Vaping status: Never Used Substance Use Topics Alcohol use: No Drug use: No FAMILY HISTORY Adopted: Yes Problem Relation Age of Onset other (adopted-no med hx.) Other REVIEW OF SYSTEMS: General: The patient N (more content not included)... Normal [facility] DBT Breast - left diagnostic for implanton 02-02-2024 IMPRESSION: Calcifications in the left breast are suspicious for malignancy. Stereotactic biopsy is recommended. BI-RADS Category 4: Suspicious RISK: Based on the Tyrer-Cuzick (TC) risk assessment model, this patient has a 4.6% lifetime risk of developing breast cancer, meaning they are at average risk for developing breast cancer. However, this is only an estimate based on available history provided on the patient's questionnaire. We encourage all patients to talk with their providers about these results, further recommendations for managing breast health, and appropriate supplemental screening options if the patient has dense breast tissue. Interpreting Radiologist: Manan Hope M.D. Electronically signed on: 02/02/2024 Quarantine Officer: KAMERON Transcribe Date/Time: Feb 02 2024 8:00A Dictated by: MANAN HOPE MD This examination was interpreted and the report reviewed and electronically signed by: MANAN HOPE MD on Feb 02 2024 8:28AM [facility] DIVISION OF RADIOLOGY * * *Final Report* * * DATE OF EXAM: Feb 02 2024 8:10AM [facility] 0628 - CYNTHIA DIAG W SHAHEED LT / PROCEDURE REASON: Abnormal mammogram * * * * Physician Interpretation * * * * RESULT: [facility] [address] [place] [address] #[id number] - CYNTHIA DIAG W SHAHEED LT HISTORY: Patient is 63 years old and is seen for diagnostic evaluation of callback in the left breast. Patient states no personal history of breast cancer. Patient states no personal history of other cancers. COMPARISON STUDIES: The present examination has been compared to prior imaging studies dated 10/29/2020 (mammogram), 10/31/2021 (mammogram), 11/21/2022 (mammogram), 11/30/2023 (mammogram) and 02/02/2024 (ultrasound). MAMMOGRAM TECHNIQUE: The study was acquired using full field digital technology and interpreted from soft copy. Digital Breast Tomosynthesis (DBT) images were obtained and used to assist in the interpretation of this examination. Computer-aided detection was utilized by the radiologist in the interpretation of this examination. MAMMOGRAM FINDINGS: There are scattered areas of fibroglandular density. There are grouped amorphous calcifications in the left breast at 12 o'clock. DIVISION OF RADIOLOGY Provider, [facility] - 02/02/2024 * * *Final Report* * * DATE OF EXAM: Feb 02 2024 8:10AM [facility] 0628 - CYNTHIA DIAG W SHAHEED / PROCEDURE REASON: Abnormal mammogram * * * * Physician Interpretation * * * * RESULT: [facility] [address] [place] [id number] #[id number] - CYNTHIA DIAG W SHAHEED LT HISTORY: Patient is 63 years old and is seen for diagnostic evaluation of callback in the left breast. Patient states no personal history of breast cancer. Patient states no personal history of other cancers. COMPARISON STUDIES: The present examination has been compared to prior imaging studies dated 10/29/2020 (mammogram), 10/31/2021 (mammogram), 11/21/2022 (mammogram), 11/30/2023 (mammogram) and 02/02/2024 (ultrasound). MAMMOGRAM TECHNIQUE: The study was acquired using full field digital technology and interpreted from soft copy. Digital Breast Tomosynthesis (DBT) images were obtained and used to assist in the interpretation of this examination. Computer-aided detection was utilized by the radiologist in the interpretation of this examination. MAMMOGRAM FINDINGS: There are scattered areas of fibroglandular density. There are grouped amorphous calcifications in the left breast at 12 o'clock. IMPRESSION IMPRESSION: Calcifications in the left breast are suspicious for malignancy. Stereotactic biopsy is recommended. BI-RADS Category 4: Suspicious RISK: Based on the Tyrer-Cuzick (TC) risk assessment model, this patient has a 4.6% lifetime risk of developing breast cancer, meaning they are at average risk for developing breast cancer. However, this is only an estimate based on available history provided on the patient's questionnaire. We encourage all patients to talk with their providers about these results, further recommendations for managing breast health, and appropriate supplemental screening options if the patient has dense breast tissue. Interpreting Radiologist: Manan Hope M.D. Electronically signed on: 02/02/2024 Quarantine Officer: KAMERON Transcribe Date/Time: Feb 02 2024 8:00A Dictated by: MANAN HOPE MD This examination was interpreted and the report reviewed and electronically signed by: MANAN HOPE MD on Feb 02 2024 8:28AM EST [facility] Radiology Study observation (narrative) [facility] DBT Breast - left diagnostic for implantOrdered By: [facility] Provider on 02-02-2024 [facility] CYNTHIA DIAG W SHAHEED LTon 024 CYNTHIA DIAG W SHAHEED LT * * *Final Report* * * DATE OF EXAM: Feb 02 2024 8:10AM [facility] 0628 - CYNTHIA DIAG W SHAHEED LT / PROCEDURE REASON: Abnormal mammogram * * * * Physician Interpretation * * * * RESULT: [place] [id number] #[id number] - CYNTHIA DIAG W SHAHEED LT HISTORY: Patient is 63 years old and is seen for diagnostic evaluation of callback in the left breast. Patient states no personal history of breast cancer. Patient states no personal history of other cancers. COMPARISON STUDIES: The present examination has been compared to prior imaging studies dated 10/29/2020 (mammogram), 10/31/2021 (mammogram), 11/21/2022 (mammogram), 11/30/2023 (mammogram) and 02/02/2024 (ultrasound). MAMMOGRAM TECHNIQUE: The study was acquired using full field digital technology and interpreted from soft copy. Digital Breast Tomosynthesis (DBT) images were obtained and used to assist in the interpretation of this examination. Computer-aided detection was utilized by the radiologist in the interpretation of this examination. MAMMOGRAM FINDINGS: There are scattered areas of fibroglandular density. There are grouped amorphous calcifications in the left breast at 12 o'clock. IMPRESSION: Calcifications in the left breast are suspicious for malignancy. Stereotactic biopsy is recommended. BI-RADS Category 4: Suspicious RISK: Based on the Tyrer-Cuzick (TC) risk assessment model, this patient has a 4.6% lifetime risk of developing breast cancer, meaning they are at average risk for developing breast cancer. However, this is only an estimate based on available history provided on the patient's questionnaire. We encourage all patients to talk with their providers about these results, further recommendations for managing breast health, and appropriate supplemental screening options if the patient has dense breast tissue. Interpreting Radiologist: Manan Hope M.D. Electronically signed on: 02/02/2024 Quarantine Officer: KAMERON Transcribe Date/Time: Feb 02 2024 8:00A Dictated by: MANAN HOPE MD This examination was interpreted and the report reviewed and electronically signed by: MANAN HOPE MD on Feb 02 2024 8:28AM EST [id number] Normal [facility] BD DXA - AXIAL SKELETONon BD DXA - AXIAL SKELETON * * *Final Report* * * DATE OF EXAM: Jan 18 2024 3:48PM [facility] 0804 - BD DXA - AXIAL SKELETON / PROCEDURE REASON: Encounter for screening for osteoporosis * * * * Physician Interpretation * * * * EXAMINATION: DXA BONE DENSITOMETRY BD DXA - AXIAL SKELETON PATIENT DEMOGRAPHICS: Age: 63 years, Gender: Female SCANNER INFORMATION: DXA Model: [employer] - Pinstant Karma C [id number] Date Scanned: 01/18/2024 3:48 PM CLINICAL HISTORY: DIAGNOSTIC Encounter for screening for osteoporosis . RISK FACTORS FOR OSTEOPOROSIS AND ASSOCIATED FRACTURES REPORTED BY THIS PATIENT: Please refer to Bone Health Questionnaire in the EMR CURRENT THERAPY: Please refer to Bone Health Questionnaire in the EMR TECHNICAL LIMITATIONS: RESULTS: Lumbar spine (L1, L2, L3, L4): 0.999 g/cm2, T-score -0.4, Z-score 1.4 Lumbar spine: 2011: 1.001 g/cm2 No statistically significant change Right Femoral Neck: 0.671 g/cm2, T-score -1.6, Z-score -0.1 Right Total Hip: 0.931 g/cm2, T-score -0.1, Z-score 1.2 Left Femoral Neck: 0.691 g/cm2, T-score -1.4, Z-score 0.1 Left Femoral Neck: 2010: 0.764 g/cm2 Statistically significant decrease Left Total Hip: 0.919 g/cm2, T-score -0.2, Z-score 1.1 Left Total Hip: 2011: 0.986 g/cm2 Statistically significant decrease CHANGE IS STATISTICALLY SIGNIFICANT IN THE SPINE OR HIP IF GREATER THAN OR EQUAL TO 0.04 g/cm2 VERTEBRAL FRACTURE ASSESSMENT Not performed. IMPRESSION: THE LOWEST T-SCORE IS -1.6 IN THE RIGHT HIP 1) DIAGNOSIS (based on BMD alone): OSTEOPENIA Caution: Medical conditions other than osteoporosis may cause low bone density, such as osteomalacia or renal osteodystrophy. Clinical correlation is necessary. 2) FRACTURE RISK (based on FRAX): 10-year absolute fracture risk: - major osteoporotic fracture = 8.1 % - hip fracture = 0.9 % - A diagnosis of Osteoporosis, a 10 year probability of hip fracture greater than or equal to 3% or a 10 year probability of any major osteoporosis-related fracture greater than or equal to 20% should be considered for treatment. - DXA scanner generated FRAX calculations may slightly differ from online FRAX calculations due to differences in software versions. - All recommendations and calculations are to be considered as guidelines and should not replace sound clinical judgement - Caution: Fracture risk may be increased independent of BMD in patients with corticosteroid use, age greater than 65 years, or a history of prior fragility fracture. RECOMMENDATIONS: Follow-up in 2 years or as clinically indicated. Patients that are taking corticosteroids, are transplant recipients or have hyperparathyroidism should have annual follow-up. Follow-up scans should always be done on the same machine for accurate comparison. FOR MORE INFORMATION ABOUT DIAGNOSIS AND TREATMENT: [facility] Disease:? [email or web address] National Osteoporosis Foundation:? www.nof.org International Society of Clinical Densitometry www.iscd.org Quarantine Officer: ARASELI Transcribe Date/Time: Jan 18 2024 4:11P Dictated by : MAGDALENA LUNA MD This examination was interpreted and the report reviewed and electronically signed by: MAGDALENA LUNA MD on Jan 18 2024 4:13PM EST [id number] -1.6 Normal [facility] DXA Skeletal system.axial Vi ews for bone densityOrdered By: Ccf Provider on 01-18-2024 LOWEST T-SCORE -1.6 [facility] DXA Skeletal system.axial Vi ews for bone densityon 01-18-2024 IMPRESSION: THE LOWEST T-SCORE IS -1.6 IN THE RIGHT HIP 1) DIAGNOSIS (based on BMD alone): OSTEOPENIA Caution: Medical conditions other than osteoporosis may cause low bone density, such as osteomalacia or renal osteodystrophy. Clinical correlation is necessary. 2) FRACTURE RISK (based on FRAX): 10-year absolute fracture risk: - major osteoporotic fracture = 8.1 % - hip fracture = 0.9 % - A diagnosis of Osteoporosis, a 10 year probability of hip fracture greater than or equal to 3% or a 10 year probability of any major osteoporosis-related fracture greater than or equal to 20% should be considered for treatment. - DXA scanner generated FRAX calculations may slightly differ from online FRAX calculations due to differences in software versions. - All recommendations and calculations are to be considered as guidelines and should not replace sound clinical judgement - Caution: Fracture risk may be increased independent of BMD in patients with corticosteroid use, age greater than 65 years, or a history of prior fragility fracture. RECOMMENDATIONS: Follow-up in 2 years or as clinically indicated. Patients that are taking corticosteroids, are transplant recipients or have hyperparathyroidism should have annual follow-up. Follow-up scans should always be done on the same machine for accurate comparison. FOR MORE INFORMATION ABOUT DIAGNOSIS AND TREATMENT: [facility]abolic [facility] Disease:? [email or web address]/arthritis/osteo National Osteoporosis Foundation:? www.nof.org International Society of Clinical Densitometry www.iscd.org Quarantine Officer: ARASELI Transcribe Date/Time: Jan 18 2024 4:11P Dictated by : MAGDALENA LUNA MD This examination was interpreted and the report reviewed and electronically signed by: MAGDALENA LUNA MD on Jan 18 2024 4:13PM [facility] DIVISION OF RADIOLOGY * * *Final Report* * * DATE OF EXAM: Jan 18 2024 3:48PM [facility] 0804 - BD DXA - AXIAL SKELETON / PROCEDURE REASON: Encounter for screening for osteoporosis * * * * Physician Interpretation * * * * EXAMINATION: DXA BONE DENSITOMETRY BD DXA - AXIAL SKELETON PATIENT DEMOGRAPHICS: Age: 63 years, Gender: Female SCANNER INFORMATION: DXA Model: [employer] - Pinstant Karma C [id number] Date Scanned: 01/18/2024 3:48 PM CLINICAL HISTORY: DIAGNOSTIC Encounter for screening for osteoporosis . RISK FACTORS FOR OSTEOPOROSIS AND ASSOCIATED FRACTURES REPORTED BY THIS PATIENT: Please refer to Bone Health Questionnaire in the EMR CURRENT THERAPY: Please refer to Bone Health Questionnaire in the EMR TECHNICAL LIMITATIONS: RESULTS: Lumbar spine (L1, L2, L3, L4): 0.999 g/cm2, T-score -0.4, Z-score 1.4 Lumbar spine: 2010: 1.001 g/cm2 No statistically significant change Right Femoral Neck: 0.671 g/cm2, T-score -1.6, Z-score -0.1 Right Total Hip: 0.931 g/cm2, T-score -0.1, Z-score 1.2 Left Femoral Neck: 0.691 g/cm2, T-score -1.4, Z-score 0.1 Left Femoral Neck: 2010: 0.764 g/cm2 Statistically significant decrease Left Total Hip: 0.919 g/cm2, T-score -0.2, Z-score 1.1 Left Total Hip: 2011: 0.986 g/cm2 Statistically significant decrease CHANGE IS STATISTICALLY SIGNIFICANT IN THE SPINE OR HIP IF GREATER THAN OR EQUAL TO 0.04 g/cm2 VERTEBRAL FRACTURE ASSESSMENT Not performed. DIVISION OF RADIOLOGY Provider, [facility] - 01/18/2024 * * *Final Report* * * DATE OF EXAM: Jan 18 2024 3:48PM WRB [id number] - BD DXA - AXIAL SKELETON / PROCEDURE REASON: Encounter for screening for osteoporosis * * * * Physician Interpretation * * * * EXAMINATION: DXA BONE DENSITOMETRY BD DXA - AXIAL SKELETON PATIENT DEMOGRAPHICS: Age: 63 years, Gender: Female SCANNER INFORMATION: DXA Model: [employer] - Pinstant Karma C [id number] Date Scanned: 01/18/2024 3:48 PM CLINICAL HISTORY: DIAGNOSTIC Encounter for screening for osteoporosis . RISK FACTORS FOR OSTEOPOROSIS AND ASSOCIATED FRACTURES REPORTED BY THIS PATIENT: Please refer to Bone Health Questionnaire in the EMR CURRENT THERAPY: Please refer to Bone Health Questionnaire in the EMR TECHNICAL LIMITATIONS: RESULTS: Lumbar spine (L1, L2, L3, L4): 0.999 g/cm2, T-score -0.4, Z-score 1.4 Lumbar spine: 2010: 1.001 g/cm2 No statistically significant change Right Femoral Neck: 0.671 g/cm2, T-score -1.6, Z-score -0.1 Right Total Hip: 0.931 g/cm2, T-score -0.1, Z-score 1.2 Left Femoral Neck: 0.691 g/cm2, T-score -1.4, Z-score 0.1 Left Femoral Neck: 2010: 0.764 g/cm2 Statistically significant decrease Left Total Hip: 0.919 g/cm2, T-score -0.2, Z-score 1.1 Left Total Hip: 2010: 0.986 g/cm2 Statistically significant decrease CHANGE IS STATISTICALLY SIGNIFICANT IN THE SPINE OR HIP IF GREATER THAN OR EQUAL TO 0.04 g/cm2 VERTEBRAL FRACTURE ASSESSMENT Not performed. IMPRESSION IMPRESSION: THE LOWEST T-SCORE IS -1.6 IN THE RIGHT HIP 1) DIAGNOSIS (based on BMD alone): OSTEOPENIA Caution: Medical conditions other than osteoporosis may cause low bone density, such as osteomalacia or renal osteodystrophy. Clinical correlation is necessary. 2) FRACTURE RISK (based on FRAX): 10-year absolute fracture risk: - major osteoporotic fracture = 8.1 % - hip fracture = 0.9 % - A diagnosis of Osteoporosis, a 10 year probability of hip fracture greater than or equal to 3% or a 10 year probability of any major osteoporosis-related fracture greater than or equal to 20% should be considered for treatment. - DXA scanner generated FRAX calculations may slightly differ from online FRAX calculations due to differences in software versions. - All recommendations and calculations are to be considered as guidelines and should not replace sound clinical judgement - Caution: Fracture risk may be increased independent of BMD in patients with corticosteroid use, age greater than 65 years, or a history of prior fragility fracture. RECOMMENDATIONS: Follow-up in 2 years or as clinically indicated. Patients that are taking corticosteroids, are transplant recipients or have hyperparathyroidism should have annual follow-up. Follow-up scans should always be done on the same machine for accurate comparison. FOR MORE INFORMATION ABOUT DIAGNOSIS AND TREATMENT: [facility]abolic [facility] Disease:? www.ccf.org/arthritis/osteo National Osteoporosis Foundation:? www.nof.org International Society of Clinical Densitometry www.iscd.org Quarantine Officer: ARASELI Transcribe Date/Time: Jan 18 2024 4:11P Dictated by : MAGDALENA LNUA MD This examination was interpreted and the report reviewed and electronically signed by: MAGDALENA LUNA MD on Jan 18 2024 4:13PM [facility] Radiology Study observation (narrative) [facility] Dee Dee 12-03-2023 BRITTNEY Telephone (RADMN) DIANNE HOYT ([id number]) 1960 F Date Time Provider Department 12/03/23 YOU HAQUE During your visit today, we recorded the following information about you: Allergies As of Date: 12/03/2023 (No Known Allergies) Date Reviewed: 11/30/2023 Reviewed by: Mandi Salas APRN.SUPERVISOR DAIRY SANITATION - Fully Assessed Reason for Visit: Mammogram Result Call Back [[id number]] Prescriptions as of 12/03/2023 - pantoprazole DR (PROTONIX) 40 mg tablet Take 1 tablet by mouth every afternoon. - bupropion HCl (WELLBUTRIN ORAL) Take by mouth once daily. - semaglutide (OZEMPIC SUBCUTANEOUS) Inject 2 mg subcutaneously one time a week. - metoprolol succinate ER (TOPROL XL) 50 mg 24 hr tablet TAKE 1 TABLET BY MOUTH EVERY DAY DIRECTED - losartan (COZAAR) 100 mg tablet TAKE 1/2 TABLET EVERY DAY DIRECTED - desvenlafaxine ER (PRISTIQ) 100 mg 24 hr tablet TAKE 1 TABLET BY MOUTH EVERY DAY - spironolactone (ALDACTONE) 50 mg tablet TAKE 1 TABLET BY MOUTH EVERY DAY - indapamide (LOZOL) 1.25 mg tablet TAKE 1 TABLET BY MOUTH EVERY DAY IN THE MORNING Problem List As Of Date 12/03/2023 Noted Resolved Unspecified essential hypertension [I10] 06/16/2011 Presence of right artificial knee joint [Z96.65*10/29/2017 Inflammation of stomach and intestine [K52.9] 11/21/2022 Diagnosed: 11/21/2022 Gastroesophageal reflux disease [K21.9] 11/21/2022 Diagnosed: 11/21/2022 Diastasis of rectus abdominis [M62.08] 11/21/2022 Diagnosed: 11/21/2022 Diabetes mellitus (HCC) [E11.9] 01/27/2022 Diagnosed: 11/21/2022 Other specified mononeuropathies of left upper *11/11/2022 Diagnosed: 11/21/2022 Inflammatory polyarthropathy (HCC) [M06.4] 09/12/2022 Diagnosed: 11/21/2022 Encounter Status:Closed by BA [place] on 12/03/23 [facility] [place] 12-01-2023 SHOSHANAN Telephone (OBGYWM) DIANNE HOYT ([id number]) 1960 F Date Time Provider Department 12/01/23 MANDI SALAS OBKEANUWPalak During your visit today, we recorded the following information about you: Allergies As of Date: 12/01/2023 (No Known Allergies) Date Reviewed: 11/30/2023 Reviewed by: Mandi Salas APRN.SUPERVISOR [employer]IRY [employer]ITATION - Fully Assessed Reason for Visit: Orders [681] Primary Visit Diagnosis:Abnormal mammogram [R92.8] Order(s):US BREAST LTD LEFT [[id number]] Order #: [id number] FUTURE CYNTHIA DIAGNOSTIC LEFT [[id number]] Order #: [id number] FUTURE Prescriptions as of 12/01/2023 - pantoprazole DR (PROTONIX) 40 mg tablet Take 1 tablet by mouth every afternoon. - bupropion HCl (WELLBUTRIN ORAL) Take by mouth once daily. - semaglutide (OZEMPIC SUBCUTANEOUS) Inject 2 mg subcutaneously one time a week. - metoprolol succinate ER (TOPROL XL) 50 mg 24 hr tablet TAKE 1 TABLET BY MOUTH EVERY DAY DIRECTED - losartan (COZAAR) 100 mg tablet TAKE 1/2 TABLET EVERY DAY DIRECTED - desvenlafaxine ER (PRISTIQ) 100 mg 24 hr tablet TAKE 1 TABLET BY MOUTH EVERY DAY - spironolactone (ALDACTONE) 50 mg tablet TAKE 1 TABLET BY MOUTH EVERY DAY - indapamide (LOZOL) 1.25 mg tablet TAKE 1 TABLET BY MOUTH EVERY DAY IN THE MORNING Problem List As Of Date 12/01/2023 Noted Resolved Unspecified essential hypertension [I10] 06/16/2011 Presence of right artificial knee joint [Z96.65*10/29/2017 Inflammation of stomach and intestine [K52.9] 11/21/2022 Diagnosed: 11/21/2022 Gastroesophageal reflux disease [K21.9] 11/21/2022 Diagnosed: 11/21/2022 Diastasis of rectus abdominis [M62.08] 11/21/2022 Diagnosed: 11/21/2022 Diabetes mellitus (HCC) [E11.9] 01/27/2022 Diagnosed: 11/21/2022 Other specified mononeuropathies of left upper *11/11/2022 Diagnosed: 11/21/2022 Inflammatory polyarthropathy (HCC) [M06.4] 09/12/2022 Diagnosed: 11/21/2022 Encounter Status:Closed by MANDI SALAS on 12/01/23 Normal [facility] CNOVon 11-30-2023 CNOV Office Visit (OBGYWM ) DIANNE HOYT ([id number]) 1960 F Date Time Provider Department 11/30/23 7:00 AM MANDI SALAS OBGYWM During your visit today, we recorded the following information about you: Blood pressure Weight Height 118/72 116.6 kg 1.638 m Mandi Salas APRN.SUPERVISOR DAIRY SANITATION 11/30/2023 7:25 AM Signed Dianne is a 63 year old who presents for an annual gynecologic exam without complaints. Postmenopausal: Yes since age 38's HRT use: No. Last Pap: 11/06/2020 normal HPV: 11/01/2020 negative History of abnormal pap: No Last mammogram: 2023 today History of abnormal mammogram: No Sexually active: No OB History T0 L2 SAB0 IAB0 Ectopic0 Multiple0 Live Births0 Lead Medical Technologist History LMP: 01/23/2007, Postmenopausal Age at Menarche: Age at First : Age at Menopause: Lead Medical Technologist History Comments: Sexual Activity: Never; Male Contraception: Surgical, Tubal Ligation PAST MEDICAL HISTORY Diagnosis Date Anxiety Arthritis 08/10/2017 Depression Diabetes mellitus (HCC) Unspecified essential hypertension Essential hypertension PAST SURGICAL HISTORY Procedure Laterality Date DELIVERY ONLY , low cervical x 2 HERNIA REPAIR HX LIG/TRNSXJ FLP TUBE ABDL/VAG APPR UNI/BI Tubal ligation PAST SURGICAL HISTORY OF Bilateral 10/27 01/26 bilateral knee replacement FAMILY HISTORY Adopted: Yes Problem Relation Age of Onset other (adopted-no med hx.) Other SOCIAL HISTORY Social History Tobacco Use Smoking status: Former Current packs/day: 0.00 Types: Cigarettes Quit date: 02/03/2012 Years since quittin.8 Smokeless tobacco: Never Vaping Use Vaping status: Never Used Substance Use Topics Alcohol use: No Drug use: No REVIEW OF SYSTEMS Abdomen: No abdominal pain, nausea, vomiting, diarrhea, or constipation. No bloating, early satiety, indigestion, or increased flatulence. Bladder: No dysuria, gross hematuria, urinary frequency, urinary urgency, or incontinence Breast: No breast lumps, nipple d/c, overlying skin changes, redness or skin retraction Allergies and current medication updated:Yes SENSITIVE EXAM: The sensitive examination was discussed with the Patient or Patient's Authorized Cotton Ginner. As applicable, any other physician, advance practice provider, medical student, or other health professional student that will be observing or involved in the sensitive examination for educational or training purposes was discussed with the Patient or Authorized Cotton Ginner. The Patient or Authorized Cotton Ginner has agreed to proceed with the sensitive examination. (Sensitive examination includes inspection and/or palpation of the breasts, pelvis, prostate and anorectal regions). EXAM: BP 118/72 Ht 5' 4.5 (1.64m) Wt 257 lb (116.6kg) LMP 01/23/2007 BMI 43.45 kg/(m2). GENERAL: pleasant, female in no apparent [...] external genitalia normal, normal Bartholin's glands, urethra, [place]'s glands, no vulvar lesions, no cervical lesions, physiologic discharge present, normal appearing perineal body and perianal region BIMANUAL: uterus normal size, shape and consistency, no adnexal masses, and non-tender RECTOVAGINAL: deferred. NEURO: alert and oriented x3,exam grossly non-focal EXTREMITIES: normal ASSESSMENT/PLAN: 1) Health maintenance: Pap done with HPV. Mammogram ordered Mammogram up to date Nutrition, exercise and routine health maintenance exams reviewed. Calcium/Vitamin D supplementation information provided. Colon cancer screening: up to date with screening done 2022-10yrs repeat BMD: ordered 2) Follow up one year or sooner as needed Mandi Salas APRN.CNP Referring Provider: MANDI SALAS [[id number]] Allergies As of Date: 11/30/2023 (No Known Allergies) Date Reviewed: 11/30/2023 Reviewed by: Mandi Salas APRN.CNP - Fully Assessed Reason for Visit: Well Woman [1463] Primary Visit Diagnosis:Encounter for gynecological examination (general) (routine) without abnormal findings [Z01.419] Other Visit Diagnoses:Encounter for screening mammogram for breast cancer [Z12.31] Encounter for screening for human papillomavirus (HPV) [Z11.51] Screening for malignant neoplasm of cervix [Z12.4] Encounter for screening for osteoporosis [Z13.820] Order(s):CYNTHIA SCREENING W SHAHEED [[id number]] Order #: [id number] FUTURE PAP TEST [[id number]] Order #: [id number] DXA-AXIAL SKELETON [ (more content not included)... Normal [facility] HIGH RISK HUMAN PAPILLOMA EPHRAIM (HPV), PCR FOR DETECTION AND GENOTYPINGon 11-30-2023 HPV 16 Ag Ql (Unsp spec) Not detected Normal Not detected [facility] Comment on above: Order Comment: Speci men Type: FLUID SPECIMEN Ordering Facility: [facility] Address: [address] [place] [address] Performed By: #### L [id number] #### [facility] CLIA [id number] [address] [place] [address] [place] [facility] CLIA [id number] [address] [place] [address] [place] #### HPVHRT #### [facility] CLIA [id number] [address] [place] [address] [place] HPV 18 Ag Ql (Unsp spec) Not detected Normal Not detected [facility] Comment on above: Order Comment: Speci men Type: FLUID SPECIMEN Ordering Facility: [facility] Address: [address] [place] [address] Performed By: #### L [id number] #### [facility] CLIA [id number] [address] [place] [address] [place] [facility] CLIA [id number] [address] [place] [address] [place] #### HPVHRT #### [facility] CLIA [id number] [address] [place] [address] [place] HPV 31+33+35+39+45+51+52 +56+58+59+66+68 DNA LOUISA+probe Ql (Cvx) Not detected Normal Not detected [facility] Comment on above: Order Comment: Speci men Type: FLUID SPECIMEN Ordering Facility: [facility] Address: [address] [place] [address] Result Comment: High Risk HPV Other Type includes HPV types 31, 33, 35, 39, 45, 51, 52, 56, 58, 59, 66 and 68. Performed By: #### L [id number] #### [facility] CLIA [id number] [address] [place] [address] [place] [facility] CLIA [id number] [address] [place] [address] [place] #### HPVHRT #### [facility] CLIA [id number] [address] [place] [address] [place] CYNTHIA SCREENINGon 11-30-2023 CYNTHIA SCREENING * * *Final Report* * * DATE OF EXAM: Nov 30 2023 7:50AM [facility] - [facility] SCREENING / PROCEDURE REASON: Encounter for screening mammogram for breast cancer * * * * Physician Interpretation * * * * RESULT: [facility] [address] [place] [address] HISTORY: Patient is 63 years old and is seen for screening and is asymptomatic in both breasts. The patient has no personal history of cancer. COMPARISON STUDIES: The present examination has been compared to prior imaging studies dated 10/29/2020 (mammogram), 10/31/2021 (mammogram) and 11/21/2022 (mammogram). MAMMOGRAM TECHNIQUE: The study was acquired using full field digital technology and interpreted from soft copy. Digital Breast Tomosynthesis (DBT) images were obtained and used to assist in the interpretation of this examination. Computer-aided detection was utilized by the radiologist in the interpretation of this examination. MAMMOGRAM FINDINGS: There are scattered areas of fibroglandular density. There are grouped calcifications in the middle depth region of the left breast at 12 o'clock. No suspicious masses, calcifications or other abnormalities are seen in the right breast. IMPRESSION: Calcifications in the left breast require additional evaluation. A diagnostic mammogram is recommended. BI-RADS Category 0: Incomplete: Needs Additional Imaging Evaluation RISK: Based on the Tyrer-Cuzick (TC) risk assessment model, this patient has a 4.6% lifetime risk of developing breast cancer, meaning they are at average risk for developing breast cancer. However, this is only an estimate based on available history provided on the patient's questionnaire. We encourage all patients to talk with their providers about these results, further recommendations for managing breast health, and appropriate supplemental screening options if the patient has dense breast tissue. Interpreting Radiologist: Thuan Arauz M.D. Electronically signed on: 12/01/2023 Quarantine Officer: KAMERON Bensonriortiz Date/Time: Nov 30 2023 7:38A Dictated by: ARIS PHAN, DO This examination was interpreted and the report reviewed and electronically signed by: YOU HAQUE MD on Dec 01 2023 1:19PM EST [id number] Normal [facility] PAP TESTon 11-30-2023 ADEQUACY Normal [facility] Comment on above: Order Comment: Speci men Type: FLUID SPECIMEN Ordering Facility: [facility] Address: [address] [place] [address] Result Comment: Sati sfactory for interpretation. No endocervical component Performed By: #### L [id number] #### [facility] CLIA [id number] [address] [place] [address] [place] [facility] CLIA [id number] [address] [place] [address] [place] #### HPVHRT #### [facility] CLIA [id number] [address] [place] [address] [place] CASE REPORT Normal [facility] Comment on above: Order Comment: Speci men Type: FLUID SPECIMEN Ordering Facility: [facility] Address: [address] [place] [address] Result Comment: Gyne cologic Cytology Report Case: [id number] Authorizing Provider: Mandi Salas APRN.SUPERVISOR DAIRY SANITATION Collected: 11/30/2023 08:05 AM Ordering Location: OB/Gynecology Received: 11/30/2023 11:41 AM First Screen: Mohorcic, Zora, CT, ASCP Specimen: Pap Test, ThinPrep, Cervix Performed By: #### L [id number] #### [facility] CLIA [id number] [address] [place] [address] [place] [facility] CLIA [id number] [address] [place] [address] [place] #### HPVHRT #### [facility] CLIA [id number] [address] [place] [address] [place] CLINICAL HISTORY, CYTOLOGY, JOINERY PATTERNMAKER Routine Exam Normal [facility] Comment on above: Order Comment: Speci men Type: FLUID SPECIMEN Ordering Facility: [facility] Address: [address] [place] [address] Result Comment: Post Menopausal Performed By: #### L [id number] #### [facility] CLIA [id number] [address] [place] [address] [place] [facility] CLIA [id number] [address] [place] [address] [place] #### HPVHRT #### [facility] CLIA [id number] [address] [place] [address] [place] [facility] Normal [facility] Comment on above: Order Comment: Speci men Type: FLUID SPECIMEN Ordering Facility: [facility] Address: [address] [place] [address] Result Comment: Tech nical component, spd tech screening performed at [facility], [address] [facility], [place] [address] CLIA# [id number] Diagnostic interpretation performed at [facility], [address] [facility], [place] [id number] CLIA# [id number] Motion Picture Operator: Marybeth Dorado M.D. Performed By: #### L [id number] #### [facility] CLIA [id number] [address] [place] [address] [place] [facility] CLIA [id number] [address] [place] [address] [place] #### HPVHRT #### [facility] CLIA [id number] [address] [place] [address] [place] HPV REFLEX Yes HPV Normal [facility] Comment on above: Order Comment: Speci men Type: FLUID SPECIMEN Ordering Facility: [facility] Address: [address] [place] [address] Performed By: #### L [id number] #### [facility] CLIA [id number] [address] [place] [address] [place] [facility] CLIA [id number] [address] [place] [address] [place] #### HPVHRT #### [facility] CLIA [id number] [address] [place] [address] [place] INTERPRETATION, CYTOLOGY, JOINERY PATTERNMAKER Normal [facility] Comment on above: Order Comment: Speci men Type: FLUID SPECIMEN Ordering Facility: [facility] Address: [address] [place] [address] Result Comment: Nega tive for intraepithelial lesion or malignancy. Performed By: #### L [id number] #### [facility] CLIA [id number] [address] [place] [address] [place] [facility] CLIA [id number] [address] [place] [address] [place] #### HPVHRT #### [facility] CLIA [id number] [address] [place] [address] [place] PAP DISCLAIMER COMMENT The Pap Smear is a screening test for cervical cancer. False negative results occur with all screening tests, emphasizing the need for rescreening at recommended intervals, and clinical correlation. Normal [facility] Comment on above: Order Comment: Speci men Type: FLUID SPECIMEN Ordering Facility: [facility] Address: [address] [place] [address] Performed By: #### L [id number] #### [facility] CLIA [id number] [address] [place] [address] [place] [facility] CLIA [id number] [address] [place] [address] [place] #### HPVHRT #### [facility] CLIA [id number] [address] [place] [address] [place] Serum or plasma thyroid stim ulating hormone (TSH) measurement (units/volume)Ordered By: Apryl Jain on 06-16-2023 TSH Qn 1.04 uIU/mL 0.358-3.74 [facility] T4 Free Directon 06-16-2023 T4 FREE DIRECT 0.95 ng/dL Normal 0.76-1.46 [facility] Comment on above: Order Comment: Order Date: 06/16/23 Order Info: [id number] - TSH Order Info: 3024-7 - T4F Performed By: #### L [id number], [id number] #### [facility] [address] [place] [address]. [place], [address] Thin prep Papanicolaou smear with manual screeningOrdered By: Apryl Jain on 06-16-2023 Thin prep Papanicolaou smear with manual screening 0.95 ng/dL 0.76-1.46 [facility] Thyroid Stim Hormone (TSH)on 06-16-2023 TSH 1.04 uIU/mL Normal 0.358-3.74 [facility] Comment on above: Order Comment: Order Date: 06/16/23 Order Info: [id number] - TSH Order Info: 3024-7 - T4F Performed By: #### L [id number], [id number] #### [facility] [address] [place], [address] Basophil percentageOrdered B y: HEALTH ASSESSMENT on 03-17-2023 Bilirubin [Mass/Vol] 0.40 mg/dL 0.20-1.00 [facility] Comment on above: For patients on eltr ombopag therapy, use of Dimension [place] TBIL is not recommended. Chloride [Moles/Vol] 105 mmol/L 98-107 [facility] Cholesterol [Mass/Vol] 200 mg/dL <200 [facility] Comment on above: <200 mg/dL Desirable 200-240 mg/dL Borderline >240 mg/dL High Risk Glucose [Mass/Vol] 94 mg/dL 74-106 [facility] Hemoglobin (Bld) [Mass/Vol] 13.4 g/dL 12.0-15.0 [facility] Potassium [Moles/Vol] 3.9 mmol/L 3.5-5.1 [facility] Protein [Mass/Vol] 8.0 g/dL 6.4-8.2 [facility] Sodium [Moles/Vol] 141 mmol/L 136-145 [facility] Triglyceride [Mass/Vol] 112 mg/dL <199 [facility] Comment on above: The drugs N-Acetylcy steine and Metamizole may falsely depress this assay.Serum Triglycerides Reference Interval Normal <150 mg/dL Borderline high 150 - 199 mg/dL High 200 - 499 mg/dL Very High > or = 500 mg/dL WBC (Bld) [#/Vol] 8.6 10*3/uL 4.4-11.0 [facility] Determination of erythrocyte mean corpuscular volume (MCV)Ordered By: HEALTH ASSESSMENT on 03-17-2023 MCV (RBC) [Entitic vol] 100.5 fL 81-99 [facility] Erythrocyte distribution wid th ratioOrdered By: HEALTH ASSESSMENT on 03-17-2023 Erythrocyte distribution width (RBC) [Ratio] 13.3 % 11.6-14.6 [facility] Erythrocyte distribution wid th standard deviationOrdered By: HEALTH ASSESSMENT on 03-17-2023 Erythrocyte distribution width (RBC) [Entitic vol] 49.1 fL 35.1-43.9 [facility] Hematocrit Auto (Bld) [Volum e fraction]Ordered By: HEALTH ASSESSMENT on 03-17-2023 Hematocrit (Bld) [Volume fraction] 41.4 % 37-47 [facility] Laboratory - Chemistry and C hemistry - challengeOrdered By: HEALTH ASSESSMENT on 03-17-2023 Albumin/Globulin [Mass ratio] 0.8 {ratio} 0.9-2.4 [facility] ALP [Catalytic activity/Vol] 56 U/L 45-117 [facility] ALT [Catalytic activity/Vol] 40 U/L 13-56 [facility] Cholesterol in HDL [Mass/Vol] 63 mg/dL >40 [facility] Comment on above: The drugs N-Acetylcy steine and Metamizole may falsely depress this assay. Reference Range HDL <40 mg/dL Low HDL Cholesterol HDL >or= 60 mg/dL High HDL Cholesterol Cholesterol in LDL [Mass/Vol] 115 mg/dL 0-130 [facility] CO2 [Moles/Vol] 30.0 mmol/L 21.0-32.0 [facility] Globulin (S) [Mass/Vol] 4.4 g/dL 2.2-4.2 [facility] Urea nitrogen/Creatinine [Mass ratio] 15.2 mg/mg 10-20 [facility] Laboratory - Hematology and Cell countsOrdered By: HEALTH ASSESSMENT on 03-17-2023 MCH (RBC) [Entitic mass] 32.5 pg 27.0-32.0 [facility] MCHC (RBC) [Mass/Vol] 32.4 g/dL 32-36 [facility] Platelet mean volume (Bld) [Entitic vol] 10.0 fL 6.2-12.0 [facility] Platelets (Bld) [#/Vol] 370 10*3/uL 150-450 [facility] No Panel InformationOrdered By: HEALTH ASSESSMENT on 03-17-2023 Estimated GFR (MDRD) Amer 86 mL/min >60 [facility] Comment on above: GFR Calc Estimated GFR (MDRD) Non-Af Amer 71 mL/min >60 [facility] Comment on above: Non- GFR Calc VLDL Cholesterol 22 mg/dL 5-40 [facility] RBC Auto (Bld) [#/Vol]Ordere d By: HEALTH ASSESSMENT on 03-17-2023 RBC (Bld) [#/Vol] 4.12 10*6/uL 4.2-5.4 [facility] Serum or plasma calcium mayela urement (mass/volume)Ordered By: HEALTH ASSESSMENT on 03-17-2023 Calcium [Mass/Vol] 9.8 mg/dL 8.5-10.1 [facility] Serum or plasma creatinine m easurement (mass/volume)Ordered By: HEALTH ASSESSMENT on 03-17-2023 Creatinine [Mass/Vol] 0.85 mg/dL 0.55-1.02 [facility] Comment on above: The validity of the calculated GFR & GFRAA in patients over 70 years has not been determined. Clinical correlation is essential. Serum or plasma nicotine sean surement (mass/volume)Ordered By: HEALTH ASSESSMENT on 03-17-2023 Nicotine [Mass/Vol] <1.0 ug/mL . [facility] Comment on above: This test was develo ped and its performance characteristicsdetermined by [employer]. It has not been cleared orapproved by the Food and Drug Administration.Nicotine levels greater than 2.0 are consistent with theuse of tobacco or tobacco cessation products. Serum or plasma urea nitroge n measurement (mass/volume)Ordered By: HEALTH ASSESSMENT on 03-17-2023 Urea nitrogen [Mass/Vol] 13 mg/dL 7-18 [facility] Thin prep Papanicolaou smear with manual screeningOrdered By: HEALTH ASSESSMENT on 03-17-2023 Thin prep Papanicolaou smear with manual screening 3.6 g/dL 3.2-5.0 [facility] Thin prep Papanicolaou smear with manual screening 16 U/L 15-37 [facility] Thin prep Papanicolaou smear with manual screening 6 5-15 [facility] Thin prep Papanicolaou smear with manual screening <1.0 ug/mL . [facility] Comment on above: This test was develo ped and its performance characteristicsdetermined by [employer]. It has not been cleared orapproved by the Food and Drug Administration.Cotinine levels greater than 20.0 are consistent with theuse of tobacco or tobacco cessation products.Performed at: [address] [id number] Director: John Paul Cesar MD, Phone: [phone] Whole blood hemoglobin A1c/t otal hemoglobin ratio (mass fraction)Ordered By: HEALTH ASSESSMENT on 03-17-2023 HbA1c (Bld) [Mass fraction] 5.7 % 3.8-5.6 [facility] Comment on above: Normal < 5.7 % Predi abetic 5.7 - 6.4 % Diabetic >or= 6.5 % Please note range changes. Absolute lymphocyte countOrd ered By: Geno Ovalles on 02-24-2023 Lymphocytes Auto (Unsp spec) [#/Vol] 3.73 10*3/uL 0.83-4.51 [facility] Automated lymphocyte count a s percentage of total leukocytesOrdered By: Geno Ovalles on 02-24-2023 Lymphocytes/100 WBC Auto (Unsp spec) 36.7 % 19-41 [facility] Basophil percentageOrdered B y: Geno Ovalles on 02-24-2023 Basophils/100 WBC (Bld) 0.6 % 0-1 [facility] Bilirubin [Mass/Vol] 0.30 mg/dL 0.20-1.00 [facility] Comment on above: For patients on eltr ombopag therapy, use of [place] TBIL is not recommended. Chloride [Moles/Vol] 103 mmol/L 98-107 [facility] Eosinophils/100 WBC (Bld) 1.7 % 0-5 [facility] Glucose [Mass/Vol] 112 mg/dL 74-106 [facility] Comment on above: Fasting Glucose resu lt from 100 to 125 mg/dL suggests IMPAIRED HOMEOSTASIS per A.D.A. criteria. Hemoglobin (Bld) [Mass/Vol] 13.5 g/dL 12.0-15.0 [facility] Monocytes/100 WBC (Bld) 6.2 % 0-10 [facility] Neutrophils (Bld) [#/Vol] 5.6 10*3/uL 2.0-7.7 [facility] Neutrophils/100 WBC (Bld) 54.5 % 47-70 [facility] Potassium [Moles/Vol] 3.9 mmol/L 3.5-5.1 [facility] Protein [Mass/Vol] 7.8 g/dL 6.4-8.2 [facility] Sodium [Moles/Vol] 137 mmol/L 136-145 [facility] WBC (Bld) [#/Vol] 10.2 10*3/uL 4.4-11.0 [facility] Determination of erythrocyte mean corpuscular volume (MCV)Ordered By: Geno Ovalles on 02-24-2023 MCV (RBC) [Entitic vol] 100.0 fL 81-99 [facility] Erythrocyte distribution wid th ratioOrdered By: [facility] Charlette on 02-24-2023 Erythrocyte distribution width (RBC) [Ratio] 13.3 % 11.6-14.6 [facility] Erythrocyte distribution wid th standard deviationOrdered By: Geno Ovalles on 02-24-2023 Erythrocyte distribution width (RBC) [Entitic vol] 48.6 fL 35.1-43.9 [facility] Hematocrit Auto (Bld) [Volum e fraction]Ordered By: Geno Ovalles on 02-24-2023 Hematocrit (Bld) [Volume fraction] 40.5 % 37-47 [facility] Immature granulocytes/100 WB C Auto (Bld)Ordered By: Geno Ovalles on 02-24-2023 Immature granulocytes/100 WBC (Bld) 0.300 % 0.0-0.9 [facility] Comment on above: IG% - Immature Granu locytes (promyelocytes, myelocytes and metamyelocytes) > 1% indicates that a LEFT SHIFT is Present. Laboratory - Chemistry and C hemistry - challengeOrdered By: Geno Ovalles on 02-24-2023 Albumin/Globulin [Mass ratio] 0.9 {ratio} 0.9-2.4 [facility] ALP [Catalytic activity/Vol] 73 U/L 45-117 [facility] ALT [Catalytic activity/Vol] 32 U/L 13-56 [facility] CO2 [Moles/Vol] 29.0 mmol/L 21.0-32.0 [facility] Globulin (S) [Mass/Vol] 4.2 g/dL 2.2-4.2 [facility] Urea nitrogen/Creatinine [Mass ratio] 14.4 mg/mg 10-20 [facility] Laboratory - Hematology and Cell countsOrdered By: Geno Ovalles on 02-24-2023 MCH (RBC) [Entitic mass] 33.3 pg 27.0-32.0 [facility] MCHC (RBC) [Mass/Vol] 33.3 g/dL 32-36 [facility] Nucleated RBC/100 WBC (Bld) [Ratio] 0 % 0-5 [facility] Platelets (Bld) [#/Vol] 361 10*3/uL 150-450 [facility] No Panel InformationOrdered By: Geno Ovalles on 02-24-2023 Estimated GFR (MDRD) Amer 81 mL/min >60 [facility] Comment on above: GFR Calc Estimated GFR (MDRD) Non-Af Amer 67 mL/min >60 [facility] Comment on above: Non- GFR Calc Platelet mean volume [place]-Ec ker (Bld) [Entitic vol]Ordered By: Geno Ovalles on 02-24-2023 Platelet mean volume (Bld) [Entitic vol] 9.5 fL 6.2-12.0 [facility] RBC Auto (Bld) [#/Vol]Ordere d By: Geno Ovalles on 02-24-2023 RBC (Bld) [#/Vol] 4.05 10*6/uL 4.2-5.4 [facility] Serum or plasma calcium mayela urement (mass/volume)Ordered By: Geno Ovalles on 02-24-2023 Calcium [Mass/Vol] 9.7 mg/dL 8.5-10.1 [facility] Serum or plasma creatinine m easurement (mass/volume)Ordered By: Geno Ovalles on 01-16-2024 Creatinine [Mass/Vol] 0.90 mg/dL 0.55-1.02 [facility] Comment on above: The validity of the calculated GFR & GFRAA in patients over 70 years has not been determined. Clinical correlation is essential. Serum or plasma urea nitroge n measurement (mass/volume)Ordered By: Geno Ovalles on 02-24-2023 Urea nitrogen [Mass/Vol] 13 mg/dL 7-18 [facility] Thin prep Papanicolaou smear with manual screeningOrdered By: Geno Ovalles on 02-24-2023 Thin prep Papanicolaou smear with manual screening 3.6 g/dL 3.2-5.0 [facility] Thin prep Papanicolaou smear with manual screening 18 U/L 15-37 [facility] Thin prep Papanicolaou smear with manual screening 5 5-15 [facility] Glucose Glucometer (BldC) [M ass/Vol]Ordered By: Mohsen Hicks on 01-27-2023 Glucose [Mass/Vol] 101 mg/dL 74-106 [facility] Comment on above: MANAGEMENT OF PATIEN T CARE PER NURSING PROTOCOL Glucose Glucometer (BldC) [M ass/Vol]Ordered By: Mohsen Hicks on 01-06-2023 Glucose [Mass/Vol] 104 mg/dL 74-106 [facility] Comment on above: MANAGEMENT OF PATIEN T CARE PER NURSING PROTOCOL Absolute lymphocyte countOrd ered By: Geno Ovalles on 12-08-2022 Lymphocytes Auto (Unsp spec) [#/Vol] 3.33 10*3/uL 0.83-4.51 [facility] Basophil percentageOrdered B y: Geno Ovalles on 12-08-2022 Basophils/100 WBC (Bld) 0.5 % 0-1 [facility] Bilirubin [Mass/Vol] 0.30 mg/dL 0.20-1.00 [facility] Comment on above: For patients on eltr ombopag therapy, use of [place] TBIL is not recommended. Chloride [Moles/Vol] 102 mmol/L 98-107 [facility] Eosinophils/100 WBC (Bld) 1.0 % 0-5 [facility] Glucose [Mass/Vol] 97 mg/dL 74-106 [facility] Neutrophils (Bld) [#/Vol] 5.4 10*3/uL 2.0-7.7 [facility] Neutrophils/100 WBC (Bld) 56.8 % 47-70 [facility] Potassium [Moles/Vol] 3.8 mmol/L 3.5-5.1 [facility] Protein [Mass/Vol] 7.7 g/dL 6.4-8.2 [facility] Sodium [Moles/Vol] 136 mmol/L 136-145 [facility] WBC (Bld) [#/Vol] 9.6 10*3/uL 4.4-11.0 [facility] Blood erythrocytes count (nu mber/volume)Ordered By: Geno Ovalles on 12-08-2022 RBC (Bld) [#/Vol] 4.13 10*6/uL 4.2-5.4 [facility] Blood hemoglobin measurement (mass/volume)Ordered By: Geno Ovalles on 12-08-2022 Hemoglobin (Bld) [Mass/Vol] 13.3 g/dL 12.0-15.0 [facility] Blood lymphocytes/100 leukoc ytesOrdered By: Geno Ovalles on 12-08-2022 Lymphocytes/100 WBC (Bld) 34.7 % 19-41 [facility] Blood monocytes/100 leukocyt esOrdered By: Geno Ovalles on 12-08-2022 Monocytes/100 WBC (Bld) 6.7 % 0-10 [facility] Blood platelet mean volumeOr dered By: Geno Ovalles on 12-08-2022 Platelet mean volume (Bld) [Entitic vol] 9.9 fL 6.2-12.0 [facility] Determination of erythrocyte mean corpuscular volume (MCV)Ordered By: Geno Ovalles on 12-08-2022 MCV (RBC) [Entitic vol] 101.0 fL 81-99 [facility] Hematocrit Auto (Bld) [Volum e fraction]Ordered By: Geno Ovalles on 12-08-2022 Hematocrit (Bld) [Volume fraction] 41.7 % 37-47 [facility] Laboratory - Chemistry and C hemistry - challengeOrdered By: Geno Ovalles on 12-08-2022 ALP [Catalytic activity/Vol] 70 U/L 45-117 [facility] ALT [Catalytic activity/Vol] 47 U/L 13-56 [facility] CO2 [Moles/Vol] 27.0 mmol/L 21.0-32.0 [facility] Globulin (S) [Mass/Vol] 4.3 g/dL 2.2-4.2 [facility] Urea nitrogen/Creatinine [Mass ratio] 17.9 mg/mg 10-20 [facility] Laboratory - Hematology and Cell countsOrdered By: Geno Ovalles on 12-08-2022 Erythrocyte distribution width (RBC) [Entitic vol] 51.4 fL 35.1-43.9 [facility] Erythrocyte distribution width (RBC) [Ratio] 13.9 % 11.6-14.6 [facility] Immature granulocytes/100 WBC (Bld) 0.300 % 0.0-0.9 [facility] Comment on above: IG% - Immature Granu locytes (promyelocytes, myelocytes and metamyelocytes) > 1% indicates that a LEFT SHIFT is Present. MCH (RBC) [Entitic mass] 32.2 pg 27.0-32.0 [facility] Nucleated RBC/100 WBC (Bld) [Ratio] 0 % 0-5 [facility] MCHC Auto (RBC) [Mass/Vol]Or dered By: Geno Ovalles on 12-08-2022 MCHC (RBC) [Mass/Vol] 31.9 g/dL 32-36 [facility] No Panel InformationOrdered By: Geno Ovalles on 12-08-2022 Estimated GFR (MDRD) Amer 76 mL/min >60 [facility] Comment on above: GFR Calc Estimated GFR (MDRD) Non-Af Amer 63 mL/min >60 [facility] Comment on above: Non- GFR Calc Platelets bldOrdered By: Des Ovalles on 12-08-2022 Platelets (Bld) [#/Vol] 354 10*3/uL 150-450 [facility] Serum or plasma albumin mayela urement (mass/volume)Ordered By: Geno Ovalles on 12-08-2022 Albumin [Mass/Vol] 3.4 g/dL 3.2-5.0 [facility] Serum or plasma albumin/glob ulin mass ratioOrdered By: Geno Ovalles on 12-08-2022 Albumin/Globulin [Mass ratio] 0.8 {ratio} 0.9-2.4 [facility] Serum or plasma calcium mayela urement (mass/volume)Ordered By: Geno Ovalles on 12-08-2022 Calcium [Mass/Vol] 9.2 mg/dL 8.5-10.1 [facility] Serum or plasma creatinine m easurement (mass/volume)Ordered By: Geno Ovalles on 12-08-2022 Creatinine [Mass/Vol] 0.95 mg/dL 0.55-1.02 [facility] Comment on above: The validity of the calculated GFR & GFRAA in patients over 70 years has not been determined. Clinical correlation is essential. Serum or plasma urea nitroge n measurement (mass/volume)Ordered By: Geno Ovalles on 12-08-2022 Urea nitrogen [Mass/Vol] 17 mg/dL 7-18 [facility] Thin prep Papanicolaou smear with manual screeningOrdered By: Geno Ovalles on 12-08-2022 Thin prep Papanicolaou smear with manual screening 16 U/L 15-37 [facility] Thin prep Papanicolaou smear with manual screening 7 5-15 [facility] CYNTHIA SCREENINGon 11-21-2022 [facility] Absolute lymphocyte countOrd ered By: Geno Ovalles on 09-08-2022 Lymphocytes Auto (Unsp spec) [#/Vol] 2.80 10*3/uL 0.83-4.51 [facility] Basophil percentageOrdered B y: Geno Ovalles on 09-08-2022 Basophils/100 WBC (Bld) 0.7 % 0-1 [facility] Bilirubin [Mass/Vol] 0.40 mg/dL 0.20-1.00 [facility] Comment on above: For patients on eltr ombopag therapy, use of [place] TBIL is not recommended. Chloride [Moles/Vol] 101 mmol/L 98-107 [facility] Eosinophils/100 WBC (Bld) 1.4 % 0-5 [facility] Glucose [Mass/Vol] 102 mg/dL 74-106 [facility] Comment on above: Fasting Glucose resu lt from 100 to 125 mg/dL suggests IMPAIRED HOMEOSTASIS per A.D.A. criteria. Neutrophils (Bld) [#/Vol] 5.8 10*3/uL 2.0-7.7 [facility] Neutrophils/100 WBC (Bld) 61.3 % 47-70 [facility] Potassium [Moles/Vol] 3.9 mmol/L 3.5-5.1 [facility] Comment on above: Slight Hemolysis, Re sult may be falsely increased. Protein [Mass/Vol] 8.2 g/dL 6.4-8.2 [facility] Sodium [Moles/Vol] 134 mmol/L 136-145 [facility] WBC (Bld) [#/Vol] 9.4 10*3/uL 4.4-11.0 [facility] Blood erythrocytes count (nu mber/volume)Ordered By: Geno Ovalles on 09-08-2022 RBC (Bld) [#/Vol] 4.13 10*6/uL 4.2-5.4 [facility] Blood hemoglobin measurement (mass/volume)Ordered By: Geno Ovalles on 09-08-2022 Hemoglobin (Bld) [Mass/Vol] 13.0 g/dL 12.0-15.0 [facility] Blood lymphocytes/100 leukoc ytesOrdered By: Geno Ovalles on 09-08-2022 Lymphocytes/100 WBC (Bld) 29.9 % 19-41 [facility] Blood monocytes/100 leukocyt esOrdered By: Geno Ovalles on 09-08-2022 Monocytes/100 WBC (Bld) 6.4 % 0-10 [facility] Blood platelet mean volumeOr dered By: Geno Ovalles on 09-08-2022 Platelet mean volume (Bld) [Entitic vol] 9.9 fL 6.2-12.0 [facility] Determination of erythrocyte mean corpuscular volume (MCV)Ordered By: Geno Ovalles on 09-08-2022 MCV (RBC) [Entitic vol] 97.3 fL 81-99 [facility] Hematocrit Auto (Bld) [Volum e fraction]Ordered By: Geno Ovalles on 09-08-2022 Hematocrit (Bld) [Volume fraction] 40.2 % 37-47 [facility] Laboratory - Chemistry and C hemistry - challengeOrdered By: Geno Ovalles on 09-08-2022 ALP [Catalytic activity/Vol] 77 U/L 45-117 [facility] ALT [Catalytic activity/Vol] 42 U/L 13-56 [facility] CO2 [Moles/Vol] 26.0 mmol/L 21.0-32.0 [facility] Globulin (S) [Mass/Vol] 4.4 g/dL 2.2-4.2 [facility] Urea nitrogen/Creatinine [Mass ratio] 21.4 mg/mg 10-20 [facility] Laboratory - Hematology and Cell countsOrdered By: Geno Ovalles on 09-08-2022 Erythrocyte distribution width (RBC) [Entitic vol] 46.6 fL 35.1-43.9 [facility] Erythrocyte distribution width (RBC) [Ratio] 13.1 % 11.6-14.6 [facility] Immature granulocytes/100 WBC (Bld) 0.300 % 0.0-0.9 [facility] Comment on above: IG% - Immature Granu locytes (promyelocytes, myelocytes and metamyelocytes) > 1% indicates that a LEFT SHIFT is Present. MCH (RBC) [Entitic mass] 31.5 pg 27.0-32.0 [facility] Nucleated RBC/100 WBC (Bld) [Ratio] 0 % 0-5 [facility] MCHC Auto (RBC) [Mass/Vol]Or dered By: Geno Ovalles on 09-08-2022 MCHC (RBC) [Mass/Vol] 32.3 g/dL 32-36 [facility] No Panel InformationOrdered By: Geno Ovalles on 09-08-2022 Estimated GFR (MDRD) Amer 94 mL/min >60 [facility] Comment on above: GFR Calc Estimated GFR (MDRD) Non-Af Amer 77 mL/min >60 [facility] Comment on above: Non- GFR Calc Platelets bldOrdered By: Des Ovalles on 09-08-2022 Platelets (Bld) [#/Vol] 441 10*3/uL 150-450 [facility] Serum or plasma albumin mayela urement (mass/volume)Ordered By: Geno Ovalles on 09-08-2022 Albumin [Mass/Vol] 3.8 g/dL 3.2-5.0 [facility] Serum or plasma albumin/glob ulin mass ratioOrdered By: Geno Ovalles on 09-08-2022 Albumin/Globulin [Mass ratio] 0.9 {ratio} 0.9-2.4 [facility] Serum or plasma calcium mayela urement (mass/volume)Ordered By: Geno Ovalles on 09-08-2022 Calcium [Mass/Vol] 9.8 mg/dL 8.5-10.1 [facility] Serum or plasma creatinine m easurement (mass/volume)Ordered By: Geno Ovalles on 09-08-2022 Creatinine [Mass/Vol] 0.80 mg/dL 0.55-1.02 [facility] Comment on above: The validity of the calculated GFR & GFRAA in patients over 70 years has not been determined. Clinical correlation is essential. Serum or plasma urea nitroge n measurement (mass/volume)Ordered By: Geno Ovalles on 09-08-2022 Urea nitrogen [Mass/Vol] 17 mg/dL 7-18 [facility] Thin prep Papanicolaou smear with manual screeningOrdered By: Geno Ovalles on 09-08-2022 Thin prep Papanicolaou smear with manual screening 28 U/L 15-37 [facility] Comment on above: Slight Hemolysis, Re sult may be falsely increased. Thin prep Papanicolaou smear with manual screening 7 5-15 [facility] Glucose Glucometer (BldC) [M ass/Vol]Ordered By: Aris Mello on 08-18-2022 Glucose [Mass/Vol] 171 mg/dL 74-106 [facility] Comment on above: MANAGEMENT OF PATIEN T CARE PER NURSING PROTOCOL No Panel InformationOrdered By: Aris Mello on 08-01-2022 Nasal Screen MRSA/MSSA [facility] Whole blood hemoglobin A1c/t otal hemoglobin ratio (mass fraction)Ordered By: Celio Mace on 08-01-2022 HbA1c (Bld) [Mass fraction] 6.1 % 3.8-5.6 [facility] Comment on above: Normal < 5.7 % Predi abetic 5.7 - 6.4 % Diabetic >or= 6.5 % Please note range changes. Absolute lymphocyte countOrd ered By: Dr. Ovalles on 06-11-2022 Lymphocytes Auto (Unsp spec) [#/Vol] 3.68 10*3/uL 0.83-4.51 [facility] Basophil percentageOrdered B y: Dr. Ovalles on 06-11-2022 Basophils/100 WBC (Bld) 0.7 % 0-1 [facility] Bilirubin [Mass/Vol] 0.20 mg/dL 0.20-1.00 [facility] Comment on above: For patients on eltr ombopag therapy, use of [place] TBIL is not recommended. Chloride [Moles/Vol] 100 mmol/L 98-107 [facility] Eosinophils/100 WBC (Bld) 2.0 % 0-5 [facility] Glucose [Mass/Vol] 95 mg/dL 74-106 [facility] Neutrophils (Bld) [#/Vol] 5.4 10*3/uL 2.0-7.7 [facility] Neutrophils/100 WBC (Bld) 54.2 % 47-70 [facility] Potassium [Moles/Vol] 4.0 mmol/L 3.5-5.1 [facility] Protein [Mass/Vol] 7.8 g/dL 6.4-8.2 [facility] Sodium [Moles/Vol] 136 mmol/L 136-145 [facility] WBC (Bld) [#/Vol] 10.0 10*3/uL 4.4-11.0 [facility] Blood erythrocytes count (nu mber/volume)Ordered By: Dr. Ovalles on 06-11-2022 RBC (Bld) [#/Vol] 3.91 10*6/uL 4.2-5.4 [facility] Blood hemoglobin measurement (mass/volume)Ordered By: Dr. Ovalles on 06-11-2022 Hemoglobin (Bld) [Mass/Vol] 12.7 g/dL 12.0-15.0 [facility] Blood lymphocytes/100 leukoc ytesOrdered By: Dr. Ovalles on 06-11-2022 Lymphocytes/100 WBC (Bld) 36.7 % 19-41 [facility] Blood monocytes/100 leukocyt esOrdered By: Dr. Ovalles on 06-11-2022 Monocytes/100 WBC (Bld) 6.0 % 0-10 [facility] Blood platelet mean volumeOr dered By: Dr. Ovalles on 06-11-2022 Platelet mean volume (Bld) [Entitic vol] 10.2 fL 6.2-12.0 [facility] Determination of erythrocyte mean corpuscular volume (MCV)Ordered By: Dr. Ovalles on 06-11-2022 MCV (RBC) [Entitic vol] 100.0 fL 81-99 [facility] Hematocrit Auto (Bld) [Volum e fraction]Ordered By: Dr. Ovalles on 06-11-2022 Hematocrit (Bld) [Volume fraction] 39.1 % 37-47 [facility] Laboratory - Chemistry and C hemistry - challengeOrdered By: Dr. Ovalles on 06-11-2022 ALP [Catalytic activity/Vol] 66 U/L 45-117 [facility] ALT [Catalytic activity/Vol] 37 U/L 13-56 [facility] CO2 [Moles/Vol] 30.0 mmol/L 21.0-32.0 [facility] Globulin (S) [Mass/Vol] 4.1 g/dL 2.2-4.2 [facility] Urea nitrogen/Creatinine [Mass ratio] 14.9 mg/mg 10-20 [facility] Laboratory - Hematology and Cell countsOrdered By: Dr. Ovalles on 06-11-2022 Erythrocyte distribution width (RBC) [Entitic vol] 48.7 fL 35.1-43.9 [facility] Erythrocyte distribution width (RBC) [Ratio] 13.5 % 11.6-14.6 [facility] Immature granulocytes/100 WBC (Bld) 0.400 % 0.0-0.9 [facility] Comment on above: IG% - Immature Granu locytes (promyelocytes, myelocytes and metamyelocytes) > 1% indicates that a LEFT SHIFT is Present. MCH (RBC) [Entitic mass] 32.5 pg 27.0-32.0 [facility] Nucleated RBC/100 WBC (Bld) [Ratio] 0 % 0-5 [facility] ([facility] [Mass/Vol]Or dered By: Dr. Ovalles on 06-11-2022 MCHC (RBC) [Mass/Vol] 32.5 g/dL 32-36 [facility] No Panel InformationOrdered By: Dr. Ovalles on 06-11-2022 Estimated GFR (MDRD) Amer 84 mL/min >60 [facility] Comment on above: GFR Calc Estimated GFR (MDRD) Non-Af Amer 70 mL/min >60 [facility] Comment on above: Non- GFR Calc Platelets bldOrdered By: Dr. Ovalles on 06-11-2022 Platelets (Bld) [#/Vol] 393 10*3/uL 150-450 [facility] Serum or plasma albumin mayela urement (mass/volume)Ordered By: Dr. Ovalles on 06-11-2022 Albumin [Mass/Vol] 3.7 g/dL 3.2-5.0 [facility] Serum or plasma albumin/glob ulin mass ratioOrdered By: Dr. Ovalles on 06-11-2022 Albumin/Globulin [Mass ratio] 0.9 {ratio} 0.9-2.4 [facility] Serum or plasma calcium mayela urement (mass/volume)Ordered By: Dr. Ovalles on 06-11-2022 Calcium [Mass/Vol] 9.4 mg/dL 8.5-10.1 [facility] Serum or plasma creatinine m easurement (mass/volume)Ordered By: Dr. Ovalles on 06-11-2022 Creatinine [Mass/Vol] 0.87 mg/dL 0.55-1.02 [facility] Comment on above: The validity of the calculated GFR & GFRAA in patients over 70 years has not been determined. Clinical correlation is essential. Serum or plasma urea nitroge n measurement (mass/volume)Ordered By: Dr. Ovalles on 06-11-2022 Urea nitrogen [Mass/Vol] 13 mg/dL 7-18 [facility] Thin prep Papanicolaou smear with manual screeningOrdered By: Dr. Ovalles on 06-11-2022 Thin prep Papanicolaou smear with manual screening 29 U/L 15-37 [facility] Thin prep Papanicolaou smear with manual screening 6 5-15 [facility] Glucose Glucometer (BldC) [M ass/Vol]Ordered By: Dr. Mello on 05-22-2022 Glucose [Mass/Vol] 109 mg/dL 74-106 [facility] Comment on above: MANAGEMENT OF PATIEN T CARE PER NURSING PROTOCOL Absolute lymphocyte countOrd ered By: Guera Harvey on 04-25-2022 Lymphocytes Auto (Unsp spec) [#/Vol] 2.65 10*3/uL 0.83-4.51 [facility] Basophil percentageOrdered B y: Guera Harvey on 04-25-2022 Basophils/100 WBC (Bld) 0.6 % 0-1 [facility] Chloride [Moles/Vol] 102 mmol/L 98-107 [facility] Eosinophils/100 WBC (Bld) 1.5 % 0-5 [facility] Glucose [Mass/Vol] 113 mg/dL 74-106 [facility] Comment on above: Fasting Glucose resu lt from 100 to 125 mg/dL suggests IMPAIRED HOMEOSTASIS per A.D.A. criteria. Neutrophils (Bld) [#/Vol] 5.1 10*3/uL 2.0-7.7 [facility] Neutrophils/100 WBC (Bld) 59.3 % 47-70 [facility] Potassium [Moles/Vol] 3.9 mmol/L 3.5-5.1 [facility] Sodium [Moles/Vol] 139 mmol/L 136-145 [facility] WBC (Bld) [#/Vol] 8.5 10*3/uL 4.4-11.0 [facility] Blood erythrocytes count (nu mber/volume)Ordered By: Guera Harvey on 04-25-2022 RBC (Bld) [#/Vol] 3.85 10*6/uL 4.2-5.4 [facility] Blood hemoglobin measurement (mass/volume)Ordered By: Guera Harvey on 04-25-2022 Hemoglobin (Bld) [Mass/Vol] 12.6 g/dL 12.0-15.0 [facility] Blood lymphocytes/100 leukoc ytesOrdered By: Guera Harvey on 04-25-2022 Lymphocytes/100 WBC (Bld) 31.1 % 19-41 [facility] Blood monocytes/100 leukocyt esOrdered By: Guera Harvey on 04-25-2022 Monocytes/100 WBC (Bld) 6.9 % 0-10 [facility] Blood platelet mean volumeOr dered By: Guera Harvey on 04-25-2022 Platelet mean volume (Bld) [Entitic vol] 10.1 fL 6.2-12.0 [facility] Determination of erythrocyte mean corpuscular volume (MCV)Ordered By: Guera Harvey on 04-25-2022 MCV (RBC) [Entitic vol] 100.0 fL 81-99 [facility] Hematocrit Auto (Bld) [Volum e fraction]Ordered By: Guera Harvey on 04-25-2022 Hematocrit (Bld) [Volume fraction] 38.5 % 37-47 [facility] Laboratory - Chemistry and C hemistry - challengeOrdered By: Guera Harvey on 04-25-2022 CO2 [Moles/Vol] 32.0 mmol/L 21.0-32.0 [facility] Urea nitrogen/Creatinine [Mass ratio] 16.1 mg/mg 10-20 [facility] Laboratory - Hematology and Cell countsOrdered By: Guera Harvey on 04-25-2022 Erythrocyte distribution width (RBC) [Entitic vol] 49.0 fL 35.1-43.9 [facility] Erythrocyte distribution width (RBC) [Ratio] 13.7 % 11.6-14.6 [facility] Immature granulocytes/100 WBC (Bld) 0.600 % 0.0-0.9 [facility] Comment on above: IG% - Immature Granu locytes (promyelocytes, myelocytes and metamyelocytes) > 1% indicates that a LEFT SHIFT is Present. MCH (RBC) [Entitic mass] 32.7 pg 27.0-32.0 [facility] Nucleated RBC/100 WBC (Bld) [Ratio] 0 % 0-5 [facility] MCHC Auto (RBC) [Mass/Vol]Or dered By: Guera Harvey on 04-25-2022 MCHC (RBC) [Mass/Vol] 32.7 g/dL 32-36 [facility] No Panel InformationOrdered By: Guera Harvey on 04-25-2022 Estimated Creatinine Clearance Calc 69.13 ml/min [facility] Estimated GFR (MDRD) Amer 92 mL/min >60 [facility] Comment on above: GFR Calc Estimated GFR (MDRD) Non-Af Amer 76 mL/min >60 [facility] Comment on above: Non- GFR Calc Troponin I High Sensitivity 4 pg/mL 3.0-54.0 [facility] Comment on above: Please Note: New Rosemarie t Units and Gender Specific Reference Ranges. For more information see Policy Stat Procedure [place] High Sensitivity Troponin (TNIH) and attachments. Platelets bldOrdered By: Ortiz Harvey on 04-25-2022 Platelets (Bld) [#/Vol] 329 10*3/uL 150-450 [facility] Serum or plasma calcium mayela urement (mass/volume)Ordered By: Guera Harvey on 04-25-2022 Calcium [Mass/Vol] 9.4 mg/dL 8.5-10.1 [facility] Serum or plasma creatinine m easurement (mass/volume)Ordered By: Guera Harvey on 04-25-2022 Creatinine [Mass/Vol] 0.81 mg/dL 0.55-1.02 [facility] Comment on above: The validity of the calculated GFR & GFRAA in patients over 70 years has not been determined. Clinical correlation is essential. Serum or plasma urea nitroge n measurement (mass/volume)Ordered By: Guera Harvey on 04-25-2022 Urea nitrogen [Mass/Vol] 13 mg/dL 7-18 [facility] Thin prep Papanicolaou smear with manual screeningOrdered By: Guera Harvey on 04-25-2022 Thin prep Papanicolaou smear with manual screening 5 5-15 [facility] Basophil percentageOrdered B y: HEALTH ASSESSMENT on 03-18-2022 Bilirubin [Mass/Vol] 0.60 mg/dL 0.20-1.00 [facility] Comment on above: For patients on eltr ombopag therapy, use of Dimension [place] TBIL is not recommended. Chloride [Moles/Vol] 102 mmol/L 98-107 [facility] Cholesterol [Mass/Vol] 171 mg/dL <200 [facility] Comment on above: <200 mg/dL Desirable 200-240 mg/dL Borderline >240 mg/dL High Risk Glucose [Mass/Vol] 104 mg/dL 74-106 [facility] Comment on above: Fasting Glucose resu lt from 100 to 125 mg/dL suggests IMPAIRED HOMEOSTASIS per A.D.A. criteria. Potassium [Moles/Vol] 3.7 mmol/L 3.5-5.1 [facility] Protein [Mass/Vol] 8.1 g/dL 6.4-8.2 [facility] Sodium [Moles/Vol] 140 mmol/L 136-145 [facility] Triglyceride [Mass/Vol] 108 mg/dL <199 [facility] Comment on above: The drugs N-Acetylcy steine and Metamizole may falsely depress this assay.Serum Triglycerides Reference Interval Normal <150 mg/dL Borderline high 150 - 199 mg/dL High 200 - 499 mg/dL Very High > or = 500 mg/dL Laboratory - Chemistry and C hemistry - challengeOrdered By: HEALTH ASSESSMENT on 03-18-2022 ALP [Catalytic activity/Vol] 65 U/L 45-117 [facility] ALT [Catalytic activity/Vol] 33 U/L 13-56 [facility] CO2 [Moles/Vol] 27.0 mmol/L 21.0-32.0 [facility] Globulin (S) [Mass/Vol] 4.2 g/dL 2.2-4.2 [facility] Urea nitrogen/Creatinine [Mass ratio] 19.3 mg/mg 10-20 [facility] No Panel InformationOrdered By: HEALTH ASSESSMENT on 03-18-2022 Estimated GFR (MDRD) Amer 96 mL/min >60 [facility] Comment on above: GFR Calc Estimated GFR (MDRD) Non-Af Amer 80 mL/min >60 [facility] Comment on above: Non- GFR Calc Serum or plasma albumin mayela urement (mass/volume)Ordered By: HEALTH ASSESSMENT on 03-18-2022 Albumin [Mass/Vol] 3.9 g/dL 3.2-5.0 [facility] Serum or plasma albumin/glob ulin mass ratioOrdered By: HEALTH ASSESSMENT on 03-18-2022 Albumin/Globulin [Mass ratio] 0.9 {ratio} 0.9-2.4 [facility] Serum or plasma calcium mayela urement (mass/volume)Ordered By: HEALTH ASSESSMENT on 03-18-2022 Calcium [Mass/Vol] 9.6 mg/dL 8.5-10.1 [facility] Serum or plasma cholesterol in HDL measurement (mass/volume)Ordered By: HEALTH ASSESSMENT on 03-18-2022 Cholesterol in HDL [Mass/Vol] 62 mg/dL >40 [facility] Comment on above: The drugs N-Acetylcy steine and Metamizole may falsely depress this assay. Reference Range HDL <40 mg/dL Low HDL Cholesterol HDL >or= 60 mg/dL High HDL Cholesterol Serum or plasma cholesterol in VLDL measurement (mass/volume)Ordered By: HEALTH ASSESSMENT on 03-18-2022 Cholesterol in VLDL [Mass/Vol] 22 mg/dL 5-40 [facility] Serum or plasma creatinine m easurement (mass/volume)Ordered By: HEALTH ASSESSMENT on 03-18-2022 Creatinine [Mass/Vol] 0.78 mg/dL 0.55-1.02 [facility] Comment on above: The validity of the calculated GFR & GFRAA in patients over 70 years has not been determined. Clinical correlation is essential. Serum or plasma low density lipoprotein (LDL) cholesterol measurement (mass/volume)Ordered By: HEALTH ASSESSMENT on 03-18-2022 Cholesterol in LDL [Mass/Vol] 87 mg/dL 0-130 [facility] Serum or plasma nicotine sean surement (mass/volume)Ordered By: HEALTH ASSESSMENT on 03-18-2022 Nicotine [Mass/Vol] <1.0 ug/mL . [facility] Comment on above: This test was develo ped and its performance characteristicsdetermined by [employer]. It has not been cleared orapproved by the Food and Drug Administration.Nicotine levels greater than 2.0 are consistent with theuse of tobacco or tobacco cessation products. Serum or plasma urea nitroge n measurement (mass/volume)Ordered By: HEALTH ASSESSMENT on 03-18-2022 Urea nitrogen [Mass/Vol] 15 mg/dL 7-18 [facility] Thin prep Papanicolaou smear with manual screeningOrdered By: HEALTH ASSESSMENT on 03-18-2022 Thin prep Papanicolaou smear with manual screening 17 U/L 15-37 [facility] Thin prep Papanicolaou smear with manual screening 11 5-15 [facility] Thin prep Papanicolaou smear with manual screening <1.0 ug/mL . [facility] Comment on above: This test was develo ped and its performance characteristicsdetermined by [facility]. It has not been cleared orapproved by the Food and Drug Administration.Cotinine levels greater than 20.0 are consistent with theuse of tobacco or tobacco cessation products.Performed at: [address] [id number] Director: John Paul Cesar MD, Phone: [phone] Absolute lymphocyte countOrd ered By: Dr. Ovalles on 03-17-2022 Lymphocytes Auto (Unsp spec) [#/Vol] 3.46 10*3/uL 0.83-4.51 [facility] Basophil percentageOrdered B y: Dr. Ovalles on 03-17-2022 Basophils/100 WBC (Bld) 0.6 % 0-1 [facility] Bilirubin [Mass/Vol] 0.40 mg/dL 0.20-1.00 [facility] Comment on above: For patients on eltr ombopag therapy, use of Dimension [place] TBIL is not recommended. Chloride [Moles/Vol] 98 mmol/L 98-107 [facility] Eosinophils/100 WBC (Bld) 1.7 % 0-5 [facility] Glucose [Mass/Vol] 98 mg/dL 74-106 [facility] Neutrophils (Bld) [#/Vol] 5.2 10*3/uL 2.0-7.7 [facility] Neutrophils/100 WBC (Bld) 55.1 % 47-70 [facility] Potassium [Moles/Vol] 4.0 mmol/L 3.5-5.1 [facility] Protein [Mass/Vol] 8.4 g/dL 6.4-8.2 [facility] Sodium [Moles/Vol] 136 mmol/L 136-145 [facility] WBC (Bld) [#/Vol] 9.4 10*3/uL 4.4-11.0 [facility] Blood erythrocytes count (nu mber/volume)Ordered By: Dr. Ovalles on 03-17-2022 RBC (Bld) [#/Vol] 4.25 10*6/uL 4.2-5.4 [facility] Blood hemoglobin measurement (mass/volume)Ordered By: Dr. Ovalles on 03-17-2022 Hemoglobin (Bld) [Mass/Vol] 13.5 g/dL 12.0-15.0 [facility] Blood lymphocytes/100 leukoc ytesOrdered By: Dr. Ovalles on 03-17-2022 Lymphocytes/100 WBC (Bld) 36.9 % 19-41 [facility] Blood monocytes/100 leukocyt esOrdered By: Dr. Ovalles on 03-17-2022 Monocytes/100 WBC (Bld) 5.5 % 0-10 [facility] Blood platelet mean volumeOr dered By: Dr. Ovalles on 03-17-2022 Platelet mean volume (Bld) [Entitic vol] 10.1 fL 6.2-12.0 [facility] CNPNon 03-17-2022 BRITTNEY Telephone (BENIGNOIAYumiko) DIANNE HOYT ([id number]) 1960 F Date Time Provider Department 03/17/22 DIMITRI FAYE During your visit today, we recorded the following information about you: Asael Arellano LPN 03/17/2022 4:02 PM Signed Message left for patient to phone office at earliest convenience Asael Arellano LPN March 17, 2022 4:01 PM Asael Arellano LPN 03/18/2022 2:10 PM Signed Patient notified of results of lesion being benign. Patient verbalized understanding, thanked this nurse for information Asael Arellano LPN March 18, 2022 2:10 PM Allergies As of Date: 03/17/2022 (No Known Allergies) Date Reviewed: 01/27/2022 Reviewed by: Asael Arellano LPN - Fully Assessed Reason for Visit: Results [95] Prescriptions as of 03/18/2022 - metoprolol succinate ER (TOPROL XL) 50 mg 24 hr tablet TAKE 1 TABLET BY MOUTH EVERY DAY DIRECTED - losartan (COZAAR) 100 mg tablet TAKE 1/2 TABLET EVERY DAY DIRECTED - metFORMIN ER (GLUCOPHAGE XR) 500 mg 24 hr tablet Take 1 tablet by mouth once daily. - desvenlafaxine ER (PRISTIQ) 100 mg 24 hr tablet TAKE 1 TABLET BY MOUTH EVERY DAY - spironolactone (ALDACTONE) 50 mg tablet TAKE 1 TABLET BY MOUTH EVERY DAY - buPROPion XL (WELLBUTRIN XL) 150 mg 24 hr tablet TAKE 1 TABLET BY MOUTH EVERY DAY - amLODIPine (NORVASC) 10 mg tablet Take 1 tablet by mouth once daily. - folic acid 1 mg tablet Take 2 mg by mouth once daily. - gabapentin (NEURONTIN) 100 mg capsule Take 100 mg by mouth three times daily. - LORazepam (ATIVAN) 0.5 mg Take 0.5 mg by mouth daily at bedtime. - methotrexate 2.5 mg tablet TAKE 6 TABLET(S) BY MOUTH ONCE A WEEK - indapamide (LOZOL) 1.25 mg tablet TAKE 1 TABLET BY MOUTH EVERY DAY IN THE MORNING Problem List As Of Date 03/17/2022 Noted Resolved Unspecified essential hypertension [I10] 06/16/2011 Presence of right artificial knee joint [Z96.65*10/29/2017 Encounter Status:Closed by ASAEL ARELLANO on 03/18/22 [facility] Determination of erythrocyte mean corpuscular volume (MCV)Ordered By: Dr. Ovalles on 03-17-2022 MCV (RBC) [Entitic vol] 99.1 fL 81-99 [facility] Hematocrit Auto (Bld) [Volum e fraction]Ordered By: Dr. Ovalles on 03-17-2022 Hematocrit (Bld) [Volume fraction] 42.1 % 37-47 [facility] Laboratory - Chemistry and C hemistry - challengeOrdered By: Dr. Ovalles on 03-17-2022 ALP [Catalytic activity/Vol] 65 U/L 45-117 [facility] ALT [Catalytic activity/Vol] 37 U/L 13-56 [facility] CO2 [Moles/Vol] 27.0 mmol/L 21.0-32.0 [facility] Globulin (S) [Mass/Vol] 4.4 g/dL 2.2-4.2 [facility] Urea nitrogen/Creatinine [Mass ratio] 18.4 mg/mg 10-20 [facility] Laboratory - Hematology and Cell countsOrdered By: Dr. Ovalles on 03-17-2022 Erythrocyte distribution width (RBC) [Entitic vol] 47.3 fL 35.1-43.9 [facility] Erythrocyte distribution width (RBC) [Ratio] 13.2 % 11.6-14.6 [facility] Immature granulocytes/100 WBC (Bld) 0.200 % 0.0-0.9 [facility] Comment on above: IG% - Immature Granu locytes (promyelocytes, myelocytes and metamyelocytes) > 1% indicates that a LEFT SHIFT is Present. MCH (RBC) [Entitic mass] 31.8 pg 27.0-32.0 [facility] Nucleated RBC/100 WBC (Bld) [Ratio] 0 % 0-5 [facility] MCHC Auto (RBC) [Mass/Vol]Or dered By: Dr. Ovalles on 03-17-2022 MCHC (RBC) [Mass/Vol] 32.1 g/dL 32-36 [facility] No Panel InformationOrdered By: Dr. Ovalles on 03-17-2022 Estimated GFR (MDRD) Amer 84 mL/min >60 [facility] Comment on above: GFR Calc Estimated GFR (MDRD) Non-Af Amer 70 mL/min >60 [facility] Comment on above: Non- GFR Calc Platelets bldOrdered By: Dr. Ovalles on 03-17-2022 Platelets (Bld) [#/Vol] 353 10*3/uL 150-450 [facility] Serum or plasma albumin mayela urement (mass/volume)Ordered By: Dr. Ovalles on 03-17-2022 Albumin [Mass/Vol] 4.0 g/dL 3.2-5.0 [facility] Serum or plasma albumin/glob ulin mass ratioOrdered By: Dr. Ovalles on 03-17-2022 Albumin/Globulin [Mass ratio] 0.9 {ratio} 0.9-2.4 [facility] Serum or plasma calcium mayela urement (mass/volume)Ordered By: Dr. Ovalles on 03-17-2022 Calcium [Mass/Vol] 9.7 mg/dL 8.5-10.1 [facility] Serum or plasma creatinine m easurement (mass/volume)Ordered By: Dr. Ovalles on 03-17-2022 Creatinine [Mass/Vol] 0.87 mg/dL 0.55-1.02 [facility] Comment on above: The validity of the calculated GFR & GFRAA in patients over 70 years has not been determined. Clinical correlation is essential. Serum or plasma urea nitroge n measurement (mass/volume)Ordered By: Dr. Ovalles on 03-17-2022 Urea nitrogen [Mass/Vol] 16 mg/dL 7-18 [facility] Thin prep Papanicolaou smear with manual screeningOrdered By: Dr. Ovalles on 03-17-2022 Thin prep Papanicolaou smear with manual screening 18 U/L 15-37 [facility] Thin prep Papanicolaou smear with manual screening 11 5-15 [facility] CNOVon 01-27-2022 CNOV Office Visit (BENIGNOMAS ) DIANNE HOYT ([id number]) 1960 F Date Time Provider Department 01/27/22 11:10 AM DIMITRI FAYE During your visit today, we recorded the following information about you: Asael Arellano LPN 01/27/2022 2:28 PM Signed Patient is having telephone visit today to discuss lab results. No other complaints or concerns at this time. Patient stated she has gained unintentional weight of about 15 lbs in the last 6 months. Asael Arellano LPN January 27, 2022 11:08 AM Dimitri Faye MD 01/27/2022 2:28 PM Signed This note was created using [employer]. Subjective Dianne Hoyt is a 61 year [...] Neurological: Negative. Hematological: Negative. Psychiatric/Behavioral: Negative. Objective LMP 01/23/2007 Assessment and Plan Dianne was seen today for follow up. 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 Begin metformin. Improve diabetic diet. Improve weight. Increase exercise. 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 - desvenlafaxine ER (PRISTIQ) 100 mg 24 hr tablet TAKE 1 TABLET BY MOUTH EVERY DAY - spironolactone (ALDACTONE) 50 mg tablet TAKE 1 TABLET BY MOUTH EVERY DAY - buPROPion XL (WELLBUTRIN XL) 150 mg 24 hr tablet TAKE 1 TABLET BY MOUTH EVERY DAY - amLODIPine (NORVASC) 10 mg tablet Take 1 tablet by mouth once daily. - folic acid 1 mg tablet Take 2 mg by mouth once daily. - gabapentin (NEURONTIN) 100 mg capsule Take 100 mg by mouth three times daily. - LORazepam (ATIVAN) 0.5 mg Take 0.5 mg by mouth daily at bedtime. - losartan (COZAAR) 100 mg tablet TAKE 1/2 TABLET EVERY DAY DIRECTED - methotrexate 2.5 mg tablet TAKE 6 TABLET(S) BY MOUTH ONCE A WEEK - metoprolol succinate ER (TOPROL XL) 50 mg 24 hr tablet Take 50 mg by mouth once daily. - indapamide (LOZOL) 1.25 mg tablet TAKE 1 TABLET BY MOUTH EVERY DAY IN THE MORNING Problem List As Of Date 01/27/2022 Noted Resolved Unspecified essential hypertension [I10] 06/16/2011 Presence of right artificial knee joint [Z96.65*10/29/2017 Prescriptions ordered this encounter Disp Refills Start End METFORMIN ER 500 MG TABLET,EXTENDED * 90 t* 3 01/27/2022 01/27/2023 Route: ORAL Sig: Take 1 tablet by mouth once daily. Level of Service: OFFICE/OUTPATIENT ESTABLISHED LOW [facility] 20-29 MIN [00043] Encounter Status:Closed by DIMITRI FAYE on 01/27/22 [facility] [place] 01-17-2022 BRITTNEY Telephone ([employer]) DIANNE HOYT ([id number]) 1960 F Date Time Provider Department 01/17/22 DIMITRI FAYE During your visit today, we recorded the following information about you: Asael Arellano LPN 01/17/2022 2:14 PM Signed This nurse phoned [employer]. They stated that patient needs to schedule MRI and within 10 days it will be authorized by insurance. This nurse informed patient of information. Patient verbalized understanding Asael Arellano LPN January 17, 2022 2:12 PM Allergies As of Date: 01/17/2022 (No Known Allergies) Date Reviewed: 11/20/2021 Reviewed by: Mandi Salas APRN.[employer] - Fully Assessed Reason for Visit: Patient Update [1234] Prescriptions as of 01/24/2022 - desvenlafaxine ER (PRISTIQ) 100 mg 24 hr tablet TAKE 1 TABLET BY MOUTH EVERY DAY - spironolactone (ALDACTONE) 50 mg tablet TAKE 1 TABLET BY MOUTH EVERY DAY - buPROPion XL (WELLBUTRIN XL) 150 mg 24 hr tablet TAKE 1 TABLET BY MOUTH EVERY DAY - amLODIPine (NORVASC) 10 mg tablet Take 1 tablet by mouth once daily. - folic acid 1 mg tablet Take 2 mg by mouth once daily. - gabapentin (NEURONTIN) 100 mg capsule Take 100 mg by mouth three times daily. - LORazepam (ATIVAN) 0.5 mg Take 0.5 mg by mouth daily at bedtime. - losartan (COZAAR) 100 mg tablet TAKE 1/2 TABLET EVERY DAY DIRECTED - methotrexate 2.5 mg tablet TAKE 6 TABLET(S) BY MOUTH ONCE A WEEK - metoprolol succinate ER (TOPROL XL) 50 mg 24 hr tablet Take 50 mg by mouth once daily. - indapamide (LOZOL) 1.25 mg tablet TAKE 1 TABLET BY MOUTH EVERY DAY IN THE MORNING Problem List As Of Date 01/17/2022 Noted Resolved Unspecified essential hypertension [I10] 06/16/2011 Presence of right artificial knee joint [Z96.65*10/29/2017 Encounter Status:Closed by ASAEL ARELLANO on 01/17/22 [facility] Absolute lymphocyte countOrd ered By: Dr. Ovalles on 01-14-2022 Lymphocytes Auto (Unsp spec) [#/Vol] 3.60 10*3/uL 0.83-4.51 [facility] Basophil percentageOrdered B y: Dr. Ovalles on 01-14-2022 Basophils/100 WBC (Bld) 0.6 % 0-1 [facility] Bilirubin [Mass/Vol] 0.30 mg/dL 0.20-1.00 [facility] Comment on above: For patients on eltr ombopag therapy, use of Dimension [place] TBIL is not recommended. Chloride [Moles/Vol] 98 mmol/L 98-107 [facility] Eosinophils/100 WBC (Bld) 1.5 % 0-5 [facility] Glucose [Mass/Vol] 114 mg/dL 74-106 [facility] Comment on above: Fasting Glucose resu lt from 100 to 125 mg/dL suggests IMPAIRED HOMEOSTASIS per A.D.A. criteria. Neutrophils (Bld) [#/Vol] 5.4 10*3/uL 2.0-7.7 [facility] Neutrophils/100 WBC (Bld) 54.5 % 47-70 [facility] Potassium [Moles/Vol] 4.3 mmol/L 3.5-5.1 [facility] Protein [Mass/Vol] 7.4 g/dL 6.4-8.2 [facility] Sodium [Moles/Vol] 136 mmol/L 136-145 [facility] WBC (Bld) [#/Vol] 9.9 10*3/uL 4.4-11.0 [facility] Blood erythrocytes count (nu mber/volume)Ordered By: Dr. Ovalles on 01-14-2022 RBC (Bld) [#/Vol] 4.04 10*6/uL 4.2-5.4 [facility] Blood hemoglobin measurement (mass/volume)Ordered By: Dr. Ovalles on 01-14-2022 Hemoglobin (Bld) [Mass/Vol] 13.1 g/dL 12.0-15.0 [facility] Blood lymphocytes/100 leukoc ytesOrdered By: Dr. Ovalles on 01-14-2022 Lymphocytes/100 WBC (Bld) 36.5 % 19-41 [facility] Blood monocytes/100 leukocyt esOrdered By: Dr. Ovalles on 01-14-2022 Monocytes/100 WBC (Bld) 6.7 % 0-10 [facility] Blood platelet mean volumeOr dered By: Dr. Ovalles on 01-14-2022 Platelet mean volume (Bld) [Entitic vol] 10.1 fL 6.2-12.0 [facility] Determination of erythrocyte mean corpuscular volume (MCV)Ordered By: Dr. Ovalles on 01-14-2022 MCV (RBC) [Entitic vol] 98.8 fL 81-99 [facility] Hematocrit Auto (Bld) [Volum e fraction]Ordered By: Dr. Ovalles on 01-14-2022 Hematocrit (Bld) [Volume fraction] 39.9 % 37-47 [facility] Laboratory - Chemistry and C hemistry - challengeOrdered By: Dr. Ovalles on 01-14-2022 ALP [Catalytic activity/Vol] 62 U/L 45-117 [facility] ALT [Catalytic activity/Vol] 35 U/L 13-56 [facility] CO2 [Moles/Vol] 30.0 mmol/L 21.0-32.0 [facility] Globulin (S) [Mass/Vol] 3.5 g/dL 2.2-4.2 [facility] Urea nitrogen/Creatinine [Mass ratio] 24.6 mg/mg 10-20 [facility] Laboratory - Hematology and Cell countsOrdered By: Dr. Ovalles on 01-14-2022 Erythrocyte distribution width (RBC) [Entitic vol] 46.1 fL 35.1-43.9 [facility] Erythrocyte distribution width (RBC) [Ratio] 12.7 % 11.6-14.6 [facility] Immature granulocytes/100 WBC (Bld) 0.200 % 0.0-0.9 [facility] Comment on above: IG% - Immature Granu locytes (promyelocytes, myelocytes and metamyelocytes) > 1% indicates that a LEFT SHIFT is Present. MCH (RBC) [Entitic mass] 32.4 pg 27.0-32.0 [facility] Nucleated RBC/100 WBC (Bld) [Ratio] 0 % 0-5 [facility] MCHC Auto (RBC) [Mass/Vol]Or dered By: Dr. Ovalles on 01-14-2022 MCHC (RBC) [Mass/Vol] 32.8 g/dL 32-36 [facility] No Panel InformationOrdered By: Dr. Ovalles on 01-14-2022 Estimated GFR (MDRD) Amer 92 mL/min >60 [facility] Comment on above: GFR Calc Estimated GFR (MDRD) Non-Af Amer 76 mL/min >60 [facility] Comment on above: Non- GFR Calc Platelets bldOrdered By: Dr. Ovalles on 01-14-2022 Platelets (Bld) [#/Vol] 320 10*3/uL 150-450 [facility] Serum or plasma albumin mayela urement (mass/volume)Ordered By: Dr. Ovalles on 01-14-2022 Albumin [Mass/Vol] 3.9 g/dL 3.2-5.0 [facility] Serum or plasma albumin/glob ulin mass ratioOrdered By: Dr. Ovalles on 01-14-2022 Albumin/Globulin [Mass ratio] 1.1 {ratio} 0.9-2.4 [facility] Serum or plasma calcium mayela urement (mass/volume)Ordered By: Dr. Ovalles on 01-14-2022 Calcium [Mass/Vol] 9.3 mg/dL 8.5-10.1 [facility] Serum or plasma creatinine m easurement (mass/volume)Ordered By: Dr. Ovalles on 01-14-2022 Creatinine [Mass/Vol] 0.81 mg/dL 0.55-1.02 [facility] Comment on above: The validity of the calculated GFR & GFRAA in patients over 70 years has not been determined. Clinical correlation is essential. Serum or plasma urea nitroge n measurement (mass/volume)Ordered By: Dr. Ovalles on 01-14-2022 Urea nitrogen [Mass/Vol] 20 mg/dL 7-18 [facility] Thin prep Papanicolaou smear with manual screeningOrdered By: Dr. Ovalles on 01-14-2022 Thin prep Papanicolaou smear with manual screening 12 U/L 15-37 [facility] Thin prep Papanicolaou smear with manual screening 8 5-15 [facility] DI[facility] ([id number]) 1960 F Date Time Provider Department 11/25/21 DIMITRI FAYE During your visit today, we recorded the following information about you: Asael Arellano LPN 11/25/2021 12:12 PM Signed ----- Message from Dimitri Faye MD sent at 11/24/2021 9:24 PM EDT ----- Schedule virtual visit. A1c elevated Asael Arellano LPN 11/25/2021 12:13 PM Signed Message left for patient to call office Asael Arellano LPN November 25, 2021 12:13 PM Asael Arellano LPN 11/25/2021 4:39 PM Signed Patient notified of needing a visit Asael Arellano LPN November 25, 2021 4:39 PM Allergies As of Date: 11/25/2021 (No Known Allergies) Date Reviewed: 11/20/2021 Reviewed by: Mandi Salas APRN.[employer] - Fully Assessed Reason for Visit: Results [95] Prescriptions as of 11/25/2021 - amLODIPine (NORVASC) 10 mg tablet Take 1 tablet by mouth once daily. - buPROPion XL (WELLBUTRIN XL) 150 mg 24 hr tablet Take 1 tablet by mouth once daily. - desvenlafaxine ER (PRISTIQ) 100 mg 24 hr tablet Take 100 mg by mouth once daily. - folic acid 1 mg tablet Take 2 mg by mouth once daily. - gabapentin (NEURONTIN) 100 mg capsule Take 100 mg by mouth three times daily. - LORazepam (ATIVAN) 0.5 mg Take 0.5 mg by mouth daily at bedtime. - losartan (COZAAR) 100 mg tablet TAKE 1/2 TABLET EVERY DAY DIRECTED - methotrexate 2.5 mg tablet TAKE 6 TABLET(S) BY MOUTH ONCE A WEEK - metoprolol succinate ER (TOPROL XL) 50 mg 24 hr tablet Take 50 mg by mouth once daily. - spironolactone (ALDACTONE) 50 mg tablet Take 50 mg by mouth once daily. - indapamide (LOZOL) 1.25 mg tablet TAKE 1 TABLET BY MOUTH EVERY DAY IN THE MORNING Problem List As Of Date 11/25/2021 Noted Resolved Unspecified essential hypertension [I10] 06/16/2011 Presence of right artificial knee joint [Z96.65*10/29/2017 Encounter Status:Closed by ASAEL ARELLANO on 11/25/21 [facility] [place] 11-19-2021 [place] Telephone (FAMPLA) DIANNE HOYT ([id number]) 1960 F Date Time Provider Department 11/19/21 DIMITRI FAYE During your visit today, we recorded the following information about you: Asael Arellano LPN 11/19/2021 3:01 PM Signed This nurse phoned patients insurance in regards to the process for a prior authorization for patient to obtain her MRI. per insurance. Patient office note to be sent and information for test to [phone]. If more assistance call: [phone] Group [id number] Asael Arellano LPN November 19, 2021 3:00 PM Asael Arellano LPN 12/12/2021 11:49 AM Signed This nurse phoned insurance in regards to open case. CT results showed renal mass, patient was ordered MRI Kidney without IV Con, which insurance will not cover advised to order CPT Code 83639 MRI of abdomen with pictures before and after dye usage. (MRI Abdomen WO/W IV Contrast) Message left for patient to phone office at earliest convenience Asael Arellano LPN December 12, 2021 11:48 AM Jacqueline Palacio APRN.SHOSHANA 12/12/2021 1:08 PM Signed Correct order entered. Patient to call [phone] to schedule Jacqueline Palacio APRN.SHOSHANA 12/12/2021 1:08 PM Signed Addended by: JACQUELINE PALACIO on: 12/12/2021 01:08 PM Modules accepted: Orders Asael Arellano LPN 12/12/2021 1:36 PM Signed Call out of patient to phone office Asael Arellano LPN December 12, 2021 1:36 PM Asael Arellano LPN 12/13/2021 12:01 PM Signed Patient notified of information Asael Arellano LPN December 13, 2021 12:01 PM Allergies As of Date: 11/19/2021 (No Known Allergies) Date Reviewed: 10/29/2020 Reviewed by: Mandi Salas APRN.[employer] - Fully Assessed Reason for Visit: Patient Update [1234] Primary Visit Diagnosis:Other specified disorders of kidney and ureter [N28.89] Order(s):MRI ABDOMEN WO/W IVCON [[id number]] Order #: [id number] FUTURE iv contrast (will be provided with radiology test)MRI ABDOMEN Inject, intravenously, once for 1 dose. No IV access, insert saline lock prior to the beginning of sedation, infusion, injection of imaging exam. Discontinue saline lock post exam. If Pt. has a central line or IVAD, may access for administration according to line specific nursing protocol. Once exam is complete flush line and de-access according to line specific nursing protocol in the MR contrast administration guidelines link.Disp: 1 EachRfl: 0 Prescriptions as of 12/13/2021 - iv contrast (will be provided with radiology test) MRI ABDOMEN Inject, intravenously, once for 1 dose. No IV access, insert saline lock prior to the beginning of sedation, infusion, injection of imaging exam. Discontinue saline lock post exam. If Pt. has a central line or IVAD, may access for administration according to line specific nursing protocol. Once exam is complete flush line and de-access according to line specific nursing protocol in the MR contrast administration guidelines link. - spironolactone (ALDACTONE) 50 mg tablet TAKE 1 TABLET BY MOUTH EVERY DAY - buPROPion XL (WELLBUTRIN XL) 150 mg 24 hr tablet TAKE 1 TABLET BY MOUTH EVERY DAY - amLODIPine (NORVASC) 10 mg tablet Take 1 tablet by mouth once daily. - desvenlafaxine ER (PRISTIQ) 100 mg 24 hr tablet Take 100 mg by mouth once daily. - folic acid 1 mg tablet Take 2 mg by mouth once daily. - gabapentin (NEURONTIN) 100 mg capsule Take 100 mg by mouth three times daily. - LORazepam (ATIVAN) 0.5 mg Take 0.5 mg by mouth daily at bedtime. - losartan (COZAAR) 100 mg tablet TAKE 1/2 TABLET EVERY DAY DIRECTED - methotrexate 2.5 mg tablet TAKE 6 TABLET(S) BY MOUTH ONCE A WEEK - metoprolol succinate ER (TOPROL XL) 50 mg 24 hr tablet Take 50 mg by mouth once daily. - indapamide (LOZOL) 1.25 mg tablet TAKE 1 TABLET BY MOUTH EVERY DAY IN THE MORNING Problem List As Of Date 11/19/2021 Noted Resolved Unspecified essential hypertension [I10] 06/16/2011 Presence of right artificial knee joint [Z96.65*10/29/2017 Prescriptions ordered this encounter Disp Refills Start End IV CONTRAST (RADIOLOGY PROCEDURE) 1 Ea* 0 12/12/2021 12/13/2021 Class: In Office Sig: MRI ABDOMEN Inject, intravenously, once for 1 dose. No IV access, insert saline lock prior to the beginning of sedation, infusion, injection of imaging exam. Discontinue saline lock post exam. If Pt. has a central line or IVAD, may access for administration according to line specific nursing protocol. Once exam is complete flush line and de-access according to line specific nursing protocol in the MR contrast administration guidelines link. Encounter Status:Closed by ASAEL ARELLANO on 11/19/21 [facility] [place] 11-18-2021 [place] Telephone ([employer]) DIANNE HOYT ([id number]) 1960 F Date Time Provider Department 11/18/21 DIMITRI FAYE [employer] During your visit today, we recorded the following information about you: Allergies As of Date: 11/18/2021 (No Known Allergies) Date Reviewed: 10/29/2020 Reviewed by: Mandi Salas APRN.[facility] - Fully Assessed Reason for Visit: Results [95] Primary Visit Diagnosis:Hyperglycemia [R73.9] Order(s):HGB A1C [QRLDE6Z] Order #: [id number] FUTURE Prescriptions as of 11/18/2021 - amLODIPine (NORVASC) 10 mg tablet Take 1 tablet by mouth once daily. - buPROPion XL (WELLBUTRIN XL) 150 mg 24 hr tablet Take 1 tablet by mouth once daily. - desvenlafaxine ER (PRISTIQ) 100 mg 24 hr tablet Take 100 mg by mouth once daily. - folic acid 1 mg tablet Take 2 mg by mouth once daily. - gabapentin (NEURONTIN) 100 mg capsule Take 100 mg by mouth three times daily. - LORazepam (ATIVAN) 0.5 mg Take 0.5 mg by mouth daily at bedtime. - losartan (COZAAR) 100 mg tablet TAKE 1/2 TABLET EVERY DAY DIRECTED - meloxicam (MOBIC) 15 mg tablet Take 15 mg by mouth once daily as needed. - methotrexate 2.5 mg tablet TAKE 6 TABLET(S) BY MOUTH ONCE A WEEK - metoprolol succinate ER (TOPROL XL) 50 mg 24 hr tablet Take 50 mg by mouth once daily. - spironolactone (ALDACTONE) 50 mg tablet Take 50 mg by mouth once daily. - indapamide (LOZOL) 1.25 mg tablet TAKE 1 TABLET BY MOUTH EVERY DAY IN THE MORNING - amLODIPine-Atorvastatin 10-10 mg per tablet Take 1 tablet by mouth once daily. - losartan-hydroCHLOROthiazid e (HYZAAR) 50-12.5 mg per tablet Take 1 tablet by mouth once daily. Problem List As Of Date 11/18/2021 Noted Resolved Unspecified essential hypertension [I10] 06/16/2011 Presence of right artificial knee joint [Z96.65*10/29/2017 Encounter Status:Closed by DIMITRI FAYE on 11/18/21 [facility] [place] Telephone (SEVEN) DIANNE HOYT ([id number]) 1960 F Date Time Provider Department 11/18/21 DIMITRI FAYE During your visit today, we recorded the following information about you: Alice Portillo LPN 11/18/2021 11:47 AM Signed ----- Message from Dimitri Faye MD sent at 11/18/2021 8:50 AM EDT ----- Sugar elevated. Check a1c Alice Portillo LPN 11/18/2021 11:50 AM Signed Notified pt of elevated glucose and to have her A1C checked. The order is available to [facility] lab She stated she will go in a couple of days. Alice Portillo LPN Allergies As of Date: 11/18/2021 (No Known Allergies) Date Reviewed: 10/29/2020 Reviewed by: Mandi Salas APRN.[employer] - Fully Assessed Reason for Visit: Results [95] Prescriptions as of 11/18/2021 - amLODIPine (NORVASC) 10 mg tablet Take 1 tablet by mouth once daily. - buPROPion XL (WELLBUTRIN XL) 150 mg 24 hr tablet Take 1 tablet by mouth once daily. - desvenlafaxine ER (PRISTIQ) 100 mg 24 hr tablet Take 100 mg by mouth once daily. - folic acid 1 mg tablet Take 2 mg by mouth once daily. - gabapentin (NEURONTIN) 100 mg capsule Take 100 mg by mouth three times daily. - LORazepam (ATIVAN) 0.5 mg Take 0.5 mg by mouth daily at bedtime. - losartan (COZAAR) 100 mg tablet TAKE 1/2 TABLET EVERY DAY DIRECTED - meloxicam (MOBIC) 15 mg tablet Take 15 mg by mouth once daily as needed. - methotrexate 2.5 mg tablet TAKE 6 TABLET(S) BY MOUTH ONCE A WEEK - metoprolol succinate ER (TOPROL XL) 50 mg 24 hr tablet Take 50 mg by mouth once daily. - spironolactone (ALDACTONE) 50 mg tablet Take 50 mg by mouth once daily. - indapamide (LOZOL) 1.25 mg tablet TAKE 1 TABLET BY MOUTH EVERY DAY IN THE MORNING - amLODIPine-Atorvastatin 10-10 mg per tablet Take 1 tablet by mouth once daily. - losartan-hydroCHLOROthiazid e (HYZAAR) 50-12.5 mg per tablet Take 1 tablet by mouth once daily. Problem List As Of Date 11/18/2021 Noted Resolved Unspecified essential hypertension [I10] 06/16/2011 Presence of right artificial knee joint [Z96.65*10/29/2017 Encounter Status:Closed by ALICE PORTILLO on 11/18/21 [facility]OVon 11-12-2021 CNOV Office Visit (FAMPLA ) DIANNE HOYT ([id number]) 1960 F Date Time Provider Department 11/12/21 3:30 PM DIMITRI FAYE During your visit today, we recorded the following information about you: Temperature Pulse Respiration Blood pressure 97.8 degrees 68/minute 14/minute 138/76 Weight Height 127 kg 1.702 m Alice Portillo LPN 11/12/2021 4:22 PM Signed Admin Fluad inj [facility] [id number] Lot: [id number] Exp 06/26/2022 Left deltoid Pt tolerated well Alice Portillo LPN Unable to document in Epic Dimitri Faye MD 11/12/2021 4:22 PM Signed This note was created using [employer]. Subjective Dianne Hoyt is a 61 year [...] (Temporal) Resp 14 Ht 170.2 cm (5' 7) Wt 127 kg (280 lb) LMP 01/23/2007 [...] mouth once daily. - flu vac 2021 [id number],PF, 60 mcg (15 mcg x 4)/0.5 mL syrg; Inject 0.5 mL intramuscularly one time only for 1 dose. Wean off of Wellbutrin. Weaning instructions explained to the patient. Labs as above. Patient is to schedule MRI of her kidney as previously requested Referring Provider: SELF [200] Allergies As of Date: 11/12/2021 (No Known Allergies) Date Reviewed: 10/29/2020 Reviewed by: Mandi Salas APRN.[employer] - Fully Assessed Reason for Visit: Physical [83] Cmt: Pt has complaints of pain 7/10 in mid upper abd x 1 year Primary Visit Diagnosis:Primary hypertension [I10] Other Visit Diagnoses:Lipid screening [Z13.220] Screening for deficiency anemia [Z13.0] Wellness examination [Z00.00] Order(s):amLODIPine (NORVASC) 10 mg tabletTake 1 tablet by mouth once daily.Disp: 90 tabletRfl: 3 buPROPion XL (WELLBUTRIN XL) 150 mg 24 hr tabletTake 1 tablet by mouth once daily.Disp: 30 tabletRfl: 1 CBC + DIFF [SQCBCDIF] Order #: [id number] FUTURE COMP METABOLIC PANEL [SQCMP] Order #: [id number] FUTURE LIPID PANEL BASIC [SQLIPB] Order #: [id number] FUTURE flu vac 2021 [id number],PF, 60 mcg (15 mcg x 4)/0.5 mL syrgInject 0.5 mL intramuscularly one time only for 1 dose.Disp: 0.5 mLRfl: 0 Prescriptions as of 11/12/2021 - amLODIPine (NORVASC) 10 mg tablet Take 1 tablet by mouth once daily. - buPROPion XL (WELLBUTRIN XL) 150 mg 24 hr tablet Take 1 tablet by mouth once daily. - flu vac 2021 [id number],PF, 60 mcg (15 mcg x 4)/0.5 mL syrg Inject 0.5 mL intramuscularly one time only for 1 dose. - desvenlafaxine ER (PRISTIQ) 100 mg 24 hr tablet Take 100 mg by mouth once daily. - folic acid 1 mg tablet Take 2 mg by mouth once daily. - gabapentin (NEURONTIN) 100 mg capsule Take 100 mg by mouth three times daily. - LORazepam (ATIVAN) 0.5 mg Take 0.5 mg by mouth daily at bedtime. - losartan (COZAAR) 100 mg tablet TAKE 1/2 TABLET EVERY DAY DIRECTED - meloxicam (MOBIC) 15 mg tablet Take 15 mg by mouth once daily as needed. - methotrexate 2.5 mg (more content not included)... Normal [facility] Absolute lymphocyte counton 10-11-2021 Lymphocytes Auto (Unsp spec) [#/Vol] 3.24 10*3/uL 0.83-4.51 [facility] Work Phone: Basophil percentageon 2021 Basophils/100 WBC (Bld) 0.7 % 0-1 [facility] Work Phone: Bilirubin [Mass/Vol] 0.30 mg/dL 0.20-1.00 [facility] Work Phone: Comment on above: For patients on eltr ombopag therapy, use of Dimension [place] TBIL is not recommended. Chloride [Moles/Vol] 100 mmol/L 98-107 [facility] Work Phone: Eosinophils/100 WBC (Bld) 2.5 % 0-5 [facility] Work Phone: Glucose [Mass/Vol] 113 mg/dL 74-106 [facility] Work Phone: Comment on above: Fasting Glucose resu lt from 100 to 125 mg/dL suggests IMPAIRED HOMEOSTASIS per A.D.A. criteria. Neutrophils (Bld) [#/Vol] 4.8 10*3/uL 2.0-7.7 [facility] Work Phone: Neutrophils/100 WBC (Bld) 52.7 % 47-70 [facility] Work Phone: Potassium [Moles/Vol] 4.2 mmol/L 3.5-5.1 [facility] Work Phone: Protein [Mass/Vol] 7.9 g/dL 6.4-8.2 [facility] Work Phone: Sodium [Moles/Vol] 137 mmol/L 136-145 [facility] Work Phone: WBC (Bld) [#/Vol] 9.1 10*3/uL 4.4-11.0 [facility] Work Phone: [phone] Blood erythrocytes count (nu mber/volume)on 10-11-2021 RBC (Bld) [#/Vol] 3.89 10*6/uL 4.2-5.4 [facility] Work Phone: Blood hemoglobin measurement (mass/volume)on 10-11-2021 Hemoglobin (Bld) [Mass/Vol] 12.6 g/dL 12.0-15.0 [facility] Work Phone: Blood lymphocytes/100 leukoc yteson 10-11-2021 Lymphocytes/100 WBC (Bld) 35.6 % 19-41 [facility] Work Phone: Blood monocytes/100 leukocyt eson 10-11-2021 Monocytes/100 WBC (Bld) 7.8 % 0-10 [facility] Work Phone: Blood platelet mean volumeon 10-11-2021 Platelet mean volume (Bld) [Entitic vol] 9.9 fL 6.2-12.0 [facility] Work Phone: Determination of erythrocyte mean corpuscular volume (MCV)on 10-11-2021 MCV (RBC) [Entitic vol] 98.5 fL 81-99 [facility] Work Phone: [phone] Hematocrit Auto (Bld) [Volum e fraction]on 10-11-2021 Hematocrit (Bld) [Volume fraction] 38.3 % 37-47 [facility] Work Phone: [phone] Laboratory - Chemistry and C hemistry - challengeon 10-11-2021 ALP [Catalytic activity/Vol] 62 U/L 45-117 [facility] Work Phone: [phone] ALT [Catalytic activity/Vol] 35 U/L 13-56 [facility] Work Phone: [phone] CO2 [Moles/Vol] 28.0 mmol/L 21.0-32.0 [facility] Work Phone: [phone] Globulin (S) [Mass/Vol] 4.3 g/dL 2.2-4.2 [facility] Work Phone: [phone] Urea nitrogen/Creatinine [Mass ratio] 16.5 mg/mg 10-20 [facility] Work Phone: [phone] Laboratory - Hematology and Cell countson 10-11-2021 Erythrocyte distribution width (RBC) [Entitic vol] 47.2 fL 35.1-43.9 [facility] Work Phone: [phone] Erythrocyte distribution width (RBC) [Ratio] 13.4 % 11.6-14.6 [facility] Work Phone: [phone] Immature granulocytes/100 WBC (Bld) 0.700 % 0.0-0.9 [facility] Work Phone: Comment on above: IG% - Immature Granu locytes (promyelocytes, myelocytes and metamyelocytes) > 1% indicates that a LEFT SHIFT is Present. MCH (RBC) [Entitic mass] 32.4 pg 27.0-32.0 [facility] Work Phone: Nucleated RBC/100 WBC (Bld) [Ratio] 0 % 0-5 [facility] Work Phone: MCHC Auto (RBC) [Mass/Vol]on 10-11-2021 MCHC (RBC) [Mass/Vol] 32.9 g/dL 32-36 [facility] Work Phone: No Panel Informationon 10-11 Estimated GFR (MDRD) Amer 95 mL/min >60 [facility] Work Phone: Comment on above: GFR Calc Estimated GFR (MDRD) Non-Af Amer 78 mL/min >60 [facility] Work Phone: Comment on above: Non- GFR Calc Platelets bldon 10-11-2021 Platelets (Bld) [#/Vol] 400 10*3/uL 150-450 [facility] Work Phone: Serum or plasma albumin mayela urement (mass/volume)on 10-11-2021 Albumin [Mass/Vol] 3.6 g/dL 3.2-5.0 [facility] Work Phone: Serum or plasma albumin/glob ulin mass ratioon 10-11-2021 Albumin/Globulin [Mass ratio] 0.8 {ratio} 0.9-2.4 [facility] Work Phone: Serum or plasma calcium mayela urement (mass/volume)on 10-11-2021 Calcium [Mass/Vol] 9.4 mg/dL 8.5-10.1 [facility] Work Phone: Serum or plasma creatinine m easurement (mass/volume)on 10-11-2021 Creatinine [Mass/Vol] 0.79 mg/dL 0.55-1.02 [facility] Work Phone: Comment on above: The validity of the calculated GFR & GFRAA in patients over 70 years has not been determined. Clinical correlation is essential. Serum or plasma urea nitroge n measurement (mass/volume)on 10-11-2021 Urea nitrogen [Mass/Vol] 13 mg/dL 7-18 [facility] Work Phone: Thin prep Papanicolaou smear with manual screeningon 10-11-2021 Thin prep Papanicolaou smear with manual screening 20 U/L 15-37 [facility] Work Phone: Thin prep Papanicolaou smear with manual screening 9 5-15 [facility] Work Phone: Laboratory - Microbiology an d Antimicrobial susceptibilityon 09-27-2021 SARS-CoV-2 (COVID-19) RNA LOUISA+probe Ql (Unsp spec) Detected [facility] Work Phone: CNPNon 09-17-2021 CNPN Telephone (FAMMAS) DIANNE HOYT ([id number]) 1960 F Date Time Provider Department 09/17/21 DIMITRI FAYE During your visit today, we recorded the following information about you: Asael Arellano LPN 09/17/2021 9:31 AM Signed Patient notified of recommendation for MRI, and status of the renal mass. Would like order sent to [facility] [facility] if applicable Please sign attached order Asael Arellano LPN September 17, 2021 9:30 AM Asael Arellano LPN 09/24/2021 9:24 AM Signed Please sign attached MRI order Asael Arellano LPN September 24, 2021 9:24 AM Allergies As of Date: 09/17/2021 (No Known Allergies) Date Reviewed: 10/29/2020 Reviewed by: Mandi Salas APRN.[facility] - Fully Assessed Reason for Visit: Results [95] Primary Visit Diagnosis:Other specified disorders of kidney and ureter [N28.89] Order(s):MRI [facility] [[id number]] Order #: [id number] Prescriptions as of 09/24/2021 - indapamide (LOZOL) 1.25 mg tablet TAKE 1 TABLET BY MOUTH EVERY DAY IN THE MORNING - sertraline (ZOLOFT) 50 mg tablet Take 150 mg by mouth once daily. - amLODIPine-Atorvastatin 10-10 mg per tablet Take 1 tablet by mouth once daily. - losartan-hydrochlorothiazid e (HYZAAR) 50-12.5 mg per tablet Take 1 tablet by mouth once daily. Problem List As Of Date 09/17/2021 Noted Resolved Unspecified essential hypertension [I10] 06/16/2011 Presence of right artificial knee joint [Z96.65*10/29/2017 Encounter Status:Closed by DIMITRI FAYE on 09/24/21 [facility] [place] 09-10-2021 [place]ITT[place] Telephone (SurgiLight) DIANNE HOYT ([id number]) 1960 F Date Time Provider Department 09/10/21 [facility] During your visit today, we recorded the following information about you: Asael Arellano LPN 09/10/2021 9:44 AM Signed Patient phoned into office questioning CT results. This nurse notified patient we have not received them yet. This nurse informed patient she will pass information to Dr. Faye when received. Thanked nurse for update. Asael Arellano LPN September 10, 2021 9:44 AM Allergies As of Date: 09/10/2021 (No Known Allergies) Date Reviewed: 10/29/2020 Reviewed by: Mandi Salas APRN.[employer] - Fully Assessed Reason for Visit: Results [95] Prescriptions as of 09/10/2021 - indapamide (LOZOL) 1.25 mg tablet TAKE 1 TABLET BY MOUTH EVERY DAY IN THE MORNING - sertraline (ZOLOFT) 50 mg tablet Take 150 mg by mouth once daily. - amLODIPine-Atorvastatin 10-10 mg per tablet Take 1 tablet by mouth once daily. - losartan-hydrochlorothiazid e (HYZAAR) 50-12.5 mg per tablet Take 1 tablet by mouth once daily. Problem List As Of Date 09/10/2021 Noted Resolved Unspecified essential hypertension [I10] 06/16/2011 Presence of right artificial knee joint [Z96.65*10/29/2017 Encounter Status:Closed by ASAEL ARELLANO on 09/10/21 [facility] [address] Abdomen w/ + w/o Contrast on 08-30-2021 CT Abdomen w/ + w/o Contrast Patient Name: DIANNE HOYT Computed Tomography ACCESSION EXAM DATE/TIME PROCEDURE ORDERING PROVIDER [id number] 08/30/2021 09:[address] Abdomen w/ + w/o MD FAYE RAYMOND Contrast GREGORY CPT code 39632 Q9967 Reason For Exam (CT Abdomen w/ + w/o Contrast) abdominal mass Report Examination: CT Abdomen w/ + w/o Contrast Clinical: abdominal mass, renal lesion Comparison: None Findings: Serial axial [address] images obtained through the abdomen after split bolus 75 mL Isovue-370 IV contrast. No oral contrast was administered. Coronal, axial and sagittal images reconstructed. Visualized lower lungs are clear. Small sliding hiatal hernia 2.8 cm. Diffuse fatty infiltration of the liver. No focal lesion. There is some calcification possibly representing a gallstone seen near the gallbladder neck with some peripheral calcification measuring up to 1.9 cm. Alternatively this could represent some gallbladder wall calcification. No gallbladder wall thickening or pericholecystic inflammation. Spleen, adrenals, and pancreas are unremarkable. Mild adrenal gland thickening but no discrete nodule. Left kidney is unremarkable. Right kidney demonstrates a hypodense lesion within the mid kidney measuring 1.3 x 1.0 cm and 80 Hounsfield units which is indeterminate. No urologic calcification or hydronephrosis. No filling defect seen along the renal collecting systems. Visualized stomach, small and large bowel demonstrate no acute finding. There is a small ventral hernia incompletely evaluated on the last images of the exam and measure 1.6 x 1.1 cm. Degenerative changes within the spine. Impression: 1. Diffuse fatty infiltration of the liver. 2. Somewhat rounded peripherally calcified focus along the neck of the Computed Tomography Report gallbladder measuring up to 1.9 cm possibly a gallstone. Finding felt to less likely represent gallbladder wall calcification. Recommend follow-up ultrasound for further evaluation. 3. Small sliding hiatal hernia. Small fat-containing ventral hernia incompletely evaluated on this examination which does not include the pelvis. This measures at least 1.6 x 1.1 cm. 4. Indeterminate slightly hypodense lesion within the mid to lower right kidney laterally 1.3 x 1.0 cm. Recommend follow-up ultrasound or MRI (preferred) with and without contrast. Underlying renal malignancy not entirely excluded. Report Dictated on Final Dictating Physician: MD CABALLERO ANTHONY J Signed Date and Time: 09/02/2021 7:46 am Signed by: MD CABALLERO ANTHONY J Transcribed Date and Time: 09/02/2021 7:47 Normal [facility] Basic Metabolic Panelon 08-09 Calcium [Mass/Vol] 9.7 mg/dL Normal 8.4-10.4 [facility] Comment on above: Performed By: #### B MP3 #### [facility] [address] [place] [address] Anion gap [Moles/Vol] 9 mmol/L Normal 3-13 [facility] Comment on above: Performed By: #### B MP3 #### [facility] [address] [place] [address] CO2 [Moles/Vol] 31 mmol/L High 22-30 [facility] Comment on above: Performed By: #### B MP3 #### [facility] [address] [place] [address] Creatinine [Mass/Vol] 0.75 mg/dL Normal 0.52-1.25 [facility] Comment on above: Performed By: #### B MP3 #### [facility] [address] [place] [address] GFR/1.73 sq M.predicted among blacks MDRD (S/P/Bld) [Vol rate/Area] mL/min/{1.73_m2} Normal >60 [facility] Comment on above: Performed By: #### B MP3 #### [facility] [address] [place] [address] GFR/1.73 sq M.predicted among non-blacks MDRD (S/P/Bld) [Vol rate/Area] 84.8 mL/min/{1.73_m2} Normal >60 [facility] Comment on above: Result Comment: KDIG O guidelines provide the following GFR categories: Stage GFR(ml/min/1.73 m2) Terms G1 >=90 Normal or high G2 60-89 Mildly decreased* G3a 45-59 Mildly to moderately decreased G3b 30-44 Moderately to severely decreased G4 15-29 Severely decreased G5 <15 Kidney failure *Relative to young adult level. In the absence of evidence of kidney damage, neither GFR category G1 nor G2 fulfill the criteria for CKD. The CKD-EPI equation is validated in individuals 18 years of age and older. Currently the best equation for estimating glomerular filtration rate (GFR) from serum creatinine in children is the Bedside Quinteros equation. It is less accurate in patients with extremes of muscle mass, restriction of dietary protein, ingestion of creatine, extra-renal metabolism of creatinine, or treatment with medications that affect renal tubular creatinine secretion. Performed By: #### B MP3 #### [facility] [address] [place] [address] Glucose [Mass/Vol] 114 mg/dL High 70-100 [facility] Comment on above: Performed By: #### B MP3 #### [facility] [address] [place] [address] Urea nitrogen [Mass/Vol] 14 mg/dL Normal 9-20 [facility] Comment on above: Performed By: #### B MP3 #### [facility] [address] [place] [address] Chloride [Moles/Vol] 98 mmol/L Normal 98-107 [facility] Comment on above: Performed By: #### B MP3 #### [facility] [address] [place] [address] Potassium [Moles/Vol] 3.9 mmol/L Normal 3.5-5.1 [facility] Comment on above: Performed By: #### B MP3 #### [facility] [address] [place] [address] Sodium [Moles/Vol] 137 mmol/L Normal 135-145 [facility] Comment on above: Performed By: #### B MP3 #### [facility] [address] [place] [id number] Anion gap [Moles/Vol] 9 mmol/L 3 - 13 mmol/L [facility] Calcium [Mass/Vol] 9.7 mg/dL 8.4 - 10. 4 mg/dL [facility] Chloride [Moles/Vol] 98 mmol/L 98 - 10 7 mmol/L [facility] CO2 [Moles/Vol] 31 mmol/L High 22 - 30 mmol/L [facility] Creatinine [Mass/Vol] 0.75 mg/dL 0.52 - 1.25 mg/dL [facility] eGFR mL/min 60 - PINF mL/min [facility] EGFR IF NonAfrican Vincentian 84.8 mL/min 60 - PINF mL/min [facility] Comment on above: KDIGO guidelines pro vide the following GFR categories: Stage GFR(ml/min/1.73 m2) Terms G1 >=90 Normal or high G2 60-89 Mildly decreased* G3a 45-59 Mildly to moderately decreased G3b 30-44 Moderately to severely decreased G4 15-29 Severely decreased G5 <15 Kidney failure *Relative to young adult level. In the absence of evidence of kidney damage, neither GFR category G1 nor G2 fulfill the criteria for CKD. The CKD-EPI equation is validated in individuals 18 years of age and older. Currently the best equation for estimating glomerular filtration rate (GFR) from serum creatinine in children is the Bedside Quinteros equation. It is less accurate in patients with extremes of muscle mass, restriction of dietary protein, ingestion of creatine, extra-renal metabolism of creatinine, or treatment with medications that affect renal tubular creatinine secretion. Glucose [Mass/Vol] 114 mg/dL High 70 - 100 mg/dL [facility] Interpretation and review of laboratory results Abnormal [facility] Potassium [Moles/Vol] 3.9 mmol/L 3.5 - 5.1 mmol/L [facility] Sodium [Moles/Vol] 137 mmol/L 135 - 145 mmol/L [facility] Urea nitrogen (BldV) [Mass/Vol] 14 mg/dL 9 - 20 mg/dL [facility] Test Performed by [facility], [address] , [place] [id number] [place] [address] LAB CHANELL Funez 08-21-2021 CNPN Telephone (FAMTappnGoS) DIANNE HOYT ([id number]) 1960 F Date Time Provider Department 08/21/21 DIMITRI FAYE FAMMAS During your visit today, we recorded the following information about you: Tracy Biggs LPN 08/21/2021 10:34 AM Signed PT is having a Ct scan next week. Pt needs order for serum creatine per [facility]. Allergies As of Date: 08/21/2021 (No Known Allergies) Date Reviewed: 10/29/2020 Reviewed by: Mandi Salas APRN.[employer] - Fully Assessed Reason for Visit: Orders [681] Cmt: serum creatine per [facility] due to CT scan Primary Visit Diagnosis:Hypertension, unspecified type [I10] Order(s):BASIC METABOLIC PNL [SQBMP] Order #: [id number] FUTURE Prescriptions as of 08/21/2021 - sertraline (ZOLOFT) 50 mg tablet Take 150 mg by mouth once daily. - amLODIPine-Atorvastatin 10-10 mg per tablet Take 1 tablet by mouth once daily. - losartan-hydrochlorothiazid e (HYZAAR) 50-12.5 mg per tablet Take 1 tablet by mouth once daily. - INDAPAMIDE 1.25 MG TAB Take one(1) tablet daily. Problem List As Of Date 08/21/2021 Noted Resolved Unspecified essential hypertension [I10] 06/16/2011 Presence of right artificial knee joint [Z96.65*10/29/2017 Encounter Status:Closed by DIMITRI FAYE on 08/21/21 [facility] Absolute lymphocyte counton 08-13-2021 Lymphocytes Auto (Unsp spec) [#/Vol] 2.55 10*3/uL 0.83-4.51 [facility] Work Phone: Basophil percentageon 2021 Basophils/100 WBC (Bld) 0.5 % 0-1 [facility] Work Phone: [phone] Bilirubin [Mass/Vol] 0.20 mg/dL 0.20-1.00 [facility] Work Phone: [phone] Comment on above: For patients on eltr ombopag therapy, use of Dimension [place] TBIL is not recommended. Chloride [Moles/Vol] 102 mmol/L 98-107 [facility] Work Phone: Eosinophils/100 WBC (Bld) 2.5 % 0-5 [facility] Work Phone: [phone] Glucose [Mass/Vol] 158 mg/dL 74-106 [facility] Work Phone: [phone] Comment on above: Fasting Glucose resu lt greater than or equal to 126 mg/dL suggests DIABETES MELLITUS per A.D.A. criteria. Neutrophils (Bld) [#/Vol] 3.9 10*3/uL 2.0-7.7 [facility] Work Phone: Neutrophils/100 WBC (Bld) 53.7 % 47-70 [facility] Work Phone: [phone] Potassium [Moles/Vol] 3.6 mmol/L 3.5-5.1 [facility] Work Phone: Protein [Mass/Vol] 7.7 g/dL 6.4-8.2 [facility] Work Phone: Sodium [Moles/Vol] 138 mmol/L 136-145 [facility] Work Phone: WBC (Bld) [#/Vol] 7.3 10*3/uL 4.4-11.0 [facility] Work Phone: Blood erythrocytes count (nu mber/volume)on 08-13-2021 RBC (Bld) [#/Vol] 3.98 10*6/uL 4.2-5.4 [facility] Work Phone: Blood hemoglobin measurement (mass/volume)on 08-13-2021 Hemoglobin (Bld) [Mass/Vol] 12.7 g/dL 12.0-15.0 [facility] Work Phone: Blood lymphocytes/100 leukoc yteson 08-13-2021 Lymphocytes/100 WBC (Bld) 34.8 % 19-41 [facility] Work Phone: Blood monocytes/100 leukocyt eson 08-13-2021 Monocytes/100 WBC (Bld) 8.1 % 0-10 [facility] Work Phone: Blood platelet mean volumeon 08-13-2021 Platelet mean volume (Bld) [Entitic vol] 10.4 fL 6.2-12.0 [facility] Work Phone: Determination of erythrocyte mean corpuscular volume (MCV)on 08-13-2021 MCV (RBC) [Entitic vol] 97.2 fL 81-99 [facility] Work Phone: Hematocrit Auto (Bld) [Volum e fraction]on 08-13-2021 Hematocrit (Bld) [Volume fraction] 38.7 % 37-47 [facility] Work Phone: [phone] Laboratory - Chemistry and C hemistry - challengeon 08-13-2021 ALP [Catalytic activity/Vol] 60 U/L 45-117 [facility] Work Phone: ALT [Catalytic activity/Vol] 31 U/L 13-56 [facility] Work Phone: CO2 [Moles/Vol] 28.0 mmol/L 21.0-32.0 [facility] Work Phone: Globulin (S) [Mass/Vol] 4.1 g/dL 2.2-4.2 [facility] Work Phone: Urea nitrogen/Creatinine [Mass ratio] 17.3 mg/mg 10-20 [facility] Work Phone: Laboratory - Hematology and Cell countson 08-13-2021 Erythrocyte distribution width (RBC) [Entitic vol] 46.7 fL 35.1-43.9 [facility] Work Phone: Erythrocyte distribution width (RBC) [Ratio] 13.1 % 11.6-14.6 [facility] Work Phone: Immature granulocytes/100 WBC (Bld) 0.400 % 0.0-0.9 [facility] Work Phone: Comment on above: IG% - Immature Granu locytes (promyelocytes, myelocytes and metamyelocytes) > 1% indicates that a LEFT SHIFT is Present. MCH (RBC) [Entitic mass] 31.9 pg 27.0-32.0 [facility] Work Phone: Nucleated RBC/100 WBC (Bld) [Ratio] 0 % 0-5 [facility] Work Phone: MCHC Auto (RBC) [Mass/Vol]on 08-13-2021 MCHC (RBC) [Mass/Vol] 32.8 g/dL 32-36 [facility] Work Phone: No Panel Informationon 08-13 Estimated GFR (MDRD) Amer 100 mL/min >60 [facility] Work Phone: Comment on above: GFR Calc Estimated GFR (MDRD) Non-Af Amer 83 mL/min >60 [facility] Work Phone: Comment on above: Non- GFR Calc Platelets bldon 08-13-2021 Platelets (Bld) [#/Vol] 324 10*3/uL 150-450 [facility] Work Phone: Serum or plasma albumin mayela urement (mass/volume)on 08-13-2021 Albumin [Mass/Vol] 3.6 g/dL 3.2-5.0 [facility] Work Phone: Serum or plasma albumin/glob ulin mass ratioon 08-13-2021 Albumin/Globulin [Mass ratio] 0.9 {ratio} 0.9-2.4 [facility] Work Phone: Serum or plasma calcium mayela urement (mass/volume)on 08-13-2021 Calcium [Mass/Vol] 9.5 mg/dL 8.5-10.1 [facility] Work Phone: Serum or plasma creatinine m easurement (mass/volume)on 08-13-2021 Creatinine [Mass/Vol] 0.75 mg/dL 0.55-1.02 [facility] Work Phone: Comment on above: The validity of the calculated GFR & GFRAA in patients over 70 years has not been determined. Clinical correlation is essential. Serum or plasma urea nitroge n measurement (mass/volume)on 08-13-2021 Urea nitrogen [Mass/Vol] 13 mg/dL 7-18 [facility] Work Phone: Thin prep Papanicolaou smear with manual screeningon 08-13-2021 Thin prep Papanicolaou smear with manual screening 19 U/L 15-37 [facility] Work Phone: Thin prep Papanicolaou smear with manual screening 8 5-15 [facility] Work Phone: Bilirubin Test strip Ql (U)o n 06-03-2021 Bilirubin Ql (U) 1 mg/dL Negative [facility] Work Phone: Comment on above: COLOR OF URINE MAY A FFECT DIPSTICK RESULTS. Dilute Pineda's viper venom timeon 06-03-2021 dRVVT Coag (PPP) [Time] 40.7 s 0.0-47.0 [facility] Work Phone: INR in Blood by Coagulation assayon 06-03-2021 INR Coag (Bld) [Relative time] 1.1 {INR} [facility] Work Phone: Ketones Test strip Ql (U)on 06-03-2021 Ketones Ql (U) 5 mg/dl Negative [facility] Work Phone: Laboratory - Coagulationon 0 06-03-2021 aPTT Coag (Bld) [Time] 26.7 s 24.1-36.2 [facility] Work Phone: PT Coag (PPP) [Time] 13.4 s 11.7-14.9 [facility] Work Phone: Laboratory - Miscellaneous t estson 06-03-2021 Service comment (Unsp spec) [Interp] Comment . [facility] Work Phone: Comment on above: Results do not indic ate the presence of a LupusAnticoagulant: abnormal high screening results (PTT-LA,dRVVT, mixing studies), may be due to medication (heparin,warfarin, aspirin), Factor inhibitors, anticardiolipinantibodies, or poor specimen integrity.Performed at: [employer] [facility] [id number] [id number] Director: John Paul Cesar MD, Phone: [phone] Nitrite Test strip Ql (U)on 06-03-2021 Nitrite Ql (U) Negative Negative [facility] Work Phone: No Panel Informationon 06-03 Miscellaneous Test Comment MAILED SPECIMEN [facility] Work Phone: Protein Test strip Ql (U)on 06-03-2021 Protein Ql (U) Negative Negative [facility] Work Phone: Thin prep Papanicolaou smear with manual screeningon 06-03-2021 Thin prep Papanicolaou smear with manual screening 35.4 sec 0.0-47.6 [facility] Work Phone: Thin prep Papanicolaou smear with manual screening 1.08 Ratio 0.00-1.34 [facility] Work Phone: Thin prep Papanicolaou smear with manual screening 30.2 sec 0.0-51.9 [facility] Work Phone: Thin prep Papanicolaou smear with manual screening Comment: . [facility] Work Phone: Comment on above: No lupus anticoagula nt was detected. Thrombin time in platelet po or plasmaon 06-03-2021 Thrombin time Coag (PPP) [Time] 17.6 sec 0.0-23.0 [facility] Work Phone: Comment on above: Performed at: [employer] [facility] [id number] [place], [id number] Director: John Paul Cesar MD, Phone: [phone] Urine blood detectionon 05-11 RBC Ql (U) Negative Negative [facility] Work Phone: [phone] Urine clarityon 06-03-2021 Clarity (U) Clear Clear [facility] Work Phone: [phone] Urine color determinationon 06-03-2021 Color (U) Yellow Yellow [facility] Work Phone: [phone] Urine creatinine measurement (mass/volume)on 06-03-2021 Creatinine (U) [Mass/Vol] 278.00 mg/dL NO RANGE EST. [facility] Work Phone: [phone] Urine glucose detectionon Glucose Ql (U) Normal mg/dl Normal [facility] Work Phone: [phone] Urine leukocyte esterase det ection by dipstickon 06-03-2021 Leukocyte esterase Test strip Ql (U) Negative Negative [facility] Work Phone: [phone] Urine pHon 06-03-2021 pH (U) 5.0 [pH] 5.0 - 8.0 [facility] Work Phone: [phone] Urine protein measurement (m ass/volume)on 06-03-2021 Protein (U) [Mass/Vol] 22.8 mg/dL 0.0-11.8 [facility] Work Phone: [phone] Urine protein/creatinine mas s ratioon 06-03-2021 Protein/Creatinine (U) [Mass ratio] 82 mg/g CRE 0-200 [facility] Work Phone: [phone] Urine specific gravity measu rementon 06-03-2021 Specific gravity (U) [Rel density] 1.025 1.002-1.030 [facility] Work Phone: [phone] Urobilinogen Auto test strip Ql (U)on 06-03-2021 Urobilinogen Ql (U) 1 mg/dl Normal [facility] Work Phone: [phone] Absolute lymphocyte counton 04-13-2022 Lymphocytes Auto (Unsp spec) [#/Vol] 3.66 10*3/uL 0.83-4.51 [facility] Work Phone: Basophil percentageon 2021 Basophils/100 WBC (Bld) 0.5 % 0-1 [facility] Work Phone: Bilirubin [Mass/Vol] 0.30 mg/dL 0.20-1.00 [facility] Work Phone: Comment on above: For patients on eltr ombopag therapy, use of Dim[place] TBIL is not recommended. Chloride [Moles/Vol] 102 mmol/L 98-107 [facility] Work Phone: Eosinophils/100 WBC (Bld) 2.4 % 0-5 [facility] Work Phone: Glucose [Mass/Vol] 134 mg/dL 74-106 [facility] Work Phone: [phone] Comment on above: Fasting Glucose resu lt greater than or equal to 126 mg/dL suggests DIABETES MELLITUS per A.D.A. criteria. Neutrophils (Bld) [#/Vol] 5.5 10*3/uL 2.0-7.7 [facility] Work Phone: Neutrophils/100 WBC (Bld) 54.0 % 47-70 [facility] Work Phone: Potassium [Moles/Vol] 3.8 mmol/L 3.5-5.1 [facility] Work Phone: Protein [Mass/Vol] 8.0 g/dL 6.4-8.2 [facility] Work Phone: Sodium [Moles/Vol] 136 mmol/L 136-145 [facility] Work Phone: WBC (Bld) [#/Vol] 10.2 10*3/uL 4.4-11.0 [facility] Work Phone: Blood erythrocytes count (nu mber/volume)on 05-22-2021 RBC (Bld) [#/Vol] 3.99 10*6/uL 4.2-5.4 [facility] Work Phone: [phone] Blood hemoglobin measurement (mass/volume)on 05-22-2021 Hemoglobin (Bld) [Mass/Vol] 12.5 g/dL 12.0-15.0 [facility] Work Phone: Blood lymphocytes/100 leukoc yteson 05-22-2021 Lymphocytes/100 WBC (Bld) 35.9 % 19-41 [facility] Work Phone: Blood monocytes/100 leukocyt eson 05-22-2021 Monocytes/100 WBC (Bld) 6.8 % 0-10 [facility] Work Phone: Blood platelet mean volumeon 05-22-2021 Platelet mean volume (Bld) [Entitic vol] 10.8 fL 6.2-12.0 [facility] Work Phone: [phone] Determination of erythrocyte mean corpuscular volume (MCV)on 05-22-2021 MCV (RBC) [Entitic vol] 95.2 fL 81-99 [facility] Work Phone: [phone] Erythrocyte sedimentation ra sundar 05-22-2021 ESR (Bld) [Velocity] 32 mm/h 0-30 [facility] Work Phone: [phone] Hematocrit Auto (Bld) [Volum e fraction]on 05-22-2021 Hematocrit (Bld) [Volume fraction] 38.0 % 37-47 [facility] Work Phone: [phone] Laboratory - Chemistry and C hemistry - challengeon 05-22-2021 ALP [Catalytic activity/Vol] 60 U/L 45-117 [facility] Work Phone: ALT [Catalytic activity/Vol] 40 U/L 13-56 [facility] Work Phone: [phone] CO2 [Moles/Vol] 27.0 mmol/L 21.0-32.0 [facility] Work Phone: [phone] Globulin (S) [Mass/Vol] 4.1 g/dL 2.2-4.2 [facility] Work Phone: Urea nitrogen/Creatinine [Mass ratio] 24.1 mg/mg 10-20 [facility] Work Phone: Laboratory - Hematology and Cell countson 05-22-2021 Erythrocyte distribution width (RBC) [Entitic vol] 45.1 fL 35.1-43.9 [facility] Work Phone: Erythrocyte distribution width (RBC) [Ratio] 12.9 % 11.6-14.6 [facility] Work Phone: Immature granulocytes/100 WBC (Bld) 0.400 % 0.0-0.9 [facility] Work Phone: Comment on above: IG% - Immature Granu locytes (promyelocytes, myelocytes and metamyelocytes) > 1% indicates that a LEFT SHIFT is Present. MCH (RBC) [Entitic mass] 31.3 pg 27.0-32.0 [facility] Work Phone: Nucleated RBC/100 WBC (Bld) [Ratio] 0 % 0-5 [facility] Work Phone: MCHC Auto (RBC) [Mass/Vol]on 05-22-2021 MCHC (RBC) [Mass/Vol] 32.9 g/dL 32-36 [facility] Work Phone: No Panel Informationon 05-22 Anti-Nuclear Antibody Screen Positive Negative [facility] Work Phone: Comment on above: Performed at: [address] [id number] Director: John Paul Spann PhD, Phone: [phone] Estimated GFR (MDRD) Amer 95 mL/min >60 [facility] Work Phone: Comment on above: GFR Calc Estimated GFR (MDRD) Non-Af Amer 78 mL/min >60 [facility] Work Phone: Comment on above: Non- GFR Calc Hepatitis B Surface Antigen Non-Reactive Nonreactive [facility] Work Phone: Hepatitis C Antibody Non-Reactive Nonreactive [facility] Work Phone: Comment on above: Non Reactive: < 0.8 Equivocal: >/= 0.8 to < 1.0 Reactive: >/= 1.0The [facility] recommends that a reactive/equivocal HCV antibody result be followed up by the HCV Nucleic Acid Amplificationtest (959730) Platelets bldon 05-22-2021 Platelets (Bld) [#/Vol] 304 10*3/uL 150-450 [facility] Work Phone: Serum cyclic citrullinated p eptide IgG antibody assay (units/volume)on 05-22-2021 Cyclic citrullinated peptide IgG Qn 5 units 0-19 [facility] Work Phone: Comment on above: Negative <20 Weak po sitive 20 - 39 Moderate positive 40 - 59 Strong positive >59Performed at: - [facility] [id number] Director: John Paul Cesar MD, Phone: [phone] Serum hepatitis B virus surf derrick antibody IgG detectionon 05-22-2021 HBV surface IgG Ql (S) Non-Reactive [facility] Work Phone: Comment on above: Non Reactive: Incons istent with immunity less than <10 mIU/mL Reactive: Consistent with immunity greater than or equal to 10 mIU/mL Serum or plasma C reactive p rotein measurement (mass/volume)on 05-22-2021 CRP [Mass/Vol] 3.58 mg/L 0.0-3.0 [facility] Work Phone: Comment on above: C-Reactive Protein ( CRP) provides useful information for thediagnosis, therapy and monitoring of inflammatory processesand associated diseases. For the evaluation of Relative Riskfor Cardiovascular Disease, a High Sensitivity CRP (HSCRP)should be ordered. Serum or plasma albumin mayela urement (mass/volume)on 05-22-2021 Albumin [Mass/Vol] 3.9 g/dL 3.2-5.0 [facility] Work Phone: Serum or plasma albumin/glob ulin mass ratioon 05-22-2021 Albumin/Globulin [Mass ratio] 1.0 {ratio} 0.9-2.4 [facility] Work Phone: Serum or plasma calcium mayela urement (mass/volume)on 05-22-2021 Calcium [Mass/Vol] 9.2 mg/dL 8.5-10.1 [facility] Work Phone: Serum or plasma creatinine m easurement (mass/volume)on 05-22-2021 Creatinine [Mass/Vol] 0.79 mg/dL 0.55-1.02 [facility] Work Phone: Comment on above: The validity of the calculated GFR & GFRAA in patients over 70 years has not been determined. Clinical correlation is essential. Serum or plasma urea nitroge n measurement (mass/volume)on 05-22-2021 Urea nitrogen [Mass/Vol] 19 mg/dL 7-18 [facility] Work Phone: Serum rheumatoid factor dete ctionon 05-22-2021 Rheumatoid factor Ql (S) < 10.0 IU/mL <15 [facility] Work Phone: Thin prep Papanicolaou smear with manual screeningon 05-22-2021 Thin prep Papanicolaou smear with manual screening 21 U/L 15-37 [facility] Work Phone: Thin prep Papanicolaou smear with manual screening 7 5-15 [facility] Work Phone: Basophil percentageon 2021 Bilirubin [Mass/Vol] 0.40 mg/dL 0.20-1.00 [facility] Work Phone: Comment on above: For patients on eltr ombopag therapy, use of Dimension [place] TBIL is not recommended. Chloride [Moles/Vol] 100 mmol/L 98-107 [facility] Work Phone: Cholesterol [Mass/Vol] 187 mg/dL <200 [facility] Work Phone: Comment on above: <200 mg/dL Desirable 200-240 mg/dL Borderline >240 mg/dL High Risk Glucose [Mass/Vol] 112 mg/dL 74-106 [facility] Work Phone: Comment on above: Fasting Glucose resu lt from 100 to 125 mg/dL suggests IMPAIRED HOMEOSTASIS per A.D.A. criteria. Potassium [Moles/Vol] 3.7 mmol/L 3.5-5.1 [facility] Work Phone: Protein [Mass/Vol] 8.3 g/dL 6.4-8.2 [facility] Work Phone: Sodium [Moles/Vol] 139 mmol/L 136-145 [facility] Work Phone: Triglyceride [Mass/Vol] 135 mg/dL [facility] Work Phone: Comment on above: The drugs N-Acetylcy steine and Metamizole may falsely depress this assay.Serum Triglycerides Reference Interval Normal <150 mg/dL Borderline high 150 - 199 mg/dL High 200 - 499 mg/dL Very High > or = 500 mg/dL Laboratory - Chemistry and C hemistry - challengeon 03-19-2021 ALP [Catalytic activity/Vol] 62 U/L 45-117 [facility] Work Phone: ALT [Catalytic activity/Vol] 32 U/L 13-56 [facility] Work Phone: CO2 [Moles/Vol] 27.0 mmol/L 21.0-32.0 [facility] Work Phone: Globulin (S) [Mass/Vol] 4.5 g/dL 2.2-4.2 [facility] Work Phone: Urea nitrogen/Creatinine [Mass ratio] 21.1 mg/mg 10-20 [facility] Work Phone: No Panel Informationon 03-19 Estimated GFR (MDRD) Amer 93 mL/min >60 [facility] Work Phone: Comment on above: GFR Calc Estimated GFR (MDRD) Non-Af Amer 77 mL/min >60 [facility] Work Phone: Comment on above: Non- GFR Calc Serum or plasma albumin mayela urement (mass/volume)on 03-19-2021 Albumin [Mass/Vol] 3.8 g/dL 3.2-5.0 [facility] Work Phone: Serum or plasma albumin/glob ulin mass ratioon 03-19-2021 Albumin/Globulin [Mass ratio] 0.8 {ratio} 0.9-2.4 [facility] Work Phone: Serum or plasma calcium mayela urement (mass/volume)on 03-19-2021 Calcium [Mass/Vol] 9.6 mg/dL 8.5-10.1 [facility] Work Phone: Serum or plasma cholesterol in HDL measurement (mass/volume)on 03-19-2021 Cholesterol in HDL [Mass/Vol] 59 mg/dL [facility] Work Phone: Comment on above: The drugs N-Acetylcy steine and Metamizole may falsely depress this assay. Reference Range HDL <40 mg/dL Low HDL Cholesterol HDL >or= 60 mg/dL High HDL Cholesterol Serum or plasma cholesterol in VLDL measurement (mass/volume)on 03-19-2021 Cholesterol in VLDL [Mass/Vol] 27 mg/dL 5-40 [facility] Work Phone: Serum or plasma creatinine m easurement (mass/volume)on 03-19-2021 Creatinine [Mass/Vol] 0.80 mg/dL 0.55-1.02 [facility] Work Phone: Comment on above: The validity of the calculated GFR & GFRAA in patients over 70 years has not been determined. Clinical correlation is essential. Serum or plasma low density lipoprotein (LDL) cholesterol measurement (mass/volume)on 03-19-2021 Cholesterol in LDL [Mass/Vol] 101 mg/dL 0-130 [facility] Work Phone: Serum or plasma urea nitroge n measurement (mass/volume)on 03-19-2021 Urea nitrogen [Mass/Vol] 17 mg/dL 7-18 [facility] Work Phone: Thin prep Papanicolaou smear with manual screeningon 03-19-2021 Thin prep Papanicolaou smear with manual screening 18 U/L 15-37 [facility] Work Phone: Thin prep Papanicolaou smear with manual screening 12 5-15 [facility] Work Phone: ANAon 03-18-2021 KETTY HOMOGENEOUS 1:80 Normal () [facility] Comment on above: Result Comment: ICAP nomenclature: AC-1 Performed By: #### L [id number] #### [facility] [address] KETTY NOTE Normal () [facility] Comment on above: Result Comment: For more information about Hep-2 cell patterns use ANApatterns.org, the official website for the International Consensus on Antinuclear Antibody (KETTY) Patterns (ICAP). A positive KETTY result may occur in healthy individuals (low titer) or be associated with a variety of diseases. See interpretation chart which is not all inclusive: Pattern Antigen Detected Suggested Disease Association Homogeneous DNA(ds,ss), SLE - High titers Nucleosomes, Histones Drug-induced SLE Speckled Sm, PROGRAM DIRECTOR [employer] WORK, SCL-70, SLE,MCTD,PSS (diffuse form), SS-A/SS-B Sjogrens Nucleolar SCL-70, PM-1/SCL High titers Scleroderma, PM/DM Centromere Centromere PSS (limited form) w/Crest syndrome variable Nuclear Dot [id number] Primary Biliary Cirrhosis Nuclear GP210, Primary Biliary Cirrhosis Membrane yash A,B,C Performed At: [facility] [address], [place] [id number] Zana Coker PhD [id number] Performed By: #### L [id number] #### [facility] [address] [address] KETTY SCR (TITER) Positive High () [facility] Comment on above: Result Comment: Nega tive <1:80 Borderline 1:80 Positive >1:80 Performed By: #### L [id number] #### [facility] [address] [place] [address] CBC W/DIFFon 03-13-2021 BASO ABS 0.10 K/CU MM Normal 0-0.2 [facility] Comment on above: Performed By: #### L [id number], [id number] #### [facility] [address] [place] [address] Basophils/100 WBC (Bld) 0.6 % Normal 0-2 [facility] Comment on above: Performed By: #### L [id number], [id number] #### [facility] [address] [place] [address] EOS ABS 0.20 K/CU MM Normal 0-0.5 [facility] Comment on above: Performed By: #### L [id number], [id number] #### [facility] [address] [place] [address] Eosinophils/100 WBC (Bld) 1.9 % Normal 0-5 [facility] Comment on above: Performed By: #### L [id number], [id number] #### [facility] [address] [place] [address] Erythrocyte distribution width (RBC) [Ratio] 12.5 % Normal 11-14.5 [facility] Comment on above: Performed By: #### L [id number], [id number] #### [facility] [address] [place] [address] Hematocrit (Bld) [Volume fraction] 38.8 % Normal 35.0-47.0 [facility] Comment on above: Performed By: #### L [id number], [id number] #### [facility] [address] [place] [address] Hemoglobin (Bld) [Mass/Vol] 12.9 g/dL Normal 11.5-15.5 [facility] Comment on above: Performed By: #### L 200.27265, [id number] #### [facility] [address] [place] [address] IMMATR GRAN ABS 0.10 K/CU MM Normal Less than 2 [facility] Comment on above: Performed By: #### L 200.77379, [id number] #### [facility] [address] [place] [address] IMMATURE GRAN % 0.5 % Normal Less than 2 [facility] Comment on above: Performed By: #### L [id number], [id number] #### [facility] [address] [place] [address] LYMPH ABS 3.70 K/CU MM Normal 0.9-4.4 [facility] Comment on above: Performed By: #### L [id number], [id number] #### [facility] [address] [place] [address] Lymphocytes/100 WBC (Bld) 33.4 % Normal 20-40 [facility] Comment on above: Performed By: #### L [id number], [id number] #### [facility] [address] [place] [address] MCHC (RBC) [Mass/Vol] 33.2 g/dL Normal 32.0-36.0 [facility] Comment on above: Performed By: #### L [id number], [id number] #### [facility] [address] [place] [address] MCV (RBC) [Entitic vol] 94.2 fL Normal 80.0-99.0 [facility] Comment on above: Performed By: #### L 200.24980, [id number] #### [facility] [address] [place] [address] MONO ABS 0.70 K/CU MM Normal 0.1-1.1 [facility] Comment on above: Performed By: #### L [id number], [id number] #### [facility] [address] [place] [address] Monocytes/100 WBC (Bld) 6.0 % Normal 2-10 [facility] Comment on above: Performed By: #### L 200.07665, [id number] #### [facility] [address] [place], [place] [id number] NEUTROPHIL ABS 6.30 K/CU MM Normal 2.0-8.3 [facility] Comment on above: Performed By: #### L 200.18169, [id number] #### [facility] [address] [place] [address] Neutrophils/100 WBC (Bld) 57.6 % Normal 45-75 [facility] Comment on above: Performed By: #### L [id number], [id number] #### [facility] [address] [place] [address] Nucleated RBC/100 WBC (Bld) [Ratio] 0.0 % Normal Less than 1 [facility] Comment on above: Performed By: #### L 200.29383, [id number] #### [facility] [address] [place] [address] Platelet mean volume (Bld) [Entitic vol] 10.5 fL Normal 9.4-12.4 [facility] Comment on above: Performed By: #### L 200.11268, [id number] #### [facility] [address] [place] [address] PLT 326 K/CU MM Normal 150-450 [facility] Comment on above: Performed By: #### L 200.95507, [id number] #### [facility] [address] [place], [place] [id number] RBC 4.12 M/CU MM Normal 3.90-5.30 [facility] Comment on above: Performed By: #### L [id number], [id number] #### [facility] [address] [place] [address] WBC 11.0 K/CUMM Normal 4.5-11.0 [facility] Comment on above: Performed By: #### L 200.19760, [id number] #### [facility] [address] [place] [address] RA FACTOR QUANTon 03-13-2021 RA FACTOR QUANT 8.8 IU/ML Normal 0-14.9 [facility] Comment on above: Result Comment: NOTE NEW NORMAL RANGE DUE TO REAGENT CHANGE Performed By: #### L [id number] #### [facility] [place] [address] WSR/MODon 03-13-2021 WSR/MOD 46 MM/HR High 0-30 [facility] Comment on above: Performed By: #### L [id number], [id number] #### [facility] [address] [place] [address] Basophil percentageon 2020 Creatinine [Mass/Vol] 0.9 mg/dL 0.55-1.02 [facility] Work Phone: No Panel Informationon 02-05 Bedside Estimated GFR (eGFR) > 60.0000 mL/min >60 [facility] Work Phone: Vital Signs Date Time Vital Sign Value Performing Clinician Facility 02-08-2024 13:14050 Body height 163.8 cm Zohra Wood MD Work Phone: [facility] 02-08-2024 13:14-050 Body mass index (BMI) [Ratio] 41.95 kg/m2 Zohra Wood MD Work Phone: [facility] 02-08-2024 13:14-050 Body temperature 98.49 [degF] Zohra Wood MD Work Phone: [facility] 02-08-2024 13:14050 Body weight 112.58 kg Zohra Wood MD Work Phone: [facility] 02-08-2024 13:14-0500 Diastolic blood pressure 82 mm[Hg] Zohra Wood MD Work Phone: [facility] 02-08-2024 13:14-0500 Heart rate 70 /min Zohra Wood MD Work Phone: [facility] 02-08-2024 13:14-0500 SaO2% (BldA) [Mass fraction] 99 % Zohra Wood MD Work Phone: [facility] 02-08-2024 13:14-0500 Systolic blood pressure 122 mm[Hg] Zohra Wood MD Work Phone: [facility] 11-30-2023 07:01-0400 Body height 163.8 cm Mandi Maritza 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 [employer] Work Phone: [facility] 11-30-2023 07:01-0400 Body mass index (BMI) [Ratio] 43.43 kg/m2 Mandi Maritza 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 [employer] Work Phone: [facility] 11-30-2023 07:01-0400 Body weight 116.57 kg Mandi Glennie 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 [employer] Work Phone: [facility] 11-30-2023 07:01-0400 Diastolic blood pressure 72 mm[Hg] Mandi Maritza 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 [employer] Work Phone: [facility] 11-30-2023 07:01-0400 Systolic blood pressure 118 mm[Hg] Mandi Glennie 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 [employer] Work Phone: [facility] 01-27-2023 11:47-0500 Body temperature 97.9 [degF] DO Frida Laquita Work Phone: [facility] 01-27-2023 11:47-0500 Diastolic blood pressure 73 mm[Hg] DO Frida Laquita Work Phone: [facility] 01-27-2023 11:47-0500 Heart rate 62 /min DO Frida Laquita Work Phone: [facility] 01-27-2023 11:47-0500 Respiratory rate 16 /min DO Frida Laquita Work Phone: [facility] 01-27-2023 11:47-0500 SaO2% (BldA) [Mass fraction] 93 % DO Frida Laquita Work Phone: [facility] 01-27-2023 11:47-0500 Systolic blood pressure 131 mm[Hg] DO Frida Laquita Work Phone: [facility] 01-27-2023 09:53-0500 Body height 170.18 cm DO Frida Laquita Work Phone: [facility] 01-27-2023 09:53-0500 Body mass index (BMI) [Ratio] 41 kg/m2 DO Frida Laquita Work Phone: [facility] 01-27-2023 09:53-0500 Body weight 118.84 kg DO Frida Laquita Work Phone: [facility] 01-06-2023 15:02-0500 Body temperature 97.2 [degF] DO Frida Laquita Work Phone: [facility] 01-06-2023 15:02-0500 Diastolic blood pressure 78 mm[Hg] DO Frida Laquita Work Phone: [facility] 01-06-2023 15:02-0500 Heart rate 65 /min DO Frida Laquita Work Phone: [facility] 01-06-2023 15:02-0500 Respiratory rate 16 /min DO Frida Laquita Work Phone: [facility] 01-06-2023 15:02-0500 SaO2% (BldA) [Mass fraction] 93 % DO Frida Laquita Work Phone: [facility] 01-06-2023 15:02-0500 Systolic blood pressure 138 mm[Hg] DO Frida Laquita Work Phone: [facility] 01-06-2023 13:16-0500 Body height 170.18 cm DO Frida Laquita Work Phone: [facility] 01-06-2023 13:16-0500 Body mass index (BMI) [Ratio] 41.1 kg/m2 DO Frida Laquita Work Phone: [facility] 01-06-2023 13:16-0500 Body weight 119.11 kg DO Frida Laquita Work Phone: [facility] 12-17-2022 15:27-0500 Body mass index (BMI) [Ratio] 42 kg/m2 DO Frida Laquita Work Phone: [facility] 12-17-2022 15:27-0500 Body weight 121.56 kg DO Frida Laquita Work Phone: [facility] 11-21-2022 06:57-0400 Body height 165.1 cm Mandi Glennie 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 [employer] Work Phone: [facility] 11-21-2022 06:57-0400 Body weight 119.75 kg Mandi Maritza 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 [employer] Work Phone: [facility] 11-21-2022 06:57-0400 Diastolic blood pressure 80 mm[Hg] Mandi Glennie 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 [employer] Work Phone: [facility] 11-21-2022 06:57-0400 Systolic blood pressure 122 mm[Hg] Mandi Glennie 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 [employer] Work Phone: [facility] 08-18-2022 15:41-0400 Body temperature 98.9 [degF] DO Frida Laquita Work Phone: [facility] 08-18-2022 15:41-0400 Diastolic blood pressure 68 mm[Hg] DO Frida Laquita Work Phone: [facility] 08-18-2022 15:41-0400 Heart rate 78 /min DO Frida Laquita Work Phone: [facility] 08-18-2022 15:41-0400 Respiratory rate 18 /min DO Frida Laquita Work Phone: [facility] 08-18-2022 15:41-0400 SaO2% (BldA) [Mass fraction] 95 % DO Frida Coelho Work Phone: [facility] 08-18-2022 15:41-0400 Systolic blood pressure 137 mm[Hg] DO Frida Coelho Work Phone: [facility] 08-18-2022 15:00-0400 Inhaled oxygen flow rate 2 L/min DO Frida Coelho Work Phone: [facility] 08-18-2022 06:39-0400 Body height 170.18 cm DO Frida Coelho Work Phone: [facility] 08-18-2022 06:39-0400 Body mass index (BMI) [Ratio] 42.5 kg/m2 DO Frida Coelho Work Phone: [facility] 08-18-2022 06:39-0400 Body weight 123.1 kg DO Frida Coelho Work Phone: [facility] 05-22-2022 09:45-0400 Body temperature 97.3 [degF] Dr. Dimitri Faye Work Phone: [facility] 05-22-2022 09:45-0400 Diastolic blood pressure 77 mm[Hg] Dr. Dimitri Faye Work Phone: [facility] 05-22-2022 09:45-0400 Heart rate 62 /min Dr. Dimitri Faye Work Phone: [facility] 05-22-2022 09:45-0400 Respiratory rate 18 /min Dr. Dimitri Faye Work Phone: [facility] 05-22-2022 09:45-0400 SaO2% (BldA) [Mass fraction] 96 % Dr. Dimitri Faye Work Phone: [facility] 05-22-2022 09:45-0400 Systolic blood pressure 145 mm[Hg] Dr. Dimitri Faye Work Phone: [facility] 05-22-2022 06:50-0400 Body height 167.[address] Dimitri Faye Work Phone: [facility] 05-22-2022 06:50-0400 Body mass index (BMI) [Ratio] 44.9 kg/m2 Dr. Dimitri Faye Work Phone: [facility] 05-22-2022 06:50-0400 Body weight 126.[address] Dimitri Faye Work Phone: [facility] 04-25-2022 16:35-0400 Diastolic blood pressure 68 mm[Hg] Dr. Dimitri Faye Work Phone: [facility] 04-25-2022 16:35-0400 Heart rate 71 /min Dr. Dimitri Faye Work Phone: [facility] 04-25-2022 16:35-0400 Respiratory rate 16 /min Dr. Dimitri Faye Work Phone: [facility] 04-25-2022 16:35-0400 SaO2% (BldA) [Mass fraction] 98 % Dr. Dimitri Faye Work Phone: [facility] 04-25-2022 16:35-0400 Systolic blood pressure 127 mm[Hg] Dr. Dimitri Faye Work Phone: [facility] 04-25-2022 14:45-0400 Body height 170.[address] Dimitri Faye Work Phone: [facility] 04-25-2022 14:45-0400 Body mass index (BMI) [Ratio] 44.9 kg/m2 Dr. Dimitri Faye Work Phone: [facility] 04-25-2022 14:45-0400 Body temperature 98 [degF] Dr. Dimitri Faye Work Phone: [facility] 04-25-2022 14:45-0400 Body weight 130.[address] Dimitri Faye Work Phone: [facility] 04-25-2022 14:03-0400 Body temperature 97.2 [degF] Krislyn Aberegg PA Work Phone: [facility] 04-25-2022 14:03-0400 Body weight 130.36 kg Krislyn Aberegg PA Work Phone: [facility] 04-25-2022 14:03-0400 Diastolic blood pressure 72 mm[Hg] Krislyn Aberegg PA Work Phone: [facility] 04-25-2022 14:03-0400 Heart rate 60 /min Krislyn Aberegg PA Work Phone: [facility] 04-25-2022 14:03-0400 Respiratory rate 18 /min Krislyn Aberegg PA Work Phone: [facility] 04-25-2022 14:03-0400 SaO2% (BldA) [Mass fraction] 98 % Krislyn Aberegg PA Work Phone: [facility] 04-25-2022 14:03-0400 Systolic blood pressure 124 mm[Hg] Krislyn Aberegg PA Work Phone: [facility] 04-10-2022 14:59-0500 Body temperature 97.1 [degF] Dr. Dimitri Faye Work Phone: [facility] 04-10-2022 14:59-0500 Diastolic blood pressure 84 mm[Hg] Dr. Dimitri Faye Work Phone: [facility] 04-10-2022 14:59-0500 Heart rate 68 /min Dr. Dimitri Faye Work Phone: [facility] 04-10-2022 14:59-0500 Respiratory rate 16 /min Dr. Dimitri Faye Work Phone: [facility] 04-10-2022 14:59-0500 SaO2% (BldA) [Mass fraction] 98 % Dr. Dimitri Faye Work Phone: [facility] 04-10-2022 14:59-0500 Systolic blood pressure 142 mm[Hg] Dr. Dimitri Faye Work Phone: [facility] 03-19-2022 14:58-0500 Body mass index (BMI) [Ratio] 42.5 kg/m2 Dr. Dimitri Faye Work Phone: [facility] 03-19-2022 14:58-0500 Body temperature 97.1 [degF] Dr. Dimitri Faye Work Phone: [facility] 03-19-2022 14:58-0500 Body weight [address] Dimitri Faye Work Phone: [facility] 03-19-2022 14:58-0500 Diastolic blood pressure 79 mm[Hg] Dr. Dimitri Faye Work Phone: [facility] 03-19-2022 14:58-0500 Heart rate 65 /min Dr. Dimitri Faye Work Phone: [facility] 03-19-2022 14:58-0500 Respiratory rate 17 /min Dr. Dimitri Fyae Work Phone: [facility] 03-19-2022 14:58-0500 SaO2% (BldA) [Mass fraction] 99 % Dr. Dimitri Faye Work Phone: [facility] 03-19-2022 14:58-0500 Systolic blood pressure 136 mm[Hg] Dr. Dimitri Faye Work Phone: [facility] 11-20-2021 07:03-0400 Body height 170.2 cm Mandi Glennie 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 [employer] Work Phone: [facility] 11-20-2021 07:03-0400 Body weight 127.01 kg Mandi Maritza 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 [employer] Work Phone: [facility] 11-20-2021 07:03-0400 Diastolic blood pressure 60 mm[Hg] Madni Glennie 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 [employer] Work Phone: [facility] 11-20-2021 07:03-0400 Systolic blood pressure 122 mm[Hg] Mandi Salas APRN.SUPERVISOR [employer] Work Phone: [facility] 11-12-2021 15:30-0400 Body height 170.2 cm Dimitri Faye MD Work Phone: [facility] 11-12-2021 15:30-0400 Body temperature 97.81 [degF] Dimitri Faye MD Work Phone: [facility] 11-12-2021 15:30-0400 Body weight 127.01 kg Dimitri Faye MD Work Phone: [facility] 11-12-2021 15:30-0400 Diastolic blood pressure 76 mm[Hg] Dimitri Faye MD Work Phone: [facility] 11-12-2021 15:30-0400 Heart rate 68 /min Dimitri Faye MD Work Phone: [facility] 11-12-2021 15:30-0400 Respiratory rate 14 /min Dimitri Faye MD Work Phone: [facility] 11-12-2021 15:30-0400 SaO2% (BldA) [Mass fraction] 94 % Dimitri Faye MD Work Phone: [facility] 11-12-2021 15:30-0400 Systolic blood pressure 138 mm[Hg] Dimitri Faye MD Work Phone: [facility] 09-27-2021 06:15-0400 Body height 172.[address] Dimitri Faye Work Phone: [facility] Work Phone: 04-10-2021 16:09-0500 Body temperature 96.91 [degF] Dimitri Faye MD Work Phone: [facility] 04-10-2021 16:09-0500 Body weight 130.64 kg Dimitri Faye MD Work Phone: [facility] 04-10-2021 16:09-0500 Diastolic blood pressure 80 mm[Hg] Dimitri Faye MD Work Phone: [facility] 04-10-2021 16:09-0500 Heart rate 59 /min Dimitri Faye MD Work Phone: [facility] 04-10-2021 16:09-0500 Respiratory rate 14 /min Dimitri Faye MD Work Phone: [facility] 04-10-2021 16:09-0500 Systolic blood pressure 128 mm[Hg] Dimitri Faye MD Work Phone: [facility] Encounters Encounter Date Encounter Type Care Provider Facility Start: 03-09-2024 ambulatory [facility] Facility:[facility] Start: 03-09-2024 End: 03-09-2024 ambulatory [facility] Facility:[facility] Start: 02-16-2024 End: 02-16-2024 ambulatory Aris Mello Facility:[facility] Start: 02-08-2024 End: 02-08-2024 ambulatory FRIDA BARBARAYani COELHO Facility:[facility] Start: 02-08-2024 End: 02-08-2024 Patient encounter procedure Zohra Wood MD Work Phone: General Surgery Comment on above: Calcification of lef t breast on mammography (Primary Dx) Start: 02-02-2024 End: 02-02-2024 ambulatory FRIDA COELHO Facility:[facility] Start: 02-02-2024 End: 02-02-2024 [facility] Work Phone: Radiology Start: 01-18-2024 End: 01-18-2024 ambulatory FRIDA COELHO Facility:[facility] Start: 01-18-2024 End: 01-18-2024 Subsequent hospital visit by physician Bone Density [facility] [employer] Work Phone: Radiology Comment on above: Encounter for screen ing for osteoporosis [Z13.820] Start: 12-03-2023 End: 12-03-2023 Telephone encounter You Haque MD Work Phone: Mammography Comment on above: Mammogram Result Joel l Back Start: 12-01-2023 End: 12-01-2023 Telephone encounter Mandi Salas APRN.SUPERVISOR [employer] Work Phone: OB/Gynecology Comment on above: Orders Start: 11-30-2023 End: 11-30-2023 ambulatory MANDISARY SALAS Facility:[facility] Start: 11-30-2023 End: 11-30-2023 Patient encounter procedure Mandi Salas APRN.SUPERVISOR [employer] Work Phone: OB/Gynecology Comment on above: Encounter for gyneco logical examination (general) (routine) without abnormal findings (Primary Dx); Encounter for screening mammogram for breast cancer; Encounter for screening for human papillomavirus (HPV); Screening for malignant neoplasm of cervix; Encounter for screening for osteoporosis Start: 11-30-2023 End: 11-30-2023 Patient encounter status Mandi Reyeseddie CINTRONN.SUPERVISOR [employer] Work Phone: [facility] Start: 11-30-2023 End: 11-30-2023 Subsequent hospital visit by physician Screen Mammo [facility] M[facility] Comment on above: Encounter for screen ing mammogram for breast cancer [Z12.31] Start: 07-22-2023 ambulatory [facility] Facility:[facility] Start: 06-16-2023 End: 06-16-2023 Patient encounter procedure [facility] Start: 06-16-2023 End: 06-16-2023 ambulatory Frida Coelho [facility] Work Phone: Start: 03-17-2023 Registered Referred [facility] Work Phone: Start: 02-24-2023 End: 02-24-2023 ambulatory DO Frida Coelho Work Phone: [facility] Work Phone: Start: 02-24-2023 End: 02-24-2023 Patient encounter procedure DO Frida Coelho Work Phone: [facility] Work Phone: Start: 02-11-2023 End: 02-11-2023 Patient encounter procedure DO Frida Marsher Work Phone: [facility] Work Phone: Start: 01-27-2023 Non-patient / Non-visit DO Minh Adkinsnger Work Phone: [facility] Start: 01-27-2023 End: 01-27-2023 Admission to same day surgery center DO Frida Marsher [facility] Start: 01-27-2023 End: 01-27-2023 ambulatory DO Frida Coelho Work Phone: [facility] Work Phone: Start: 01-21-2023 End: 01-21-2023 Patient encounter procedure DO Frida Marsher Work Phone: [facility] Work Phone: Start: 01-06-2023 Non-patient / Non-visit DO Minh Marsher Work Phone: [facility] Start: 01-06-2023 End: 01-06-2023 Admission to same day surgery center DO Frida Marsher Work Phone: [facility] Start: 01-06-2023 End: 01-06-2023 ambulatory DO Frida Coelho Work Phone: [facility] Work Phone: Start: 12-19-2022 Refill Dimitri Childers MD Work Phone: [facility] Comment on above: Refill Request Start: 12-17-2022 End: 12-17-2022 Patient encounter procedure DO Frida Marsher Work Phone: [facility] Work Phone: Start: 12-08-2022 End: 12-08-2022 Patient encounter procedure DO Frida Coelho Work Phone: [facility] Work Phone: Start: 11-24-2022 Documentation procedure Mammog fazal Coordinator [facility] Start: 11-24-2022 Letter encounter Mammography Coordinator [facility] Department Start: 11-21-2022 End: 11-21-2022 Patient encounter procedure Mandi Salas APRN.SUPERVISOR [employer] Work Phone: OB/Gynecology Comment on above: Encounter for gyneco logical examination (general) (routine) without abnormal findings (Primary Dx); Encounter for screening mammogram for breast cancer Start: 11-21-2022 End: 11-21-2022 Patient encounter status Mandi Maritza MURILLOSUPERVISOR DA[employer]Y [employer]ITATION Work Phone: [facility] Work Phone: Start: 11-21-2022 End: 11-21-2022 Subsequent hospital visit by physician Screen Mammo [facility] Comment on above: Encounter for screen ing mammogram for breast cancer [Z12.31] Start: 11-04-2022 Non-patient / Non-visit DO Minh Coelho Work Phone: [facility] Start: 11-04-2022 End: 11-04-2022 ambulatory DO Frida Coelho Work Phone: [facility] Work Phone: Start: 11-04-2022 End: 11-04-2022 Patient encounter procedure DO Frida Coelho Work Phone: [facility]-Pulmonary Services/Neurology Work Phone: Start: 09-18-2022 End: 09-18-2022 Patient encounter procedure DO Frida Coelho Work Phone: [facility] Work Phone: Start: 09-08-2022 End: 09-08-2022 ambulatory DO Frida Coelho Work Phone: [facility] Work Phone: Start: 09-08-2022 End: 09-08-2022 Patient encounter procedure DO Frida Coelho Work Phone: [facility] Work Phone: Start: 08-26-2022 End: 08-26-2022 Patient encounter procedure DO Frida Coelho Work Phone: [facility] Work Phone: Start: 08-18-2022 Non-patient / Non-visit DO Mnih Coelho Work Phone: [facility] Start: 08-18-2022 End: 08-18-2022 Admission to same day surgery center DO Frida Coelho [facility] Start: 08-18-2022 End: 08-18-2022 ambulatory DO Frida Coelho Work Phone: [facility] Work Phone: Start: 08-10-2022 Refill Dimitri Childers MD Work Phone: [facility] Comment on above: Refill Request Start: 07-01-2022 End: 07-01-2022 Patient encounter procedure DO Frida Coelho Work Phone: [facility] Work Phone: Start: 06-11-2022 End: 06-11-[address] Dimitri Faye Work Phone: [facility] Work Phone: Start: 06-11-2022 End: 06-11-[address] Dimitri Faye Work Phone: [facility] Start: 05-22-2022 Non-patient / Non-visit Dr. Ra david Faye Work Phone: [facility] Start: 05-22-2022 End: 05-22-2022 Admission to same day surgery center Dr. Dimitri Faye Work Phone: [facility]-Endoscopy Start: 05-22-2022 End: 05-22-[address] Dimitri Faye Work Phone: [facility] Work Phone: Start: 04-25-2022 End: 04-25-2022 Emergency department patient visit Dr. Dimitri Faye Work Phone: [facility]-Emergency Department Start: 04-25-2022 End: 04-25-2022 Patient encounter procedure Chantal DUPREE Work Phone: [facility] Comment on above: Chest pain, unspecif ied type (Primary Dx) Start: 04-10-2022 End: 04-10-[address] Dimitri Faye Work Phone: [facility] Start: 03-19-2022 End: 03-19-[address] Dimitri Faye Work Phone: [facility] Start: 03-18-[address] Darin Faye Work Phone: [facility] Start: 03-17-2022 End: 03-17-[address] Dimitri Faye Work Phone: [facility] Start: 03-17-2022 Telephone encounter Dimitri Faye MD Work Phone: [facility] Comment on above: Results Start: 03-16-2022 Refill [facility]ers MD [facility] Comment on above: Refill Request Start: 03-07-2022 Patient encounter procedure [facility] Provider [facility] Department Start: 02-07-2022 Refill Dimitri Childers MD Work Phone: [facility] Comment on above: Refill Request Start: 01-27-2022 End: 01-27-2022 ambulatory DIMITRI FAYE Facility:[id number] Start: 01-27-2022 End: 01-27-2022 Office outpatient visit 15 minutes Dimitri Faye MD Work Phone: [facility] Comment on above: 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 Dimitri Faye Work Phone: [facility] Work Phone: Start: 01-14-2022 End: 01-14-[address] Dimitri Faye Work Phone: [facility] Start: 12-26-2021 Refill Dimitri Childers MD Work Phone: [facility] Comment on above: Refill Request Start: 12-12-2021 Telephone encounter Dimitri Faye MD Work Phone: [facility] Comment on above: Erroneous encounter- disregard Start: 12-09-2021 Refill Macarena Moreno i, APRN.CNP Work Phone: [facility] Comment on above: Med Change Request Start: 12-05-2021 Refill Dimitri Childers MD Work Phone: [facility] Comment on above: Refill Request Start: 12-03-2021 Telephone encounter Dimitri Faye MD Work Phone: [facility] Comment on above: Erroneous encounter- disregard Start: 11-25-2021 Telephone encounter Dimitri Faye MD Work Phone: [facility] Comment on above: Results Start: 11-20-2021 End: 11-20-2021 Patient encounter procedure Mandi Salas MARYELLEN.SUPERVISOR [employer] Work Phone: OB/Gynecology Comment on above: Encounter for gyneco logical examination (general) (routine) without abnormal findings (Primary Dx); Encounter for screening mammogram for breast cancer Start: 11-20-2021 End: 11-20-2021 Patient encounter status Mandi Salas 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 [employer] Work Phone: OB/Gynecology Start: 11-19-2021 Telephone encounter Dimitri Faye MD Work Phone: [facility] Comment on above: Patient Update Start: 11-18-2021 Telephone encounter Dimitri Faye MD Work Phone: [facility] Comment on above: Results Start: 11-12-2021 End: 11-12-2021 ambulatory DIMITRI FAYE Facility:[id number] Start: 11-12-2021 Encounter for genera l adult medical examination without abnormal findings DIMITRI LEE [facility] Start: 11-12-2021 End: 11-12-2021 Patient encounter status Dimitri Faye MD Work Phone: [facility] Start: 11-12-2021 End: 11-12-2021 Periodic preventive med est patient 40-64yrs Dimitri Faye MD Work Phone: [facility] Comment on above: Primary hypertension (Primary Dx); Lipid screening; Screening for deficiency anemia; Wellness examination Start: 10-16-2021 Chart abstracting Dimitri Faye MD Work Phone: Pain Management Start: 10-11-2021 End: 10-11-[address] Dimitri Faye Work Phone: [facility] Work Phone: Start: 10-11-2021 End: 10-11-[address] Dimitri Faye Work Phone: [facility] Start: 09-27-2021 End: 09-27-[address] Dimitri Faye Work Phone: [facility] Start: 09-17-2021 Telephone encounter Dimitri Faye MD Work Phone: [facility] Comment on above: Results Start: 09-07-2021 Refill Dimitri Childers MD Work Phone: [facility] Comment on above: Refill Request Start: 08-30-2021 End: 08-30-2021 Subsequent hospital visit by physician Dimitri Faye Work Phone: [facility] Comment on above: Arrived Start: 08-23-2021 End: 08-23-2021 Subsequent hospital visit by physician Dimitri Faye Work Phone: [facility] Start: 08-21-2021 Telephone encounter Dimitri Faye MD Work Phone: [facility] Comment on above: Orders (serum creati ne per [facility] due to CT scan) Start: 08-13-2021 End: 08-13-2021 Patient encounter procedure [facility] Start: 06-03-2021 End: 06-03-2021 Patient encounter procedure [facility] Start: 05-22-2021 End: 05-22-2021 Patient encounter procedure [facility] Start: 03-19-2021 Registered [facility] Start: 02-05-2021 Patient encounter procedure [facility]Cat [facility], [facility] Procedures Date Procedure Procedure Detail Performing Clinician Start: 02-02-2024 Digital breast tomosynthesis unilateral Mandi Salas APRN.SUPERVISOR [employer] Work Phone: Start: 01-18-2024 Dxa bone density teresa dy 1/> sites axial skel Mandi Salas APRN.SUPERVISOR [employer] Work Phone: Start: 01-27-2023 Decompression of med ortega nerve DO Friad Coelho Work Phone: Start: 01-06-2023 Decompression of med ortega nerve DO Frida Coelho Work Phone: Start: 11-21-2022 Screening mammograph y bi 2-view breast inc cad Mandi Salas MARYELLEN.SUPERVISOR [employer] Work Phone: Start: 08-18-2022 Lap Robotic Inguinal Hernia (Right) DO Frida Coelho Work Phone: Start: 08-01-2022 Nasal Screen MRSA/MSSA DO Frida Coelho Work Phone: Start: 05-22-[address] Darin Faye Work Phone: Start: 04-25-2022 Plain chest X-ray Dr. Melissa Faye Work Phone: Start: 10-31-2021 Mammography Dimitri arora MD Work Phone: Start: 08-23-2021 Basic metabolic pane l calcium total Dimitri Faye Work Phone: Start: 02-05-2021 CT of abdomen with contrast Start: 10-29-2020 Mammography Dimitri arora MD Work Phone: History of repair of inguinal hernia S/P inguinal hernia repair DO Frida Coelho Work Phone: Plan of Treatment Date Care Activity Detail Author Start: 09-25-2032 Urine microalbumin profile DTaP,Tdap,Td Vaccine (2 - Td or Tdap) [facility] Start: 11-16-2026 LIPID SCREEN LIPID SCREEN [facility] Start: 10-29-2025 HPV TESTING HPV TESTING [facility] Start: 10-29-2025 PAP TESTING PAP TESTING [facility] Start: 12-01-2024 End: 12-01-2024 Patient encounter procedure OB/Gynecology Comment on above: Annual Encounter for screen ing mammogram for breast cancer [Z12.31] Start: 11-29-2024 BP Controlled (<130/80) BP Controlle d (<130/80) [facility] Start: 11-29-2024 Screening for malign ant neoplasm of breast Mammogram Screening [facility] Start: 11-20-2024 DIABETES SCREEN DIABETES SCREEN [facility] Start: 11-16-2024 DIABETES SCREEN DIABETES SCREEN [facility] Start: 02-10-2024 Advance Directive Discussion Advance Directive Discussion [facility] Start: 02-08-2024 End: 02-08-2024 Patient encounter procedure 02/08/2024 1:15 PM EST Office Visit General Surgery [address] [place], [place] [id number] Zohra Wood MD [address] [place] [id number] Consult-breast biospy General Surgery Comment on above: Consult-breast biosp y Start: 02-02-2024 End: 02-02-2024 Patient encounter procedure Mammogram Comment on above: CYNTHIA DIAGNOSTIC LEFT CB PER TR US BREAST LTD LEFT C B PER TR COMP CALCS CB LEFT Start: 01-18-2024 End: 01-18-2024 Patient encounter procedure 01/18/2024 3:25 PM EST Appointment Radiology [address] [place] [id number] Encounter for screening for osteoporosis [Z13.820 Radiology Comment on above: Encounter for screen ing for osteoporosis [Z13.820 Start: 11-22-2023 Mammography Mammogram Screening [facility] Start: 11-22-2023 Screening for malign ant neoplasm of breast Mammogram Screening [facility] Start: 10-11-2023 Covid-19 Vaccine ( season) Covid-19 Vaccine ( season) [facility] Start: 10-11-2023 Influenza vaccination Influenza Vacc ine (#1) [facility] Start: 08-04-2023 Advance Directive Discussion Advance Directive Discussion [facility] Start: 08-04-2023 Screening for osteoporosis Bone Density Screening [facility] Start: 04-26-2023 BP CONTROLLED (<130/80) BP CONTROLLE D (<130/80) [facility] Start: 01-27-2023 Anes nerve muscle td n fascia&bursa forearm wrist ANESTH LOWER ARM SURGERY [facility] Start: 01-27-2023 ANNUAL PCP TEAM ERICA SOSA DISEASE VISIT ANNUAL PCP TEAM CHRONIC DISEASE VISIT [facility] Start: 01-27-2023 Neuroplasty &/transp os median nrv carpal tunne CARPAL TUNNEL SURGERY [facility] Start: 01-27-2023 Application of ice collar, cap or bag [facility] Start: 01-27-2023 Catheterization of vein [facility] Start: 01-27-2023 Elevation of affecte d extremity [facility] Start: 01-27-2023 Following clinical pathway protocol [facility] Start: 01-27-2023 Patient discharge [facility] Start: 01-27-2023 Procedure discontinued [facility] Start: 01-27-2023 Taking patient vital signs [facility] Start: 01-27-2023 Vital signs measurements [facility] Start: 01-27-[address] [facility] Start: 01-27-2023 Medication education [facility] Start: 01-06-2023 Application of ice collar, cap or bag [facility] Start: 01-06-2023 Patient discharge [facility] Start: 01-06-2023 Catheterization of vein [facility] Start: 01-06-2023 Elevation of affecte d extremity [facility] Start: 01-06-2023 Following clinical pathway protocol [facility] Start: 01-06-2023 Procedure discontinued [facility] Start: 01-06-2023 Taking patient vital signs [facility] Start: 01-06-2023 Vital signs measurements [facility] Start: 01-06-[address] [facility] Start: 01-06-2023 Anes nerve muscle td n fascia&bursa forearm wrist ANESTH LOWER ARM SURGERY [facility] Start: 01-06-2023 Neuroplasty &/transp os median nrv carpal tunne CARPAL TUNNEL SURGERY [facility] Start: 01-06-2023 Medication education [facility] Start: 11-20-2022 BP CONTROLLED (<130/80) BP CONTROLLE D (<130/80) [facility] Start: 11-16-2022 Hepatitis B surface antibody level LDL Cholesterol [facility] Start: 11-12-2022 ANNUAL PCP TEAM ROUGE SIFTER ORTIZ DISEASE VISIT ANNUAL PCP TEAM CHRONIC DISEASE VISIT [facility] Start: 10-31-2022 Mammography [facility] Start: 10-10-2022 Covid-19 Vaccine ( season) Covid-19 Vaccine () [facility] Start: 10-10-2022 Influenza vaccination INFLUENZA (#1) [facility] Start: 08-18-2022 Anesthesia intraperitoneal lower abd w/laps nos ANESTH SURG LOWER ABDOMEN [facility] Start: 08-18-2022 Laparoscopy surg rpr initial inguinal hernia LAP ING HERNIA REPAIR INIT [facility] Start: 08-18-2022 Patient discharge [facility] Start: 05-22-2022 Colonoscopy w/biopsy single/multiple COLONOSCOPY AND BIOPSY [facility] Start: 05-22-2022 Egd removal tumor polyp/other lesion snare tech EGD REMOVE LESION SNARE [facility] Start: 05-22-2022 Egd transoral biopsy single/multiple EGD BIOPSY SINGLE/MULTIPLE [facility] Start: 05-22-2022 Patient discharge [facility] Start: 05-21-2022 Hemoglobin A1c measurement HbA1C [facility] Start: 05-21-2022 Hemoglobin A1c/Hemoglobin.total in Blood HbA1C [facility] Start: 02-09-2022 DEPRESSION ASSESSMENT DEPRESSION ASS ESSMENT [facility] Start: 11-18-2021 End: 01-18-2022 Hemoglobin A1c in Blood HGB A1C Lab Routine Hyperglycemia Expected: 11/18/2021, Expires: 01/18/2022 [facility] Work Phone: Comment on above: Expected: 11/18/2021 , Expires: 01/18/2022 Start: 11-12-2021 End: 01-12-2022 CBC W Auto Differential panel - Blood CBC + DIFF Lab Routine Screening for deficiency anemia Wellness examination Expected: 11/12/2021, Expires: 01/12/2022 [facility] Work Phone: Comment on above: Expected: 11/12/2021 , Expires: 01/12/2022 Start: 11-12-2021 End: 01-12-2022 Comprehensive metabolic 2000 panel - Serum or Plasma COMP METABOLIC PANEL Lab Routine Primary hypertension Wellness examination Expected: 11/12/2021, Expires: 01/12/2022 [facility] Work Phone: Comment on above: Expected: 11/12/2021 , Expires: 01/12/2022 Start: 11-12-2021 End: 01-12-2022 Lipid 1996 panel - Serum or Plasma LIPID PANEL BASIC Lab Routine Lipid screening Expected: 11/12/2021, Expires: 01/12/2022 [facility] Work Phone: Comment on above: Expected: 11/12/2021 , Expires: 01/12/2022 Start: 10-29-2021 BP CONTROLLED (<130/80) BP CONTROLLE D (<130/80) [facility] Start: 10-29-2021 Mammography MAMMOGRAM [facility] Start: 10-10-2021 Influenza vaccination C [facility] Start: 09-22-2021 COLOGUARD (FIT-DNA) COLOGUARD (FIT-D NA) [facility] Start: 09-22-2021 COLORECTAL CANCER SCREENING COLORECTAL CANCER SCREENING [facility] Start: 09-22-2021 Screening for malign ant neoplasm of colon [facility] Start: 08-30-2021 Subsequent hospital visit by physician 08/30/2021 Hospital Encounter Radiology Dimitri Faye [address] [place] [address] Start: 08-21-2021 End: 10-21-2021 Basic metabolic 2000 panel - Serum or Plasma BASIC METABOLIC PNL Lab Routine Hypertension, unspecified type Expected: 08/21/2021, Expires: 10/21/2021 [facility] Work Phone: Comment on above: Expected: 08/21/2021 , Expires: 10/21/2021 Start: 05-25-2021 COVID-19 VACCINE (4 - Booster for Moderna series) COVID-19 VACCINE (4 - Booster for Moderna series) [facility] Start: 04-18-2021 COVID-19 VACCINE (4 - Booster) COVID-19 VACCINE (4 - Booster) [facility] Start: 02-10-2022 COVID-19 VACCINE (4 - Booster for Moderna series) COVID-19 VACCINE (4 - Booster for Moderna series) [facility] Start: 02-09-2021 DEPRESSION ASSESSMENT DEPRESSION ASS ESSMENT [facility] Start: 10-08-2020 COVID-19 Vaccine (3 - Booster for Moderna series) COVID-19 Vaccine (3 - Booster for Moderna series) [facility] Start: 2018 Hepatitis B Vaccine (1 of 3 - Risk 3-dose series) Hepatitis B Vaccine (1 of 3 - Risk 3-dose series) [facility] Start: 2018 RSV Vaccine (1 - 1-d ose 60+ series) RSV Vaccine (1 - 1-dose 60+ series) [facility] Start: 2018 RSV Vaccine (1 - Ris k 60-74 years 1-dose series) RSV Vaccine (1 - Risk 60-74 years 1-dose series) [facility] Start: 06-15-2016 LIPID SCREEN LIPID SCREEN [facility] Start: 06-15-2014 DIABETES SCREEN DIABETES SCREEN [facility] Start: 07-01-2013 COLORECTAL CANCER SCREENING COLORECTAL CANCER SCREENING [facility] Start: 07-01-2013 FECAL OCCULT BLOOD FECAL OCCULT BLOO D [facility] Start: 07-01-2013 Screening for malign ant neoplasm of colon Fecal Occult Blood [facility] Start: 2008 Screening for malign ant neoplasm of breast Breast cancer screen [facility] Start: 2008 Shingles vaccine (1 of 2) Monroe gles vaccine (1 of 2) [facility] Start: 2008 SHINGRIX VACCINE (1 of 2) MONROE GRIX VACCINE (1 of 2) [facility] Start: 08-04-2003 COLOGUARD (FIT-DNA) COLOGUARD (FIT-D NA) [facility] Start: 08-04-2003 Colonoscopy COLONOSCOPY [facility] Start: 08-04-[address] COLONOGRAPHY [facility] Start: 08-04-2003 Screening for malign ant neoplasm of colon [facility] Start: 08-04-2003 SIGMOIDOSCOPY SIGMOIDOSCOPY [facility] Start: 1998 Lipid panel Lipids [facility] Start: 1988 Screening for malign ant neoplasm of cervix [facility] Start: 08-04-1979 Screening for malign ant neoplasm of cervix Pap smear [facility] Start: 1977 DTaP/Tdap/Td vaccine (1 - Tdap) DTaP/Tdap/Td vaccine (1 - Tdap) [facility] Start: 1977 Pneumococcal Vaccine : 50+ (1 of 2 - PCV) Pneumococcal Vaccine: 50+ (1 of 2 - PCV) [facility] Start: 1977 SHINGRIX VACCINE (1 of 2) MONROE GRIX VACCINE (1 of 2) [facility] Start: 1977 Urine microalbumin profile [facility] Start: 1976 ANNUAL PCP TEAM ROUGE SIFTER ORTIZ DISEASE VISIT ANNUAL PCP TEAM CHRONIC DISEASE VISIT [facility] Start: 1976 Anxiety Screening Anxiety Screening [facility] Start: 1976 BP CONTROLLED (<130/80) BP CONTROLLE D (<130/80) [facility] Start: 1976 Depression Screening Depression Scre ening [facility] Start: 1976 HEPATITIS C SCREENING HEPATITIS C SC REENING [facility] Start: 1976 Hepatitis C screening S [facility] Start: 1976 HIV SCREENING HIV SCREENING [facility] Start: 1976 HIV screening HIV Screening [facility] Start: 1973 HIV screening HIV screen [facility] Start: 1970 Adult depression screening assessment DEPRESSION SCREENING [facility] Start: 1970 Depression Screen Depression Screen [facility] Start: 1968 3 comp foot exam completed Diabetic Foot Exam [facility] Start: 1968 Diabetic foot examination Diabetic F oot Exam [facility] Start: 1968 Glaucoma screening Dilated Retinal E xam [facility] Start: 1968 Hepatitis B screening Urine Al bumin:Creatinine Ratio [facility] Start: 1968 Hepatitis C antibody , confirmatory test Dilated Retinal Exam [facility] Start: 1964 PNEUMOCOCCAL (1 - PCV) PNEUMOCOCCAL (1 - PCV) [facility] Start: 1964 Pneumococcal vaccination Pneum ococcal Vaccine (1 - PCV) [facility] Start: 1964 Pneumococcal Vaccine : 65+ (1 of 2 - PCV) Pneumococcal Vaccine: 65+ (1 of 2 - PCV) [facility] Start: 02-02-1959 COVID-19 Vaccine (#1) COVID-19 Vacci ne (#1) [facility] End: 12-29-2024 BD DXA TRABECULAR BONE SCORE (TBS) BD DXA TRABECULAR BONE SCORE (TBS) Radiology Routine Encounter for screening for osteoporosis 1 Occurrences starting 11/30/2023 until 12/29/2024 [facility] Comment on above: 1 Occurrences starti ng 11/30/2023 until 12/29/2024 End: 08-30-2021 CT ABDOMEN W WO CONTRAST Additional Contrast? None [facility] Work Phone: Comment on above: Once for 1 Occurrenc es starting 08/30/2021 until 08/30/2021 End: 12-29-2024 DBT Breast - bilateral screening CYNTHIA SCREENING W SHAHEED Radiology Routine Encounter for screening mammogram for breast cancer 1 Occurrences starting 11/30/2023 until 12/29/2024 [facility] Work Phone: Comment on above: 1 Occurrences starti ng 11/30/2023 until 12/29/2024 End: 12-29-2024 DXA Skeletal system.axial Views for bone density DXA-AXIAL SKELETON Radiology Routine Encounter for screening for osteoporosis 1 Occurrences starting 11/30/2023 until 12/29/2024 [facility] Comment on above: 1 Occurrences starti ng 11/30/2023 until 12/29/2024 End: 12-21-2023 CYNHTIA SCREENING CYNTHIA SCREENING Radiology Routine Encounter for screening mammogram for breast cancer 1 Occurrences starting 11/21/2022 until 12/21/2023 [facility] Work Phone: Comment on above: 1 Occurrences starti ng 11/21/2022 until 12/21/2023 End: 12-30-2024 MG Breast - left Diagnostic for implant CYNTHIA DIAGNOSTIC LEFT Radiology Routine Abnormal mammogram 1 Occurrences starting 12/01/2023 until 12/30/2024 [facility] Comment on above: 1 Occurrences starti ng 12/01/2023 until 12/30/2024 MG Breast Screening CYNTHIA SCREENIN G Radiology Routine Encounter for screening mammogram for breast cancer 11/30/2023 7:50 AM EDT [facility] Work Phone: Mri abdomen w/o cont rast material MRI KIDNEY WO IVCON Radiology Routine Other specified disorders of kidney and ureter Ordered: 09/24/2021 [facility] Work Phone: Comment on above: Ordered: 09/24/2021 PAP TEST PAP TEST Lab Joe [facility] Encounter for screening for human papillomavirus (HPV) Screening for malignant neoplasm of cervix Ordered: 11/30/2023 [facility] Comment on above: Ordered: 11/30/2023 Patient Education Muscle Spasm [facility] Work Phone: Patient referral [facility] Work Phone: End: 12-20-2022 Screening mammography bi 2-view breast inc cad CYNTHIA SCREENING Radiology Routine Encounter for screening mammogram for breast cancer 1 Occurrences starting 11/20/2021 until 12/20/2022 [facility] Work Phone: Comment on above: 1 Occurrences starti ng 11/20/2021 until 12/20/2022 End: 12-30-2024 US Breast - left limited US BREAST LTD LEFT Radiology Routine Abnormal mammogram 1 Occurrences starting 12/01/2023 until 12/30/2024 [facility] Work Phone: Comment on above: 1 Occurrences starti ng 12/01/2023 until 12/30/2024 [facility] Immunizations Immunization Date Immunization Notes Care Provider Mague dowling 11-07-2022 influenza virus vaccine, unspecified formulation Mandi Salas APRN.CNP Work Phone: [facility] 11-12-2021 influenza, high dose seasonal, preservative-free Dimitri Faye MD Work Phone: [facility] 01-24-2021 COVID-19 original vaccine, full dose, monovalent (MODERNA) Dimitri Faye MD Work Phone: [facility] 01-24-2021 COVID-19 vaccine, ag e 12+ yr ([employer] - PURPLE TOP) Dimitri Faye MD Work Phone: [facility] 11-26-2020 influenza nasal, unspecified formulation Dimitri Faye MD Work Phone: [facility] 05-08-2020 COVID-19 vaccine, fu ll dose (MODERNA) Dimitri Faye MD Work Phone: [facility] Work Phone: 04-10-2020 COVID-19 vaccine, fu ll dose (MODERNA) Dimitri Faye MD Work Phone: [facility] Work Phone: 11-23-2017 Influenza virus vaccine [facility] 11-23-2017 influenza, seasonal, injectable, preservative free Dimitri Faye MD Work Phone: [facility] Payers Date Payer Category Payer Unknown [id number] 2023 Self-pay [id number] 2015 Unknown MMO MMO [employer]HS [id number] 2015-Present [phone] [address] [address] [place] [id number] Indemnity [id number] 2015 Unknown [id number] 2015 Unknown [id number] Unknown [facility] [id number] Unknown [id number] Unknown [id number] Unknown [id number] Unknown [id number] Unknown [id number] Social History Date Type Detail Facility Start: 12-22-2020 End: 02-11-2023 Tobacco smoking status LAIS Unknown if ever smoked [facility] Start: 1960 Sex Assigned At Female C [facility] Work Phone: Start: 06-21-2012 End: 11-30-2023 Tobacco smoking status NHIS Ex-smoker [facility] End: 02-03-2012 History of tobacco use Current smoker [facility] End: 02-03-2012 History of tobacco use Cigarette Smoker [facility] Start: 06-21-2012 End: 11-21-2022 Cigarettes smoked current (pack per day) - Reported 0.5 [facility] Work Phone: Start: 06-21-2012 End: 11-30-2023 Tobacco use and exposure Smokeless tobacco non-user [facility] Start: 10-29-2020 End: 02-08-2024 Alcohol intake Current non-drinker of alcohol (finding) [facility] Start: 10-27-2019 History SDOH Social Connections Phone 5 [facility] Start: 10-27-2019 History SDOH Social Connections Get Together 3 [facility] Start: 10-27-2019 History SDOH Social Connections Lutheran 1 [facility] Start: 10-27-2019 History SDOH Social Connections Membership 2 [facility] Start: 10-27-2019 Education 16 [facility] Start: 08-11-2021 End: 11-12-2021 Exposure to SARS-CoV-2 (event) Not sure [facility] Start: 1960 Sex Assigned At Not on file S [facility] Work Phone: Start: 09-17-2021 End: 09-27-2021 Exposure to SARS-CoV-2 (event) Yes [facility] Start: 10-27-2019 End: 11-21-2022 Social connection and isolation panel [facility] Work Phone: Do you belong to any clubs or organizations such as anglican groups, unions, fraternal or athletic groups, or school groups? No [facility] Work Phone: Are you now , , , , never or living with a partner? [facility] Work Phone: How hard is it for y ou to pay for the very basics like food, housing, medical care, and heating Not hard at all [facility] Work Phone: Do you feel stress - tense, restless, nervous, or anxious, or unable to sleep at night because your mind is troubled all the time - these days [OSQ] Very much [facility] Work Phone: (I/We) worried wheth er (my/our) food would run out before (I/we) got money to buy more. Never true [facility] Work Phone: Start: 08-05-2016 Gender identity Identifies as female gender (finding) [facility] Work Phone: Start: 08-05-2016 Sexual orientation Heterosexual (kayden thakkar) [facility] Work Phone: NEGATED: Highlighted row [facility] Medical Equipment Procedure Code Equipment Code Equipment Origin al Text Equipment Identifier Dates Total replacement of knee joint CEMENT,BONE DOUGH 1/2 BATCH FDA Start: 10-28-2017 Total replacement of knee joint TRIATHLON CRUC RET FEM COMP FDA Start: 10-28-2017 Total replacement of knee joint TRIATHLON TIBIAL INSERT-CS FDA Start: 10-28-2017 Total replacement of knee joint TRIATHLON TRITANIUM TIB COMP FDA Start: 10-28-2017 Total replacement of knee joint TRIATHLON X3 ASYMMETRIC PATELA FDA Start: 10-28-2017 Total replacement of knee joint ASYMMETRIC PATELLA FDA Start: 02-03-2018 Total replacement of knee joint CEMENT,BONE DOUGH 1/2 BATCH FDA Start: 02-03-2018 Total replacement of knee joint CRUTIATE RETAINING FEMORAL FDA Start: 02-03-2018 Total replacement of knee joint TIBIAL BEARING INSERT FDA Start: 02-03-2018 Total replacement of knee joint TIBIAL COMPONENT FDA Start: 02-03-2018 Total replacement of knee joint CEMENT,BONE DOUGH 1/2 BATCH FDA Start: 10-28-2017 Total replacement of knee joint TRIATHLON CRUC RET FEM COMP FDA Start: 10-28-2017 Total replacement of knee joint TRIATHLON TIBIAL INSERT-CS FDA Start: 10-28-2017 Total replacement of knee joint TRIATHLON TRITANIUM TIB COMP FDA Start: 10-28-2017 Total replacement of knee joint TRIATHLON X3 ASYMMETRIC PATELA FDA Start: 10-28-2017 Total replacement of knee joint ASYMMETRIC PATELLA FDA Start: 02-03-2018 Total replacement of knee joint CEMENT,BONE DOUGH 1/2 BATCH FDA Start: 02-03-2018 Total replacement of knee joint CRUTIATE RETAINING FEMORAL FDA Start: 02-03-2018 Total replacement of knee joint TIBIAL BEARING INSERT FDA Start: 02-03-2018 Total replacement of knee joint TIBIAL COMPONENT FDA Start: 02-03-2018 Total replacement of knee joint CEMENT,BONE DOUGH 1/2 BATCH FDA Start: 10-28-2017 Total replacement of knee joint TRIATHLON CRUC RET FEM COMP FDA Start: 10-28-2017 Total replacement of knee joint TRIATHLON TIBIAL INSERT-CS FDA Start: 10-28-2017 Total replacement of knee joint TRIATHLON TRITANIUM TIB COMP FDA Start: 10-28-2017 Total replacement of knee joint TRIATHLON X3 ASYMMETRIC PATELA FDA Start: 10-28-2017 Total replacement of knee joint ASYMMETRIC PATELLA FDA Start: 02-03-2018 Total replacement of knee joint CEMENT,BONE DOUGH 1/2 BATCH FDA Start: 02-03-2018 Total replacement of knee joint CRUTIATE RETAINING FEMORAL FDA Start: 02-03-2018 Total replacement of knee joint TIBIAL BEARING INSERT FDA Start: 02-03-2018 Total replacement of knee joint TIBIAL COMPONENT FDA Start: 02-03-2018 Total replacement of knee joint CEMENT,BONE DOUGH 1/2 BATCH FDA Start: 10-28-2017 Total replacement of knee joint TRIATHLON CRUC RET FEM COMP FDA Start: 10-28-2017 Total replacement of knee joint TRIATHLON TIBIAL INSERT-CS FDA Start: 10-28-2017 Total replacement of knee joint TRIATHLON TRITANIUM TIB COMP FDA Start: 10-28-2017 Total replacement of knee joint TRIATHLON X3 ASYMMETRIC PATELA FDA Start: 10-28-2017 Total replacement of knee joint ASYMMETRIC PATELLA FDA Start: 02-03-2018 Total replacement of knee joint CEMENT,BONE DOUGH 1/2 BATCH FDA Start: 02-03-2018 Total replacement of knee joint CRUTIATE RETAINING FEMORAL FDA Start: 02-03-2018 Total replacement of knee joint TIBIAL BEARING INSERT FDA Start: 02-03-2018 Total replacement of knee joint TIBIAL COMPONENT FDA Start: 02-03-2018 Total replacement of knee joint CEMENT,BONE DOUGH 1/2 BATCH FDA Start: 10-28-2017 Total replacement of knee joint TRIATHLON CRUC RET FEM COMP FDA Start: 10-28-2017 Total replacement of knee joint TRIATHLON TIBIAL INSERT-CS FDA Start: 10-28-2017 Total replacement of knee joint TRIATHLON TRITANIUM TIB COMP FDA Start: 10-28-2017 Total replacement of knee joint TRIATHLON X3 ASYMMETRIC PATELA FDA Start: 10-28-2017 Total replacement of knee joint ASYMMETRIC PATELLA FDA Start: 02-03-2018 Total replacement of knee joint CEMENT,BONE DOUGH 1/2 BATCH FDA Start: 02-03-2018 Total replacement of knee joint CRUTIATE RETAINING FEMORAL FDA Start: 02-03-2018 Total replacement of knee joint TIBIAL BEARING INSERT FDA Start: 02-03-2018 Total replacement of knee joint TIBIAL COMPONENT FDA Start: 02-03-2018 Total replacement of knee joint CEMENT,BONE DOUGH 1/2 BATCH FDA Start: 10-28-2017 Total replacement of knee joint TRIATHLON CRUC RET FEM COMP FDA Start: 10-28-2017 Total replacement of knee joint TRIATHLON TIBIAL INSERT-CS FDA Start: 10-28-2017 Total replacement of knee joint TRIATHLON TRITANIUM TIB COMP FDA Start: 10-28-2017 Total replacement of knee joint TRIATHLON X3 ASYMMETRIC PATELA FDA Start: 10-28-2017 Total replacement of knee joint ASYMMETRIC PATELLA FDA Start: 02-03-2018 Total replacement of knee joint CEMENT,BONE DOUGH 1/2 BATCH FDA Start: 02-03-2018 Total replacement of knee joint CRUTIATE RETAINING FEMORAL FDA Start: 02-03-2018 Total replacement of knee joint TIBIAL BEARING INSERT FDA Start: 02-03-2018 Total replacement of knee joint TIBIAL COMPONENT FDA Start: 02-03-2018 Total replacement of knee joint CEMENT,BONE DOUGH 1/2 BATCH FDA Start: 10-28-2017 Total replacement of knee joint TRIATHLON CRUC RET FEM COMP FDA Start: 10-28-2017 Total replacement of knee joint TRIATHLON TIBIAL INSERT-CS FDA Start: 10-28-2017 Total replacement of knee joint TRIATHLON TRITANIUM TIB COMP FDA Start: 10-28-2017 Total replacement of knee joint TRIATHLON X3 ASYMMETRIC PATELA FDA Start: 10-28-2017 Total replacement of knee joint ASYMMETRIC PATELLA FDA Start: 02-03-2018 Total replacement of knee joint CEMENT,BONE DOUGH 1/2 BATCH FDA Start: 02-03-2018 Total replacement of knee joint CRUTIATE RETAINING FEMORAL FDA Start: 02-03-2018 Total replacement of knee joint TIBIAL BEARING INSERT FDA Start: 02-03-2018 Total replacement of knee joint TIBIAL COMPONENT FDA Start: 02-03-2018 Total replacement of knee joint CEMENT,BONE DOUGH 1/2 BATCH FDA Start: 10-28-2017 Total replacement of knee joint TRIATHLON CRUC RET FEM COMP FDA Start: 10-28-2017 Total replacement of knee joint TRIATHLON TIBIAL INSERT-CS FDA Start: 10-28-2017 Total replacement of knee joint TRIATHLON TRITANIUM TIB COMP FDA Start: 10-28-2017 Total replacement of knee joint TRIATHLON X3 ASYMMETRIC PATELA FDA Start: 10-28-2017 Total replacement of knee joint ASYMMETRIC PATELLA FDA Start: 02-03-2018 Total replacement of knee joint CEMENT,BONE DOUGH 1/2 BATCH FDA Start: 02-03-2018 Total replacement of knee joint CRUTIATE RETAINING FEMORAL FDA Start: 02-03-2018 Total replacement of knee joint TIBIAL BEARING INSERT FDA Start: 02-03-2018 Total replacement of knee joint TIBIAL COMPONENT FDA Start: 02-03-2018 Total replacement of knee joint CEMENT,BONE DOUGH 1/2 BATCH FDA Start: 10-28-2017 Total replacement of knee joint TRIATHLON CRUC RET FEM COMP FDA Start: 10-28-2017 Total replacement of knee joint TRIATHLON TIBIAL INSERT-CS FDA Start: 10-28-2017 Total replacement of knee joint TRIATHLON TRITANIUM TIB COMP FDA Start: 10-28-2017 Total replacement of knee joint TRIATHLON X3 ASYMMETRIC PATELA FDA Start: 10-28-2017 Total replacement of knee joint ASYMMETRIC PATELLA FDA Start: 02-03-2018 Total replacement of knee joint CEMENT,BONE DOUGH 1/2 BATCH FDA Start: 02-03-2018 Total replacement of knee joint CRUTIATE RETAINING FEMORAL FDA Start: 02-03-2018 Total replacement of knee joint TIBIAL BEARING INSERT FDA Start: 02-03-2018 Total replacement of knee joint TIBIAL COMPONENT FDA Start: 02-03-2018 Total replacement of knee joint CEMENT,BONE DOUGH 1/2 BATCH FDA Start: 10-28-2017 Total replacement of knee joint TRIATHLON CRUC RET FEM COMP FDA Start: 10-28-2017 Total replacement of knee joint TRIATHLON TIBIAL INSERT-CS FDA Start: 10-28-2017 Total replacement of knee joint TRIATHLON TRITANIUM TIB COMP FDA Start: 10-28-2017 Total replacement of knee joint TRIATHLON X3 ASYMMETRIC PATELA FDA Start: 10-28-2017 Total replacement of knee joint ASYMMETRIC PATELLA FDA Start: 02-03-2018 Total replacement of knee joint CEMENT,BONE DOUGH 1/2 BATCH FDA Start: 02-03-2018 Total replacement of knee joint CRUTIATE RETAINING FEMORAL FDA Start: 02-03-2018 Total replacement of knee joint TIBIAL BEARING INSERT FDA Start: 02-03-2018 Total replacement of knee joint TIBIAL COMPONENT FDA Start: 02-03-2018 Total replacement of knee joint CEMENT,BONE DOUGH 1/2 BATCH FDA Start: 10-28-2017 Total replacement of knee joint TRIATHLON CRUC RET FEM COMP FDA Start: 10-28-2017 Total replacement of knee joint TRIATHLON TIBIAL INSERT-CS FDA Start: 10-28-2017 Total replacement of knee joint TRIATHLON TRITANIUM TIB COMP FDA Start: 10-28-2017 Total replacement of knee joint TRIATHLON X3 ASYMMETRIC PATELA FDA Start: 10-28-2017 Total replacement of knee joint ASYMMETRIC PATELLA FDA Start: 02-03-2018 Total replacement of knee joint CEMENT,BONE DOUGH 1/2 BATCH FDA Start: 02-03-2018 Total replacement of knee joint CRUTIATE RETAINING FEMORAL FDA Start: 02-03-2018 Total replacement of knee joint TIBIAL BEARING INSERT FDA Start: 02-03-2018 Total replacement of knee joint TIBIAL COMPONENT FDA Start: 02-03-2018 Total replacement of knee joint CEMENT,BONE DOUGH 1/2 BATCH FDA Start: 10-28-2017 Total replacement of knee joint TRIATHLON CRUC RET FEM COMP FDA Start: 10-28-2017 Total replacement of knee joint TRIATHLON TIBIAL INSERT-CS FDA Start: 10-28-2017 Total replacement of knee joint TRIATHLON TRITANIUM TIB COMP FDA Start: 10-28-2017 Total replacement of knee joint TRIATHLON X3 ASYMMETRIC PATELA FDA Start: 10-28-2017 Total replacement of knee joint ASYMMETRIC PATELLA FDA Start: 02-03-2018 Total replacement of knee joint CEMENT,BONE DOUGH 1/2 BATCH FDA Start: 02-03-2018 Total replacement of knee joint CRUTIATE RETAINING FEMORAL FDA Start: 02-03-2018 Total replacement of knee joint TIBIAL BEARING INSERT FDA Start: 02-03-2018 Total replacement of knee joint TIBIAL COMPONENT FDA Start: 02-03-2018 Total replacement of knee joint CEMENT,BONE DOUGH 1/2 BATCH FDA Start: 10-28-2017 Total replacement of knee joint TRIATHLON CRUC RET FEM COMP FDA Start: 10-28-2017 Total replacement of knee joint TRIATHLON TIBIAL INSERT-CS FDA Start: 10-28-2017 Total replacement of knee joint TRIATHLON TRITANIUM TIB COMP FDA Start: 10-28-2017 Total replacement of knee joint TRIATHLON X3 ASYMMETRIC PATELA FDA Start: 10-28-2017 Total replacement of knee joint ASYMMETRIC PATELLA FDA Start: 02-03-2018 Total replacement of knee joint CEMENT,BONE DOUGH 1/2 BATCH FDA Start: 02-03-2018 Total replacement of knee joint CRUTIATE RETAINING FEMORAL FDA Start: 02-03-2018 Total replacement of knee joint TIBIAL BEARING INSERT FDA Start: 02-03-2018 Total replacement of knee joint TIBIAL COMPONENT FDA Start: 02-03-2018 Total replacement of knee joint CEMENT,BONE DOUGH 1/2 BATCH FDA Start: 10-28-2017 Total replacement of knee joint TRIATHLON CRUC RET FEM COMP FDA Start: 10-28-2017 Total replacement of knee joint TRIATHLON TIBIAL INSERT-CS FDA Start: 10-28-2017 Total replacement of knee joint TRIATHLON TRITANIUM TIB COMP FDA Start: 10-28-2017 Total replacement of knee joint TRIATHLON X3 ASYMMETRIC PATELA FDA Start: 10-28-2017 Total replacement of knee joint ASYMMETRIC PATELLA FDA Start: 02-03-2018 Total replacement of knee joint CEMENT,BONE DOUGH 1/2 BATCH FDA Start: 02-03-2018 Total replacement of knee joint CRUTIATE RETAINING FEMORAL FDA Start: 02-03-2018 Total replacement of knee joint TIBIAL BEARING INSERT FDA Start: 02-03-2018 Total replacement of knee joint TIBIAL COMPONENT FDA Start: 02-03-2018 Total replacement of knee joint CEMENT,BONE DOUGH 1/2 BATCH FDA Start: 10-28-2017 Total replacement of knee joint TRIATHLON CRUC RET FEM COMP FDA Start: 10-28-2017 Total replacement of knee joint TRIATHLON TIBIAL INSERT-CS FDA Start: 10-28-2017 Total replacement of knee joint TRIATHLON TRITANIUM TIB COMP FDA Start: 10-28-2017 Total replacement of knee joint TRIATHLON X3 ASYMMETRIC PATELA FDA Start: 10-28-2017 Total replacement of knee joint ASYMMETRIC PATELLA FDA Start: 02-03-2018 Total replacement of knee joint CEMENT,BONE DOUGH 1/2 BATCH FDA Start: 02-03-2018 Total replacement of knee joint CRUTIATE RETAINING FEMORAL FDA Start: 02-03-2018 Total replacement of knee joint TIBIAL BEARING INSERT FDA Start: 02-03-2018 Total replacement of knee joint TIBIAL COMPONENT FDA Start: 02-03-2018 Extra-gynaecolog ica l surgical mesh, composite-polymer [id number] SRB0 FDA Start: 08-18-2022 Goals Date Patient Goal Desired Activity /State Mental Status Date Assessment Result Facility 01-27-2023 Cognitive function Voice/Name [facility] Work Phone: 01-06-2023 Cognitive function Level Of Cons ciousness Follows Commands;Drowsy [facility] Work Phone: 01-06-2023 Cognitive function Voice/Name [facility] Work Phone: 08-18-2022 Cognitive function Voice/Name;Touch/Shaki ng [facility] Work Phone: 05-22-2022 Cognitive function Level Of Consciousness Sedated [facility] Work Phone: 05-22-2022 Cognitive function Voice/Name [facility] Work Phone: 04-25-2022 Cognitive function Voice/Name [facility] Work Phone: Clinical Notes 08-21-2021 to 02-08-2024 Zohra Wood MD - 02/08/2024 1:15 PM Braulio Bassett RN - 02/08/2024 1:11 PM Ning Barba Mammo Tech - 02/02/2024 8:00 AM Jaleel Haro RT(R) - 01/18/2024 3:25 PM EST Note Date & Type Note Facility 02-08-2024 History of Present illness Narrative Dianne Hoyt 1960 REFERRING PHYSICIAN: No ref. provider found CHIEF COMPLAINT: Consult (Abnormal mammogram) HPI: The patient is a 63 year old female presents with findings of abnormal left breast calcifications with BIRADS 4 and recommendations for stereotactic biopsy. She denies palpable breast masses. PAST MEDICAL HISTORY Diagnosis Date Anxiety Arthritis 08/10/2017 Depression Diabetes mellitus (HCC) Osteopenia 01/2024 Unspecified essential hypertension Essential hypertension PAST SURGICAL HISTORY Procedure Laterality Date DELIVERY ONLY , low cervical x 2 HERNIA REPAIR HX LIG/TRNSXJ FLP TUBE ABDL/VAG APPR UNI/BI Tubal ligation PAST SURGICAL HISTORY OF Bilateral 10/27 01/26 bilateral knee replacement Current Outpatient Medications Medication Sig FLUoxetine (PROZAC) 20 mg capsule Take 20 mg by mouth once daily. pantoprazole DR (PROTONIX) 40 mg tablet Take 1 tablet by mouth every afternoon. bupropion HCl (WELLBUTRIN ORAL) Take by mouth once daily. semaglutide (OZEMPIC SUBCUTANEOUS) Inject 2 mg subcutaneously one time a week. metoprolol succinate ER (TOPROL XL) 50 mg 24 hr tablet TAKE 1 TABLET BY MOUTH EVERY DAY DIRECTED losartan (COZAAR) 100 mg tablet TAKE 1/2 TABLET EVERY DAY DIRECTED spironolactone (ALDACTONE) 50 mg tablet TAKE 1 TABLET BY MOUTH EVERY DAY indapamide (LOZOL) 1.25 mg tablet TAKE 1 TABLET BY MOUTH EVERY DAY IN THE MORNING desvenlafaxine ER (PRISTIQ) 100 mg 24 hr tablet TAKE 1 TABLET BY MOUTH EVERY DAY (Patient not taking: Reported on 02/08/2024) No current facility-administered medications for this visit. ALLERGIES: Patient has no known allergies. PERSONAL HISTORY: Social History Tobacco Use Smoking status: Former Current packs/day: 0.00 Types: Cigarettes Quit date: 02/03/2012 Years since quittin.0 Smokeless tobacco: Never Vaping Use Vaping status: Never Used Substance Use Topics Alcohol use: No Drug use: No FAMILY HISTORY Adopted: Yes Problem Relation Age of Onset other (adopted-no med hx.) Other REVIEW OF SYSTEMS: General: The patient NOTES fatigue, denies weight loss, NOTES weight gain, denies feeling hot, and denies feelings of cold. Eyes: The patient denies glaucoma, NOTES eye injury/surgery, does not wear glasses or contacts. Ear/Nose/Throat: The patient denies allergies, denies hayfever, denies ear infections, and denies bloody noses. Cardiovascular: The patient denies chest pain, denies heart disease, NOTES high blood pressure,denies cardiac stent, denies prior heart attack, denies irregular heart beat, denies high cholesterol, denies poor circulation, denies heart failure, other cardiac issues, denies claudication, denies cold feet, denies peripheral arterial stent. Respiratory: The patient denies tuberculosis, denies pneumonia, denies frequent cough, denies pulmonary embolism, denies shortness of breath, and denies coughing up blood. Gastrointestinal: The patient denies difficulty swallowing, denies acid reflux, denies ulcers, denies vomiting, denies jaundice/hepatitis, denies gallbladder problems, denies black or tarry stools, denies hemorrhoids, denies bleeding from rectum, denies diverticulitis, NOTES constipation, denies diarrhea, denies loss of stool control, and denies hernias. Kidney/Bladder: The patient denies kidney stones, denies urine infections, and denies bloody urine. Skin: The patient denies a history of skin cancer, denies bleeding/changing moles, and denies a history of skin rash. Neurologic: The patient denies a history of epilepsy/convulsions, denies headaches, denies head/spinal injuries, and denies stroke/TIA. Psychiatric: The patient denies psychiatric medications, NOTES depression, and denies voices, denies substance abuse. Endocrine: The patient denies thyroid disorders, NOTES diabetes, and denies hormonal problems. Hematologic: The patient denies a history of bruising, denies bleeding, and denies anemia, denies blood clots. Infections: The patient denies a history of measles and mumps, denies rheumatic fever, and denies sexually transmitted diseases. Musculoskeletal: The patient denies back pain/injury, denies back problems, denies sciatica, denies knee/foot trouble, denies arthritis, or denies gout. PHYSICAL EXAMINATION: General: The patient is 63 year old female, well nourished, well hydrated in no acute distress. The patient is oriented to time, place, and person. VITALS: Blood pressure 122/82, pulse 70, temperature 36.9 C (98.5 F), height 163.8 cm (5' 4.5), weight 112.6 kg (248 lb 3.2 oz), last menstrual period 01/23/2007, SpO2 99%. Body mass index is 41.95 kg/m . Head: Normal cephalic, atraumatic Eyes: pupils are equally round, sclera are clear/anicteric Neck is supple with no tracheal deviation Respiratory: Normal respiratory excursion and pattern. Extremities: no clubbing, cyanosis or edema. Neuro: non focal Psych: normal mood The sensitive examination was discussed with the Patient or Patient's Authorized Cotton Ginner. As applicable, any other physician, advance practice provider, medical student, or other health professional student that will be observing or involved in the sensitive examination for educational or training purposes was discussed with the Patient or Authorized Cotton Ginner. The Patient or Authorized Cotton Ginner has agreed to proceed with the sensitive examination. (Sensitive examination includes inspection and/or palpation of the breasts, pelvis, prostate and anorectal regions) Assessment IMPRESSION: abnormal calcification on mammograms (left) PLAN: I have discussed the above with the patient. I have offered stereotactic breast biopsy at [facility] center. Patient states that she wants to stay in [place] and could it not be done in the [facility]. I have explained that the procedure requires special stereotactic mammographic equipment. I have told her that they have such equipment at [facility] She will seek treatment/procedure at that location. I have offered her procedure at [facility] - if she changes her mind. She acknowledges the above.. I have confirmed and edited as necessary, the PFSH and ROS obtained by others. . Diagnoses: (R92.1) Calcification of left breast on mammography (primary encounter diagnosis) Medical Decision Making: Problems: Moderate: New problem with uncertain prognosis Medical Decision Making Level: 2 - Straightforward Zohra Wood MD REVIEW OF SYSTEMS: General: The patient NOTES fatigue, denies weight loss, NOTES weight gain, denies feeling hot, and denies feelings of cold. Eyes: The patient denies glaucoma, NOTES eye injury/surgery, does not wear glasses or contacts. Ear/Nose/Throat: The patient denies allergies, denies hayfever, denies ear infections, and denies bloody noses. Cardiovascular: The patient denies chest pain, denies heart disease, NOTES high blood pressure,denies cardiac stent, denies prior heart attack, denies irregular heart beat, denies high cholesterol, denies poor circulation, denies heart failure, other cardiac issues, denies claudication, denies cold feet, denies peripheral arterial stent. Respiratory: The patient denies tuberculosis, denies pneumonia, denies frequent cough, denies pulmonary embolism, denies shortness of breath, and denies coughing up blood. Gastrointestinal: The patient denies difficulty swallowing, denies acid reflux, denies ulcers, denies vomiting, denies jaundice/hepatitis, denies gallbladder problems, denies black or tarry stools, denies hemorrhoids, denies bleeding from rectum, denies diverticulitis, NOTES constipation, denies diarrhea, denies loss of stool control, and denies hernias. Kidney/Bladder: The patient denies kidney stones, denies urine infections, and denies bloody urine. Skin: The patient denies a history of skin cancer, denies bleeding/changing moles, and denies a history of skin rash. Neurologic: The patient denies a history of epilepsy/convulsions, denies headaches, denies head/spinal injuries, and denies stroke/TIA. Psychiatric: The patient denies psychiatric medications, NOTES depression, and denies voices, denies substance abuse. Endocrine: The patient denies thyroid disorders, NOTES diabetes, and denies hormonal problems. Hematologic: The patient denies a history of bruising, denies bleeding, and denies anemia, denies blood clots. Infections: The patient denies a history of measles and mumps, denies rheumatic fever, and denies sexually transmitted diseases. Musculoskeletal: The patient denies back pain/injury, denies back problems, denies sciatica, denies knee/foot trouble, denies arthritis, or denies gout. When was patient's last Mammogram screening? 02/01 Last Colonoscopy: 2022 Braulio Liao RN documented in this encounter [facility] 02-08-2024 Note HNO ID: [id number] Author: ZOHRA WOOD MD Service: ? Author Type: Physician Type: Progress Notes Filed: 02/11/2024 16:51 Note Text: Dianne Garciaoster 1960 REFERRING PHYSICIAN: No ref. provider found CHIEF COMPLAINT: Consult (Abnormal mammogram) HPI: The patient is a 63 year old female presents with findings of abnormal left breast calcifications with BIRADS 4 and recommendations for stereotactic biopsy. She denies palpable breast masses. PAST MEDICAL HISTORY Diagnosis Date Anxiety Arthritis 08/10/2017 Depression Diabetes mellitus (HCC) Osteopenia 01/2024 Unspecified essential hypertension Essential hypertension PAST SURGICAL HISTORY Procedure Laterality Date DELIVERY ONLY , low cervical x 2 HERNIA REPAIR HX LIG/TRNSXJ FLP TUBE ABDL/VAG APPR UNI/BI Tubal ligation PAST SURGICAL HISTORY OF Bilateral 10/27 01/26 bilateral knee replacement Current Outpatient Medications Medication Sig FLUoxetine (PROZAC) 20 mg capsule Take 20 mg by mouth once daily. pantoprazole DR (PROTONIX) 40 mg tablet Take 1 tablet by mouth every afternoon. bupropion HCl (WELLBUTRIN ORAL) Take by mouth once daily. semaglutide (OZEMPIC SUBCUTANEOUS) Inject 2 mg subcutaneously one time a week. metoprolol succinate ER (TOPROL XL) 50 mg 24 hr tablet TAKE 1 TABLET BY MOUTH EVERY DAY DIRECTED losartan (COZAAR) 100 mg tablet TAKE 1/2 TABLET EVERY DAY DIRECTED spironolactone (ALDACTONE) 50 mg tablet TAKE 1 TABLET BY MOUTH EVERY DAY indapamide (LOZOL) 1.25 mg tablet TAKE 1 TABLET BY MOUTH EVERY DAY IN THE MORNING desvenlafaxine ER (PRISTIQ) 100 mg 24 hr tablet TAKE 1 TABLET BY MOUTH EVERY DAY (Patient not taking: Reported on 02/08/2024) No current facility-administered medications for this visit. ALLERGIES: Patient has no known allergies. PERSONAL HISTORY: Social History Tobacco Use Smoking status: Former Current packs/day: 0.00 Types: Cigarettes Quit date: 02/03/2012 Years since quittin.0 Smokeless tobacco: Never Vaping Use Vaping status: Never Used Substance Use Topics Alcohol use: No Drug use: No FAMILY HISTORY Adopted: Yes Problem Relation Age of Onset other (adopted-no med hx.) Other REVIEW OF SYSTEMS: General: The patient NOTES fatigue, denies weight loss, NOTES weight gain, denies feeling hot, and denies feelings of cold. Eyes: The patient denies glaucoma, NOTES eye injury/surgery, does not wear glasses or contacts. Ear/Nose/Throat: The patient denies allergies, denies hayfever, denies ear infections, and denies bloody noses. Cardiovascular: The patient denies chest pain, denies heart disease, NOTES high blood pressure,denies cardiac stent, denies prior heart attack, denies irregular heart beat, denies high cholesterol, denies poor circulation, denies heart failure, other cardiac issues, denies claudication, denies cold feet, denies peripheral arterial stent. Respiratory: The patient denies tuberculosis, denies pneumonia, denies frequent cough, denies pulmonary embolism, denies shortness of breath, and denies coughing up blood. Gastrointestinal: The patient denies difficulty swallowing, denies acid reflux, denies ulcers, denies vomiting, denies jaundice/hepatitis, denies gallbladder problems, denies black or tarry stools, denies hemorrhoids, denies bleeding from rectum, denies diverticulitis, NOTES constipation, denies diarrhea, denies loss of stool control, and denies hernias. Kidney/Bladder: The patient denies kidney stones, denies urine infections, and denies bloody urine. Skin: The patient denies a history of skin cancer, denies bleeding/changing moles, and denies a history of skin rash. Neurologic: The patient denies a history of epilepsy/convulsions, denies headaches, denies head/spinal injuries, and denies stroke/TIA. Psychiatric: The patient denies psychiatric medications, NOTES depression, and denies voices, denies substance abuse. Endocrine: The patient denies thyroid disorders, NOTES diabetes, and denies hormonal problems. Hematologic: The patient denies a history of bruising, denies bleeding, and denies anemia, denies blood clots. Infections: The patient denies a history of measles and mumps, denies rheumatic fever, and denies sexually transmitted diseases. Musculoskeletal: The patient denies back pain/injury, denies back problems, denies sciatica, denies knee/foot trouble, denies arthritis, or denies gout. PHYSICAL EXAMINATION: General: The patient is 63 year old female, well nourished, well hydrated in no acute distress. The patient is oriented to time, place, and person. VITALS: Blood pressure 122/82, pulse 70, temperature 36.9 ?C (98.5 ?F), height 163.8 cm (5' 4.5), weight 112.6 kg (248 lb 3.2 oz), last menstrual period 01/23/2007, SpO2 99%. Body mass index is 41.95 kg/m?. Head: Normal cephalic, atraumatic Eyes: pupils are equally round, sclera are clear/anicteric Neck is suppl (more content not included)... [facility] 02-08-2024 Note HNO ID: [id number] Author: BRAULIO LIAO RN Service: ? Author Type: Registered Nurse Type: Progress Notes Filed: 02/08/2024 13:13 Note Text: REVIEW OF SYSTEMS: General: The patient NOTES fatigue, denies weight loss, NOTES weight gain, denies feeling hot, and denies feelings of cold. Eyes: The patient denies glaucoma, NOTES eye injury/surgery, does not wear glasses or contacts. Ear/Nose/Throat: The patient denies allergies, denies hayfever, denies ear infections, and denies bloody noses. Cardiovascular: The patient denies chest pain, denies heart disease, NOTES high blood pressure,denies cardiac stent, denies prior heart attack, denies irregular heart beat, denies high cholesterol, denies poor circulation, denies heart failure, other cardiac issues, denies claudication, denies cold feet, denies peripheral arterial stent. Respiratory: The patient denies tuberculosis, denies pneumonia, denies frequent cough, denies pulmonary embolism, denies shortness of breath, and denies coughing up blood. Gastrointestinal: The patient denies difficulty swallowing, denies acid reflux, denies ulcers, denies vomiting, denies jaundice/hepatitis, denies gallbladder problems, denies black or tarry stools, denies hemorrhoids, denies bleeding from rectum, denies diverticulitis, NOTES constipation, denies diarrhea, denies loss of stool control, and denies hernias. Kidney/Bladder: The patient denies kidney stones, denies urine infections, and denies bloody urine. Skin: The patient denies a history of skin cancer, denies bleeding/changing moles, and denies a history of skin rash. Neurologic: The patient denies a history of epilepsy/convulsions, denies headaches, denies head/spinal injuries, and denies stroke/TIA. Psychiatric: The patient denies psychiatric medications, NOTES depression, and denies voices, denies substance abuse. Endocrine: The patient denies thyroid disorders, NOTES diabetes, and denies hormonal problems. Hematologic: The patient denies a history of bruising, denies bleeding, and denies anemia, denies blood clots. Infections: The patient denies a history of measles and mumps, denies rheumatic fever, and denies sexually transmitted diseases. Musculoskeletal: The patient denies back pain/injury, denies back problems, denies sciatica, denies knee/foot trouble, denies arthritis, or denies gout. When was patient's last Mammogram screening? 02/01 Last Colonoscopy: 2022 Braulio Liao RN [facility] 02-02-2024 History of Present illness Narrative Radiology Service Progress Note PATIENT NAME: Dianne Hoyt DATE OF SERVICE: February 02, 2024 TIME: 9:06 AM PATIENT IDENTITY VERIFICATION COMPLETED USING TWO (2) IDENTIFIERS: Name and Date of confirmed by patient verbally. FALL SCREENING: Has the patient had 2 falls in the last year or 1 fall with injury or currently using an Ambulatory Assistive Device (Walker, Cane, Wheelchair, Crutches, etc.)? No PATIENT GENDER DATA: Female. status: : No status: NO. PATIENT RELEVANT IMPLANT DATA REVIEWED: Not Applicable PATIENT PRESENTS WITH AN IMPLANTABLE OR ATTACHED STOCKROOM SUPERVISOR: No RADIOLOGY DEPARTMENT: Mammography PERIPHERAL IV DATA: Not applicable SIGNED BY: Irene Ching February 02, 2024 9:06 AM documented in this encounter [facility] 02-02-2024 Note HNO ID: [id number] Author: NING DAMON Mammo Tech Service: ? Author Type: Outside Sales Consultant Type: Progress Notes Filed: 02/02/2024 09:06 Note Text: Radiology Service Progress Note PATIENT NAME: Dianne Hoyt DATE OF SERVICE: February 02, 2024 TIME: 9:06 AM PATIENT IDENTITY VERIFICATION COMPLETED USING TWO (2) IDENTIFIERS: Name and Date of confirmed by patient verbally. FALL SCREENING: Has the patient had 2 falls in the last year or 1 fall with injury or currently using an Ambulatory Assistive Device (Walker, Cane, Wheelchair, Crutches, etc.)? No PATIENT GENDER DATA: Female. status: : No status: NO. PATIENT RELEVANT IMPLANT DATA REVIEWED: Not Applicable PATIENT PRESENTS WITH AN IMPLANTABLE OR ATTACHED STOCKROOM SUPERVISOR: No RADIOLOGY DEPARTMENT: Mammography PERIPHERAL IV DATA: Not applicable SIGNED BY: Ana ChingMultispectral Imaging Mateo February 02, 2024 9:06 AM [facility] 01-18-2024 History of Present illness Narrative Radiology Service Progress Note PATIENT NAME: Dianne Hoyt DATE OF SERVICE: January 18, 2024 TIME: 3:29 PM PATIENT IDENTITY VERIFICATION COMPLETED USING TWO (2) IDENTIFIERS: Name and Date of confirmed by patient verbally. FALL SCREENING: Has the patient had 2 falls in the last year or 1 fall with injury or currently using an Ambulatory Assistive Device (Walker, Cane, Wheelchair, Crutches, etc.)? No PATIENT GENDER DATA: Female. status: : No status: NO. PATIENT RELEVANT IMPLANT DATA REVIEWED: Not Applicable PATIENT PRESENTS WITH AN IMPLANTABLE OR ATTACHED STOCKROOM SUPERVISOR: No RADIOLOGY DEPARTMENT: Bone Density PERIPHERAL IV DATA: Not applicable SIGNED BY: KARIN Moreland) January 18, 2024 3:29 PM documented in this encounter [facility] 01-18-2024 Note HNO ID: [id number] Author: JALEEL LI RT(R) Service: ? Author Type: Technologist Type: Progress Notes Filed: 01/18/2024 15:36 Note Text: Radiology Service Progress Note PATIENT NAME: Dianne Hoyt DATE OF SERVICE: January 18, 2024 TIME: 3:29 PM PATIENT IDENTITY VERIFICATION COMPLETED USING TWO (2) IDENTIFIERS: Name and Date of confirmed by patient verbally. FALL SCREENING: Has the patient had 2 falls in the last year or 1 fall with injury or currently using an Ambulatory Assistive Device (Walker, Cane, Wheelchair, Crutches, etc.)? No PATIENT GENDER DATA: Female. status: : No status: NO. PATIENT RELEVANT IMPLANT DATA REVIEWED: Not Applicable PATIENT PRESENTS WITH AN IMPLANTABLE OR ATTACHED STOCKROOM SUPERVISOR: No RADIOLOGY DEPARTMENT: Bone Density PERIPHERAL IV DATA: Not applicable SIGNED BY: RT Merly(R) January 18, 2024 3:29 PM [facility] 11-30-2023 History of Present illness Narrative Radiology Service Progress Note PATIENT NAME: Dianen Hoyt DATE OF SERVICE: November 30, 2023 TIME: 7:51 AM PATIENT IDENTITY VERIFICATION COMPLETED USING TWO (2) IDENTIFIERS: Name and Date of confirmed by patient verbally. FALL SCREENING: Has the patient had 2 falls in the last year or 1 fall with injury or currently using an Ambulatory Assistive Device (Walker, Cane, Wheelchair, Crutches, etc.)? No PATIENT GENDER DATA: Female. status: : No status: NO. PATIENT RELEVANT IMPLANT DATA REVIEWED: Not Applicable PATIENT PRESENTS WITH AN IMPLANTABLE OR ATTACHED STOCKROOM SUPERVISOR: No RADIOLOGY DEPARTMENT: Mammography PERIPHERAL IV DATA: Not applicable SIGNED BY: Irene Ching November 30, 2023 7:51 AM documented in this encounter [facility] 11-30-2023 Note HNO ID: [id number] Author: NING DAMON Mammo Tech Service: ? Author Type: Outside Sales Consultant Type: Progress Notes Filed: 11/30/2023 07:52 Note Text: Radiology Service Progress Note PATIENT NAME: Dianne Hoyt DATE OF SERVICE: November 30, 2023 TIME: 7:51 AM PATIENT IDENTITY VERIFICATION COMPLETED USING TWO (2) IDENTIFIERS: Name and Date of confirmed by patient verbally. FALL SCREENING: Has the patient had 2 falls in the last year or 1 fall with injury or currently using an Ambulatory Assistive Device (Walker, Cane, Wheelchair, Crutches, etc.)? No PATIENT GENDER DATA: Female. status: : No status: NO. PATIENT RELEVANT IMPLANT DATA REVIEWED: Not Applicable PATIENT PRESENTS WITH AN IMPLANTABLE OR ATTACHED STOCKROOM SUPERVISOR: No RADIOLOGY DEPARTMENT: Mammography PERIPHERAL IV DATA: Not applicable SIGNED BY: Ning Damon [employer] November 30, 2023 7:51 AM [facility] 11-30-2023 Note HNO ID: [id number] Author: MANDI SALAS APRN.SUPERVISOR DAIRY SANITATION Service: ? Author Type: Nurse Practitioner Type: Progress Notes Filed: 11/30/2023 07:25 Note Text: Dianne is a 63 year old who presents for an annual gynecologic exam without complaints. Postmenopausal: Yes since age 38's HRT use: No. Last Pap: 11/06/2020 normal HPV: 11/01/2020 negative History of abnormal pap: No Last mammogram: 2023 today History of abnormal mammogram: No Sexually active: No OB History T0 L2 SAB0 IAB0 Ectopic0 Multiple0 Live Births0 Lead Medical Technologist History LMP: 01/23/2007, Postmenopausal Age at Menarche: Age at First : Age at Menopause: Lead Medical Technologist History Comments: Sexual Activity: Never; Male Contraception: Surgical, Tubal Ligation PAST MEDICAL HISTORY Diagnosis Date Anxiety Arthritis 08/10/2017 Depression Diabetes mellitus (HCC) Unspecified essential hypertension Essential hypertension PAST SURGICAL HISTORY Procedure Laterality Date DELIVERY ONLY , low cervical x 2 HERNIA REPAIR HX LIG/TRNSXJ FLP TUBE ABDL/VAG APPR UNI/BI Tubal ligation PAST SURGICAL HISTORY OF Bilateral 10/27 01/26 bilateral knee replacement FAMILY HISTORY Adopted: Yes Problem Relation Age of Onset other (adopted-no med hx.) Other SOCIAL HISTORY Social History Tobacco Use Smoking status: Former Current packs/day: 0.00 Types: Cigarettes Quit date: 02/03/2012 Years since quittin.8 Smokeless tobacco: Never Vaping Use Vaping status: Never Used Substance Use Topics Alcohol use: No Drug use: No REVIEW OF SYSTEMS Abdomen: No abdominal pain, nausea, vomiting, diarrhea, or constipation. No bloating, early satiety, indigestion, or increased flatulence. Bladder: No dysuria, gross hematuria, urinary frequency, urinary urgency, or incontinence Breast: No breast lumps, nipple d/c, overlying skin changes, redness or skin retraction Allergies and current medication updated:Yes SENSITIVE EXAM: The sensitive examination was discussed with the Patient or Patient's Authorized Cotton Ginner. As applicable, any other physician, advance practice provider, medical student, or other health professional student that will be observing or involved in the sensitive examination for educational or training purposes was discussed with the Patient or Authorized Cotton Ginner. The Patient or Authorized Cotton Ginner has agreed to proceed with the sensitive examination. (Sensitive examination includes inspection and/or palpation of the breasts, pelvis, prostate and anorectal regions). EXAM: BP 118/72 Ht 5' 4.5 (1.64m) Wt 257 lb (116.6kg) LMP 01/23/2007 BMI 43.45 kg/(m2). GENERAL: pleasant, female in no apparent [...] external genitalia normal, normal Bartholin's glands, urethra, [place]'s glands, no vulvar lesions, no cervical lesions, physiologic discharge present, normal appearing perineal body and perianal region BIMANUAL: uterus normal size, shape and consistency, no adnexal masses, and non-tender RECTOVAGINAL: deferred. NEURO: alert and oriented x3,exam grossly non-focal EXTREMITIES: normal ASSESSMENT/PLAN: 1) Health maintenance: Pap done with HPV. Mammogram ordered Mammogram up to date Nutrition, exercise and routine health maintenance exams reviewed. Calcium/Vitamin D supplementation information provided. Colon cancer screening: up to date with screening done 2022- repeat BMD: ordered 2) Follow up one year or sooner as needed Mandi Salas APRN.[facility] 11-30-2023 History of Present illness Narrative Dianne is a 63 year old who presents for an annual gynecologic exam without complaints. Postmenopausal: Yes since age 38's HRT use: No. Last Pap: 11/06/2020 normal HPV: 11/01/2020 negative History of abnormal pap: No Last mammogram: 2023 today History of abnormal mammogram: No Sexually active: No OB History T0 L2 SAB0 IAB0 Ectopic0 Multiple0 Live Births0 Lead Medical Technologist History LMP: 01/23/2007, Postmenopausal Age at Menarche: Age at First : Age at Menopause: Lead Medical Technologist History Comments: Sexual Activity: Never; Male Contraception: Surgical, Tubal Ligation PAST MEDICAL HISTORY Diagnosis Date Anxiety Arthritis 08/10/2017 Depression Diabetes mellitus (HCC) Unspecified essential hypertension Essential hypertension PAST SURGICAL HISTORY Procedure Laterality Date DELIVERY ONLY , low cervical x 2 HERNIA REPAIR HX LIG/TRNSXJ FLP TUBE ABDL/VAG APPR UNI/BI Tubal ligation PAST SURGICAL HISTORY OF Bilateral 10/27 01/26 bilateral knee replacement FAMILY HISTORY Adopted: Yes Problem Relation Age of Onset other (adopted-no med hx.) Other SOCIAL HISTORY Social History Tobacco Use Smoking status: Former Current packs/day: 0.00 Types: Cigarettes Quit date: 02/03/2012 Years since quittin.8 Smokeless tobacco: Never Vaping Use Vaping status: Never Used Substance Use Topics Alcohol use: No Drug use: No REVIEW OF SYSTEMS Abdomen: No abdominal pain, nausea, vomiting, diarrhea, or constipation. No bloating, early satiety, indigestion, or increased flatulence. Bladder: No dysuria, gross hematuria, urinary frequency, urinary urgency, or incontinence Breast: No breast lumps, nipple d/c, overlying skin changes, redness or skin retraction Allergies and current medication updated:Yes SENSITIVE EXAM: The sensitive examination was discussed with the Patient or Patient's Authorized Cotton Ginner. As applicable, any other physician, advance practice provider, medical student, or other health professional student that will be observing or involved in the sensitive examination for educational or training purposes was discussed with the Patient or Authorized Cotton Ginner. The Patient or Authorized Cotton Ginner has agreed to proceed with the sensitive examination. (Sensitive examination includes inspection and/or palpation of the breasts, pelvis, prostate and anorectal regions). EXAM: BP 118/72 Ht 5' 4.5 (1.64m) Wt 257 lb (116.6kg) LMP 01/23/2007 BMI 43.45 kg/(m^2). GENERAL: pleasant, female in no apparent [...] external genitalia normal, normal Bartholin's glands, urethra, [place]'s glands, no vulvar lesions, no cervical lesions, physiologic discharge present, normal appearing perineal body and perianal region BIMANUAL: uterus normal size, shape and consistency, no adnexal masses, and non-tender RECTOVAGINAL: deferred. NEURO: alert and oriented x3,exam grossly non-focal EXTREMITIES: normal ASSESSMENT/PLAN: 1) Health maintenance: Pap done with HPV. Mammogram ordered Mammogram up to date Nutrition, exercise and routine health maintenance exams reviewed. Calcium/Vitamin D supplementation information provided. Colon cancer screening: up to date with screening done 2022- repeat BMD: ordered 2) Follow up one year or sooner as needed Mandi Salas APRN.SUPERVISOR DAIRY SANITATION documented in this encounter [facility] 01-27-2023 Procedure note [facility] 01-06-2023 History and physi joel note Note Date/Time January 06, 2023 1:30pm [facility] Medical Records Department [address] [place], [place] [address] [place] [address] History & Physical Exam 01/06/23 1329 MR#: [id number] Acct: [id number] Name: DIANNE HOYT ANN Rep #:[id number] : 1960 62 From: Mohsen Hicks DO PCP: Frida Coelho DO Status:REG S DC Location: [place] [address] History and Physical Date of Admission: 01/06/23 [facility] [address] [place] [address] [address] [place] [address] OFFICE VISIT Date of Service: 12/17/22 MR#: [id number] Acct: [id number] Name: DIANNE HOYT Rep #: [id number] : 1960 Provider: Dr. Mohsen Hicks DO Age/Sex: 62/F Location: [facility] Status: Signed Intake Vital Signs 08/18/2305:39 12/17/2314:27 Height 5 ft 7 in 5 ft 7 in Weight: 268 lb BMI 42.0 Intake Visit Reasons: RIGHT HAND Chief Complaint: right hand Accompanied by: Self Is patient in pain?: Yes Pain scale (1-10): 7 Allergies No Known Allergies Allergy (Verified 12/17/22 15:31) Medications indapamide 1.25 mg tablet 1.25 mg PO QHS SUPPLEMENT 10/14/17 [History Confirmed 12/17/22] desvenlafaxine succinate 100 mg tablet,extended release 24 hr (Pristiq) 100 mg PO DAILY 03/19/22 [History Confirmed 12/17/22] folic acid 1 mg tablet 1 mg PO BID 03/19/22 [History Confirmed 12/17/22] gabapentin 100 mg capsule 100 mg PO TID 03/19/22 [History Confirmed 12/17/22] losartan 50 mg tablet 50 mg PO DAILY 03/19/22 [History Confirmed 12/17/22] methotrexate sodium 2.5 mg tablet 15 mg PO SA 03/19/22 [History Confirmed 12/17/22] metoprolol tartrate 50 mg tablet 50 mg PO DAILY 03/19/22 [History Confirmed 12/17/22] spironolactone 50 mg tablet 50 mg PO DAILY 03/19/22 [History Confirmed 12/17/22] acetaminophen 500 mg tablet 1,000 mg PO Q8 PRN Pain 05/19/22 [History Confirmed 12/17/22] pantoprazole 40 mg tablet,delayed release (Protonix) 40 mg PO DAILY #30 tabs 06/27/22 [Rx Confirmed 12/17/22] semaglutide 1 mg/dose (4 mg/3 mL) subcutaneous pen injector (Ozempic) 1 mg subcut QWEEK 12/17/22 [History Confirmed 12/17/22] PFSH Medical History (Updated 12/17/22 @ 16:[address] Mohsen Hicks, ) Anxiety Arthritis Depression Diabetes Dietary restriction Former smoker Gastric reflux History of stress test Hypertension Post-menopausal Wears glasses Surgical History (Updated 09/18/22 @ 17:[address] Aris Mello MD) History of knee replacement Hx of colonoscopy S/P inguinal hernia repair Social History Smoking Status: Former smoker alcohol intake: never substance use type: does not use HPI RIGHT HAND Details: This documentation accurately reflects the service provided and the decisions made by me, Dr. Mohsen Hicks DO 12/17/22 1830. Part of today?s visit was documented by [ ], acting as scribe. DIANNE HOYT is a 62 year old F here today for BL wrist pain for the last 20 yeasrs. Right is worse than the left. Pt has had cortisone injections by Dr. Kennedy, left one was 1 week ago and right was done 1 month ago. Pt states that injections last a couple of months. Has had EMG study as well. Pt states that the pain on right side goes up to mid forearm. Pt states she feels a lump on the right forearm and massages the pain away. Pt takes Tylenol which does seem to help. 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 Index and middle finger go numb worse on the right side. She has had 2 steroid injection in the right and 1 injection in the left for carpal tunnel syndrome. The last right injection was 4-6 weeks and the left wrist was injected 2 weeks ago. Ortho Exam General General: Yes no acute distress Neurologic: Yes alert and Yes oriented x3 Psychologic: Yes reasonable and appropriate Right Wrist/Hand Skin/Wound: No Swelling, No Ecchymosis and Yes capillary refill normal Right Wrist: No Durken's Test, Tinel's or Phalen's WRIST: full finger extension limited index finger flexion full supination and pronation 85 wrist extension 60 wrist flexion subcutaneous nodule at wrist Left Wrist/Hand Skin/Wound: No Swelling and No Ecchymosis Left Wrist: No Durken's Test, No Tinel's and No Phalen's WRIST: full supination and pronation Head: Normocephalic Atraumatic Chest: symmetrical rise, non-labored breathing, no audible wheeze Abdomen: no guarding, non-rigid Supplemental Info 11/04/2022 EMG nerve conduction study bilateral upper extremity: 1) Severe, bilateral median mononeuropathies at the wrists (carpal tunnel syndrome), with secondary motor fiber axonal loss 2) Chronic, left C7 radiculopathy Coding Level of Care Code Off vis,new,level 3 Diagnoses Carpal tunnel syndrome, bilateral G56.03 Assessment and Plan Assessment and Plan (1) Carpal tunnel syndrome, bilateral: Status: Acute Plan Patient educated that she has severe BL carpal tunnel syndrome. Educated that repeat carpal tunnel injections can result in a tendon rupture over time therefore it is not recommended to have more than 2-3 carpal tunnel injections. Treatment recommendation would be to have carpal tunnel release. Educated that the surgery is outpatient. She can have soreness over the incision for a couple months after surgery. The goal of surgery is to prevent worsening of symptoms and there is a chance that she can continue to have numbness even after the CTR.Discussed lifting restrictions. Reviewed the pre-operative plans with the patient. Risks and benefits of the procedure were fully explained, including butnot limited to infection, neurovascular injury, continued pain, arthritis, stiffness, need for further surgery, re-injury, DVT, PE, general risks of anesthesia, and loss of limb or life, incisional hypersensitivity pillar pain wound dehiscence if she does not follow weightbearing restrictions which could result in infection, the patient understands all the risks and does wish to proceed with written consent for right carpal tunnel release. Follow up 2 weeks post op or sooner if pain, swelling, numbness or associated symptoms, or concerns develop. All questions answered. Patient in agreement of plan. Tentative surgery date January 20, 2023 12/17/22 1611 <Electronically signed by Mohsen Hicks DO> Date Mohsen Hicks DO Cosigner Signature: Date (if applicable) CC: ~ I have examined the patient and the H&P has been reviewed. There are no clinicalchanges since date of exam. 01/06/23 1330 <Electronically signed by Mohsen Hicks DO> Cosigner Signature (if applicable): CC: Dr. Mohsen Hicks DO; Frida Coelho DO~ Signed [facility] Work Phone: 1(970) 702-562011-28-2023 Procedure [facility] 11-24-2022 Miscellaneous Notes* Letter - Coordinator, Mammography - 11/24/2022 3:29 PM EDT November 25, 2022 PID: [id number] Dianne Hoyt [address] [place] [address] Dear Ms. Hoyt, We are pleased to [...] report will be kept on file at [facility] as part of your permanent medical record and are available for your continuing care. Thank you for allowing us to help in meeting your health care needs. Sincerely, Dr. Hannon Interpreting Radiologist [facility] (Normal over 40) [facility] History of Present illness Narrative* Ning Damon Mammo Tech - 11/21/2022 7:50 AM EDT Radiology Service Progress Note PATIENT NAME: Dianne Hoyt DATE OF SERVICE: November 21, 2022 TIME: 7:39 AM PATIENT IDENTITY VERIFICATION COMPLETED USING TWO (2) IDENTIFIERS: Name and Date of confirmedby patient verbally. FALL SCREENING: Has the patient [...] 21, 2022 7:39 AM [facility] History of Present illness Narrative* Mandi Salas APRN.CNP - 11/21/2022 6:54 AM EDT Dianne is a 62 year old who [...] L2 SAB0 IAB0 Ectopic0 Multiple0 Live Births0 Lead Medical Technologist History LMP: 01/23/2007, Postmenopausal Age at Menarche: Age at First : Age at Menopause: Lead Medical Technologist History Comments: Sexual Activity: Never; Male Contraception: [...] external genitalia normal, normal Bartholin's glands, urethra, [place]'s glands, no vulvar lesions, no cervical lesions, [...] one year or sooner as needed Mandi Salas APRN.SUPERVISOR DAIRY SANITATION documented in this encounterUniversity [facility] Procedure [facility]07-10-2023 History and physical note Author Aris Mello [facility] August 18, 2022 7:27am Note Date/Time August 18, 2022 7:28 am [facility] Medical Records Department [address] [place] [address] History & Physical Exam 08/18/22725 MR#: [id number] Acct: [id number] Name: DIANNE HOYT ANN Rep #:[id number] : 1960 62 From: Aris Drew PCP: Frida Coelho, Status:REG S DC Location: [place] [address] History and Physical Date of Admission: 08/18/22 Date of Service: 07/01/22 MR#: [id number] Acct: [id number] Name: DIANNE HOYT Rep #: [id number] : 1960 Provider: Dr. Aris Mello MD Age/Sex: 61/F Location: [facility] Status: Signed Intake Vital Signs 05/22/2305:50 Height 5 ft 6 in Intake Visit Reasons: UPPER AND LOWER SCOPE Chief Complaint: Med check, schedule cscope/EGD/hernia Allergies No Known Allergies Allergy (Verified 05/22/22 06:48) PFSH Medical History (Updated 07/01/22 @ 18:[address] Aris Mello MD) Anxiety Arthritis Depression Diabetes Heartburn Hypertension Post-menopausal Wears glasses Surgical History (Updated 05/19/22 @ 14:58 by Gretel Beasley) History of knee replacement Social History Smoking Status: Former smoker alcohol intake: never substance use type: does not use HPI HPI HPI: Patient follows up after upper and lower endoscopy. She states she is interested in continuing on Protonix as she has had no further issues on this medication. She wishes to know whether she is needing to get this medication now filled by her primary care provider. She also wishes to know my recommendations on her right groin hernia. She confirms that she is not feelingany bulging or pain from the site. She has not experienced any change in bowel habits which she can attribute to this diagnosis, but does remark that she has noticed looser stools since changing from Trulicity to Ozempic recently. Exam Const General: cooperative, healthy appearing, comfortable and no acute distress Resp Effort & Inspection: normal respiratory effort GI Other: Obese, nondistended, soft nontender to palpation x4 quadrants Other: Patient with right groin hernia that is tender with palpation. While I am able to feel hernia contents, I am unable to determine the exact location of the patient's hernia defect as it is in close proximity to patient's prior incision Assessment and Plan Assessment and Plan (1) Inguinal hernia of right side without obstruction or gangrene: Status: Chronic Comment: Patient with apparent chronic right inguinal hernia that was visualized on CT imaging from 2020. Patient, again, has tenderness with exam today. Given this tenderness and her habitus I am unable to clearly identify this as a inguinal hernia versus a low incisional hernia related to her prior section. I have reiterated my recommendation to proceed with surgery due to the high rate of complication for inguinal hernias with females over males. She expresses understanding of this information and wishes to proceed during August when her daughter is able to assist with her caregiver duties to her . Further, Ihave informed patient that she would do well to continue to improve her glucose control in the perioperative period. The procedure was described in detail as well as a post procedure expectations of no lifting greater than 10 pounds for 5weeks. Patient is excepting of all these terms. Plan: ? Right inguinal hernia repair with mesh anticipated August 2022 (2) GERD (gastroesophageal reflux disease): Status: Chronic Comment: Patient with gastroesophageal reflux disease and recently diagnosed Snow's esophagus as per EGD performed 05/22/2022. I have informed patient that with herinterest to continue PPI medications indefinitely, I would recommend transitioning her PPI prescription to her PCP so they can continue to monitor her for any side effects. I have recommended to her that she follow-up in 5 years for repeat EGD to continue surveillance of her Snow's esophagus. Plan: ? Continue PPI (PCP, Dr. Coelho to continue) ? 5-year follow-up for surveillance EGD of Snow's esophagus I have examined the patient and the H&P has been reviewed. There are no clinicalchanges since date of exam. Procedure and post procedure expectations reviewed. Questions were answered from patient and her daughter who is present with her as her support. We will therefore proceed to the operating room for planned inguinal (versus incisional?depending on exact location) hernia repair with mesh. 08/18/22726 <Electronically signed by Aris Mello MD> Cosigner Signature (if applicable): CC: Dr. Aris Mello MD; Frida Coelho DO~ Signed [facility] Work Phone: 1(988) 107-947704-13-2023 Procedure [facility] 05-22-2022 Procedure [facility]04-13-2023 History and physical note Author Dr. Mello [facility] May 22, 2022 7:34am Note Date/Time May 22, 2022 7:3 4am [facility] Medical Records Department [address] [place] [address] History & Physical Exam 05/22/22 0732 MR#: [id number] Acct: [id number] Name: DIANNE HOYT ANN Rep #:[id number] : 1960 61 From: Aris Drew PCP: Frida Coelho, DO Status:REG S DC Location: [place] [address] History and Physical Date of Admission: 05/22/22 Date of Service:? 04/10/22 MR#: [id number] Acct: [id number] Name:? DIANNE HOYT ANN Rep #: [id number] : 1960 ? ? Provider: Dr. Aris Mello MD Age/Sex:? 61/F ? ? Location: [facility] Status: Signed Intake Vital Signs ? 04/10/2313:59 BP 142/84 H Blood Pressure Location Rt brachial Position Sitting Respiration 16 Pulse 68 Pulse Source Monitor Temp 97.1 F L Temp Source Temporal Pulse Oximetry (%) 98 Oxygen Delivery Method room air Intake Visit Reasons:?3WK F/U Med Check PPI, schedule cscope/EGD/Hernia Chief Complaint: Med check, schedule cscope/EGD/hernia Rubber Thread Spooler Required: No Is patient in pain?: No Allergies No Known Allergies Allergy (Verified 04/10/22 15:12) Medications indapamide 1.25 mg tablet 1.25 mg PO QHS SUPPLEMENT 10/14/17 [History Confirmed 04/10/22] acetaminophen 500 mg tablet 1,000 mg PO Q8 #90 TABLETS 02/04/18 [Rx Confirmed 04/10/22] sennosides 8.6 mg-docusate sodium 50 mg tablet (Stool Softener-Stimulant Laxative) 2 tab PO BID #20 TABLETS 02/04/18 [Rx Confirmed 04/10/22] ondansetron HCl 4 mg tablet (Zofran) 4 mg PO Q8H PRN nausea and vomiting #10 tabs 05/15/20 [Rx Confirmed 04/10/22] amlodipine 10 mg tablet (Norvasc) 10 mg PO DAILY 03/19/22 [History Confirmed 04/10/22] desvenlafaxine succinate 100 mg tablet,extended release 24 hr (Pristiq) 100 mg PO DAILY 03/19/22 [History Confirmed 04/10/22] folic acid 1 mg tablet 1 mg PO BID 03/19/22 [History Confirmed 04/10/22] gabapentin 100 mg capsule 100 mg PO TID 03/19/22 [History Confirmed 04/10/22] losartan 50 mg tablet 50 mg PO DAILY 03/19/22 [History Confirmed 04/10/22] metformin 500 mg tablet 500 mg PO DAILY 03/19/22 [History Confirmed 04/10/22] methotrexate sodium 2.5 mg tablet 2.5 mg PO QWEEK 03/19/22 [History Confirmed 04/10/22] metoprolol tartrate 50 mg tablet 50 mg PO DAILY 03/19/22 [History Confirmed 04/10/22] spironolactone 50 mg tablet 50 mg PO DAILY 03/19/22 [History Confirmed 04/10/22] pantoprazole 40 mg tablet,delayed release (Protonix) 40 mg PO DAILY #14 tabs 04/10/22 [Rx Confirmed 04/10/22] PFSH Medical History? Depression Surgical History? History of knee replacement Social History? Smoking Status:? Former smoker alcohol intake:? never substance use type:? does not use HPI HPI HPI: Patient presents for a follow-up of a number of issues addressed at her initial consultation visit on 03/19/2022 to include questions around diagnoses of umbilical hernia, hiatal hernia, right inguinal hernia, constipation, and chronic epigastric abdominal pain.? Patient initially reports that she has not experienced significant change with the prescribed omeprazole, but with further discussion recognizes that she is experienced only 1 episode of abdominal discomfort in the past 3 weeks where previously she had a frequency of once per week.? She notes that her bad spell occurred at work earlier this week and wasso intense that she could not stand up.? She denies recognizing any triggers forthis issue.? She also reports that she has a suspicion that her baseline constipation was exacerbated by omeprazole and she notes requiring 2 stool softeners a day to have a bowel movement where previously she would only need 1 every other day. Below is recapitulated from patient's consultation visit for ease of review: HPI: Patient is a 61-year-old female who presents for evaluation of a ventral hernia.? Patient is referred from Dr. Coelho.? This finding was first noticed bypatient approximately a year to a year and a half ago.? She reports that she relayed this concern to her then PCP, but little was said.? She reports that it looks like a football when you lie down.? She was advised to massage it down[referencing the hernia] whenever it became problematic and this has worked somewhat for her.? She is unsure if it has gotten bigger.? She denies that it has become more tender, but reports that 1 time per week or every other week shewill experience significant discomfort to the point that she must walk doubled over until the discomfort leaves her.? She denies the onset of this discomfort as being after eating.? She denies any burning quality to this discomfort.? There is no associated nausea or bloating.? She has not noticed any change to her bowels throughout this time period aside from a presentation a year and a half ago when she was evaluated for possible obstruction.? She was noted to haveconstipation and was advised to take a stool softener if she is not experiencinga bowel movement at least every other day.? She denies any history of colonoscopy, but reports use of Cologuard in the past.? She states she is reluctant to go for colonoscopy because of her concerns over the prep.? She is uncertain of her family history concerning GI diagnoses as she is adopted.? She presents today with a CT scan read from outside hospital which notes a moderate size hiatal hernia.? When asked about symptoms of heartburn or reflux, she denies any reflux and states that heartburn occurs very rarely.? In addition the above patient notes that she was recently diagnosed with diabetes and is currently prescribed metformin and insulin.? Since this diagnosis she has lost 20 pounds. Patient has no personal history of smoking.? Has no personal history of recurrent cutaneous infections including staph.? Pertinent surgical history includes: C-sections x2 ROS General General: Yes weight change and fatigue; No appetite, colon cancer, breast cancer or weakness HEENT HEENT: No difficulty swallowing, eye injury, eye surgery, swollen glands or hoarseness Endo Endocrine: Yes diabetes mellitus; No thyroid disease, thyroid cancer, Hair loss, heat intolerance or cold intolerance Skin Skin: No rash or changing moles Musc Musculoskeletal: Yes arthritis; No back problems, rheumatoid arthritis, gout or joint pain Cardio Cardiovascular: Yes high blood pressure; No murmur, pacemaker, heart disease, atrial fibrillation, heart attack, heart stent, palpitations, shortness of breat with exertion or chest pain Psych Psychiatric: Yes depression and anxiety; No hearing voices Resp Respiratory: No shortness of breath, No sleep apnea, No cough, No COPD, No asthma, No emphysema and No wheezing Gastro Gastrointestinal: Yes abdominal pain, No nausea or vomiting, No diarrhea, No constipation, No blood in stool, No acid reflux, No hemorrhoids, No ulcers, No gallbladder problem and No black,tarry stools Raymond Hematologic: No blood thinners, No blood disorders, No bleeding, No anemia and No blood clots Neuro Neurologic: No system reviewed and no additional complaints, except as documented, No as per HPI, No abnormal gait, No abnormal hearing, No abnormal movements, No abnormal speech, No behavioral changes, No burning sensations, No confusion, No convulsions, No disequilibrium, No dizziness, No localized weakness, No frequent falls, No headache(s), No lack of coordination, No loss ofvision, No memory loss, No numbness, No other visual disturbances, No radicular pain, No restless legs, No sensory deficit, No syncope, No tingling, No tremor(s), No weakness and No other Exam Const General: cooperative and no acute distress Nutritional Appearance: obese Orientation: alert, awake and oriented x3 Resp Effort & Inspection: normal respiratory effort GI Other: Nondistended, soft, tender to palpation across the epigastrium without palpationof hernia defect.? The bilateral groins were examined and patient has tendernesswith palpation over the right groin.? I do not clearly palpate any hernia contents with this exam. Assessment and Plan Assessment and Plan (1) Umbilical hernia without obstruction or gangrene: ?Status:?Chronic ?Comment: This is a 61-year-old female who presents for ventral hernia.? However, with repeat exam today patient describes discomfort in the epigastrium where I find no evidence of fascial defect.? Given the small size of her umbilical hernia andher current habitus, I do not recommend proceeding with elective surgery at thistime as I believe she would be at an unacceptable risk for recurrence. ?Plan: ? 1.6 cm, asymptomatic, umbilical hernia.? Given patient's habitus and comorbidities she is not a good candidate for surgical repair at this time and would be at a high risk for recurrence. (2) Hiatal hernia: ?Status:?Acute ?Comment: Patient with an incidentally noted diagnosis of hiatal hernia as per CT imaging from August 2021.? Patient describing persistent midepigastric discomfort that haslessened in frequency now on empiric PPI therapy.? Still, she expresses displeasure with this current medication and wishes to try another medication.? I have suggested we can begin pantoprazole 40 mg daily and have ordered this to her pharmacy.? I have also suggested to her that it is time that we proceed witha diagnostic EGD to better assess the size of her hernia as well as any mucosal effects from acid exposure.? She is initially reluctant, but concedes. ?Plan: ? Transition to pantoprazole 40 mg daily ? Diagnostic EGD with biopsies as needed (3) Inguinal hernia of right side without obstruction or gangrene: ?Status:?Chronic ?Comment: Patient with apparent chronic right inguinal hernia that was visualized on CT imaging from 2020.? Patient has tenderness with exam today, but I do not clearlypalpate any bowel within a defect.? I have recommended to patient that we consider elective surgery once she reaches a more ideal BMI (less than 40).? I have shared my rationale for this recommendation to be a higher rate of complication for inguinal hernias with females than males.? She expresses understanding of this information and plans to consider things further.? I did briefly introduced the approaches for an inguinal hernia repair and believe thatedere may be a good candidate for a minimally invasive approach. ?Plan: ? Watchful waiting, but hopefully can plan for operative repair with additional weight loss (4) Constipation: ?Status:?Chronic ?Comment: Patient describes chronic constipation that was recently worsened with implementation of omeprazole.? Patient still resistant to the idea of a colonoscopy, but I have tried to take any question she has an she states that she understands my reasoning for recommending.? She also wishes to know if she can take a pill prep.? She states she is unwilling to do any significant volumes.? I have asked her to consider a 2-day prep given her issues with constipation so that we can be assured of appropriate visualization during the prep.? Patient is informed that she will require a entry level truck driver the day of the procedure given the use of sedation. ?Plan: Plan will be to complete colonoscopy on first mutually agreeable date under local MAC.? Pre-procedure prep discussed and paper instructions provided.? (Planning for Sutab prep) patient is also made aware that she will need to have a entry level truck driver with her the day of the procedure. (5) Chronic upper abdominal pain: ?Status:?Chronic ?Comment: Patient describes epigastric abdominal pain, but once again I do not find a hernia in this location only diastases recti.? I have shared with her that this diagnosis is not normally associated with significant discomfort and therefore Olivier suspicious for possible gastritis/symptomatic hiatal hernia.? She seems to have experienced some minor relief of symptoms.? As above, will plan to switch her PPI and proceed for diagnostic EGD ?Plan: ? Pantoprazole 40 mg daily and diagnostic EGD (6) Diastasis recti: ?Status:?Chronic ?Comment: As above no hernia detected.? Only diastases recti based on CT and physical exam.? Patient repeats question about whether this can be addressed surgically.?I have reiterated my statement from before that I do not advise this as it does not represent a true hernia and believe that patient would be at a very high risk for recurrence given the tension that any closure would come under.? Patient quickly admits her recall of our discussion and procedures with other questions. I have examined the patient the following changes are noted: Patient reports good efficacy with pantoprazole 40 mg daily and that she has had no symptoms of reflux or heartburn. She confirms that she completed her prep, however, she reports that she is still having some brown liquid with bowel movements. I havecautioned her that we can only do so much endoscopically, but at this point recommend proceeding in seeing what we can do in terms of endoscopic lavage. Patient has no further questions so we will proceed to the endoscopy suite at this time for diagnostic EGD and colonoscopy. 05/22/22 0734 <Electronically signed by Aris Mello MD> Cosigner Signature (if applicable): CC: Dr. Aris Mello MD; Frida Coelho DO~ Signed [facility] Work Phone: [phone] 655-600504-13-2023 Procedure [facility] 05-22-2022 Procedure [facility]03-17-2023 History of Present illness Narrative* LEIA Ramirez - 04/25/2022 2:15 PM EDT Images from the original note were not included. This note was created using [employer]. Subjective Dianne Hoyt is a 61 year old female. HPI 61-year-old female presents for left-sided mid back pain and left-sided chest pain for the pastweek. Patient states she started getting pain under [...] palpation. No injury. Since patient is having left- sided chest pain, I recommended evaluation inthe emergency room. She is agreeable to plan. She will drive herself, declines ambulance. Diagnosis and treatment plan were discussed and questions were answered to the patient's satisfaction. Pt acknowledged understanding of concepts and follow up plan. Specific signs and symptoms that would indicate the need for higher level of care were discussed in detail warranting prompt ER evaluation. LEIA Ramirez documented in this encounterUniversity Hospitals [facility]02-07-2023 Miscellaneous Notes* Telephone Encounter - Asael Arellano LPN - 03/18/2022 2:06 PM EST Patient notified of results of lesion being benign. Patient verbalized understanding, thanked this nurse for information Asael Arellano LPN March 18, 2022 2:10 PM * Telephone Encounter - Asael Arellano LPN - 03/17/2022 4:01 PM EST Message left for patient to phone office at earliest convenience Asael Arellano LPN March 17, 2022 4:01 PM documented in this encounterUniversity Hospitals Samaritan [facility] Center02-06-2023 Miscellaneous Notes* Telephone Encounter - Tereza Santiago LPN - 03/17/2022 2:36 PM EST LAST OFFICE VISIT: 01/27/2022 No upcoming office visit scheduled at this time. Requested Prescriptions Pending Prescriptions Disp Refills metoprolol succinate ER (TOPROL XL) 50 mg 24 hr tablet [Pharmacy Med Name: METOPROLOL SUCC ER 50 MGTAB] 90 tablet 3 Sig: TAKE 1 TABLET BY MOUTH EVERY DAY DIRECTED Tereza Santiago LPN March 17, 2022 2:42 PM documented in this encounterUniversity Hospitals Samar[facility] Center12-30-2022 Miscellaneous Notes* Telephone Encounter - Tereza Santiago LPN - 02/07/2022 9:42 AM EST LAST OFFICE VISIT: 01/27/2022 NEXT SCHEDULED OFFICE VISIT: 02/18/2022 Requested Prescriptions Pending Prescriptions Disp Refills losartan (COZAAR) 100 mg tablet [Pharmacy Med Name: LOSARTAN POTASSIUM 100 MG TAB] 45 tablet 3 Sig: TAKE 1/2 TABLET EVERY DAY DIRECTED Tereza Santiago LPN February 07, 2022 9:49 AM documented in this encounterUniversity Hospitals Samar[facility] Center12-19-2022 NoteHNO ID: [id number] Author: Dimitri Faye MD Service: ? Author Type: Physician Type: Progress Notes Filed: 01/27/2022 2:28 PM Note Text: This note was created using [employer]. Subjective Dianne Hoyt is a 61 year [...] Neurological: Negative. Hematological: Negative. Psychiatric/Behavioral: Negative. Objective LMP 01/23/2007 Assessment and Plan Dianne was seen today for follow up. 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 Begin metformin. Improve diabetic diet. Improve weight. Increase exercise.[facility]22 NoteHNO ID: [id number] Author: Asael Arellano LPN Service: ? Author Type: LICENSED NURSE Type: Progress Notes Filed: 01/27/2022 2:28 PM Note Text: Patient is having telephone visit today to discuss lab results. No other complaints or concerns at this time. Patient stated she has gained unintentional weight of about 15 lbs in the last 6 months. Asael Arellano LPN January 27, 2022 11:08 AMPhysicians & Surgeons Hospital12-19-2022 History of Present illness Narrative* Dimitri Faye MD - 01/27/2022 11:13 AM EST This note was created using [employer]. Subjective Dianne Hoyt is a 61 year [...] Neurological: Negative. Hematological: Negative. Psychiatric/Behavioral: Negative. Objective [facility] 01/23/2007 Assessment and Plan Dianne was seen today for follow up. 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 Begin metformin. Improve diabetic diet. Improve weight. Increase exercise. * Asael Arellano LPN - 01/27/2022 11:08 AM EST Patient is having telephone visit today to discuss lab results. No other complaints or concerns at this time. Patient stated she has gained unintentional weight of about 15 lbs in the last 6 months. Asael Arellano LPN January 27, 2022 11:08 AM documented in this [facility]11-17-2022 Miscellaneous Notes* Telephone Encounter - Alice Portillo LPN - 12/26/2021 9:15 AM EST Patient called requesting the following refill. Requested Prescriptions Pending Prescriptions Disp Refills desvenlafaxine ER (PRISTIQ) 100 mg 24 hr tablet [Pharmacy Med Name: DESVENLAFAXINE SUCCNT ER 100MG]90 tablet 4 Sig: TAKE 1 TABLET BY MOUTH EVERY DAY Patient last appointment: 12/12/2021 Patient Phone numbers: [phone] (home) [phone] (work) Request is for script(s) to be escript to pharmacy. Alice Portillo LPN documented in this [facility]11-01-2022 Miscellaneous Notes* Telephone Encounter - Asael Arellano LPN - 12/10/2021 8:08 AM EDT Last filled 12-05-2021 Asael Arellano LPN December 10, 2021 8:09 AM documented in this [facility]10-27-2022 Miscellaneous Notes* Telephone Encounter - Alice Portillo LPN - 12/05/2021 11:45 AM EDT Pharmacy faxed requesting the following refill. Requested Prescriptions Pending Prescriptions Disp Refills buPROPion XL (WELLBUTRIN XL) 150 mg 24 hr tablet [Pharmacy Med Name: BUPROPION HCL XL 150 MG TABLET] 30 tablet 1 Sig: TAKE 1 TABLET BY MOUTH EVERY DAY Patient last appointment: 12/03/2021 Patient Phone numbers: [phone] (home) [phone] (work) Request is for script(s) to be escript to pharmacy. Alice Portillo LPN documented in this encounterUniversity Hospitals Samar[facility] Center10-17-2022 Miscellaneous Notes* Telephone Encounter - Asael Arellano LPN - 11/25/2021 4:38 PM EDT Patient notified of needing a visit Asael Arellano LPN November 25, 2021 4:39 PM * Telephone Encounter - Asael Arellano LPN - 11/25/2021 12:12 PM EDT Message left for patient to call office Asael Arellano LPN November 25, 2021 12:13 PM * Telephone Encounter - Asael Arellano LPN - 11/25/2021 12:12 PM EDT ----- Message from Dimitri Faye MD sent at 11/24/2021 9:24 PM EDT ----- Schedule virtual visit. A1c elevated documented in this encounterUniversity Hospitals Samaritan Medical Center10-12-2022 History of Present illness Narrative* Mandi Salas APRN.[employer] - 11/20/2021 7:00 AM EDT Associate Teacher offered: Patient declines. Dianne is a 61 [...] L2 SAB0 IAB0 Ectopic0 Multiple0 Live Births0 Lead Medical Technologist History LMP: 01/23/2007, Postmenopausal Age at Menarche: Age at First : Age at Menopause: Lead Medical Technologist History Comments: Sexual Activity: Never; Male Contraception: [...] external genitalia normal, normal Bartholin's glands, urethra, [place]'s glands, no vulvar lesions, no cervical lesions, physiologic discharge present, normal appearing perineal body and perianal region BIMANUAL: uterus normal size, shape and consistency, no adnexal masses, non- tender, and difficult to assess due to body habitus RECTOVAGINAL: deferred. NEURO: alert and oriented x3,exam grossly non-focal EXTREMITIES: normal ASSESSMENT/PLAN: 1) Health maintenance: Pap/HPV up to date. Mammogram up to date 2) Follow up one year or sooner as needed Mandi Salas APRN.SHOSHANA documented in this encounterUniversity Hospitals Samaritan Medical Center10-11-2022 Miscellaneous Notes* Telephone Encounter - Asael Arellano LPN - 11/19/2021 2:58 PM EDT This nurse phoned patients insurance in regards to the process for a prior authorization for patient to obtain her MRI. per insurance. Patient office note to be sent and information for test to [phone]. If more assistance call: [phone] Group [id number] Asael Arellano LPN November 19, 2021 3:00 PM documented in this encounterUniversity Hospitals Samaritan Medical Center10-10-2022 Miscellaneous Notes* Telephone Encounter - Alice Portillo LPN - 11/18/2021 11:47 AM EDT Notified pt of elevated glucose and to have her A1C checked. The order [facility] to [facility] She stated she will go in a couple of days. Alice Portillo LPN * Telephone Encounter - Alice Portillo LPN - 11/18/2021 11:47 AM EDT ----- Message from Dimitri Faye MD sent at 11/18/2021 8:50 AM EDT ----- Sugar elevated. Check a1c documented in this encounterUniversity Hospitals Samaritan Medical Center10-04-2022 NoteHNO ID: [id number] Author: Dimitri Faye MD Service: ? Author Type: Physician Type: Progress Notes Filed: 11/12/2021 4:22 PM Note Text: This note was created using [employer]. Subjective Dianne Hoyt is a 61 year [...] (Temporal) Resp 14 Ht 170.2 cm (5' 7) Wt 127 kg (280 lb) LMP 01/23/2007 [...] mouth once daily. - flu vac 2021 [id number],PF, 60 mcg (15 mcg x 4)/0.5 mL syrg; Inject 0.5 mL intramuscularly one time only for 1 dose. Wean off of Wellbutrin. Weaning instructions explained to the patient. Labs as above. Patient is to schedule MRI of her kidney as previously [facility]10-04-2022 NoteHNO ID: [id number] Author: Alice Portillo LPN Service: ? Author Type: LICENSED NURSE Type: Progress Notes Filed: 11/12/2021 4:22 PM Note Text: Admin Fluad inj VTC [id number] Lot: [id number] Exp 06/26/2022 Left deltoid Pt tolerated well Alice Portillo LPN Unable to document in [facility]10-04-2022 History of Present illness Narrative* iDmitri Faye MD - 11/12/2021 4:20 PM EDT This note was created using [employer]. Subjective Dainne Hoyt is a 61 year old female. [...] (Temporal) Resp 14 Ht 170.2 cm (5' 7) Wt 127 kg (280 lb) LMP 01/23/2007 [...] mouth once daily. - flu vac 2021 [id number],PF, 60 mcg (15 mcg x 4)/0.5 mL syrg; Inject 0.5 mL intramuscularly onetime only for 1 dose. Wean off of Wellbutrin. Weaning instructions explained to the patient. Labs as above. Patient is toschedule MRI of her kidney as previously requested * Alice Portillo LPN - 11/12/2021 4:19 PM EDT Admin Fluad inj [facility] [id number] Lot: [id number] Exp 06/26/2022 Left deltoid Pt tolerated well Alice Portillo LPN Unable to document in [facility] documented in this encounterUniversity Hospitals Samaritan [facility] Center08-16-2022 Miscellaneous Notes* Telephone Encounter - Dimitri Faye MD - 09/24/2021 10:22 AM EDT done * Telephone Encounter - Asael Arellano LPN - 09/24/2021 9:24 AM EDT Please sign attached MRI order Asael Arellano LPN September 24, 2021 9:24 AM * Telephone Encounter - Asael Arellano LPN - 09/17/2021 9:25 AM EDT Patient notified of recommendation for MRI, and status of the renal mass. Would like order sent to [facility] if applicable Please sign attached order Asael Arellano LPN September 17, 2021 9:30 AM documented in this encounterUniversity Hospitals Samar[facility] Center08-01-2022 Miscellaneous Notes* Telephone Encounter - Asael Arellano LPN - 09/09/2021 8:10 AM EDT Pending Prescriptions Disp Refills INDAPAMIDE 1.25 MG TABLET 90 tablet 3 Sig: TAKE 1 TABLET BY MOUTH EVERY DAY IN THE MORNING CLIFTON: Yes Asael Arellano LPN September 09, 2021 8:10 AM documented in this encounterUniversity Hospitals Samaritan [facility] Center07-13-2022 Miscellaneous Notes* Telephone Encounter - Tracy Biggs LPN - 08/21/2021 10:32 AM EDT PT is having a Ct scan next week. Pt needs order for serum creatine per [facility]. documented in this encounterUniversity Hospitals Samaritan Medical CenterDischarge summary Author Mohsen Hicks [facility] January 06, 2023 2:54pm Note Date/Time January 06, 2023 2:51pm [facility] Medical Records Department [address] [place] [address] Instructions for Home/Discharge Instructions 01/06/23 1450 MR#: [id number] Acct: [id number] Name: DIANNE HOYT ANN Rep #:[id number] : 1960 62 From: Mohsen Hicks DO PCP: Frida Coelho DO Status:REG S DC Discharge Instructions Dressing / Incision Call your doctor if you observe: Shortness of breath and Chest pain Additional Dressing/Incision Instructions:: Ice and elevate operative extremity next 72 hours. Keep dressing on clean and dry for 48 hours then may remove and allow warm soapy water to rinse over incision but do not submerge until sutures are out. Then apply bandaid over incision and change daily. encourage finger range of motion. Not lift more than 1/2 pound. Minimize narcotic use only as needed and directed, may use OTC NSAID and Tylenol to supplement/substitute for pain control. Follow Up Care Please Follow Up With: Mohsen Hicks DO When: 2 weeks Test Results: Test results from this visit will be discussed in further detail at your follow- up appointment, if applicable. Discharge Plan Admission Primary Reason for Your Visit: Right carpal tunnel release Attending Provider: Mohsen Hicks Primary Care Provider: Frida Coelho Discharge Orders/Prescriptions Prescriptions: New oxycodone 5 mg tablet 5 - 10 mg PO Q4H PRN (Reason: pain) 3 Days Qty: 10 0RF Continued gabapentin 100 mg capsule 100 mg PO TID methotrexate sodium 2.5 mg tablet 15 mg PO SA metoprolol tartrate 50 mg tablet 50 mg PO DAILY folic acid 1 mg tablet 1 mg PO BID desvenlafaxine succinate [Pristiq] 100 mg tablet extended release 24 hr 100 mg PO DAILY spironolactone 50 mg tablet 50 mg PO DAILY losartan 50 mg tablet 100 mg PO DAILY Ozempic 1 mg/dose (4 mg/3 mL) pen injector 1 mg subcut TERRY indapamide 1.25 MG tablet 1.25 mg PO DAILY acetaminophen 500 MG tablet 1,000 mg PO Q8 PRN (Reason: Pain) pantoprazole [Protonix] 40 mg tablet,delayed release (DR/EC) 40 mg PO DAILY Qty: 30 0RF Referrals / Follow Up: Frida Coelho DO [Primary Care Provider] - Disposition Disposition (needs filled in before D/C Order can be placed): Home, Self Care 01/06/23 2040<Electronically signed by Mohsen Hicks DO>Mohsen Hicks DO CC: Frida Coelho DO ~ Signed [facility] Work Phone: Discharge summary Author Mohsen Hicks [facility] January 27, 2023 11:39am Note Date/Time January 27, 2023 11:36am [facility] Medical Records Department [address] [place] [address] Instructions for Home/Discharge Instructions 01/27/23 1135 MR#: [id number] Acct: [id number] Name: DIANNE HOYT Rep #:[id number] : 1960 62 From: Mohsen Hicks DO PCP: Frida Coelho DO Status:REG S DC Discharge Instructions Dressing / Incision Call your doctor if you observe: Shortness of breath and Chest pain Additional Dressing/Incision Instructions:: Ice and elevate operative extremity next 72 hours. Keep dressing on clean and dry for 48 hours then may remove and allow warm soapy water to rinse over incision but do not submerge until sutures are out. Then apply bandaid over incision and change daily. encourage finger range of motion. Not lift more than 1/2 pound. Minimize narcotic use only as needed and directed, may use OTC NSAID and Tylenol to supplement/substitute for pain control. Follow Up Care Please Follow Up With: Mohsen Hicks DO When: 2 weeks Test Results: Test results from this visit will be discussed in further detail at your follow- up appointment, if applicable. Discharge Plan Admission Primary Reason for Your Visit: Left carpal tunnel release Attending Provider: Mohsen Hicks Primary Care Provider: Frida Coelho Discharge Orders/Prescriptions Prescriptions: New oxycodone 5 mg tablet 2.5 - 10 mg PO Q4H PRN (Reason: pain) 3 Days Qty: 7 0RF Continued gabapentin 100 mg capsule 100 mg PO TID methotrexate sodium 2.5 mg tablet 15 mg PO SA metoprolol tartrate 50 mg tablet 50 mg PO DAILY folic acid 1 mg tablet 1 mg PO BID desvenlafaxine succinate [Pristiq] 100 mg tablet extended release 24 hr 100 mg PO DAILY spironolactone 50 mg tablet 50 mg PO DAILY losartan 50 mg tablet 100 mg PO DAILY Ozempic 1 mg/dose (4 mg/3 mL) pen injector 1 mg subcut TERRY indapamide 1.25 MG tablet 1.25 mg PO DAILY acetaminophen 500 MG tablet 1,000 mg PO Q8 PRN (Reason: Pain) pantoprazole [Protonix] 40 mg tablet,delayed release (DR/EC) 40 mg PO DAILY Qty: 30 0RF Referrals / Follow Up: Frida Coelho DO [Primary Care Provider] - Disposition Disposition (needs filled in before D/C Order can be placed): Home, Self Care 01/27/23 1139<Electronically signed by Mohsen Hicks DO>Mohsen Hicks DO CC: Frida Coelho DO ~ Signed [facility] Work Phone: evaluation noteNo assessment information available [facility] Work Phone: Evaluation note* Diagnosis Hypertension, unspecified type- Primary documented in this encounter [facility] note* Diagnosis Other specified disorders of kidney and ureter- Primary documented in this encounter [facility] note* Diagnosis Primary hypertension- Primary Unspecified essential hypertension Lipid screening Screening for lipoid disorders Screening for deficiency anemia Screening for other and unspecified deficiency anemia Wellness examination documented in this encounter [facility] note* Diagnosis Hyperglycemia- Primary Other abnormal glucose documented in this encounter [facility] note* Diagnosis Encounter for gynecological examination (general) (routine) without abnormal findings- Primary Encounter for screening mammogram for breast cancer documented in this encounter 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 note* Diagnosis Onset Date Resolution Status Hiatal hernia acute Chronic upper abdominal pain chronic Constipation chronic Diastasis recti chronic Inguinal hernia of right aysha e without obstruction or gangrene chronic Umbilical hernia without obstruction or gangrene chronic Hiatal hernia acute Chronic upper abdominal pain chronic Constipation chronic Diastasis recti chronic Inguinal hernia of right aysha e without obstruction or gangrene chronic Umbilical hernia without obstruction or gangrene chronic [facility] Work Phone: Evaluation note* Diagnosis Chest pain, unspecified type- Primary documented in this encounter [facility] note* Diagnosis Onset Date Resolution Status GERD (gastroesophageal reflux disease) chronic Inguinal hernia of right aysha e without obstruction or gangrene chronic Inguinal hernia of right aysha e without obstruction or gangrene chronic [facility] Work Phone: Evaluation note* Diagnosis Onset Date Resolution Status GERD (gastroesophageal reflux disease) chronic Inguinal hernia of right aysha e without obstruction or gangrene chronic Inguinal hernia of right aysha e without obstruction or gangrene chronic S/P inguinal hernia repair a [facility] Work Phone: Evaluation note* Diagnosis Onset Date Resolution Status Inguinal hernia of right aysha e without obstruction or gangrene chronic S/P inguinal hernia repair a cute S/P inguinal hernia repair a [facility] Work Phone: Evaluation note* Diagnosis Encounter for gynecological examination (general) (routine) without abnormal findings- Primary Encounter for screening mammogram for breast cancer [facility] Diagnosis Encounter for screening mammogram for breast cancer [facility] Diagnosis Onset Date Resolution Status S/P inguinal hernia repair a [facility] Carpal tunnel syndrome, bilateral acute [facility] Work Phone: evaluation note* Diagnosis Onset Date Resolution Status Carpal tunnel syndrome, bilateral acute Carpal tunnel syndrome, bilateral acute [facility] Work Phone: Evaluation note* Diagnosis Onset Date Resolution Status Carpal tunnel syndrome, bilateral acute Carpal tunnel syndrome, bilateral acute Orthopedic aftercare noneact [facility] Work Phone: Evaluation note* Diagnosis Encounter for gynecological examination (general) (routine) without abnormal findings- Primary Encounter for screening mammogram for breast cancer Encounter for screening for human papillomavirus (HPV) Special screening examination for human papillomavirus (HPV) Screening for malignant neoplasm of cervix Screening for malignant neoplasm of the cervix Encounter for screening for osteoporosis Special screening for osteoporosis [facility] Diagnosis Encounter for screening mammogram for breast cancer [facility]* Diagnosis Abnormal mammogram- Primary Abnormal mammogram, unspecified [facility] Diagnosis Encounter for screening for osteoporosis Special screening for osteoporosis [facility]* Diagnosis Abnormal mammogram Abnormal mammogram, unspecified documented [facility]* Diagnosis Abnormal mammogram Abnormal mammogram, unspecified [facility]* Diagnosis Calcification of left breast on mammography- Primary [facility] Author Mohsen Hicks [facility] January 27, 2023 10:39am Note Date/Time January 27, 2023 10:39am [facility] Medical Records Department [address] [place] [address] History & Physical Exam 01/27/23 1038 MR#: [id number] Acct: [id number] Name: DIANNE HOYT ANN Rep #:[id number] : 1960 62 From: Mohsen Hicks DO PCP: Frida Coelho DO Status:REG S DC Location: [place] [address] History and Physical Date of Admission: 01/27/23 [facility] [address] [place] [address] [address] [place] [address] OFFICE VISIT Date of Service: 01/21/23 MR#: [id number] Acct: [id number] Name: DIANNE HOYT ANN Rep #: [id number] : 1960 Provider: Dr. Mohsen Hicks DO Age/Sex: 62/F Location: [facility].ANN Status: Signed Intake Vital Signs 12/17/2314:27 01/06/2313:16 Height 5 ft 7 in 5 ft 7 in Intake Visit Reasons: right wrist Chief Complaint: biateral hands Allergies No Known Allergies Allergy (Verified 01/21/23 15:00) Medications indapamide 1.25 mg tablet 1.25 mg PO DAILY DIURETIC 10/14/17 [History Confirmed 01/21/23] desvenlafaxine succinate 100 mg tablet,extended release 24 hr (Pristiq) 100 mg PO DAILY 03/19/22 [History Confirmed 01/21/23] folic acid 1 mg tablet 1 mg PO BID 03/19/22 [History Confirmed 01/21/23] gabapentin 100 mg capsule 100 mg PO TID 03/19/22 [History Confirmed 01/21/23] losartan 50 mg tablet 100 mg PO DAILY 03/19/22 [History Confirmed 01/21/23] methotrexate sodium 2.5 mg tablet 15 mg PO SA 03/19/22 [History Confirmed 01/21/23] metoprolol tartrate 50 mg tablet 50 mg PO DAILY 03/19/22 [History Confirmed 01/21/23] spironolactone 50 mg tablet 50 mg PO DAILY 03/19/22 [History Confirmed 01/21/23] acetaminophen 500 mg tablet 1,000 mg PO Q8 PRN Pain 05/19/22 [History Confirmed 01/21/23] pantoprazole 40 mg tablet,delayed release (Protonix) 40 mg PO DAILY #30 tabs 06/27/22 [Rx Confirmed 01/21/23] semaglutide 1 mg/dose (4 mg/3 mL) subcutaneous pen injector (Ozempic) 1 mg subcut TERRY 12/17/22 [History Confirmed 01/21/23] PFSH Medical History Anxiety Arthritis Depression Diabetes Dietary restriction Former smoker Gastric reflux History of stress test Hypertension Post-menopausal Wears glasses Surgical History History of carpal tunnel surgery of right wrist History of knee replacement Hx of colonoscopy Hx of inguinal hernia repair Social History Smoking Status: Former smoker alcohol intake: never substance use type: does not use HPI right wrist Chief Complaint: bilateral hands Details: This documentation accurately reflects the service provided and the decisions made by me, Dr. Mohsen Hicks, DO 01/21/23 7351. Part of today?s visit was documented by [ ], acting as scribe. DIANNE HOYT is a 62 year old F here today for 2 week post op right open carpal tunnel release DOS 01-06-23 and pre op left carpal tunnel release. Pt. denies right hand pain unless she bumps it. Sutures dry, intact , no drainage ors/s of infection. she still has symptoms in her left hand and would like to move foward with it. Ortho Exam General General: Yes no acute distress Neurologic: Yes alert and Yes oriented x3 Psychologic: Yes reasonable and appropriate Right Wrist/Hand Skin/Wound: Yes healing, Yes suture/torres removed, No Swelling and No Ecchymosis WRIST: full range of motion finger and wrist. incision looks good , sutures removed. nosign of infection. 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 Monitor for signs of infection, redness, warmth, swelling in excess, drainage, opening of incision site/sites, and/or fever. She should continue to wash her incision daily. and 5 lb restriction fo another week we will proceed with left CTR Follow up for 2 week post op or sooner if pain, swelling, numbness or associatedsymptoms, or concerns develop. All questions answered. Patient in agreement of plan. 01/21/231711 <Electronically signed by Mohsen Hicks DO> Date Mohsen Hicks DO Cosigner Signature: Date (if applicable) CC: ~ I have examined the patient and the H&P has been reviewed. There are no clinicalchanges since date of exam. 01/27/23 1039 <Electronically signed by Mohsen Hicks DO> Cosigner Signature (if applicable): CC: Dr. Mohsen Hicks DO; Frida Coelho DO~ Signed [facility] Work Phone: Hospital Discharge instructions Additional Instructions Take the counter ibuprofen or naproxen to help with the pain.[facility] Work Phone: Reason for referral (narrative)* Diagnostic Procedure Only (Routine) - Pending Review Specialty Diagnoses / Procedures Referred By Contac t Referred To Contact [facility] Diagnoses Encounter for screening mammogram for breast cancer Procedures CYNTHIA SCREENING SCREENING MAMMOGRAPHY BI 2-VIEW BREAST INC CAD Mandi Salas APRN.SUPERVISOR [employer] [address] [place] [address] [facility] [address] [place] [address] Referral ID Status Reason Start Date Expiration Date Visits Requested Visits Authorized [id number] Pending Review Auto-Generat ed Referral 12/20/2022 1 1 [facility] for referral (narrative)* Diagnostic Procedure Only (Routine) - Pending Review Specialty Diagnoses / Procedures Referred By Contac t Referred To Contact [facility] Diagnoses Encounter for screening mammogram for breast cancer Procedures CYNTHIA SCREENING SCREENING MAMMOGRAPHY BI 2-VIEW BREAST INC CAD Mandi Salas APRN.SUPER[employer] [address] [place] [address] [facility] [address] [place] [address] Referral ID Status Reason Start Date Expiration Date Visits Requested Visits Authorized [id number] Pending Review Auto-Generat ed Referral 12/21/2023 1 1 [facility] for referral (narrative)* Diagnostic Procedure Only (Routine) - Closed Specialty Diagnoses / Procedures Referred By Contac t Referred To Contact [facility] Diagnoses Encounter for screening mammogram for breast cancer Procedures CYNTHIA SCREENING SCREENING MAMMOGRAPHY BI 2-VIEW BREAST INC CAD Mandi Salas APRN.[employer]PER[employer] [address] [place] [address] [facility] [address] [place] [address] Referral ID Status Reason Start Date Expiration Date V isits Requested Visits Authorized [id number] Closed Auto-Generate d Referral 11/20/2021 12/20/2022 1 1 [facility] for referral (narrative)* Diagnostic Procedure Only (Routine) - Authorized Specialty Diagnoses / Procedures Referred By Micki t Referred To Contact [facility] IMAG[facility] Diagnoses Encounter for screening for osteoporosis Procedures DXA-AXIAL SKELETON DXA BONE DENSITY STUDY 1/> SITES AXIAL SKEL Mandi Salas APRN.[employer] [address] [place] [address] [place] [address] Referral ID Status Reason Start Date Expiration Date Visits Requested Visits Authorized [id number] Authorized Auto-Generat ed Referral 12/29/2024 1 1 * Diagnostic Procedure Only (Routine) - Authorized Specialty Diagnoses / Procedures Referred By Micki t Referred To Contact [facility] Diagnoses Encounter for screening mammogram for breast cancer Procedures CYNTHIA SCREENING W SHAHEED SCREENING DIGITAL BREAST TOMOSYNTHESIS BI SCREENING MAMMOGRAPHY BI 2-VIEW BREAST INC CAD Mandi Salas APRN.[employer]PER[employer] [address] [place] [address] [facility] [address] [place] [address] Referral ID Status Reason Start Date Expiration Date Visits Requested Visits Authorized [id number] Authorized Auto-Generat ed Referral 12/29/2024 1 1 [facility] for referral (narrative)* Diagnostic Procedure Only (Routine) - New Request Specialty Diagnoses / Procedures Referred By Contac t Referred To Contact [facility] Diagnoses Abnormal mammogram Procedures CYNTHIA DIAGNOSTIC LEFT DIAGNOSTIC MAMMOGRAPHY COMPUTER-AIDED DETCJ UNI Mandi Salas APRN.[employer]PER[employer] [address] [place] [address] [facility] [address] [place] [address] Referral ID Status Reason Start Date Expiration Date Visits Requested Visits Authorized [id number] New Request Auto-Generat ed Referral 4 12/30/2024 1 1 * Diagnostic Procedure Only (Routine) - New Request Specialty Diagnoses / Procedures Referred By Micki pitt Referred To Contact [facility] Diagnoses Abnormal mammogram Procedures US BREAST LTD LEFT US BREAST UNI REAL TIME WITH IMAGE LIMITED Mandi Saals APRN.[employer]PER[employer] [address] [place] [address] [facility] [address] [place] [address] Referral ID Status Reason Start Date Expiration Date Visits Requested Visits Authorized [id number] New Request Auto-Generat ed Referral 4 12/30/2024 1 1 [facility] for referral (narrative)* Diagnostic Procedure Only (Routine) - Closed Specialty Diagnoses / Procedures Referred By Micki pitt Referred To Contact XR IMAGING Diagnoses Encounter for screening for osteoporosis Procedures DXA-AXIAL SKELETON DXA BONE DENSITY STUDY 1/ SITES AXIAL SKEL Mandi Salas APRN.[employer]PER[employer] [address] [place] [address] [place] [address] Referral ID Status Reason Start Date Expiration Date V isits Requested Visits Authorized [id number] Closed Auto-Generate d Referral 11/30/2023 12/29/2024 1 1 [facility] for visit Narrative* Diagnostic Procedure Only (Routine) - Closed Specialty Diagnoses / Procedures Referred By Micki pitt Referred To Contact [facility] Diagnoses Encounter for screening mammogram for breast cancer Procedures CYNTHIA SCREENING SCREENING MAMMOGRAPHY BI 2-VIEW BREAST INC CAD Mandi Salas APRN.CNP [address] [place] [address] [facility] [address] [place] [address] Referral ID Status Reason Start Date Expiration Date V isits Requested Visits Authorized [id number] Closed Auto-Generate d Referral 11/20/2021 12/20/2022 1 1 [facility] for visit Narrative* Diagnostic Procedure Only (Routine) - Closed Specialty Diagnoses / Procedures Referred By Micki t Referred To Contact [facility] Diagnoses Encounter for screening mammogram for breast cancer Procedures CYNTHIA SCREENING SCREENING MAMMOGRAPHY BI 2-VIEW BREAST INC CAD Mandi Salas, 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 [address] [facility] [place] [address] [facility] [address] [address] Referral ID Status Reason Start Date Expiration Date V isits Requested Visits Authorized [id number] Closed Auto-Generate d Referral 11/21/2022 12/21/2023 1 1 [facility] for visit Narrative* Diagnostic Procedure Only (Routine) - Closed Specialty Diagnoses / Procedures Referred By Elizaac t Referred To Contact XR IMAGING Diagnoses Encounter for screening for osteoporosis Procedures DXA-AXIAL SKELETON DXA BONE DENSITY STUDY / SITES AXIAL SKEL Mandi Salas, 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 [address] [place] [address] [place] [address] Referral ID Status Reason Start Date Expiration Date V isits Requested Visits Authorized [id number] Closed Auto-Generate d Referral 11/30/2023 12/29/2024 1 1 [facility] for visit Narrative* Diagnostic Procedure Only (Routine) - Authorized Specialty Diagnoses / Procedures Referred By Micki t Referred To Contact [facility] Diagnoses Abnormal mammogram Procedures US BREAST LTD LEFT US BREAST UNI REAL TIME WITH IMAGE LIMITED Mandi Salas, 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 [address] [facility] [place] [address] [facility] [address] [place] [address] Referral ID Status Reason Start Date Expiration Date Visits Requested Visits Authorized [id number] Authorized Auto-Generat ed Referral 12/30/2024 1 1 [facility] for visit Narrative* Diagnostic Procedure Only (Routine) - Closed Specialty Diagnoses / Procedures Referred By Micki t Referred To Contact [facility] Diagnoses Abnormal mammogram Procedures CYNTHIA DIAGNOSTIC LEFT DIAGNOSTIC MAMMOGRAPHY COMPUTER-AIDED DETCJ SHIMA MaritzaMandi, 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 [address] [place] [address] [facility] [address] [place] [address] Referral ID Status Reason Start Date Expiration Date V isits Requested Visits Authorized [id number] Closed Auto-Generate d Referral 12/01/2023 12/30/2024 1 1 [facility] Summary Purpose Family History No Family History Records FoundNo Family History Records FoundNo Family History Records FoundNo Family History Records FoundNo Family History Records Found Advance Directives No Advanced Directives Records Found Advance Directive Response Recorded Date/ Time Living Will Yes December 22 3:09pm Power of Rd Project Manager Yes December 22, 2020 3:09pm Advance Directive Response Recorded Date/ Time Living Will Yes September 27 6:15am Power of Rd Project Manager Yes September 27 6:15am Advance Directive Response Recorded Date/ Time Living Will Yes September 27 5:15am Power of Rd Project Manager Yes September 27 5:15am Advance Directive Response Recorded Date/ Time Living Will No April 25, 2022 3:31pm Power of Rd Project Manager No April 25 3:31pm Advance Directive Response Recorded Date/ Time Name of Medical Power of Rd Project Manager Savana Bonillanadyauday May 19, 2022 2:47pm Living Will Yes May 19, 2022 2:47pm Power of Rd Project Manager Yes May 19 2:47pm Advance Directive Response Recorded Date/ Time Name of Medical Power of Rd Project Manager Savana Helms May 19, 2022 2:47pm Name of Medical Power of Rd Project Manager SPOUSE July 31, 2022 1:21pm Living Will Yes July 31, 2022 1:21pm Power of Rd Project Manager Yes July 31 1:21pm Advance Directive Response Recorded Date/ Time Name of Medical Power of Rd Project Manager SPOUSE July 31, 2022 1:21pm Living Will Yes July 31, 2022 1:21pm Power of Rd Project Manager Yes July 31 1:21pm Advance Directive Response Recorded Date/ Time Name of Medical Power of Rd Project Manager SPOUSE/DAMAAMEE R December 25, 2022 10:18am Living Will Yes December 25, 023 10:18am Power of Rd Project Manager Yes December 25, 2022 10:18am Advance Directive Response Recorded Date/ Time Name of Medical Power of Rd Project Manager SPOUSE/DAMAAMEE R December 25, 2022 10:18am Name of Medical Power of Rd Project Manager SPOUSE/DAMAAMEE R January 20, 2023 11:15am Living Will Yes January 20, 2 023 11:15am Power of Rd Project Manager Yes January 20, 2023 11:15am Advance Directive Response Recorded Date/ Time Living Will Yes January 20 023 12:15pm Power of Rd Project Manager Yes January 20, 2023 12:15pm Chief Complaint and Reason for Visit Chief Complaint Other specified diso rders of kidney and ureter PAIN- COPY PCP Chief Complaint PAIN- COPY PCP Chief Complaint PAIN- COPY PCP PAIN- COPY PCP Chief Complaint PAIN- COPY PCP RAPID COVID/WILL-KENDELL PAIN- COPY PCP Chief Complaint RAPID COVID/WILL-BUR T PAIN- COPY PCP PAIN- COPY PCP Chief Complaint PAIN- COPY PCP VENTRAL HERNIA 3WK F/U Med Check PPI, schedule cscope/EGD/Hernia CHEST PAIN Reason for Visit Hiatal hernia Chronic upper abdominal pain Constipation Diastasis recti Inguinal hernia of right side without obstruction or gangrene Umbilical hernia without obstruction or gangrene Hiatal hernia Chronic upper abdominal pain Constipation Diastasis recti Inguinal hernia of right side without obstruction or gangrene Umbilical hernia without obstruction or gangrene Chief Complaint VENTRAL HERNIA 3WK F/U Med Check PPI, schedule cscope/EGD/Hernia CHEST PAIN Reason for Visit Hiatal hernia Chronic upper abdominal pain Constipation Diastasis recti Inguinal hernia of right side without obstruction or gangrene Umbilical hernia without obstruction or gangrene Hiatal hernia Chronic upper abdominal pain Constipation Diastasis recti Inguinal hernia of right side without obstruction or gangrene Umbilical hernia without obstruction or gangrene Chief Complaint CHEST PAIN UPPER AND LOWER SCOPE LAP ROBOTIC INGUINAL HERNIA W MESH RT LAP ROBOTIC INGUINAL HERNIA W MESH RT Reason for Visit GERD (gastroesophage al reflux disease) Inguinal hernia of right side without obstruction or gangrene Inguinal hernia of right side without obstruction or gangrene Chief Complaint UPPER AND LOWER SCOP E LAP ROBOTIC INGUINAL HERNIA W MESH RT LAP ROBOTIC INGUINAL HERNIA W MESH RT HERNIA 7-10 Reason for Visit GERD (gastroesophage al reflux disease) Inguinal hernia of right side without obstruction or gangrene Inguinal hernia of right side without obstruction or gangrene S/P inguinal hernia repair Chief Complaint LAP ROBOTIC INGUINAL HERNIA W MESH RT LAP ROBOTIC INGUINAL HERNIA W MESH RT HERNIA 7-10 S/P HERNIA 7-10 BILAT UPPER NUMBNESS TINGLING BILAT UPPER NUMBNESS TINGLING Reason for Visit Inguinal hernia of r ight side without obstruction or gangrene S/P inguinal hernia repair S/P inguinal hernia repair Chief Complaint S/P HERNIA 7-10 BILAT UPPER NUMBNESS TINGLING BILAT UPPER NUMBNESS TINGLING RIGHT HAND Right open carpal tunnel release Right open carpal tunnel release Reason for Visit S/P inguinal hernia repair Carpal tunnel syndrome, bilateral Chief Complaint BILAT UPPER NUMBNESS TINGLING BILAT UPPER NUMBNESS TINGLING RIGHT HAND Right open carpal tunnel release Right open carpal tunnel release right wrist Left open Carpal Tunnel Release Left open Carpal Tunnel Release Reason for Visit Carpal tunnel syndro me, bilateral Carpal tunnel syndrome, bilateral Chief Complaint BILAT UPPER NUMBNESS TINGLING BILAT UPPER NUMBNESS TINGLING RIGHT HAND Right open carpal tunnel release Right open carpal tunnel release right wrist Left open Carpal Tunnel Release Left open Carpal Tunnel Release LEFT WRIST PAIN- COPY PCP Reason for Visit Carpal tunnel syndro me, bilateral Carpal tunnel syndrome, bilateral Orthopedic aftercare Reason for Referral Specialty Diagnoses / Procedures Referred By Micki pitt Referred To Contact MR IMAGING Diagnoses Other specified disorders of kidney and ureter Procedures MRI KIDNEY WO IVCON MRI, ABDOMEN (MRI) Dimitri Faye MD [address] [place] [address] Mr Imaging Referral ID Status Reason Start Date Expiration Date Visits Requested Visits Authorized [id number] Pending Review Auto-Generat ed Referral 09/24/2021 10/17/2022 1 1 Additional Source Comments INFORMATION SOURCE (unrecogn ized section and content) DATE CREATED AUTHOR 03/19/2021 [facility] [place] DATE CREATED AUTHOR AUTHOR'S ORGANIZ ATION 09/03/2021 [facility] DATE CREATED AUTHOR AUTHOR'S ORGANIZ ATION 03/19/2022 [facility] DATE CREATED AUTHOR AUTHOR'S ORGANIZ ATION 02/19/2024 [facility] DATE CREATED AUTHOR AUTHOR'S ORGANIZ ATION 03/31/2024 [facility] Goals (unrecognized section and content) Goals may be documented in a n alternate sectionGoals may be documented in an alternate sectionGoals may be documented in an alternate sectionGoals may be documented in an alternate sectionGoals may be documented in an alternate sectionGoals may be documented in an alternate sectionGoals may be documented in an alternate section Source Comments (unrecognize d section and content) In the event this informatio n is protected by the Federal Confidentiality of Alcohol and Drug Abuse Patient Records regulations: The Federal rules restrict any use of the information to criminally investigate or prosecute any alcohol or drug abuse patient.[facility] the event this information is protected by the Federal Confidentiality of Alcohol and Drug Abuse Patient Records regulations: The Federal rules restrict any use of the information to criminally investigate or prosecute any alcohol or drug abuse patient.[facility] Center[facility] the event this information is protected by the Federal Confidentiality of Alcohol and Drug Abuse Patient Records regulations: The Federal rules restrict any use of the information to criminally investigate or prosecute any alcohol or drug abuse patient.[facility] CenterIn the event this information is protected by the Federal Confidentiality of Alcohol and Drug Abuse Patient Records regulations: The Federal rules restrict any use of the information to criminally investigate or prosecute any alcohol or drug abuse patient.[facility] Center[facility] the event this information is protected by the Federal Confidentiality of Alcohol and Drug Abuse Patient Records regulations: The Federal rules restrict any use of the information to criminally investigate or prosecute any alcohol or drug abuse patient.[facility] Center[facility] the event this information is protected by the Federal Confidentiality of Alcohol and Drug Abuse Patient Records regulations: The Federal rules restrict any use of the information to criminally investigate or prosecute any alcohol or drug abuse patient.[facility] CenterIn the event this information is protected by the Federal Confidentiality of Alcohol and Drug Abuse Patient Records regulations: The Federal rules restrict any use of the information to criminally investigate or prosecute any alcohol or drug abuse patient.[facility] CenterIn the event this information is protected by the Federal Confidentiality of Alcohol and Drug Abuse Patient Records regulations: The Federal rules restrict any use of the information to criminally investigate or prosecute any alcohol or drug abuse patient.[facility] CenterIn the event this information is protected by the Federal Confidentiality of Alcohol and Drug Abuse Patient Records regulations: The Federal rules restrict any use of the information to criminally investigate or prosecute any alcohol or drug abuse patient.[facility] CenterIn the event this information is protected by the Federal Confidentiality of Alcohol and Drug Abuse Patient Records regulations: The Federal rules restrict any use of the information to criminally investigate or prosecute any alcohol or drug abuse patient.[facility] CenterIn the event this information is protected by the Federal Confidentiality of Alcohol and Drug Abuse Patient Records regulations: The Federal rules restrict any use of the information to criminally investigate or prosecute any alcohol or drug abuse patient.[facility] CenterIn the event this information is protected by the Federal Confidentiality of Alcohol and Drug Abuse Patient Records regulations: The Federal rules restrict any use of the information to criminally investigate or prosecute any alcohol or drug abuse patient.[facility] CenterIn the event this information is protected by the Federal Confidentiality of Alcohol and Drug Abuse Patient Records regulations: The Federal rules restrict any use of the information to criminally investigate or prosecute any alcohol or drug abuse patient.[facility] CenterIn the event this information is protected by the Federal Confidentiality of Alcohol and Drug Abuse Patient Records regulations: The Federal rules restrict any use of the information to criminally investigate or prosecute any alcohol or drug abuse patient.[facility] CenterIn the event this information is protected by the Federal Confidentiality of Alcohol and Drug Abuse Patient Records regulations: The Federal rules restrict any use of the information to criminally investigate or prosecute any alcohol or drug abuse patient.[facility] CenterIn the event this information is protected by the Federal Confidentiality of Alcohol and Drug Abuse Patient Records regulations: The Federal rules restrict any use of the information to criminally investigate or prosecute any alcohol or drug abuse patient.[facility] CenterIn the event this information is protected by the Federal Confidentiality of Alcohol and Drug Abuse Patient Records regulations: The Federal rules restrict any use of the information to criminally investigate or prosecute any alcohol or drug abuse patient.[facility] CenterIn the event this information is protected by the Federal Confidentiality of Alcohol and Drug Abuse Patient Records regulations: The Federal rules restrict any use of the information to criminally investigate or prosecute any alcohol or drug abuse patient.[facility] CenterIn the event this information is protected by the Federal Confidentiality of Alcohol and Drug Abuse Patient Records regulations: The Federal rules restrict any use of the information to criminally investigate or prosecute any alcohol or drug abuse patient.[facility] CenterIn the event this information is protected by the Federal Confidentiality of Alcohol and Drug Abuse Patient Records regulations: The Federal rules restrict any use of the information to criminally investigate or prosecute any alcohol or drug abuse patient.[facility] CenterIn the event this information is protected by the Federal Confidentiality of Alcohol and Drug Abuse Patient Records regulations: The Federal rules restrict any use of the information to criminally investigate or prosecute any alcohol or drug abuse patient.[facility] CenterIn the event this information is protected by the Federal Confidentiality of Alcohol and Drug Abuse Patient Records regulations: The Federal rules restrict any use of the information to criminally investigate or prosecute any alcohol or drug abuse patient.[facility] CenterIn the event this information is protected by the Federal Confidentiality of Alcohol and Drug Abuse Patient Records regulations: The Federal rules restrict any use of the information to criminally investigate or prosecute any alcohol or drug abuse patient.[facility] CenterIn the event this information is protected by the Federal Confidentiality of Alcohol and Drug Abuse Patient Records regulations: The Federal rules restrict any use of the information to criminally investigate or prosecute any alcohol or drug abuse patient.[facility] CenterIn the event this information is protected by the Federal Confidentiality of Alcohol and Drug Abuse Patient Records regulations: The Federal rules restrict any use of the information to criminally investigate or prosecute any alcohol or drug abuse patient.[facility] CenterIn the event this information is protected by the Federal Confidentiality of Alcohol and Drug Abuse Patient Records regulations: The Federal rules restrict any use of the information to criminally investigate or prosecute any alcohol or drug abuse patient.[facility] CenterIn the event this information is protected by the Federal Confidentiality of Alcohol and Drug Abuse Patient Records regulations: The Federal rules restrict any use of the information to criminally investigate or prosecute any alcohol or drug abuse patient.[facility] CenterIn the event this information is protected by the Federal Confidentiality of Alcohol and Drug Abuse Patient Records regulations: The Federal rules restrict any use of the information to criminally investigate or prosecute any alcohol or drug abuse patient.[facility] CenterIn the event this information is protected by the Federal Confidentiality of Alcohol and Drug Abuse Patient Records regulations: The Federal rules restrict any use of the information to criminally investigate or prosecute any alcohol or drug abuse patient.[facility] CenterIn the event this information is protected by the Federal Confidentiality of Alcohol and Drug Abuse Patient Records regulations: The Federal rules restrict any use of the information to criminally investigate or prosecute any alcohol or drug abuse patient.[facility] CenterIn the event this information is protected by the Federal Confidentiality of Alcohol and Drug Abuse Patient Records regulations: The Federal rules restrict any use of the information to criminally investigate or prosecute any alcohol or drug abuse patient.[facility] CenterIn the event this information is protected by the Federal Confidentiality of Alcohol and Drug Abuse Patient Records regulations: The Federal rules restrict any use of the information to criminally investigate or prosecute any alcohol or drug abuse patient.[facility] CenterIn the event this information is protected by the Federal Confidentiality of Alcohol and Drug Abuse Patient Records regulations: The Federal rules restrict any use of the information to criminally investigate or prosecute any alcohol or drug abuse patient.[facility] CenterIn the event this information is protected by the Federal Confidentiality of Alcohol and Drug Abuse Patient Records regulations: The Federal rules restrict any use of the information to criminally investigate or prosecute any alcohol or drug abuse patient.[facility] Reason for Visit (unrecogniz ed section and content) Reason Comments Orders serum creatine per [facility] due to CT scan Reason Comments Refill Request Reason Comments Results [...] week, now radiating around side under breast Reason Comments Well Woman Reason Comments Orders Reason Comments Mammogram Result Call Back Reason Comments Consult Abnormal mammogram Care Teams (unrecognized sec tion and content) Accounting Auditor Relationship Specialty Start Date End Date Dimitri Faye MD PCP - General 02/22/07 Accounting Auditor Relationship Specialty Start Date End Date Dimitri Faye MD PCP - General 02/22/07 Accounting Auditor Relationship Specialty Start Date End Date Dimitri Faye MD PCP - General 02/22/07 Accounting Auditor Relationship Specialty Start Date End Date Dimitri Faye MD PCP - General 02/22/07 Accounting Auditor Relationship Specialty Start Date End Date Dimitri Faye MD PCP - General 02/22/07 Accounting Auditor Relationship Specialty Start Date End Date Dimitri Faye MD PCP - General 02/22/07 Accounting Auditor Relationship Specialty Start Date End Date Dimitri Faye MD PCP - General 02/22/07 Accounting Auditor Relationship Specialty Start Date End Date Dimitri Faye MD PCP - General 02/22/07 Accounting Auditor Relationship Specialty Start Date End Date Dimitri Faye MD PCP - General 02/22/07 Accounting Auditor Relationship Specialty Start Date End Date Dimitri Faye MD PCP - General 02/22/07 Accounting Auditor Relationship Specialty Start Date End Date Dimitri Faye MD PCP - General 02/22/07 Accounting Auditor Relationship Specialty Start Date End Date Dimitri Faye MD PCP - General 02/22/07 Team Status: Active Member Role Status Dates Dr. Dimitri Faye MD Family Provider Active Frida Coelho DO Primary Care Provider Active Team Status: Inactive Member Role Status Dates Dr. Dimitri Faye MD Primary Care Provider Active Dr. Aris Mello MD Attending Provider Active Frida Coelho DO Referring Provider Active Team Status: Inactive Member Role Status Dates Frida Coelho DO Primary Care Provider Active Dr. Aris Mello MD Attending Provider, Referring P yael Active Team Status: Inactive Member Role Status Dates Dr. Dimitri Faye MD Primary Care Provider Active Dr. Geno Ovalles MD Attending Provider, Referring Provider Active Team Status: Active Member Role Status Dates Dr. Dimitri Faye MD Primary Care Provider Active Health Risk Assessment Attending Provider Active Team Status: Inactive Member Role Status Dates Frida Coelho DO Primary Care Provider Active Dr. Daniel Turk DO Emergency Provider Active Accounting Auditor Relationship Specialty Start Date End Date Frida Coelho DO [facility] E [facility] [address] [address] PCP - General Family Medicine 04/25/22 Team Status: Active Member Role Status Dates Frida Coelho DO Primary Care Provider, Referring Provider Active Dr. Aris Mello MD Attending Provider, Other Provi marc Active Team Status: Inactive Member Role Status Dates Frida Coelho , DO Primary Care Provider, Referring Provider Active Dr. Aris Mello MD Attending Provider Active Team Status: Inactive Member Role Status Dates Frida Coelho DO Primary Care Provider Active Dr. Daniel Turk DO Attending Provider, Emergency Provider Active Team Status: Inactive Member Role Status Dates Frida Coelho , DO Primary Care Provider Active Dr. Geno Ovalles MD Attending Provider, Referring Provider Active Accounting Auditor Relationship Specialty Start Date End Date Frida Coelho, [address] [place] [address] PCP - General Family Medicine 04/25/22 Team Status: Active Member Role Status Dates Frida Coelho DO Primary Care Provider Active Dr. Aris Mello MD Attending Provide r, Referring Provider, Other Provider Active Team Status: Active Member Role Status Dates Frida Coelho DO Primary Care Provider Active Dr. Geno Ovalles MD Referring Provider, Other Prov ider Active Dr. Sb Rubio MD Attending Provider Active Accounting Auditor Relationship Specialty Start Date End Date Frida Coelho DO [address] [place] [address] PCP - General Family Medicine 04/25/22 Accounting Auditor Relationship Specialty Start Date End Date Frida Coelho DO [address] [place] [address] PCP - General Family Medicine 04/25/22 Accounting Auditor Relationship Specialty Start Date End Date Frida Coelho DO [address] [place] [address] PCP - General Family Medicine 04/25/22 Team Status: Inactive Member Role Status Dates Frida Coelho DO Primary Care Provider, Referring Provider Active Dr. Mohsen Hicks , DO Attending Provider Active Team Status: Active Member Role Status Dates Frida Coelho , DO Primary Care Provider Active Dr. Mohsen Hicks , DO Attending Provider, Other Prov ider Active Team Status: Inactive Member Role Status Dates Frida Coelho , Primary Care Provider Active Dr. Mohsen Hicks , DO Attending Provider Active Team Status: Active Member Role Status Dates Fridadario Coelho , DO Primary Care Provider Active Dr. Mohsen Hicks , DO Attending Provid er, Referring Provider, Other Provider Active Team Status: Inactive Member Role Status Dates Fridadario Coelho , DO Primary Care Provider Active Dr. Mohsen Hicks , DO Attending Provider, Referring Provider Active Team Status: Active Member Role Status Dates Fridaadrio Coelho , Primary Care Provider Active Health Risk Assessment Attending Provider Active Team Status: Inactive Member Role Status Dates Fridadario Coelho , Primary Care Provider Active Apryl Jain MD Attending Provider Active Accounting Auditor Relationship Specialty Start Date End Date Frida Coelho DO [address] [place] [address] PCP - General Family Medicine 04/25/22 Accounting Auditor Relationship Specialty Start Date End Date Frida Coelho DO [address] [place] [address] PCP - General Family Medicine 04/25/22 Accounting Auditor Relationship Specialty Start Date End Date Laquita, Frida BarbaraDO [address] [place] [address] PCP - General Family Medicine 04/25/22 Accounting Auditor Relationship Specialty Start Date End Date Frida Coelho DO [address] [place] [address] PCP - General Family Medicine 04/25/22 Accounting Auditor Relationship Specialty Start Date End Date Frida Coelho DO PCP - General Family Medicine 04/25/22 Accounting Auditor Relationship Specialty Start Date End Date Frida CoelhoDO PCP - [facility] 04/25/22 Accounting Auditor Relationship Specialty Start Date End Date Frida CoelhoDO PCP - [facility] 04/25/22 Accounting Auditor Relationship Specialty Start Date End Date LaquitaFrida conteDO [facility] - [facility] 04/25/22 FOR RECORDS PERTAINING TO PATIENTS WHO [...] BE BASED ON THE PRIMARY CLINICAL RECORDS. [facility] [employer] [facility]. provides no warranty or guarantee of the accuracy or completeness of information in this document.
[2024-10-04 10:00] LABS: Hematocrit 36.8 % (37-47); Hemoglobin 12.6 g/dL (12.0-15.0); Immature Granulocytes Count 0.010 X10^3/uL (0.0-0.0); Mean Corp Hgb Conc 34.2 g/dL (32-36); Mean Corpuscular Volume 94.1 fL (81-99); Mean Platelet Vol. 9.8 fl (6.2-12.0); NRBC Flagged by Analyzer 0 % (0-5); Platelet Count 325 K/mm3 (150-450); RBC Distribution Width CV 12.6 % (11.6-14.6); RBC Distribution Width SD 43.7 fl (35.1-43.9); Red Blood Count 3.91 M/mm3 (4.2-5.4); White Blood Count 7.2 K/mm3 (4.4-11.0)
[2024-10-04 10:36] LABS: AST(SGOT) 20 U/L (<=31); Alanine Aminotransfer ALT/SGPT 24 U/L (<=34); Albumin, Serum 4.2 g/dL (3.4-4.8); Alkaline Phosphatase 69 U/L (35-104); Anion Gap 14 (5-15); BUN 17 mg/dL (4-19); BUN/Creat Ratio 23.0 RATIO (10-20); Calcium,Total 9.8 mg/dL (7.6-11.0); Carbon Dioxide 22.9 mmol/L (21.0-32.0); Chloride 103 mmol/L (98-108); Cholesterol 149 mg/dL (<=200); Globulin 2.8 g/dL (2.2-4.2); Glucose 86 mg/dL (70-99); Low Density Lipoprotein Calc. 70 mg/dL; Potassium 4.1 mmol/L (3.3-5.1); Triglycerides 74 mg/dL; Very Low Density Lipoprotein 15 mg/dL (5-40); cholesterol:hdl ratio screen 2.31
[2024-10-04 16:00] LABS: Vitamin D,25 Hydroxy 34.1 ng/mL (30-100)
== END 2024-10-04 23:59 | disposition home or self-care (01) ==
LOC: MTLAB 07:32
PROVIDERS: PCP Family Medicine; Referring Provider Family Medicine; Visit Provider Family Medicine
DX: E11.9 Type 2 diabetes mellitus without complications (principal); E66.01 Morbid (severe) obesity due to excess calories; I10 Essential (primary) hypertension
CPT/HCPCS: 36415; 80053; 80061; 82306; 83036; 84443; 85025

== ENCOUNTER → 2024-11-22 | Outpatient (CLI) | payer MEDICARE, SELFPAY ==
--- NOTE | 2024-11-22 09:36 | RAD_ITS ---
PROCEDURE: HAND MIN 3 VIEWS 11/22/2024 REASON FOR EXAM: HAND PAIN TECHNIQUE: Procedure Code: JOANIE Modality: DX Procedure: HAND MIN 3 VIEWS Three views of the right hand COMPARISON: None FINDINGS: There is no fracture or dislocation identified. 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 Mild osteopenia is noted. There is no significant erosive disease. There is no focal soft tissue abnormality or radiopaque foreign body. RAD/Hand Min 3 Views IMPRESSION: There is no acute fracture or dislocation identified. Reading Location: [facility]
--- NOTE | 2024-11-22 09:36 | RAD_ITS ---
PROCEDURE: HAND MIN 3 VIEWS 11/22/2024 REASON FOR EXAM: HAND PAIN TECHNIQUE: Procedure Code: JOANIE Modality: DX Procedure: HAND MIN 3 VIEWS Left hand three views COMPARISON: None FINDINGS: There is no fracture or dislocation identified. 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 There is no significant erosive disease. Mild osteopenia is noted. There is no focal soft tissue abnormality or radiopaque foreign body. RAD/Hand Min 3 Views IMPRESSION: No fracture or dislocation is identified. Reading Location: [facility]
== END | disposition home or self-care (01) ==
LOC: MTRAD 09:36
PROVIDERS: PCP Family Medicine; Referring Provider Family Medicine; Visit Provider Family Medicine
DX: M79.641 Pain in right hand (principal)
CPT/HCPCS: 73130